=== PATIENT | female | born 1950 | race Caucasian/White ===

== ENCOUNTER → 2018-06-19 10:27 | Outpatient (CLI) | payer MEDICARE, OTHER, SELFPAY ==
[2018-06-19 11:35] LABS: Alanine Aminotransferase 19 IU/L (9-52); Albumin 4.4 g/dL (3.5-5.0); Alkaline Phosphatase 89 U/L (38-126); Aspartate Aminotransferase 29 IU/L (14-36); BUN Creatinine Ratio 34.5 (6-22); Bilirubin Total 0.5 mg/dL (0.2-1.3); Blood Urea Nitrogen 38 mg/dL (7-17); Calcium 10.2 mg/dL (8.4-10.2); Carbon Dioxide 30 mmol/L (22-32); Chloride 95 mmol/L (98-107); Cholesterol 157 mg/dL (140-199); Creatinine Urine Random 34.7 mg/dL; Estimated Glomerular Filt Rate 49.4 mL/min (>60); Globulin 4.4 g/dL (1.7-4.1); Glucose 116 mg/dL (80-110); HDL Cholesterol 46 mg/dL (40-60); HEMOLYSIS < 15 (0-50); LDL Cholesterol Calculated 85 mg/dL (<100); Potassium 4.6 mmol/L (3.4-5.1); Sodium 136 mmol/L (137-145); Total Protein 8.8 g/dL (6.3-8.2); Triglycerides 129 mg/dL (35-150)
[2018-06-19 11:40] LABS: Microalbumi Creatinin Ratio Ur 40.3 ug/mg CR (<30); Microalbumin Urine Random 1.4 mg/dL (0-1.6)
[2018-06-21 17:24] LABS: Fecal Immunochemical Test NOT DETECTED
== END ==
PROVIDERS: PCP Physician Assistant; Visit Provider Physician Assistant
DX: E78.2 Mixed hyperlipidemia (principal); I10 Essential (primary) hypertension; Z12.11 Encounter for screening for malignant neoplasm of colon
CPT/HCPCS: 36415; 80053; 80061; 82043; 82274; 82570

== ENCOUNTER → 2018-08-24 12:39 | Outpatient (CLI) | payer MEDICARE, OTHER, SELFPAY | PROVIDERS: Family Provider Physician Assistant; PCP Physician Assistant; Visit Provider Physician Assistant | DX: S81.802A Unspecified open wound, left lower leg, initial encounter (principal); S81.801A Unspecified open wound, right lower leg, initial encounter | CPT/HCPCS: 87070; 87075; 87077; 87186; 87205 ==

== ENCOUNTER → 2019-03-16 11:53 | Outpatient (CLI) | payer MEDICARE, OTHER, SELFPAY ==
[2019-03-16 12:30] LABS: Add Manual Diff / Slide Review NO; Basophils Absolute Auto 0 /uL (0-100); Basophils Percent Auto 0.4 % (0-2); Eosinophils Absolute Auto 100 /uL (0-450); Eosinophils Percent Auto 1.1 % (2-4); Hematocrit 46.1 % (36-46); Hemoglobin 15.2 g/dL (12.0-16.0); Lymphocytes Absolute Auto 1900 /uL (1100-4500); Lymphocytes Percent Auto 21.9 % (25-40); Mean Corpuscular Hemoglobin 28.9 PG (26-34); Mean Corpuscular Volume 87.8 fL (80-100); Monocytes Absolute Auto 1100 /uL (0-900); Monocytes Percent Auto 12.4 % (3-14); Neutrophils Absolute Auto 5500 /uL (1500-7000); Neutrophils Percent Auto 64.2 % (50-75); Platelet Count 242 X10^3/uL (150-400); Red Blood Cell Count 5.25 X10^6/uL (4.0-5.2); Red Cell Distribution Width 15.7 % (11.6-14.8); White Blood Cell Count 8.6 X10^3/uL (4.5-11.0)
[2019-03-16 13:25] LABS: Alanine Aminotransferase 30 IU/L (9-52); Albumin 4.7 g/dL (3.5-5.0); Albumin Globulin Ratio 1.2 (1.0-2.8); Alkaline Phosphatase 104 U/L (38-126); Aspartate Aminotransferase 34 IU/L (14-36); BUN Creatinine Ratio 25.6 (6-22); Bilirubin Total 0.9 mg/dL (0.2-1.3); Blood Urea Nitrogen 23 mg/dL (7-17); Calcium 10.6 mg/dL (8.4-10.2); Carbon Dioxide 25 mmol/L (22-32); Chloride 94 mmol/L (98-107); Cholesterol 168 mg/dL (140-199); Estimated Glomerular Filt Rate > 60.0 mL/min (>60); Globulin 3.9 g/dL (1.7-4.1); Glucose 114 mg/dL (80-110); HDL Cholesterol 55 mg/dL (40-60); HEMOLYSIS < 15 (0-50); LDL Cholesterol Calculated 78 mg/dL (<100); Potassium 4.8 mmol/L (3.4-5.1); Sodium 135 mmol/L (137-145); Total Protein 8.6 g/dL (6.3-8.2); Triglycerides 177 mg/dL (35-150)
[2019-03-16 17:17] LABS: Creatinine Urine Random 27.4 mg/dL
[2019-03-16 17:23] LABS: Microalbumin Urine Random 3.7 mg/dL (0-1.6)
== END ==
PROVIDERS: PCP Physician Assistant; Visit Provider Physician Assistant
DX: E78.2 Mixed hyperlipidemia (principal); G47.33 Obstructive sleep apnea (adult) (pediatric); I10 Essential (primary) hypertension
CPT/HCPCS: 36415; 80053; 80061; 82043; 82570; 85025

== ENCOUNTER → 2019-05-04 10:06 | Outpatient (CLI) | payer MEDICARE, OTHER, SELFPAY ==
[2019-05-04 10:13] LABS: Bacteria Urine None Seen; RBC Urine None Seen (0-5/HPF); WBC Urine None Seen (0-5/HPF)
[2019-05-04 10:43] LABS: Appearance Urine UA CLEAR; Bilirubin Urine UA NEGATIVE (NEGATIVE); Color Urine UA YELLOW; Glucose Urine UA NEGATIVE (Negative); Ketones Urine UA NEGATIVE (NEGATIVE); Leukocyte Esterase Urine UA NEGATIVE (NEGATIVE); Nitrite Urine UA NEGATIVE (Negative); Occult Blood Urine UA NEGATIVE (Negative); Protein Urine UA NEGATIVE (Negative); Specific Gravity Urine UA <=1.005 (1.000-1.035); Urobilinogen Urine UA 0.2 E.U./dL (0.2)
[2019-05-04 10:46] LABS: pH Urine UA 6.5 (4.5-8.0)
[2019-05-04 10:52] LABS: Culture Indicated Urine Cult Not Indicated; Urine Comments Microscopic Normal
[2019-05-04 11:13] LABS: Add Manual Diff / Slide Review NO; Basophils Absolute Auto 0 /uL (0-100); Basophils Percent Auto 0.5 % (0-2); Eosinophils Absolute Auto 100 /uL (0-450); Eosinophils Percent Auto 1.7 % (2-4); Hematocrit 42.3 % (36-46); Hemoglobin 14.4 g/dL (12.0-16.0); Lymphocytes Absolute Auto 1400 /uL (1100-4500); Lymphocytes Percent Auto 17.1 % (25-40); Mean Corpuscular HGB Conc 34.1 % (30-36); Mean Corpuscular Hemoglobin 29.9 PG (26-34); Mean Corpuscular Volume 87.8 fL (80-100); Monocytes Absolute Auto 900 /uL (0-900); Monocytes Percent Auto 10.8 % (3-14); Neutrophils Absolute Auto 5900 /uL (1500-7000); Neutrophils Percent Auto 69.9 % (50-75); Platelet Count 242 X10^3/uL (150-400); Red Blood Cell Count 4.82 X10^6/uL (4.0-5.2); Red Cell Distribution Width 15.3 % (11.6-14.8); White Blood Cell Count 8.4 X10^3/uL (4.5-11.0)
[2019-05-04 11:15] LABS: Alanine Aminotransferase 23 IU/L (<35); Albumin 4.5 g/dL (3.5-5.0); Alkaline Phosphatase 103 U/L (38-126); Aspartate Aminotransferase 34 IU/L (14-36); BUN Creatinine Ratio 31.1 (6-22); Bilirubin Total 0.7 mg/dL (0.2-1.3); Blood Urea Nitrogen 28 mg/dL (7-17); Calcium 10.2 mg/dL (8.4-10.2); Carbon Dioxide 26 mmol/L (22-32); Chloride 98 mmol/L (98-107); Estimated Glomerular Filt Rate > 60.0 mL/min (>60); Glucose 116 mg/dL (80-110); Potassium 4.2 mmol/L (3.4-5.1); Sodium 136 mmol/L (137-145); Total Protein 8.6 g/dL (6.3-8.2)
[2019-05-04 11:16] LABS: Albumin Globulin Ratio 1.1 (1.0-2.8); Globulin 4.1 g/dL (1.7-4.1); HEMOLYSIS < 15 (0-50)
== END ==
PROVIDERS: PCP Physician Assistant; Visit Provider Physician Assistant
DX: R79.89 Other specified abnormal findings of blood chemistry (principal); R79.9 Abnormal finding of blood chemistry, unspecified; R80.9 Proteinuria, unspecified
CPT/HCPCS: 36415; 80053; 81001; 85025

== ENCOUNTER → 2019-12-14 10:16 | Outpatient (CLI) | payer MEDICARE, OTHER, SELFPAY ==
[2019-12-14 11:23] LABS: Add Manual Diff / Slide Review NO; Basophils Absolute Auto 0 /uL (0-100); Basophils Percent Auto 0.5 % (0-2); Eosinophils Absolute Auto 100 /uL (0-450); Eosinophils Percent Auto 0.7 % (2-4); Hematocrit 43.9 % (36-46); Hemoglobin 14.3 g/dL (12.0-16.0); Lymphocytes Absolute Auto 1100 /uL (1100-4500); Lymphocytes Percent Auto 13.5 % (25-40); Mean Corpuscular HGB Conc 32.6 % (30-36); Mean Corpuscular Volume 88.9 fL (80-100); Monocytes Absolute Auto 700 /uL (0-900); Monocytes Percent Auto 8.7 % (3-14); Neutrophils Absolute Auto 6400 /uL (1500-7000); Neutrophils Percent Auto 76.6 % (50-75); Platelet Count 212 X10^3/uL (150-400); Red Blood Cell Count 4.94 X10^6/uL (4.0-5.2); Red Cell Distribution Width 14.5 % (11.6-14.8); White Blood Cell Count 8.4 X10^3/uL (4.5-11.0)
[2019-12-14 11:48] LABS: Alanine Aminotransferase 28 IU/L (<35); Albumin 4.4 g/dL (3.5-5.0); Albumin Globulin Ratio 1.1 (1.0-2.8); Alkaline Phosphatase 99 U/L (38-126); Aspartate Aminotransferase 32 IU/L (14-36); BUN Creatinine Ratio 28.6 (6-22); Bilirubin Total 0.5 mg/dL (0.2-1.3); Blood Urea Nitrogen 26 mg/dL (7-17); Calcium 10.5 mg/dL (8.4-10.2); Carbon Dioxide 28 mmol/L (22-32); Chloride 96 mmol/L (98-107); Cholesterol 155 mg/dL (140-199); Estimated Glomerular Filt Rate > 60.0 mL/min (>60); Globulin 4.1 g/dL (1.7-4.1); Glucose 119 mg/dL (80-110); HDL Cholesterol 43 mg/dL (40-60); HEMOLYSIS < 15 (0-50); LDL Cholesterol Calculated 81 mg/dL (<100); Potassium 4.1 mmol/L (3.4-5.1); Sodium 135 mmol/L (137-145); Total Protein 8.5 g/dL (6.3-8.2); Triglycerides 156 mg/dL (35-150)
[2019-12-14 12:03] LABS: Vitamin D 25 Hydroxy (D3) 34.5 ng/mL (30.0-100.0)
[2019-12-14 12:06] LABS: Free T3, Triiodothyronine Free 4.12 pg/mL (2.77-5.27); Free T4, Direct Thyroxine 1.35 ng/dL (0.78-2.19)
[2019-12-14 12:20] LABS: Thyroid Stimulating Hormone 1.49 uIU/mL (0.47-4.68)
== END ==
PROVIDERS: PCP Family Medicine; Referring Provider Family Medicine; Visit Provider Family Medicine
DX: E66.01 Morbid (severe) obesity due to excess calories (principal); E78.2 Mixed hyperlipidemia; I10 Essential (primary) hypertension
CPT/HCPCS: 36415; 80053; 80061; 82306; 84439; 84443; 84481; 85025

== ENCOUNTER → 2019-12-21 10:52 | Outpatient (CLI) | payer MEDICARE, OTHER, SELFPAY | PROVIDERS: PCP Family Medicine; Referring Provider Podiatrist; Visit Provider Family Medicine | DX: G90.09 Other idiopathic peripheral autonomic neuropathy (principal); L97.421 Non-pressure chronic ulcer of left heel and midfoot limited to breakdown of skin; L84 Corns and callosities; M79.672 Pain in left foot | CPT/HCPCS: 11055; 99203 ==

== ENCOUNTER → 2019-12-27 09:37 | Outpatient (CLI) | payer MEDICARE, OTHER, SELFPAY | PROVIDERS: PCP Family Medicine; Referring Provider Family Medicine; Visit Provider Family Medicine | DX: G90.09 Other idiopathic peripheral autonomic neuropathy (principal); L97.421 Non-pressure chronic ulcer of left heel and midfoot limited to breakdown of skin | CPT/HCPCS: 99213 ==

== ENCOUNTER → 2020-01-04 11:54 | Outpatient (CLI) | payer MEDICARE, OTHER, SELFPAY | PROVIDERS: PCP Family Medicine; Referring Provider Family Medicine; Visit Provider Family Medicine | DX: G90.09 Other idiopathic peripheral autonomic neuropathy (principal); L97.421 Non-pressure chronic ulcer of left heel and midfoot limited to breakdown of skin | CPT/HCPCS: 99213 ==

== ENCOUNTER → 2020-01-11 09:05 | Outpatient (CLI) | payer MEDICARE, OTHER, SELFPAY | PROVIDERS: PCP Family Medicine; Referring Provider Family Medicine; Visit Provider Family Medicine | DX: L97.421 Non-pressure chronic ulcer of left heel and midfoot limited to breakdown of skin (principal); I89.0 Lymphedema, not elsewhere classified | CPT/HCPCS: 97597; 99213 ==

== ENCOUNTER → 2020-01-18 08:40 | Outpatient (CLI) | payer MEDICARE, OTHER, SELFPAY | PROVIDERS: PCP Family Medicine; Referring Provider Family Medicine; Visit Provider Family Medicine | DX: G90.09 Other idiopathic peripheral autonomic neuropathy (principal); L97.421 Non-pressure chronic ulcer of left heel and midfoot limited to breakdown of skin; I89.0 Lymphedema, not elsewhere classified | CPT/HCPCS: 99213 ==

== ENCOUNTER → 2020-01-25 09:22 | Outpatient (CLI) | payer MEDICARE, OTHER, SELFPAY | PROVIDERS: PCP Family Medicine; Referring Provider Family Medicine; Visit Provider Family Medicine | DX: G90.09 Other idiopathic peripheral autonomic neuropathy (principal); L97.421 Non-pressure chronic ulcer of left heel and midfoot limited to breakdown of skin; I89.0 Lymphedema, not elsewhere classified; R68.89 Other general symptoms and signs | CPT/HCPCS: 87070; 87075; 87077; 87186; 87205; 97597; 99212 ==

== ENCOUNTER → 2020-02-01 10:04 | Outpatient (CLI) | payer MEDICARE, OTHER, SELFPAY | PROVIDERS: PCP Family Medicine; Referring Provider Family Medicine; Visit Provider Family Medicine | DX: G90.09 Other idiopathic peripheral autonomic neuropathy (principal); L97.421 Non-pressure chronic ulcer of left heel and midfoot limited to breakdown of skin; I89.0 Lymphedema, not elsewhere classified; R68.89 Other general symptoms and signs; L08.9 Local infection of the skin and subcutaneous tissue, unspecified | CPT/HCPCS: 87070; 87075; 87077; 87185; 87186; 87205; 97597; 99212; 99213 ==

== ENCOUNTER → 2020-02-14 14:03 | Outpatient (CLI) | payer MEDICARE, OTHER, SELFPAY | PROVIDERS: PCP Family Medicine; Referring Provider Family Medicine; Visit Provider Family Medicine | DX: G90.09 Other idiopathic peripheral autonomic neuropathy (principal); I89.0 Lymphedema, not elsewhere classified | CPT/HCPCS: 99212 ==

== ENCOUNTER → 2020-03-26 13:22 | Outpatient (CLI) | payer MEDICARE, OTHER, SELFPAY | PROVIDERS: PCP Family Medicine; Visit Provider Physician Assistant | DX: L03.115 Cellulitis of right lower limb (principal) | CPT/HCPCS: 87070; 87077; 87186; 87205 ==

== ENCOUNTER → 2020-04-05 13:48 | Outpatient (CLI) | payer MEDICARE, OTHER, SELFPAY | PROVIDERS: PCP Family Medicine; Referring Provider Family Medicine; Visit Provider Family Medicine | DX: I89.0 Lymphedema, not elsewhere classified (principal); S91.302A Unspecified open wound, left foot, initial encounter; G60.9 Hereditary and idiopathic neuropathy, unspecified | CPT/HCPCS: 99212; 99213 ==

== ENCOUNTER 2020-04-23 13:00 | Outpatient (RCR) | payer MEDICARE, OTHER, SELFPAY ==
--- NOTE | 2020-03-15 10:34 | PT.OPPOC ---
Physical, Occupational & Speech Therapy At [facility] Current Diagnoses Lymphedema, not elsewhere classified (03/15/20) Weakness (03/15/20) Visit Care Team Role Provider Type Chip Deutsch DO Primary Care Provider Physician Specialty: Family Practice Address: [address] [place] [address], [facility] Email: Ajay Guzman MD Attending Provider Physician Referring Provider Specialty: Wound Care Address: [address] [place] [address], [facility] Email: [email or web address] Plan Of Care PT-OP-T Assessment and Plan Start: 03/14/20 13:28 Freq: Status: Active Protocol: Document 03/15/20 10:34 SAK (Rec: 03/15/20 13:29 SAK [id number]) Physical Therapy Assessment Rehab Potential Rehabilitation Potential Good Evaluation Complexity Number of Personal Factors/Comorbidities 3 or More Number of Body Systems Impaired 4 or More Clinical Presentation at Evaluation Unstable Impairments Impairments Edema,Functional Mobility,Gait ,Strength Goals Two Impairment limited activity tolerance, difficulty with transfers Short Term Goal (STG) Patient able to ambulate 100 ft with appropriate assistive device without need for break Intermediate Goal (LTG) Patient able to ambulate 200' with appropriate device without need for break LTG Duration 06/13/20 One Impairment lymphedema Short Term Goal (STG) Decrease and stabilize lymphedema (no increase or decrease greater than 1 cm over the course of 1 week) and review and educate in all aspects of self-management for lymphedema. STG Duration 05/15/20 Sr. Payroll Processor Goal (LTG) Patient to be fit with appropriate compression stockings or compression alternative and be independent in all aspects of lymphedema management to include skin care, self-MLD, appropriate use and care of compression, therapeutic exercise LTG Duration 06/13/20 Assessment Summary Assessment Patient presents with function -limiting lymphedema bilateral LE's with initial cause of fasciotomies left LE after TKA . Prior lymphedema treatment not helpful. Wears compression stockings but not with adequate compression level and needs thigh high or stocking type; stating she is not able to don stockings with higher compression level. Her lymphedema extends above her knees as well. She has some sort of pump for home use but reports it only comes to her knee which is not adequate ; feel she may benefit from use of full length lymphedema pump with trunk component for best self-management in the home. Complicating her lymphedema is obesity, low activity level, history of wound left heel and skin breakdown behind her knees. She has poor mobility of her fasciotomy scars, and this extensive scarring inhibits lymphatic flow. Feel she would benefit from physical therapy for lymphedema management to include skin care, manual lymphatic drainage as possible , compression including helping patient to obtain appropriate compression garments or compression alternatives of appropriate compression level and length, and therapeutic exercise. Physical Therapy Plan Frequency and Duration Frequency of Treatment 20 visits Duration of Treatment 12 weeks Plan of Care Start Date 03/15/20 Plan of Care End Date 06/13/20 Therapeutic Interventions Therapeutic Interventions Gait Training,Home Exercise Program,Lymphedema Management, Manual Therapy,Patient/ Caregiver Education,Self-Care/ Home Management,Soft Tissue Mobilization,Taping, Therapeutic Activities, Therapeutic Exercises Modalities Vasopneumatic Devices Next Visit Focus/Plan Next Note Type Treatment Note Next Visit Plan Initiate skin care, MLD, compression wrapping with short stretch bandages, and lymphedema exercises. Plan of Care Dates Plan of Care Start Date 03/15/20 Plan of Care End Date 06/13/20 Electronically Signed by: Cinthya Mark, PT 03/19/20 1111 Please Sign and Return: I have reviewed this Plan of Care and certify that the skilled therapy services above are required to meet the patient?s needs. Physician Signature Date Printed Name and Credentials Clinical Instructor Signature Printed Name and Credentials
--- NOTE | 2020-03-15 10:34 | PT.OIE ---
Current Diagnoses Lymphedema, not elsewhere classified (03/15/20) Weakness (03/15/20) Past Medical History (Last Updated 01/04/20 @ 10:22 by Chip Deutsch DO) Allergic rhinitis (Chronic Unknown) Arthritis (Chronic Unknown) Cellulitis of right leg (Acute) Essential hypertension (Chronic 09/11/10) GERD (gastroesophageal reflux disease) (Chronic Unknown) GERD (gastroesophageal reflux disease) (Chronic Unknown) Hyperlipemia (Chronic Unknown) Hypertension (Chronic Unknown) Lymphedema (Chronic Unknown) Mixed hyperlipidemia (Chronic) Morbid obesity due to excess calories (Chronic) Obstructive sleep apnea (Chronic Unknown) Obstructive sleep apnea syndrome (Chronic) Staph skin infection (Acute) Past Surgical History (Last Reviewed 12/14/19 @ 09:37 by Chip Deutsch DO) Hx of total knee replacement (Resolved Unknown) Visit Care Team Role Provider Type Chip Deutsch DO Primary Care Provider Physician Specialty: Family Practice Address: [address] [place] [address] Email: Ajay Guzman MD Attending Provider Physician Referring Provider Specialty: Wound Care Address: [address] [place] [address] Email: [email or web address] Physical Therapy Initial Evaluation PT-OP-A Visit Information Start: 03/14/20 13:28 Freq: Status: Active Protocol: Document 03/15/20 10:34 SAK (Rec: 03/15/20 11:11 SAK [id number]) Out-Patient Physical Therapy Visit Information Visit Information Visit Type Initial Evaluation Visit Start Time 10:35 Visit Stop Time 11:56 Total Visit Minutes 86 Visit Number 1 Evaluation Information Evaluation Date 03/15/20 Precautions Precautions PMH: Neuropathy bilateral LE's , osteoarthritis, sleep apnea, cellulitis, HTN, left TKA with complications requiring fasciotomies PT-OP-B Current Condition Start: 03/14/20 13:28 Freq: Status: Active Protocol: Document 03/15/20 10:34 SAK (Rec: 03/15/20 11:11 SAK [id number]) Current Condition History of Current Condition Onset Date 6 yrs Current Complaints lymphedema bilateral LE's History of Current Condition left TKA with fasciotomies due to excess swelling. Used wound vac. Reports she did well for awhile, then 6 years gradual worsening on left, gradual onset of lymphedema on right LE as well. Treated with 2 diuretics, not helpful, worsened. Also reports weight gain. Complicated by osteoporosis left wrist and right shoulder the worst per patient report. States she has a lymphedema pump at home but only to knee. Has history of cellulitis 3x. Has compression stockings 8-15 mm Hg, knee high only. Lives alone, no assist with donning or doffing compression garments, or doing self- wrapping. Has neighbor who assists with yardwork and takes her to medical appointments. Patient states she doesn't feel she has lymphedema above the knee. Previously had Farrow wraps. Using walker for 5 years, uses single point canes into bathroom or in kitchen. Reports having difficult transfering in/out of her car ([facility]). Patient is 5'2, 370#. Prior Treatments and Tests Recently seeing wound care for wound on left heel. Staph infection behind both knees. Treatment Goals Patient/Caregiver Goals Reduce lymphedema, be able to self manage, improve her mobility. Prior Functional Status Baseline Function- ADL's Independent Baseline Function- Mobility Independent Baseline Function- Gait indep Current Functional Impairments (Reported) Functional Limitations- Mobility/Gait limited, uses 4WW Functional Limitations- Work/School retired PT-OP-C Subjective Start: 03/14/20 13:28 Freq: Status: Active Protocol: Document 03/15/20 10:34 [facility] (Rec: 03/15/20 13:29 SAK [id number]) OP-PT Pain Assessment Pain Assessment Grid Paper Pain Assessment Grid Completed Yes PT-OP-E Functional Tests Start: 03/14/20 13:28 Freq: Status: Active Protocol: Document 03/15/20 10:34 SAK (Rec: 03/15/20 13:29 SAK [id number]) Functional Tests 2 Minute Walk Test Distance 35' Device Used 4WW PT-OP-G Mobility & Gait Start: 03/14/20 13:28 Freq: Status: Active Protocol: Document 03/15/20 10:34 [facility] (Rec: 03/15/20 13:29 SAK [id number]) OP Mobility Evaluation Transfers Sit to Stand SB to min assist Car Transfers mod assist Functional Movements Other Functional Movements sit to supine: mod assist for LE's today on treatment table. Patient reports independent but labored at home. OP Gait Assessment Gait Gait Assistance Required: Independent Distance (Feet) 35 Assistive Devices Assistive Device 4 Wheeled Walker Gait Deviations General Gait Pattern Decreased Stride Length, Decreased Feet Clearance, Flexed Trunk,Wide Based Gait Factors Limiting Gait Function Factors Limiting Gait Function Decreased Strength,Respiratory Distress Comments Gait Comments Fatigues quickly PT-OP-J Posture/Palpation/Skin Start: 03/14/20 13:28 Freq: Status: Active Protocol: Document 03/15/20 10:34 SAK (Rec: 03/15/20 13:29 SAK [id number]) Palpation Assessment Location left LE Palpation Findings Edema,Soft Tissue Tightness Skin Assessment Edema Assessment bilateral LE's Edema Type Pitting Edema Appearance Discolored,Puffy,Shiny Subjective Edema Description Tightness Comments hemosideran staining bilateral lower legs left greater than right, Incisional Assessment Incision Appearance/Comments medial and lateral lower leg fasciotomy scars with decreased mobility, crusted appearance medially: see photos in chart PT-OP-K Range of Motion Start: 03/14/20 13:28 Freq: Status: Active Protocol: Document 03/15/20 10:34 SAK (Rec: 03/15/20 13:29 SAK [id number]) Hip Goniometric Range of Motion Hip lloyd Hip ROM WFL Yes Knee Goniometric Range of Motion Knee lloyd Knee ROM WFL Yes Ankle and Foot Goniometric Range of Motion Ankle and Foot lloyd Ankle/Foot ROM WFL Yes PT-OP-M Strength Start: 03/14/20 13:28 Freq: Status: Active Protocol: Document 03/15/20 10:34 SAK (Rec: 03/15/20 13:29 SAK [id number]) Hip Strength Hip Manual Muscle Testing lloyd Comments less than antigravity strength lloyd Knee Strength Knee Manual Muscle Testing lloyd Comments grossly 3+-4-/5 Ankle/Foot Strength Ankle and Foot Manual Muscle Testing lloyd Dorsiflexion (L4) 4 Good Plantarflexion (S1) 4 Good PT-OP-Q Treatments Start: 03/14/20 13:28 Freq: Status: Active Protocol: Document 03/15/20 10:34 SAK (Rec: 03/15/20 13:29 SAK [id number]) Lymphedema Treatment Lymphedema Wrapping Other No wrapping today. Patient assisted in donning bilateral Compression stockings. Issued information about local compression assembler fitter ( [employer] [facility] [place]), and other options as well. Patient Education Lymphedema Pathology educated verbally using visual aides Lymphedema Prevention issued written information and discussed Lymphedema Precautions issued written information and discussed Compression Garments discussed options, alternative wraps Sequential Lymphedema Exercises instructed and issued written handouts PT-OP-T Assessment and Plan Start: 03/14/20 13:28 Freq: Status: Active Protocol: Document 03/15/20 10:34 [facility] (Rec: 03/15/20 13:29 [facility] [id number]) Physical Therapy Assessment Rehab Potential Rehabilitation Potential Good Evaluation Complexity Number of Personal Factors/Comorbidities 3 or More Number of Body Systems Impaired 4 or More Clinical Presentation at Evaluation Unstable Impairments Impairments Edema,Functional Mobility,Gait ,Strength Goals Two Impairment limited activity tolerance, difficulty with transfers Short Term Goal (STG) Patient able to ambulate 100 ft with appropriate assistive device without need for break Casting Operator Goal (LTG) Patient able to ambulate 200' with appropriate device without need for break LTG Duration 06/13/20 One Impairment lymphedema Short Term Goal (STG) Decrease and stabilize lymphedema (no increase or decrease greater than 1 cm over the course of 1 week) and review and educate in all aspects of self-management for lymphedema. STG Duration 05/15/20 Custodial Goal (LTG) Patient to be fit with appropriate compression stockings or compression alternative and be independent in all aspects of lymphedema management to include skin care, self-MLD, appropriate use and care of compression, therapeutic exercise LTG Duration 06/13/20 Assessment Summary Assessment Patient presents with function -limiting lymphedema bilateral LE's with initial cause of fasciotomies left LE after TKA . Prior lymphedema treatment not helpful. Wears compression stockings but not with adequate compression level and needs thigh high or stocking type; stating she is not able to don stockings with higher compression level. Her lymphedema extends above her knees as well. She has some sort of pump for home use but reports it only comes to her knee which is not adequate ; feel she may benefit from use of full length lymphedema pump with trunk component for best self-management in the home. Complicating her lymphedema is obesity, low activity level, history of wound left heel and skin breakdown behind her knees. She has poor mobility of her fasciotomy scars, and this extensive scarring inhibits lymphatic flow. Feel she would benefit from physical therapy for lymphedema management to include skin care, manual lymphatic drainage as possible , compression including helping patient to obtain appropriate compression garments or compression alternatives of appropriate compression level and length, and therapeutic exercise. Physical Therapy Plan Frequency and Duration Frequency of Treatment 20 visits Duration of Treatment 12 weeks Plan of Care Start Date 03/15/20 Plan of Care End Date 06/13/20 Therapeutic Interventions Therapeutic Interventions Gait Training,Home Exercise Program,Lymphedema Management, Manual Therapy,Patient/ Caregiver Education,Self-Care/ Home Management,Soft Tissue Mobilization,Taping, Therapeutic Activities, Therapeutic Exercises Modalities Vasopneumatic Devices Next Visit Focus/Plan Next Note Type Treatment Note Next Visit Plan Initiate skin care, MLD, compression wrapping with short stretch bandages, and lymphedema exercises.
--- NOTE | 2020-03-21 08:11 | PT-OP ANOTE ---
cancelled due to ill
--- NOTE | 2020-03-26 15:50 | PT-OP ANOTE ---
cancelled appointment due to cellulitis
--- NOTE | 2020-03-28 16:07 | PT.OTN ---
Current Diagnoses Lymphedema, not elsewhere classified (03/28/20) Weakness (03/28/20) Physical Therapy Treatment Note PT-OP-A Visit Information Start: 03/14/20 13:28 Freq: Status: Active Protocol: Document 03/28/20 15:57 SAK (Rec: 03/28/20 16:07 SAK [id number]) Out-Patient Physical Therapy Visit Information Visit Information Visit Type Treatment Note Visit Start Time 14:30 Visit Stop Time 15:45 Total Visit Minutes 75 Visit Number 2 Evaluation Information Evaluation Date 03/15/20 Precautions Precautions PMH: Neuropathy bilateral LE's , osteoarthritis, sleep apnea, cellulitis, HTN, left TKA with complications requiring fasciotomies PT-OP-B Current Condition Start: 03/14/20 13:28 Freq: Status: Active Protocol: Document 03/28/20 15:57 SAK (Rec: 03/28/20 16:07 SAK [id number]) Current Condition History of Current Condition Onset Date 6 yrs Current Complaints lymphedema bilateral LE's History of Current Condition left TKA with fasciotomies due to excess swelling. Used wound vac. Reports she did well for awhile, then 6 years gradual worsening on left, gradual onset of lymphedema on right LE as well. Treated with 2 diuretics, not helpful, worsened. Also reports weight gain. Complicated by osteoporosis left wrist and right shoulder the worst per patient report. States she has a lymphedema pump at home but only to knee. Has history of cellulitis 3x. Has compression stockings 8-15 mm Hg, knee high only. Lives alone, no assist with donning or doffing compression garments, or doing self- wrapping. Has neighbor who assists with yardwork and takes her to medical appointments. Patient states she doesn't feel she has lymphedema above the knee. Previously had Farrow wraps. Using walker for 5 years, uses single point canes into bathroom or in kitchen. Reports having difficult transfering in/out of her car ([facility] Patient is 5'2, 370#. Prior Treatments and Tests Recently seeing wound care for wound on left heel. Staph infection behind both knees. Treatment Goals Patient/Caregiver Goals Reduce lymphedema, be able to self manage, improve her mobility. PT-OP-C Subjective Start: 03/14/20 13:28 Freq: Status: Active Protocol: Document 03/15/20 10:34 SAK (Rec: 03/15/20 13:29 SAK [id number]) OP-PT Pain Assessment Pain Assessment Grid Paper Pain Assessment Grid Completed Yes PT-OP-E Functional Tests Start: 03/14/20 13:28 Freq: Status: Active Protocol: Document 03/15/20 10:34 SAK (Rec: 03/15/20 13:29 SAK [id number]) Functional Tests 2 Minute Walk Test Distance 35' Device Used 4WW PT-OP-G Mobility & Gait Start: 03/14/20 13:28 Freq: Status: Active Protocol: Document 03/15/20 10:34 SAK (Rec: 03/15/20 13:29 SAK [id number]) OP Mobility Evaluation Transfers Sit to Stand SB to min assist Car Transfers mod assist Functional Movements Other Functional Movements sit to supine: mod assist for LE's today on treatment table. Patient reports independent but labored at home. OP Gait Assessment Gait Gait Assistance Required: Independent Distance (Feet) 35 Assistive Devices Assistive Device 4 Wheeled Walker Gait Deviations General Gait Pattern Decreased Stride Length, Decreased Feet Clearance, Flexed Trunk,Wide Based Gait Factors Limiting Gait Function Factors Limiting Gait Function Decreased Strength,Respiratory Distress Comments Gait Comments Fatigues quickly PT-OP-J Posture/Palpation/Skin Start: 03/14/20 13:28 Freq: Status: Active Protocol: Document 03/15/20 10:34 [facility] (Rec: 03/15/20 13:29 [facility] [id number]) Palpation Assessment Location left LE Palpation Findings Edema,Soft Tissue Tightness Skin Assessment Edema Assessment bilateral LE's Edema Type Pitting Edema Appearance Discolored,Puffy,Shiny Subjective Edema Description Tightness Comments hemosideran staining bilateral lower legs left greater than right, Incisional Assessment Incision Appearance/Comments medial and lateral lower leg fasciotomy scars with decreased mobility, crusted appearance medially: see photos in chart PT-OP-K Range of Motion Start: 03/14/20 13:28 Freq: Status: Active Protocol: Document 03/15/20 10:34 [facility] (Rec: 03/15/20 13:29 SAK [id number]) Hip Goniometric Range of Motion Hip lloyd Hip ROM WFL Yes Knee Goniometric Range of Motion Knee lloyd Knee ROM WFL Yes Ankle and Foot Goniometric Range of Motion Ankle and Foot lloyd Ankle/Foot ROM WFL Yes PT-OP-M Strength Start: 03/14/20 13:28 Freq: Status: Active Protocol: Document 03/15/20 10:34 [facility] (Rec: 03/15/20 13:29 SAK [id number]) Hip Strength Hip Manual Muscle Testing lloyd Comments less than antigravity strength lloyd Knee Strength Knee Manual Muscle Testing lloyd Comments grossly 3+-4-/5 Ankle/Foot Strength Ankle and Foot Manual Muscle Testing lloyd Dorsiflexion (L4) 4 Good Plantarflexion (S1) 4 Good PT-OP-N Lymphedema Start: 03/19/20 11:08 Freq: Status: Active Protocol: Document 03/15/20 10:34 [facility] (Rec: 03/19/20 11:11 [facility] [id number]) Lymphedema Measurements Lower Extremity Circumference Measurements Right Affected MT Heads 22.1 cm Mid-foot 22.6 cm Medial Malleolus 35.6 cm 10 cm From Medial Malleolus 37.1 cm 20 cm From Medial Malleolus 59.9 cm 30 cm From Medial Malleolus 64.5 cm 40 cm From Medial Malleolus 72.4 cm 50 cm From Medial Malleolus 84.3 cm 60 cm From Medial Malleolus 85.4 cm Left Affected MT Heads 23.2 cm Mid-foot 23.8 cm Medial Malleolus 34.1 cm 10 cm From Medial Malleolus 42 cm 20 cm From Medial Malleolus 69.4 cm 30 cm From Medial Malleolus 75.7 cm 40 cm From Medial Malleolus 82.4 cm 50 cm From Medial Malleolus 94.5 cm 60 cm From Medial Malleolus 92.4 cm PT-OP-Q Treatments Start: 03/14/20 13:28 Freq: Status: Active Protocol: Document 03/28/20 15:57 [facility] (Rec: 03/28/20 16:07 [facility] [id number]) Lymphedema Treatment Lymphedema Wrapping Body Location right LE Materials Tricofix size G, Artiflex, black foam, Comprilan. Other left LE: knee high compression stocking, Tubigrip size G ankle to knee Sequential Lymphedema Exercises Location ankle pumps, LAQ Other Other instructed friend [place] in lymphedema wrapping Consulted with wound care regarding patients wound posterior right knee; they scheduled patient for appointment and provided absorbant dressing. PT-OP-T Assessment and Plan Start: 03/14/20 13:28 Freq: Status: Active Protocol: Document 03/28/20 15:57 [facility] (Rec: 03/28/20 16:07 [facility] [id number]) Physical Therapy Assessment Goals Two Impairment limited activity tolerance, difficulty with transfers Short Term Goal (STG) Patient able to ambulate 100 ft with appropriate assistive device without need for break Fdc Goal (LTG) Patient able to ambulate 200' with appropriate device without need for break LTG Duration 06/13/20 One Impairment lymphedema Short Term Goal (STG) Decrease and stabilize lymphedema (no increase or decrease greater than 1 cm over the course of 1 week) and review and educate in all aspects of self-management for lymphedema. STG Duration 05/15/20 Cat Wagon Operator Goal (LTG) Patient to be fit with appropriate compression stockings or compression alternative and be independent in all aspects of lymphedema management to include skin care, self-MLD, appropriate use and care of compression, therapeutic exercise LTG Duration 06/13/20 Assessment Summary Assessment Patient circumferential measurements increased right LE with increased redness and warmth due to lymphedema. Patient on antibiotics. Initiated lymphedema wrapping right LE with instruction of patient's friend [place] who will be wrapping at home over the weekend; he was very attentive and receptive to instruction. Measurements decreased some on left, patient requested only wrapping one LE so Tubigrip size H applied left LE over compression stocking. Physical Therapy Plan Frequency and Duration Frequency of Treatment 20 visits Duration of Treatment 12 weeks Plan of Care Start Date 03/15/20 Plan of Care End Date 06/13/20 Therapeutic Interventions Therapeutic Interventions Gait Training,Home Exercise Program,Lymphedema Management, Manual Therapy,Patient/ Caregiver Education,Self-Care/ Home Management,Soft Tissue Mobilization,Taping, Therapeutic Activities, Therapeutic Exercises Modalities Vasopneumatic Devices Next Visit Focus/Plan Next Note Type Treatment Note Next Visit Plan Assess response to lymphedema wraps, circumferential measurements, initiate MLD, lymphedema wrapping, lymphedema exercises.
--- NOTE | 2020-03-29 14:26 | PT.OTN ---
Current Diagnoses Lymphedema, not elsewhere classified (03/29/20) Weakness (03/29/20) Physical Therapy Treatment Note PT-OP-A Visit Information Start: 03/14/20 13:28 Freq: Status: Active Protocol: Document 03/29/20 12:58 SAK (Rec: 03/29/20 13:12 SAK [id number]) Out-Patient Physical Therapy Visit Information Visit Information Visit Type Treatment Note Visit Start Time 13:00 Visit Stop Time 14:30 Total Visit Minutes 75 Visit Number 3 Evaluation Information Evaluation Date 03/15/20 Precautions Precautions PMH: Neuropathy bilateral LE's , osteoarthritis, sleep apnea, cellulitis, HTN, left TKA with complications requiring fasciotomies PT-OP-B Current Condition Start: 03/14/20 13:28 Freq: Status: Active Protocol: Document 03/28/20 15:57 SAK (Rec: 03/28/20 16:07 SAK [id number]) Current Condition History of Current Condition Onset Date 6 yrs Current Complaints lymphedema bilateral LE's History of Current Condition left TKA with fasciotomies due to excess swelling. Used wound vac. Reports she did well for awhile, then 6 years gradual worsening on left, gradual onset of lymphedema on right LE as well. Treated with 2 diuretics, not helpful, worsened. Also reports weight gain. Complicated by osteoporosis left wrist and right shoulder the worst per patient report. States she has a lymphedema pump at home but only to knee. Has history of cellulitis 3x. Has compression stockings 8-15 mm Hg, knee high only. Lives alone, no assist with donning or doffing compression garments, or doing self- wrapping. Has neighbor who assists with yardwork and takes her to medical appointments. Patient states she doesn't feel she has lymphedema above the knee. Previously had Farrow wraps. Using walker for 5 years, uses single point canes into bathroom or in kitchen. Reports having difficult transfering in/out of her car ([facility] Patient is 5'2, 370#. Prior Treatments and Tests Recently seeing wound care for wound on left heel. Staph infection behind both knees. Treatment Goals Patient/Caregiver Goals Reduce lymphedema, be able to self manage, improve her mobility. PT-OP-C Subjective Start: 03/14/20 13:28 Freq: Status: Active Protocol: Document 03/29/20 12:58 SAK (Rec: 03/29/20 13:12 SAK [id number]) OP-PT Subjective Patient Comments Patient Comments Top wrap came off before bed. Feels wraps helped. Tubigrip on left LE ok, until during the night. Being prescribed new antibiotic. PT-OP-E Functional Tests Start: 03/14/20 13:28 Freq: Status: Active Protocol: Document 03/15/20 10:34 SAK (Rec: 03/15/20 13:29 SAK [id number]) Functional Tests 2 Minute Walk Test Distance 35' Device Used 4WW PT-OP-G Mobility & Gait Start: 03/14/20 13:28 Freq: Status: Active Protocol: Document 03/15/20 10:34 SAK (Rec: 03/15/20 13:29 SAK [id number]) OP Mobility Evaluation Transfers Sit to Stand SB to min assist Car Transfers mod assist Functional Movements Other Functional Movements sit to supine: mod assist for LE's today on treatment table. Patient reports independent but labored at home. OP Gait Assessment Gait Gait Assistance Required: Independent Distance (Feet) 35 Assistive Devices Assistive Device 4 Wheeled Walker Gait Deviations General Gait Pattern Decreased Stride Length, Decreased Feet Clearance, Flexed Trunk,Wide Based Gait Factors Limiting Gait Function Factors Limiting Gait Function Decreased Strength,Respiratory Distress Comments Gait Comments Fatigues quickly PT-OP-J Posture/Palpation/Skin Start: 03/14/20 13:28 Freq: Status: Active Protocol: Document 03/15/20 10:34 SAK (Rec: 03/15/20 13:29 SAK [id number]) Palpation Assessment Location left LE Palpation Findings Edema,Soft Tissue Tightness Skin Assessment Edema Assessment bilateral LE's Edema Type Pitting Edema Appearance Discolored,Puffy,Shiny Subjective Edema Description Tightness Comments hemosideran staining bilateral lower legs left greater than right, Incisional Assessment Incision Appearance/Comments medial and lateral lower leg fasciotomy scars with decreased mobility, crusted appearance medially: see photos in chart PT-OP-K Range of Motion Start: 03/14/20 13:28 Freq: Status: Active Protocol: Document 03/15/20 10:34 SAK (Rec: 03/15/20 13:29 SAK [id number]) Hip Goniometric Range of Motion Hip lloyd Hip ROM WFL Yes Knee Goniometric Range of Motion Knee lloyd Knee ROM WFL Yes Ankle and Foot Goniometric Range of Motion Ankle and Foot lloyd Ankle/Foot ROM WFL Yes PT-OP-M Strength Start: 03/14/20 13:28 Freq: Status: Active Protocol: Document 03/15/20 10:34 [facility] (Rec: 03/15/20 13:29 SAK [id number]) Hip Strength Hip Manual Muscle Testing lloyd Comments less than antigravity strength lloyd Knee Strength Knee Manual Muscle Testing lloyd Comments grossly 3+-4-/5 Ankle/Foot Strength Ankle and Foot Manual Muscle Testing lloyd Dorsiflexion (L4) 4 Good Plantarflexion (S1) 4 Good PT-OP-N Lymphedema Start: 03/19/20 11:08 Freq: Status: Active Protocol: Document 03/29/20 12:58 [facility] (Rec: 03/29/20 14:26 [facility] [id number]) Lymphedema Measurements Lower Extremity Circumference Measurements Right Affected MT Heads 22.8 cm Mid-foot 21.9 cm Medial Malleolus 30.5 cm 10 cm From Medial Malleolus 36.5 cm 20 cm From Medial Malleolus 59 cm 30 cm From Medial Malleolus 65 cm 40 cm From Medial Malleolus 72.4 cm 50 cm From Medial Malleolus 87 cm PT-OP-Q Treatments Start: 03/14/20 13:28 Freq: Status: Active Protocol: Document 03/29/20 12:58 [facility] (Rec: 03/29/20 14:26 [facility] [id number]) Lymphedema Treatment Lymphedema Wrapping Body Location right LE Materials Tricofix size G, Artiflex, black foam, Comprilan to just below the knee Other left LE: knee high compression stocking, Tubigrip size G ankle to knee, size F Tubigrip toes to above ankle Sequential Lymphedema Exercises Location ankle pumps, LAQ Comments 10 reps ea x 2 Other Other Continued instruction of Severino in lymphedema wrapping with short stretch bandages right, tubigrip left (patient refuses lymphedema wraps on both) PT-OP-T Assessment and Plan Start: 03/14/20 13:28 Freq: Status: Active Protocol: Document 03/29/20 12:58 [facility] (Rec: 03/29/20 13:12 [facility] [id number]) Physical Therapy Assessment Goals Two Impairment limited activity tolerance, difficulty with transfers Short Term Goal (STG) Patient able to ambulate 100 ft with appropriate assistive device without need for break Franchise Manager Goal (LTG) Patient able to ambulate 200' with appropriate device without need for break LTG Duration 06/13/20 One Impairment lymphedema Short Term Goal (STG) Decrease and stabilize lymphedema (no increase or decrease greater than 1 cm over the course of 1 week) and review and educate in all aspects of self-management for lymphedema. STG Duration 05/15/20 Franchise Manager Goal (LTG) Patient to be fit with appropriate compression stockings or compression alternative and be independent in all aspects of lymphedema management to include skin care, self-MLD, appropriate use and care of compression, therapeutic exercise LTG Duration 06/13/20 Assessment Summary Assessment Decreased circumferential measurements today, most dramatically at ankle with 6 cm decrease. Due to drainage in wound behind and above knee , lymphedema wraps stopped below the knee today. Patient to see wound care next week. Physical Therapy Plan Frequency and Duration Frequency of Treatment 20 visits Duration of Treatment 12 weeks Plan of Care Start Date 03/15/20 Plan of Care End Date 06/13/20 Therapeutic Interventions Therapeutic Interventions Gait Training,Home Exercise Program,Lymphedema Management, Manual Therapy,Patient/ Caregiver Education,Self-Care/ Home Management,Soft Tissue Mobilization,Taping, Therapeutic Activities, Therapeutic Exercises Modalities Vasopneumatic Devices Next Visit Focus/Plan Next Note Type Treatment Note Next Visit Plan Continue lymphedema management .
--- NOTE | 2020-04-05 12:43 | PT.OTN ---
Current Diagnoses Lymphedema, not elsewhere classified (04/05/20) Weakness (04/05/20) Physical Therapy Treatment Note PT-OP-A Visit Information Start: 03/14/20 13:28 Freq: Status: Active Protocol: Document 04/05/20 10:31 SAK (Rec: 04/05/20 10:47 SAK [id number]) Out-Patient Physical Therapy Visit Information Visit Information Visit Type Treatment Note Visit Start Time 10:30 Visit Stop Time 11:54 Total Visit Minutes 84 Visit Number 4 Evaluation Information Evaluation Date 03/15/20 Precautions Precautions PMH: Neuropathy bilateral LE's , osteoarthritis, sleep apnea, cellulitis, HTN, left TKA with complications requiring fasciotomies PT-OP-B Current Condition Start: 03/14/20 13:28 Freq: Status: Active Protocol: Document 03/28/20 15:57 SAK (Rec: 03/28/20 16:07 SAK [id number]) Current Condition History of Current Condition Onset Date 6 yrs Current Complaints lymphedema bilateral LE's History of Current Condition left TKA with fasciotomies due to excess swelling. Used wound vac. Reports she did well for awhile, then 6 years gradual worsening on left, gradual onset of lymphedema on right LE as well. Treated with 2 diuretics, not helpful, worsened. Also reports weight gain. Complicated by osteoporosis left wrist and right shoulder the worst per patient report. States she has a lymphedema pump at home but only to knee. Has history of cellulitis 3x. Has compression stockings 8-15 mm Hg, knee high only. Lives alone, no assist with donning or doffing compression garments, or doing self- wrapping. Has neighbor who assists with yardwork and takes her to medical appointments. Patient states she doesn't feel she has lymphedema above the knee. Previously had Farrow wraps. Using walker for 5 years, uses single point canes into bathroom or in kitchen. Reports having difficult transfering in/out of her car ([facility] Patient is 5'2, 370#. Prior Treatments and Tests Recently seeing wound care for wound on left heel. Staph infection behind both knees. Treatment Goals Patient/Caregiver Goals Reduce lymphedema, be able to self manage, improve her mobility. PT-OP-C Subjective Start: 03/14/20 13:28 Freq: Status: Active Protocol: Document 04/05/20 10:31 SAK (Rec: 04/05/20 10:47 SAK [id number]) OP-PT Subjective Patient Comments Patient Comments Went to [facility] in [place] for consult regarding compression wraps, had to have fitter come to her car for measurements, Reduction wraps should come over the next week . Caregiver Severino has been doing pretty well with the wrapping, firm in pm, loose in am; wrapping helpful. PT-OP-E Functional Tests Start: 03/14/20 13:28 Freq: Status: Active Protocol: Document 03/15/20 10:34 SAK (Rec: 03/15/20 13:29 SAK [id number]) Functional Tests 2 Minute Walk Test Distance 35' Device Used 4WW PT-OP-G Mobility & Gait Start: 03/14/20 13:28 Freq: Status: Active Protocol: Document 03/15/20 10:34 SAK (Rec: 03/15/20 13:29 SAK [id number]) OP Mobility Evaluation Transfers Sit to Stand SB to min assist Car Transfers mod assist Functional Movements Other Functional Movements sit to supine: mod assist for LE's today on treatment table. Patient reports independent but labored at home. OP Gait Assessment Gait Gait Assistance Required: Independent Distance (Feet) 35 Assistive Devices Assistive Device 4 Wheeled Walker Gait Deviations General Gait Pattern Decreased Stride Length, Decreased Feet Clearance, Flexed Trunk,Wide Based Gait Factors Limiting Gait Function Factors Limiting Gait Function Decreased Strength,Respiratory Distress Comments Gait Comments Fatigues quickly PT-OP-J Posture/Palpation/Skin Start: 03/14/20 13:28 Freq: Status: Active Protocol: Document 03/15/20 10:34 SAK (Rec: 03/15/20 13:29 SAK [id number]) Palpation Assessment Location left LE Palpation Findings Edema,Soft Tissue Tightness Skin Assessment Edema Assessment bilateral LE's Edema Type Pitting Edema Appearance Discolored,Puffy,Shiny Subjective Edema Description Tightness Comments hemosideran staining bilateral lower legs left greater than right, Incisional Assessment Incision Appearance/Comments medial and lateral lower leg fasciotomy scars with decreased mobility, crusted appearance medially: see photos in chart PT-OP-K Range of Motion Start: 03/14/20 13:28 Freq: Status: Active Protocol: Document 03/15/20 10:34 SAK (Rec: 03/15/20 13:29 SAK [id number]) Hip Goniometric Range of Motion Hip lloyd Hip ROM WFL Yes Knee Goniometric Range of Motion Knee lloyd Knee ROM WFL Yes Ankle and Foot Goniometric Range of Motion Ankle and Foot lloyd Ankle/Foot ROM WFL Yes PT-OP-M Strength Start: 03/14/20 13:28 Freq: Status: Active Protocol: Document 03/15/20 10:34 [facility] (Rec: 03/15/20 13:29 SAK [id number]) Hip Strength Hip Manual Muscle Testing lloyd Comments less than antigravity strength lloyd Knee Strength Knee Manual Muscle Testing lloyd Comments grossly 3+-4-/5 Ankle/Foot Strength Ankle and Foot Manual Muscle Testing lloyd Dorsiflexion (L4) 4 Good Plantarflexion (S1) 4 Good PT-OP-N Lymphedema Start: 03/19/20 11:08 Freq: Status: Active Protocol: Document 04/05/20 10:31 [facility] (Rec: 04/05/20 12:43 [facility] [id number]) Lymphedema Measurements Lower Extremity Circumference Measurements Right Affected MT Heads 22.8 cm Mid-foot 23.4 cm Medial Malleolus 35.5 cm 10 cm From Medial Malleolus 35.7 cm 20 cm From Medial Malleolus 59.7 cm 30 cm From Medial Malleolus 62 cm 40 cm From Medial Malleolus 73.2 cm 50 cm From Medial Malleolus 90.1 cm 60 cm From Medial Malleolus 88 cm Left Affected MT Heads 23.1 cm Mid-foot 23.1 cm Medial Malleolus 34 cm 10 cm From Medial Malleolus 38.1 cm 20 cm From Medial Malleolus 67 cm 30 cm From Medial Malleolus 75.2 cm 40 cm From Medial Malleolus 78.3 cm 50 cm From Medial Malleolus 96 cm 60 cm From Medial Malleolus 96 cm PT-OP-Q Treatments Start: 03/14/20 13:28 Freq: Status: Active Protocol: Document 04/05/20 10:31 [facility] (Rec: 04/05/20 10:47 SAK [id number]) Lymphedema Treatment Manual Lymphatic Drainage Location for bilateral LE lymphedema Comments reclined Lymphedema Wrapping Body Location right LE Materials Knee high compression stocking , Tubigrip size G 2 layers ankle to mid calf, 1 layer mid calf to knee, size F Tubigrip foot to above ankle with 2 layers at ankle Other left LE: knee high compression stocking, Tubigrip size G ankle to kne with 2 layers ankle to mid calf, size F Tubigrip toes to above ankle with 2 layers at ankle Sequential Lymphedema Exercises Location ankle pumps, LAQ Comments 10 reps ea x 2 Patient Education Sequential Lymphedema Exercises 10 x ea Other Other No lymphedema wrapping with Artiflex and Comprilan today due to patient having wound care appointment after PT. PT-OP-T Assessment and Plan Start: 03/14/20 13:28 Freq: Status: Active Protocol: Document 04/05/20 10:31 SAK (Rec: 04/05/20 10:47 SAK [id number]) Physical Therapy Assessment Goals Two Impairment limited activity tolerance, difficulty with transfers Short Term Goal (STG) Patient able to ambulate 100 ft with appropriate assistive device without need for break Manager Of Security Goal (LTG) Patient able to ambulate 200' with appropriate device without need for break LTG Duration 06/13/20 One Impairment lymphedema Short Term Goal (STG) Decrease and stabilize lymphedema (no increase or decrease greater than 1 cm over the course of 1 week) and review and educate in all aspects of self-management for lymphedema. STG Duration 05/15/20 Manager Of Security Goal (LTG) Patient to be fit with appropriate compression stockings or compression alternative and be independent in all aspects of lymphedema management to include skin care, self-MLD, appropriate use and care of compression, therapeutic exercise LTG Duration 06/13/20 Assessment Summary Assessment Patient hasn't been wearing cmpression wraps for 3 hours prior to PT today due to taken off in am and not redone; patient reports she can tell swelling has increased without them on. Physical Therapy Plan Frequency and Duration Frequency of Treatment 20 visits Duration of Treatment 12 weeks Plan of Care Start Date 03/15/20 Plan of Care End Date 06/13/20 Therapeutic Interventions Therapeutic Interventions Gait Training,Home Exercise Program,Lymphedema Management, Manual Therapy,Patient/ Caregiver Education,Self-Care/ Home Management,Soft Tissue Mobilization,Taping, Therapeutic Activities, Therapeutic Exercises Modalities Vasopneumatic Devices Next Visit Focus/Plan Next Note Type Treatment Note Next Visit Plan Continue lymphedema management .
--- NOTE | 2020-04-10 12:07 | PT.OTN ---
Current Diagnoses Lymphedema, not elsewhere classified (04/10/20) Weakness (04/10/20) Physical Therapy Treatment Note PT-OP-A Visit Information Start: 03/14/20 13:28 Freq: Status: Active Protocol: Document 04/10/20 10:33 SAK (Rec: 04/10/20 10:48 SAK [id number]) Out-Patient Physical Therapy Visit Information Visit Information Visit Type Treatment Note Visit Start Time 10:30 Visit Stop Time 11:54 Total Visit Minutes 84 Visit Number 5 Evaluation Information Evaluation Date 03/15/20 Precautions Precautions PMH: Neuropathy bilateral LE's , osteoarthritis, sleep apnea, cellulitis, HTN, left TKA with complications requiring fasciotomies PT-OP-B Current Condition Start: 03/14/20 13:28 Freq: Status: Active Protocol: Document 03/28/20 15:57 SAK (Rec: 03/28/20 16:07 SAK [id number]) Current Condition History of Current Condition Onset Date 6 yrs Current Complaints lymphedema bilateral LE's History of Current Condition left TKA with fasciotomies due to excess swelling. Used wound vac. Reports she did well for awhile, then 6 years gradual worsening on left, gradual onset of lymphedema on right LE as well. Treated with 2 diuretics, not helpful, worsened. Also reports weight gain. Complicated by osteoporosis left wrist and right shoulder the worst per patient report. States she has a lymphedema pump at home but only to knee. Has history of cellulitis 3x. Has compression stockings 8-15 mm Hg, knee high only. Lives alone, no assist with donning or doffing compression garments, or doing self- wrapping. Has neighbor who assists with yardwork and takes her to medical appointments. Patient states she doesn't feel she has lymphedema above the knee. Previously had Farrow wraps. Using walker for 5 years, uses single point canes into bathroom or in kitchen. Reports having difficult transfering in/out of her car ([facility]). Patient is 5'2, 370#. Prior Treatments and Tests Recently seeing wound care for wound on left heel. Staph infection behind both knees. Treatment Goals Patient/Caregiver Goals Reduce lymphedema, be able to self manage, improve her mobility. PT-OP-C Subjective Start: 03/14/20 13:28 Freq: Status: Active Protocol: Document 04/10/20 10:33 SAK (Rec: 04/10/20 10:48 SAK [id number]) OP-PT Subjective Patient Comments Patient Comments Should get compression wraps tonday. Tubigrip works best, compression wraps slide down. PT-OP-E Functional Tests Start: 03/14/20 13:28 Freq: Status: Active Protocol: Document 03/15/20 10:34 SAK (Rec: 03/15/20 13:29 SAK [id number]) Functional Tests 2 Minute Walk Test Distance 35' Device Used 4WW PT-OP-G Mobility & Gait Start: 03/14/20 13:28 Freq: Status: Active Protocol: Document 03/15/20 10:34 SAK (Rec: 03/15/20 13:29 SAK [id number]) OP Mobility Evaluation Transfers Sit to Stand SB to min assist Car Transfers mod assist Functional Movements Other Functional Movements sit to supine: mod assist for LE's today on treatment table. Patient reports independent but labored at home. OP Gait Assessment Gait Gait Assistance Required: Independent Distance (Feet) 35 Assistive Devices Assistive Device 4 Wheeled Walker Gait Deviations General Gait Pattern Decreased Stride Length, Decreased Feet Clearance, Flexed Trunk,Wide Based Gait Factors Limiting Gait Function Factors Limiting Gait Function Decreased Strength,Respiratory Distress Comments Gait Comments Fatigues quickly PT-OP-J Posture/Palpation/Skin Start: 03/14/20 13:28 Freq: Status: Active Protocol: Document 03/15/20 10:34 SAK (Rec: 03/15/20 13:29 SAK [id number]) Palpation Assessment Location left LE Palpation Findings Edema,Soft Tissue Tightness Skin Assessment Edema Assessment bilateral LE's Edema Type Pitting Edema Appearance Discolored,Puffy,Shiny Subjective Edema Description Tightness Comments hemosideran staining bilateral lower legs left greater than right, Incisional Assessment Incision Appearance/Comments medial and lateral lower leg fasciotomy scars with decreased mobility, crusted appearance medially: see photos in chart PT-OP-K Range of Motion Start: 03/14/20 13:28 Freq: Status: Active Protocol: Document 03/15/20 10:34 SAK (Rec: 03/15/20 13:29 SAK [id number]) Hip Goniometric Range of Motion Hip lloyd Hip ROM WFL Yes Knee Goniometric Range of Motion Knee lloyd Knee ROM WFL Yes Ankle and Foot Goniometric Range of Motion Ankle and Foot lloyd Ankle/Foot ROM WFL Yes PT-OP-M Strength Start: 03/14/20 13:28 Freq: Status: Active Protocol: Document 03/15/20 10:34 SAK (Rec: 03/15/20 13:29 SAK [id number]) Hip Strength Hip Manual Muscle Testing lloyd Comments less than antigravity strength lloyd Knee Strength Knee Manual Muscle Testing lloyd Comments grossly 3+-4-/5 Ankle/Foot Strength Ankle and Foot Manual Muscle Testing lloyd Dorsiflexion (L4) 4 Good Plantarflexion (S1) 4 Good PT-OP-N Lymphedema Start: 03/19/20 11:08 Freq: Status: Active Protocol: Document 04/10/20 12:02 SAK (Rec: 04/10/20 12:06 SAK [id number]) Lymphedema Measurements Lower Extremity Circumference Measurements Right Affected MT Heads 23.2 cm Mid-foot 23.2 cm Medial Malleolus 35.4 cm 10 cm From Medial Malleolus 38 cm 20 cm From Medial Malleolus 59.7 cm 30 cm From Medial Malleolus 63.2 cm 40 cm From Medial Malleolus 79.5 cm 50 cm From Medial Malleolus 84.5 cm 60 cm From Medial Malleolus 86.4 cm Left Affected MT Heads 23.2 cm Mid-foot 23 cm Medial Malleolus 33.8 cm 10 cm From Medial Malleolus 42.1 cm 20 cm From Medial Malleolus 68 cm 30 cm From Medial Malleolus 76.3 cm 40 cm From Medial Malleolus 83.2 cm 50 cm From Medial Malleolus 96.7 cm 60 cm From Medial Malleolus 95.7 cm PT-OP-Q Treatments Start: 03/14/20 13:28 Freq: Status: Active Protocol: Document 04/10/20 12:02 SAK (Rec: 04/10/20 12:06 SAK [id number]) Lymphedema Treatment Manual Lymphatic Drainage Comments not done due to apparent cellulitis Lymphedema Wrapping Body Location right LE Materials Knee high compression stocking , Tubigrip size G 2 layers ankle to mid calf, 1 layer mid calf to knee, size F Tubigrip foot to above ankle with 2 layers at ankle Other left LE: knee high compression stocking, Tubigrip size G ankle to kne with 2 layers ankle to mid calf, size F Tubigrip toes to above ankle with 2 layers at ankle Sequential Lymphedema Exercises Location ankle pumps, LAQ Comments 10 reps ea x 2 Patient Education Compression Garments wear at all times during day, obtain tights PT-OP-T Assessment and Plan Start: 03/14/20 13:28 Freq: Status: Active Protocol: Document 04/10/20 10:33 SAK (Rec: 04/10/20 10:48 SAK [id number]) Physical Therapy Assessment Goals Two Impairment limited activity tolerance, difficulty with transfers Short Term Goal (STG) Patient able to ambulate 100 ft with appropriate assistive device without need for break Group Home Goal (LTG) Patient able to ambulate 200' with appropriate device without need for break LTG Duration 06/13/20 One Impairment lymphedema Short Term Goal (STG) Decrease and stabilize lymphedema (no increase or decrease greater than 1 cm over the course of 1 week) and review and educate in all aspects of self-management for lymphedema. STG Duration 05/15/20 Floorworker Lasting Goal (LTG) Patient to be fit with appropriate compression stockings or compression alternative and be independent in all aspects of lymphedema management to include skin care, self-MLD, appropriate use and care of compression, therapeutic exercise LTG Duration 06/13/20 Assessment Summary Assessment Patient arrived at PT wearing only low comession level elastic stockings, no Tubigrip . Patient measurements increased and appears more red again since finishing first round of antibiotics 4 days ago. Second round of antibiotics ordered by Dr. Guzman today. To keep Tubigrip on and adjusted to prevent tourniquet effect. Discussed importance of compression up legs and into abdomen as possible with tights; patient given information and will pursue, consult with PT as needed. Wear Tubigrip at all times during day, may remove at night. Physical Therapy Plan Frequency and Duration Frequency of Treatment 20 visits Duration of Treatment 12 weeks Plan of Care Start Date 03/15/20 Plan of Care End Date 06/13/20 Therapeutic Interventions Therapeutic Interventions Gait Training,Home Exercise Program,Lymphedema Management, Manual Therapy,Patient/ Caregiver Education,Self-Care/ Home Management,Soft Tissue Mobilization,Taping, Therapeutic Activities, Therapeutic Exercises Modalities Vasopneumatic Devices Next Visit Focus/Plan Next Note Type Treatment Note Next Visit Plan Continue lymphedema management . Patient to receive compression alternative wraps and order compression tights as well.
--- NOTE | 2020-04-16 13:09 | PT-OP ANOTE ---
Patient cancelled PT appoitnment today.
--- NOTE | 2020-04-18 14:43 | PT.OTN ---
Current Diagnoses Lymphedema, not elsewhere classified (04/18/20) Weakness (04/18/20) Physical Therapy Treatment Note PT-OP-A Visit Information Start: 03/14/20 13:28 Freq: Status: Active Protocol: Document 04/18/20 13:03 SAK (Rec: 04/18/20 13:16 SAK [id number]) Out-Patient Physical Therapy Visit Information Visit Information Visit Type Treatment Note Visit Start Time 13:00 Visit Stop Time 14:24 Total Visit Minutes 84 Visit Number 6 Evaluation Information Evaluation Date 03/15/20 Precautions Precautions PMH: Neuropathy bilateral LE's , osteoarthritis, sleep apnea, cellulitis, HTN, left TKA with complications requiring fasciotomies PT-OP-B Current Condition Start: 03/14/20 13:28 Freq: Status: Active Protocol: Document 03/28/20 15:57 SAK (Rec: 03/28/20 16:07 SAK [id number]) Current Condition History of Current Condition Onset Date 6 yrs Current Complaints lymphedema bilateral LE's History of Current Condition left TKA with fasciotomies due to excess swelling. Used wound vac. Reports she did well for awhile, then 6 years gradual worsening on left, gradual onset of lymphedema on right LE as well. Treated with 2 diuretics, not helpful, worsened. Also reports weight gain. Complicated by osteoporosis left wrist and right shoulder the worst per patient report. States she has a lymphedema pump at home but only to knee. Has history of cellulitis 3x. Has compression stockings 8-15 mm Hg, knee high only. Lives alone, no assist with donning or doffing compression garments, or doing self- wrapping. Has neighbor who assists with yardwork and takes her to medical appointments. Patient states she doesn't feel she has lymphedema above the knee. Previously had Farrow wraps. Using walker for 5 years, uses single point canes into bathroom or in kitchen. Reports having difficult transfering in/out of her car ([facility]). Patient is 5'2, 370#. Prior Treatments and Tests Recently seeing wound care for wound on left heel. Staph infection behind both knees. Treatment Goals Patient/Caregiver Goals Reduce lymphedema, be able to self manage, improve her mobility. PT-OP-C Subjective Start: 03/14/20 13:28 Freq: Status: Active Protocol: Document 04/18/20 13:03 SAK (Rec: 04/18/20 13:16 [facility] [id number]) OP-PT Subjective Patient Comments Patient Comments Received compression alternative wraps, reports was given XL and L, has to wear the XL on the smaller leg. Patient still taking antibiotic, about 3 more days. Less redness and warmth. PT-OP-E Functional Tests Start: 03/14/20 13:28 Freq: Status: Active Protocol: Document 03/15/20 10:34 SAK (Rec: 03/15/20 13:29 [facility] [id number]) Functional Tests 2 Minute Walk Test Distance 35' Device Used 4WW PT-OP-G Mobility & Gait Start: 03/14/20 13:28 Freq: Status: Active Protocol: Document 03/15/20 10:34 SAK (Rec: 03/15/20 13:29 [facility] [id number]) OP Mobility Evaluation Transfers Sit to Stand SB to min assist Car Transfers mod assist Functional Movements Other Functional Movements sit to supine: mod assist for LE's today on treatment table. Patient reports independent but labored at home. OP Gait Assessment Gait Gait Assistance Required: Independent Distance (Feet) 35 Assistive Devices Assistive Device 4 Wheeled Walker Gait Deviations General Gait Pattern Decreased Stride Length, Decreased Feet Clearance, Flexed Trunk,Wide Based Gait Factors Limiting Gait Function Factors Limiting Gait Function Decreased Strength,Respiratory Distress Comments Gait Comments Fatigues quickly PT-OP-J Posture/Palpation/Skin Start: 03/14/20 13:28 Freq: Status: Active Protocol: Document 03/15/20 10:34 SAK (Rec: 03/15/20 13:29 [facility] [id number]) Palpation Assessment Location left LE Palpation Findings Edema,Soft Tissue Tightness Skin Assessment Edema Assessment bilateral LE's Edema Type Pitting Edema Appearance Discolored,Puffy,Shiny Subjective Edema Description Tightness Comments hemosideran staining bilateral lower legs left greater than right, Incisional Assessment Incision Appearance/Comments medial and lateral lower leg fasciotomy scars with decreased mobility, crusted appearance medially: see photos in chart PT-OP-K Range of Motion Start: 03/14/20 13:28 Freq: Status: Active Protocol: Document 03/15/20 10:34 SAK (Rec: 03/15/20 13:29 [facility] [id number]) Hip Goniometric Range of Motion Hip lloyd Hip ROM WFL Yes Knee Goniometric Range of Motion Knee lloyd Knee ROM WFL Yes Ankle and Foot Goniometric Range of Motion Ankle and Foot lloyd Ankle/Foot ROM WFL Yes PT-OP-M Strength Start: 03/14/20 13:28 Freq: Status: Active Protocol: Document 03/15/20 10:34 SAK (Rec: 03/15/20 13:29 SAK [id number]) Hip Strength Hip Manual Muscle Testing lloyd Comments less than antigravity strength lloyd Knee Strength Knee Manual Muscle Testing lloyd Comments grossly 3+-4-/5 Ankle/Foot Strength Ankle and Foot Manual Muscle Testing lloyd Dorsiflexion (L4) 4 Good Plantarflexion (S1) 4 Good PT-OP-N Lymphedema Start: 03/19/20 11:08 Freq: Status: Active Protocol: Document 04/18/20 13:03 [facility] (Rec: 04/18/20 14:43 [facility] [id number]) Lymphedema Measurements Lower Extremity Circumference Measurements Right Affected MT Heads 23.2 cm Mid-foot 23.4 cm Medial Malleolus 36.5 cm 10 cm From Medial Malleolus 36.9 cm 20 cm From Medial Malleolus 60 cm 30 cm From Medial Malleolus 66 cm 40 cm From Medial Malleolus 69.9 cm 50 cm From Medial Malleolus 88.3 cm 60 cm From Medial Malleolus 87.9 cm Left Affected MT Heads 22.9 cm Mid-foot 22.8 cm Medial Malleolus 34.4 cm 10 cm From Medial Malleolus 36 cm 20 cm From Medial Malleolus 68 cm 30 cm From Medial Malleolus 75.3 cm 40 cm From Medial Malleolus 77 cm 50 cm From Medial Malleolus 101.8 cm 60 cm From Medial Malleolus 104.4 cm PT-OP-Q Treatments Start: 03/14/20 13:28 Freq: Status: Active Protocol: Document 04/18/20 13:03 SAK (Rec: 04/18/20 13:16 [facility] [id number]) Lymphedema Treatment Lymphedema Wrapping Body Location bilateral LE's Materials right LE: Tubigrip Size G toes to knee ( liners that came with wraps too small). XL Sigvarus Comprefit Standard calf and foot wraps. Addition of black foam for improved fit above ankle (more cylindrical shape) and at strap transitions for better strap fit. Other left LE: Tubigrip Size G toes to knee ( liners that came with wraps too small). XXL Sigvarus Comprefit Standard calf and foot wraps, black foam above ankle and at transitions between straps for more cylindrical fit, 12 cm Comprilan calf to knee due to poor fit of Comprefit in upper part of LE. Compression Garment Assessment Compression Garment Assessment Details Sigvarus Comprefit garments needed modification with use of black foam, crossed upper straps, and addition of Comprilan over calf on left. Other Other Patient reports she thinks she has Spanx garment at home that she will try for thigh and abdominal compression especially until she receives her Sigvarus wraps for thighs. PT-OP-T Assessment and Plan Start: 03/14/20 13:28 Freq: Status: Active Protocol: Document 04/18/20 13:03 [facility] (Rec: 04/18/20 14:43 [facility] [id number]) Physical Therapy Assessment Goals Two Impairment limited activity tolerance, difficulty with transfers Short Term Goal (STG) Patient able to ambulate 100 ft with appropriate assistive device without need for break Roundhouse Worker Goal (LTG) Patient able to ambulate 200' with appropriate device without need for break LTG Duration 06/13/20 One Impairment lymphedema Short Term Goal (STG) Decrease and stabilize lymphedema (no increase or decrease greater than 1 cm over the course of 1 week) and review and educate in all aspects of self-management for lymphedema. STG Duration 05/15/20 Roundhouse Worker Goal (LTG) Patient to be fit with appropriate compression stockings or compression alternative and be independent in all aspects of lymphedema management to include skin care, self-MLD, appropriate use and care of compression, therapeutic exercise LTG Duration 06/13/20 Assessment Summary Assessment Patient Sigvarus Comprefit wraps received for foot and lower leg, fair fit, had to modify with black foam and use of Comprilan to improve fit and compression. Patient caregiver Severino present for education regarding adjustments and fit; he demonstrated good understanding. Entire session spent on problem solving fit and problem-solving. Patient refuses having Comprilan applied to upper legs, states she will try to find her shapewear (Spanx) garment. Physical Therapy Plan Frequency and Duration Frequency of Treatment 20 visits Duration of Treatment 12 weeks Plan of Care Start Date 03/15/20 Plan of Care End Date 06/13/20 Therapeutic Interventions Therapeutic Interventions Gait Training,Home Exercise Program,Lymphedema Management, Manual Therapy,Patient/ Caregiver Education,Self-Care/ Home Management,Soft Tissue Mobilization,Taping, Therapeutic Activities, Therapeutic Exercises Modalities Vasopneumatic Devices Next Visit Focus/Plan Next Note Type Treatment Note Next Visit Plan Continue lymphedema management , further problem solving compression as needed.
--- NOTE | 2020-04-23 16:57 | PT.OTN ---
Current Diagnoses Lymphedema, not elsewhere classified (04/23/20) Weakness (04/23/20) Physical Therapy Treatment Note PT-OP-A Visit Information Start: 03/14/20 13:28 Freq: Status: Active Protocol: Document 04/23/20 13:03 SAK (Rec: 04/23/20 13:07 SAK [id number]) Out-Patient Physical Therapy Visit Information Visit Information Visit Type Treatment Note Visit Start Time 12:56 Visit Stop Time 14:26 Total Visit Minutes 90 Visit Number 7 Evaluation Information Evaluation Date 03/15/20 Precautions Precautions PMH: Neuropathy bilateral LE's , osteoarthritis, sleep apnea, cellulitis, HTN, left TKA with complications requiring fasciotomies PT-OP-B Current Condition Start: 03/14/20 13:28 Freq: Status: Active Protocol: Document 03/28/20 15:57 SAK (Rec: 03/28/20 16:07 SAK [id number]) Current Condition History of Current Condition Onset Date 6 yrs Current Complaints lymphedema bilateral LE's History of Current Condition left TKA with fasciotomies due to excess swelling. Used wound vac. Reports she did well for awhile, then 6 years gradual worsening on left, gradual onset of lymphedema on right LE as well. Treated with 2 diuretics, not helpful, worsened. Also reports weight gain. Complicated by osteoporosis left wrist and right shoulder the worst per patient report. States she has a lymphedema pump at home but only to knee. Has history of cellulitis 3x. Has compression stockings 8-15 mm Hg, knee high only. Lives alone, no assist with donning or doffing compression garments, or doing self- wrapping. Has neighbor who assists with yardwork and takes her to medical appointments. Patient states she doesn't feel she has lymphedema above the knee. Previously had Farrow wraps. Using walker for 5 years, uses single point canes into bathroom or in kitchen. Reports having difficult transfering in/out of her car ([facility]). Patient is 5'2, 370#. Prior Treatments and Tests Recently seeing wound care for wound on left heel. Staph infection behind both knees. Treatment Goals Patient/Caregiver Goals Reduce lymphedema, be able to self manage, improve her mobility. PT-OP-C Subjective Start: 03/14/20 13:28 Freq: Status: Active Protocol: Document 04/23/20 13:03 [facility] (Rec: 04/23/20 13:07 [facility] [id number]) OP-PT Subjective Patient Comments Patient Comments Reports the new Sigvarus Comprefit wraps are difficult to apply, purchased extra velcro due to some straps too short. Hasn't contacted [facility] yet. States didn't wear compression wraps last on and swelling got really bad. Wore on Thursday and Thursday and swelling improved. Not wearing today due to PT. Reports more draining and more urinating. PT-OP-E Functional Tests Start: 03/14/20 13:28 Freq: Status: Active Protocol: Document 03/15/20 10:34 SAK (Rec: 03/15/20 13:29 [facility] [id number]) Functional Tests 2 Minute Walk Test Distance 35' Device Used 4WW PT-OP-G Mobility & Gait Start: 03/14/20 13:28 Freq: Status: Active Protocol: Document 03/15/20 10:34 SAK (Rec: 03/15/20 13:29 [facility] [id number]) OP Mobility Evaluation Transfers Sit to Stand SB to min assist Car Transfers mod assist Functional Movements Other Functional Movements sit to supine: mod assist for LE's today on treatment table. Patient reports independent but labored at home. OP Gait Assessment Gait Gait Assistance Required: Independent Distance (Feet) 35 Assistive Devices Assistive Device 4 Wheeled Walker Gait Deviations General Gait Pattern Decreased Stride Length, Decreased Feet Clearance, Flexed Trunk,Wide Based Gait Factors Limiting Gait Function Factors Limiting Gait Function Decreased Strength,Respiratory Distress Comments Gait Comments Fatigues quickly PT-OP-J Posture/Palpation/Skin Start: 03/14/20 13:28 Freq: Status: Active Protocol: Document 03/15/20 10:34 SAK (Rec: 03/15/20 13:29 [facility] [id number]) Palpation Assessment Location left LE Palpation Findings Edema,Soft Tissue Tightness Skin Assessment Edema Assessment bilateral LE's Edema Type Pitting Edema Appearance Discolored,Puffy,Shiny Subjective Edema Description Tightness Comments hemosideran staining bilateral lower legs left greater than right, Incisional Assessment Incision Appearance/Comments medial and lateral lower leg fasciotomy scars with decreased mobility, crusted appearance medially: see photos in chart PT-OP-K Range of Motion Start: 03/14/20 13:28 Freq: Status: Active Protocol: Document 03/15/20 10:34 SAK (Rec: 03/15/20 13:29 SAK [id number]) Hip Goniometric Range of Motion Hip lloyd Hip ROM WFL Yes Knee Goniometric Range of Motion Knee lloyd Knee ROM WFL Yes Ankle and Foot Goniometric Range of Motion Ankle and Foot lloyd Ankle/Foot ROM WFL Yes PT-OP-M Strength Start: 03/14/20 13:28 Freq: Status: Active Protocol: Document 03/15/20 10:34 SAK (Rec: 03/15/20 13:29 [facility] [id number]) Hip Strength Hip Manual Muscle Testing lloyd Comments less than antigravity strength lloyd Knee Strength Knee Manual Muscle Testing lloyd Comments grossly 3+-4-/5 Ankle/Foot Strength Ankle and Foot Manual Muscle Testing lloyd Dorsiflexion (L4) 4 Good Plantarflexion (S1) 4 Good PT-OP-N Lymphedema Start: 03/19/20 11:08 Freq: Status: Active Protocol: Document 04/23/20 13:03 SAK (Rec: 04/23/20 16:53 SAK [id number]) Lymphedema Measurements Lower Extremity Circumference Measurements Right Affected MT Heads 23.4 cm Mid-foot 23.2 cm Medial Malleolus 35.7 cm 10 cm From Medial Malleolus 38.1 cm 20 cm From Medial Malleolus 60.7 cm 30 cm From Medial Malleolus 62.1 cm 40 cm From Medial Malleolus 80.6 cm 50 cm From Medial Malleolus 91 cm 60 cm From Medial Malleolus 94 cm Left Affected MT Heads 23.4 cm Mid-foot 23.2 cm Medial Malleolus 33.8 cm 10 cm From Medial Malleolus 35.9 cm 20 cm From Medial Malleolus 69 cm 30 cm From Medial Malleolus 76.8 cm 40 cm From Medial Malleolus 80.9 cm 50 cm From Medial Malleolus 99.2 cm 60 cm From Medial Malleolus 104 cm PT-OP-Q Treatments Start: 03/14/20 13:28 Freq: Status: Active Protocol: Document 04/23/20 13:03 SAK (Rec: 04/23/20 16:57 SAK [id number]) Lymphedema Treatment Manual Lymphatic Drainage Location for bilateral LE lymphedema Lymphedema Wrapping Body Location bilateral LE's Materials right LE: Patient light compression stockings as liner, XL Sigvarus Comprefit Standard calf and foot wraps. Addition of black foam for improved fit above ankle (more cylindrical shape) and at strap transitions for better strap fit. Some extra velcro purchased by patient for improved strap length and fit Other left LE: Patient light compression stockings as liner, XXL Sigvarus Comprefit Standard calf and foot wraps, black foam above ankle and at transitions between straps for more cylindrical fit, 12 cm Comprilan calf to knee due to poor fit of Comprefit in upper part of LE. Extra velcro purchased by patient for improved strap length and fit. PT-OP-T Assessment and Plan Start: 03/14/20 13:28 Freq: Status: Active Protocol: Document 04/23/20 13:03 [facility] (Rec: 04/23/20 13:07 [facility] [id number]) Physical Therapy Assessment Goals Two Impairment limited activity tolerance, difficulty with transfers Short Term Goal (STG) Patient able to ambulate 100 ft with appropriate assistive device without need for break Nursing Home Goal (LTG) Patient able to ambulate 200' with appropriate device without need for break LTG Duration 06/13/20 One Impairment lymphedema Short Term Goal (STG) Decrease and stabilize lymphedema (no increase or decrease greater than 1 cm over the course of 1 week) and review and educate in all aspects of self-management for lymphedema. STG Duration 05/15/20 Nursing Home Goal (LTG) Patient to be fit with appropriate compression stockings or compression alternative and be independent in all aspects of lymphedema management to include skin care, self-MLD, appropriate use and care of compression, therapeutic exercise LTG Duration 06/13/20 Assessment Summary Assessment Patient experienced some decrease in edema with use of Sigvarus wraps, but did not wear consistently, including not applying this am prior to coming to PT. Was wearing Tubigrip more correctly but doesn't provide adequate compression. PT sent email to [facility] and patient to contact them due to difficulty with donning, and ankle/foot components appearing too large . Patient has ordered Spanx for compression of abdomen and upper legs as she refuses compression wraps or garments above her knees; states she ordered eda length Spanx. Physical Therapy Plan Frequency and Duration Frequency of Treatment 20 visits Duration of Treatment 12 weeks Plan of Care Start Date 03/15/20 Plan of Care End Date 06/13/20 Therapeutic Interventions Therapeutic Interventions Gait Training,Home Exercise Program,Lymphedema Management, Manual Therapy,Patient/ Caregiver Education,Self-Care/ Home Management,Soft Tissue Mobilization,Taping, Therapeutic Activities, Therapeutic Exercises Modalities Vasopneumatic Devices Next Visit Focus/Plan Next Note Type Treatment Note Next Visit Plan Continue lymphedema management , further problem solving compression as needed. Encourage consistent wear of compresion, evaluate fit of Spanx for upper leg and abdominal compression when arrives.
--- NOTE | 2020-04-25 10:08 | PT-OP ANOTE ---
cancelled due to transportation issues
--- NOTE | 2020-07-16 10:51 | PT.OPDS ---
Current Diagnoses Lymphedema, not elsewhere classified (04/23/20) Weakness (04/23/20) Visit Care Team Role Provider Type Chip Deutsch DO Primary Care Provider Physician Specialty: Family Practice Address: [address] [place] [address], [id number] Email: Ajay Guzman MD Attending Provider Physician Referring Provider Specialty: Wound Care Address: [address] [place] [address], [id number] Email: [email or web address] Visit Number Visit Number 7 Discharge Summary PT-OP-B Current Condition Start: 03/14/20 13:28 Freq: Status: Active Protocol: Document 03/28/20 15:57 SAK (Rec: 03/28/20 16:07 SAK [id number]) Current Condition History of Current Condition Onset Date 6 yrs Current Complaints lymphedema bilateral LE's History of Current Condition left TKA with fasciotomies due to excess swelling. Used wound vac. Reports she did well for awhile, then 6 years gradual worsening on left, gradual onset of lymphedema on right LE as well. Treated with 2 diuretics, not helpful, worsened. Also reports weight gain. Complicated by osteoporosis left wrist and right shoulder the worst per patient report. States she has a lymphedema pump at home but only to knee. Has history of cellulitis 3x. Has compression stockings 8-15 mm Hg, knee high only. Lives alone, no assist with donning or doffing compression garments, or doing self- wrapping. Has neighbor who assists with yardwork and takes her to medical appointments. Patient states she doesn't feel she has lymphedema above the knee. Previously had Farrow wraps. Using walker for 5 years, uses single point canes into bathroom or in kitchen. Reports having difficult transfering in/out of her car ([facility] Patient is 5'2, 370#. Prior Treatments and Tests Recently seeing wound care for wound on left heel. Staph infection behind both knees. Treatment Goals Patient/Caregiver Goals Reduce lymphedema, be able to self manage, improve her mobility. PT-OP-C Subjective Start: 03/14/20 13:28 Freq: Status: Active Protocol: Document 04/23/20 13:03 SAK (Rec: 04/23/20 13:07 SAK [id number]) OP-PT Subjective Patient Comments Patient Comments Reports the new Sigvarus Comprefit wraps are difficult to apply, purchased extra velcro due to some straps too short. Hasn't contacted [facility] yet. States didn't wear compression wraps last on and swelling got really bad. Wore on Thursday and Thursday and swelling improved. Not wearing today due to PT. Reports more draining and more urinating. PT-OP-E Functional Tests Start: 03/14/20 13:28 Freq: Status: Active Protocol: Document 03/15/20 10:34 SAK (Rec: 03/15/20 13:29 [facility] [id number]) Functional Tests 2 Minute Walk Test Distance 35' Device Used 4WW PT-OP-G Mobility & Gait Start: 03/14/20 13:28 Freq: Status: Active Protocol: Document 03/15/20 10:34 SAK (Rec: 03/15/20 13:29 [facility] [id number]) OP Mobility Evaluation Transfers Sit to Stand SB to min assist Car Transfers mod assist Functional Movements Other Functional Movements sit to supine: mod assist for LE's today on treatment table. Patient reports independent but labored at home. OP Gait Assessment Gait Gait Assistance Required: Independent Distance (Feet) 35 Assistive Devices Assistive Device 4 Wheeled Walker Gait Deviations General Gait Pattern Decreased Stride Length, Decreased Feet Clearance, Flexed Trunk,Wide Based Gait Factors Limiting Gait Function Factors Limiting Gait Function Decreased Strength,Respiratory Distress Comments Gait Comments Fatigues quickly PT-OP-J Posture/Palpation/Skin Start: 03/14/20 13:28 Freq: Status: Active Protocol: Document 03/15/20 10:34 SAK (Rec: 03/15/20 13:29 [facility] [id number]) Palpation Assessment Location left LE Palpation Findings Edema,Soft Tissue Tightness Skin Assessment Edema Assessment bilateral LE's Edema Type Pitting Edema Appearance Discolored,Puffy,Shiny Subjective Edema Description Tightness Comments hemosideran staining bilateral lower legs left greater than right, Incisional Assessment Incision Appearance/Comments medial and lateral lower leg fasciotomy scars with decreased mobility, crusted appearance medially: see photos in chart PT-OP-K Range of Motion Start: 03/14/20 13:28 Freq: Status: Active Protocol: Document 03/15/20 10:34 SAK (Rec: 03/15/20 13:29 [facility] [id number]) Hip Goniometric Range of Motion Hip lloyd Hip ROM WFL Yes Knee Goniometric Range of Motion Knee lloyd Knee ROM WFL Yes Ankle and Foot Goniometric Range of Motion Ankle and Foot lloyd Ankle/Foot ROM WFL Yes PT-OP-M Strength Start: 03/14/20 13:28 Freq: Status: Active Protocol: Document 03/15/20 10:34 SAK (Rec: 03/15/20 13:29 [facility]AK [id number]) Hip Strength Hip Manual Muscle Testing lloyd Comments less than antigravity strength lloyd Knee Strength Knee Manual Muscle Testing lloyd Comments grossly 3+-4-/5 Ankle/Foot Strength Ankle and Foot Manual Muscle Testing lloyd Dorsiflexion (L4) 4 Good Plantarflexion (S1) 4 Good PT-OP-N Lymphedema Start: 03/19/20 11:08 Freq: Status: Active Protocol: Document 04/23/20 13:03 SAK (Rec: 04/23/20 16:53 [facility] [id number]) Lymphedema Measurements Lower Extremity Circumference Measurements Right Affected MT Heads 23.4 cm Mid-foot 23.2 cm Medial Malleolus 35.7 cm 10 cm From Medial Malleolus 38.1 cm 20 cm From Medial Malleolus 60.7 cm 30 cm From Medial Malleolus 62.1 cm 40 cm From Medial Malleolus 80.6 cm 50 cm From Medial Malleolus 91 cm 60 cm From Medial Malleolus 94 cm Left Affected MT Heads 23.4 cm Mid-foot 23.2 cm Medial Malleolus 33.8 cm 10 cm From Medial Malleolus 35.9 cm 20 cm From Medial Malleolus 69 cm 30 cm From Medial Malleolus 76.8 cm 40 cm From Medial Malleolus 80.9 cm 50 cm From Medial Malleolus 99.2 cm 60 cm From Medial Malleolus 104 cm PT-OP-T Assessment and Plan Start: 03/14/20 13:28 Freq: Status: Active Protocol: Document 07/16/20 10:50 SAK (Rec: 07/16/20 10:51 SAK [id number]) Physical Therapy Plan Discharge Physical Therapy Discharge Reasons No Longer Attending PT Discharge Comments Patient had received compression garments, difficult to don but appeared to be helping with decreased swelling. Not seen since . Unable to contact by phone so will be discharged at this time.
== END 2020-07-18 08:13 ==
LOC: PHYS 13:00
PROVIDERS: PCP Family Medicine; Referring Provider Family Medicine; Visit Provider Family Medicine
DX: I89.0 Lymphedema, not elsewhere classified (principal); R53.1 Weakness
CPT/HCPCS: 97110; 97140; 97163; 97530; 97535

== ENCOUNTER 2020-08-29 14:22 | Observation (INO) | payer MEDICARE, OTHER, SELFPAY ==
[2020-08-29] VITALS (8 sets, daily range): BP systolic 123–137; BP diastolic 63–84; PULSE 65–86; RESP 15–18; TEMP 36.5–36.8; O2SAT 90–93; BMI 63.8
[2020-08-29 14:49] LABS: Add Manual Diff / Slide Review NO; Basophils Absolute Auto 0 /uL (0-100); Basophils Percent Auto 0.4 % (0-2); Eosinophils Absolute Auto 100 /uL (0-450); Eosinophils Percent Auto 1.4 % (2-4); Hematocrit 40.3 % (36-46); Hemoglobin 13.2 g/dL (12.0-16.0); Lymphocytes Absolute Auto 1000 /uL (1100-4500); Lymphocytes Percent Auto 15.6 % (25-40); Mean Corpuscular HGB Conc 32.6 % (30-36); Mean Corpuscular Hemoglobin 28.6 PG (26-34); Mean Corpuscular Volume 87.7 fL (80-100); Monocytes Absolute Auto 800 /uL (0-900); Monocytes Percent Auto 12.9 % (3-14); Neutrophils Absolute Auto 4300 /uL (1500-7000); Neutrophils Percent Auto 69.7 % (50-75); Platelet Count 244 X10^3/uL (150-400); Red Cell Distribution Width 14.8 % (11.6-14.8); White Blood Cell Count 6.2 X10^3/uL (4.5-11.0)
[2020-08-29 14:57] LABS: INR 1.1 (0.9-1.3)
[2020-08-29 14:59] LABS: PTT Partial Thromboplastin Tim 37 SECONDS (26.4-36.2)
[2020-08-29 15:13] LABS: Lactate (Lactic Acid) 1.5 mmol/L (0.7-2.1)
[2020-08-29 15:14] LABS: Alanine Aminotransferase 25 IU/L (<35); Albumin 4.1 g/dL (3.5-5.0); Albumin Globulin Ratio 0.9 (1.0-2.8); Alkaline Phosphatase 114 U/L (38-126); Aspartate Aminotransferase 34 IU/L (14-36); BUN Creatinine Ratio 34.4 (6-22); Bilirubin Total 0.3 mg/dL (0.2-1.3); Blood Urea Nitrogen 32 mg/dL (7-17); Calcium 10.2 mg/dL (8.4-10.2); Carbon Dioxide 31 mmol/L (22-32); Chloride 100 mmol/L (98-107); Estimated Glomerular Filt Rate 59.6 mL/min (>60); Globulin 4.5 g/dL (1.7-4.1); Glucose 104 mg/dL (80-110); HEMOLYSIS < 15 (0-50); Lipase 97 U/L (23-300); Potassium 4.2 mmol/L (3.4-5.1); Sodium 137 mmol/L (137-145); Total Protein 8.6 g/dL (6.3-8.2)
[2020-08-29 15:30] LABS: Procalcitonin 0.08 ng/mL (<0.5)
[2020-08-29 15:47] LABS: RBC Urine None Seen (0-5/HPF); WBC Urine None Seen (0-5/HPF)
[2020-08-29 15:48] LABS: Appearance Urine UA CLEAR; Bilirubin Urine UA NEGATIVE (NEGATIVE); Color Urine UA YELLOW; Glucose Urine UA NEGATIVE (Negative); Ketones Urine UA NEGATIVE (NEGATIVE); Leukocyte Esterase Urine UA NEGATIVE (NEGATIVE); Nitrite Urine UA NEGATIVE (Negative); Occult Blood Urine UA NEGATIVE (Negative); Protein Urine UA NEGATIVE (Negative); Specific Gravity Urine UA 1.015 (1.000-1.035); Urobilinogen Urine UA 0.2 E.U./dL (0.2)
[2020-08-29 16:00] LABS: Bacteria Urine Occasional (0-1)
[2020-08-29 16:01] LABS: Culture Indicated Urine Specimen Cultured; Other Crystals Urine TALC
--- NOTE | 2020-08-29 16:53 | ED.SKABFB ---
HPI - Skin/Abscess/Foreign Bdy General Chief complaint: Skin/Abscess/Foreign Body Stated complaint: cellulitis, weeping extremeties Time Seen by Provider: 08/29/20 16:31 Source: patient and EMS Mode of arrival: EMS Limitations: no limitations History of Present Illness HPI narrative: This is a 70-year-old female who comes emergency department with complaint of worsening swelling of her bilateral lower extremities. Patient states she has had intermittent cellulitis. She has had she has 1 on her left heel, the back of her left knee as well as in her right knee as well as some cracking and skin changes. She states she has had increasing swelling of her bilateral lower extremities which are working up into her legs. She is also appreciated increasing redness tracking up her lower extremities. Patient has not had fevers, she has not had chills. She has not had any chest pain or shortness of breath she denies any nausea or vomiting. She denies any GI issues. She has had frequency but is on a diuretic. Patient states that her speech issues began after having a outpatient left knee replacement they believe that the popliteal artery had some weakening during the surgery and she ultimately required vascular intervention, fasciotomies and multiple treatments with a graft of that vessel. This was many years ago. She has intermittently had cellulitis occasionally been hospitalized but often responds well to doxycycline and sometimes that with a combination of nystatin. She has been on 16 days of doxycycline and has been continuing to worsen. She was supposed to be seen in the wound care clinic but states her appointment has been pushed off multiple times. She has multiple wound cultures from the past 2 years. Related Data Home Medications Medication Instructions Recorded Confirmed CA PANTOTHENATE/FOLIC ACID/VIT 1 tab PO QDAY #0 07/06/12 03/26/20 (MULTIVITAMIN) [MAGNESIUM] 400 mg PO QDAY #0 11/02/17 03/26/20 Cranberry/Probiotic See Rx Instructions .ROUTE .COMPLEX 03/16/19 03/26/20 [place] 3 Fish Oil See Rx Instructions .ROUTE .COMPLEX 03/16/19 03/26/20 ascorbic acid (vitamin C) 500 mg See Rx Instructions PO .COMPLEX 03/16/19 03/26/20 capsule cholecalciferol (vitamin D3) PO 03/26/20 03/26/20 Previous Rx's Medication Instructions Recorded triamcinolone acetonide 0.5 % 1 applictn TOP DAILY #60 gram 01/27/19 topical cream Disabled parking permit #1 ea 12/14/19 fluconazole 150 mg tablet 150 mg PO ONCE #2 tab 12/14/19 nystatin 100,000 unit/gram topical 1 applictn TOP TID #120 gram 12/14/19 powder furosemide 40 mg tablet 80 mg PO QAM PRN #180 tab 12/19/19 metoprolol tartrate 25 mg tablet See Rx Instructions .ROUTE 12/19/19 .COMPLEX #90 tab simvastatin 40 mg tablet See Rx Instructions .ROUTE 02/16/20 .COMPLEX #90 tab pantoprazole 40 mg tablet,delayed See Rx Instructions .ROUTE 06/12/20 release .COMPLEX #90 tab spironolactone 100 mg tablet See Rx Instructions .ROUTE 07/31/20 .COMPLEX #90 tab ibuprofen 800 mg tablet See Rx Instructions .ROUTE 08/28/20 .COMPLEX #90 tab Allergies Allergy/AdvReac Type Severity Reaction Status Date / Time adhesive tape [ADHESIVE TAPE] Allergy Intermediate RASH, Verified 08/29/20 14:38 HIVES, BLISTER Sulfa (Sulfonamide Allergy Mild HIVES Verified 08/29/20 14:38 Antibiotics) [SULFA (SULFONAMIDE ANTIBIOTICS)] tramadol AdvReac Mild Dizziness Verified 08/29/20 14:38 Review of Systems Review of Systems ROS Unobtainable: All systems reviewed & are unremarkable except as noted in HPI and below Patient History Medical History Allergic rhinitis (Unknown) Arthritis (Unknown) Cellulitis of right leg Essential hypertension (09/11/10) GERD (gastroesophageal reflux disease) (Unknown) GERD (gastroesophageal reflux disease) (Unknown) Hyperlipemia (Unknown) Hypertension (Unknown) Lymphedema (Unknown) Mixed hyperlipidemia Morbid obesity due to excess calories Obstructive sleep apnea (Unknown) Obstructive sleep apnea syndrome Staph skin infection Surgical History Hx of total knee replacement (Unknown) Family History (Updated 12/14/19 @ 09:38 by Chip Deutsch DO) Brother Kidney carcinoma Mother Stroke Sister Cancer Father Atrial fibrillation Social History Smoking Status: Former smoker Tobacco: How many years used: 4 second hand exposure: No alcohol intake: current (twice a year tops) substance use type: does not use Smoking Status: Former smoker alcohol intake frequency: holidays/special occasions only Substance Use Type: does not use Exam Narrative Exam Narrative: GENERAL: Alert and oriented x three, elevated BMI of 63, female in mild distress. HEENT: Head normocephalic, atraumatic, EOMI, pupils reactive, face symmetric, moist mucous membranes NECK: Supple, full range of motion CARDIOVASCULAR: Regular rate and rhythm without murmurs, rubs or gallops. RESPIRATORY: Breath sounds equal bilaterally, no wheezes rales or rhonchi. ABDOMEN: Soft, nontender. Normoactive bowel sounds all 4 quadrants. No guarding or rebound, rigidity, no mass : No CVA tenderness EXTREMITIES: Decreased range of motion, patient has significant swelling of bilateral upper extremities. She has erythema tracking up her anterior shins towards her knees bilaterally. There is no linear tracking it is more of a patchy area. Patient has a wound on her left heel that is 1 cm draining serosanguineous fluid. She also has small opening on her posterior knee on the upper thigh. On palpation and I am able to palpate a clear abscess or fluctuant region. It is draining some serosanguineous fluid as well. Patient has some weeping open areas on her left lower thigh. Patient does have some hyperkeratotic changes along with cracking particularly at the flexural creases. Patient is [id number] tender to palpation. Patient does assisted lifting her legs. NEUROLOGICAL: Cranial nerves II through XII grossly intact. Moving all extremities. SKIN: Warm, dry, no petechiae, no rashes or lesions other than noted above. Initial Vital Signs Initial Vital Signs: Vital Signs Temperature 98.3 F 08/29/20 14:00 Pulse Rate 86 08/29/20 14:00 Respiratory Rate 15 08/29/20 14:00 Blood Pressure 133/84 08/29/20 14:00 Pulse Oximetry 92 08/29/20 14:00 Course Orders Ordered: ED Orders 08/29/20 14:38 Complete Blood Count AUTO DIFF Stat Comprehensive Metabolic Panel Stat Lactate (Lactic Acid) Stat Lipase Stat Partial Thromboplastin Time Stat Procalcitonin Stat Prothrombin Time INR Stat 08/29/20 14:42 EKG-12 Lead Stat 08/29/20 14:59 Blood Culture Stat 08/29/20 15:35 Urinalysis and Microscopic Stat Urine Culture Stat Vancomycin HCl/Dextrose (Vancomycin) 2,000 mg in 400 mls @ 200 mls/hr IV NOW ONE Stop: 08/29/20 19:55 Consultations Consultation #1: Dr. Colon accepts for observation. Reviewed labs and prior history. Defers additional imaging at this time. Plan to start Vancomycin IV in department. Time: 17:57 Vital Signs Vital signs: Vital Signs - 8 hr 08/29/20 14:00 08/29/20 15:36 08/29/20 16:00 Temperature 98.3 F Pulse Rate 86 73 65 Respiratory Rate 15 Blood Pressure 133/84 137/69 123/69 Pulse Oximetry 92 93 90 L 08/29/20 16:30 08/29/20 17:00 08/29/20 17:30 Temperature Pulse Rate 67 82 68 Respiratory Rate Blood Pressure 123/80 130/63 Pulse Oximetry 92 92 92 MDM - Skin/Abscess/Foreign Bdy Lab Data Attestation: I reviewed the patient's lab results. Result diagrams: 08/29/20 14:38 08/29/20 14:38 Labs: Lab Results 08/29/20 08/29/20 08/29/20 Range/Units 14:38 14:38 14:38 WBC 6.2 (4.5-11.0) X10^3/uL RBC 4.60 (4.0-5.2) X10^6/uL Hgb 13.2 (12.0-16.0) g/dL Hct 40.3 (36-46) % MCV 87.7 (80-100) fL MCH 28.6 (26-34) PG MCHC 32.6 (30-36) % RDW 14.8 (11.6-14.8) % Plt Count 244 (150-400) X10^3/uL Neut % (Auto) 69.7 (50-75) % Lymph % (Auto) 15.6 L (25-40) % Rankin % (Auto) 12.9 (3-14) % Eos % (Auto) 1.4 L (2-4) % Baso % (Auto) 0.4 (0-2) % Neut # (Auto) 4300 (9350-4656) /uL Lymph # (Auto) 1000 L (2256-5014) /uL Rankin # (Auto) 800 (0-900) /uL Eos # (Auto) 100 (0-450) /uL Baso # (Auto) 0 (0-100) /uL PT 13.0 H (10.1-12.7) SECONDS INR 1.1 (0.9-1.3) APTT 37 H (26.4-36.2) SECONDS Sodium 137 (137-145) mmol/L Potassium 4.2 (3.4-5.1) mmol/L Chloride 100 (98-107) mmol/L Carbon Dioxide 31 (22-32) mmol/L BUN 32 H (7-17) mg/dL Creatinine 0.93 (0.52-1.04) mg/dL Estimated GFR 59.6 L (>60) mL/min BUN/Creatinine Ratio 34.4 H (6-22) Glucose 104 (80-110) mg/dL Lactate (0.7-2.1) mmol/L Calcium 10.2 (8.4-10.2) mg/dL Total Bilirubin 0.3 (0.2-1.3) mg/dL AST 34 (14-36) IU/L ALT 25 (<35) IU/L Alkaline Phosphatase 114 (38-126) U/L Total Protein 8.6 H (6.3-8.2) g/dL Albumin 4.1 (3.5-5.0) g/dL Globulin 4.5 H (1.7-4.1) g/dL Albumin/Globulin Ratio 0.9 L (1.0-2.8) Lipase 97 (23-300) U/L Procalcitonin 0.08 (<0.5) ng/mL Urine Color Urine Appearance Urine pH (4.5-8.0) Ur Specific Preston (1.000-1.035) Urine Protein (Negative) Urine Glucose (UA) (Negative) g/dL Urine Ketones (NEGATIVE) Urine Occult Blood (Negative) Urine Nitrate (Negative) Urine Bilirubin (NEGATIVE) Urine Urobilinogen (0.2) E.U./dL Ur Leukocyte Esterase (NEGATIVE) Urine RBC (0-5/HPF) Urine WBC (0-5/HPF) Other Crystals Urine Bacteria (None) Ur Culture Indicated? 08/29/20 08/29/20 Range/Units 14:38 15:35 WBC (4.5-11.0) X10^3/uL RBC (4.0-5.2) X10^6/uL Hgb (12.0-16.0) g/dL Hct (36-46) % MCV (80-100) fL MCH (26-34) PG MCHC (30-36) % RDW (11.6-14.8) % Plt Count (150-400) X10^3/uL Neut % (Auto) (50-75) % Lymph % (Auto) (25-40) % Rankin % (Auto) (3-14) % Eos % (Auto) (2-4) % Baso % (Auto) (0-2) % Neut # (Auto) (9534-5733) /uL Lymph # (Auto) (7639-9247) /uL Rankin # (Auto) (0-900) /uL Eos # (Auto) (0-450) /uL Baso # (Auto) (0-100) /uL PT (10.1-12.7) SECONDS INR (0.9-1.3) APTT (26.4-36.2) SECONDS Sodium (137-145) mmol/L Potassium (3.4-5.1) mmol/L Chloride (98-107) mmol/L Carbon Dioxide (22-32) mmol/L BUN (7-17) mg/dL Creatinine (0.52-1.04) mg/dL Estimated GFR (>60) mL/min BUN/Creatinine Ratio (6-22) Glucose (80-110) mg/dL Lactate 1.5 (0.7-2.1) mmol/L Calcium (8.4-10.2) mg/dL Total Bilirubin (0.2-1.3) mg/dL AST (14-36) IU/L ALT (<35) IU/L Alkaline Phosphatase (38-126) U/L Total Protein (6.3-8.2) g/dL Albumin (3.5-5.0) g/dL Globulin (1.7-4.1) g/dL Albumin/Globulin Ratio (1.0-2.8) Lipase (23-300) U/L Procalcitonin (<0.5) ng/mL Urine Color Yellow Urine Appearance Clear Urine pH 6.0 (4.5-8.0) Ur Specific [place] 1.015 (1.000-1.035) Urine Protein Negative (Negative) Urine Glucose (UA) Negative (Negative) g/dL Urine Ketones Negative (NEGATIVE) Urine Occult Blood Negative (Negative) Urine Nitrate Negative (Negative) Urine Bilirubin Negative (NEGATIVE) Urine Urobilinogen 0.2 (0.2) E.U./dL Ur Leukocyte Esterase Negative (NEGATIVE) Urine RBC None seen (0-5/HPF) Urine WBC None seen (0-5/HPF) Other Crystals [place] Urine Bacteria Occasional (0-1) (None) Ur Culture Indicated? Specimen cultured MDM Narrative Medical decision making narrative: This is a 70-year-old female with bilateral lower extremity cellulitis with increasing swelling. Patient has several small wounds but no obvious abscess appreciable on physical exam with visualization or palpation. Patient likely has some the acute on chronic changes although this does appear more cellulitic and less like chronic venous stasis change. She has multiple cultures in the past she has been on 16 days of oral antibiotics. She has been afebrile with no significant changes to her labs or septic criteria. Reluctant to have DVT imaging of her lower extremities she states she has been imaged miserable times without any new findings. Discussed with the hospitalist who accepts for observation. He defers imaging at this time. Plan to start vancomycin IV. Discharge Plan Departure Patient Disposition: Admitted as Observation Clinical Impression: Bilateral cellulitis of lower leg Admit Date/Time: 08/29/20 17:56 Admit Provider: Osvaldo Colon
--- NOTE | 2020-08-29 17:57 | PC.NURSE ---
Daughter Leigh Ann (Roberta) is on vacation, was advised to please call daughter Yeny in [place] with any updates [phone]. Yeny and I talked about how pt does not have anyone to come to her house to help with ADLs and she inquired about [employer] looking into establishing a home care nurse a few times a week. Will relay in report to oncoming RN.
--- NOTE | 2020-08-29 18:34 | DI.US.S_ITS ---
PROCEDURE: US PERIPH VENOUS LOW EXTREM BI INDICATIONS: EDEMA TECHNIQUE: Real-time imaging, as well as color and pulse Doppler interrogation, were performed of the deep veins of both legs from the inguinal ligament to the popliteal fossa. COMPARISON: None. FINDINGS: Image quality is suboptimal secondary to patient body habitus. Right: The common femoral, proximal and mid femoral and popliteal veins are normally compressible, and free of intraluminal thrombus. Distal right superficial femoral vein is not well visualized due to patient body habitus and cannot be evaluated. Color and pulse Doppler demonstrate normal phasic intravascular flow. There is normal augmentation response to distal compression maneuver. Left: The common femoral, proximal and mid superficial femoral and popliteal veins are normally compressible, and free of intraluminal thrombus. Distal left superficial femoral vein is not well visualized due to patient body habitus and cannot be evaluated. Color and pulse Doppler demonstrate normal phasic intravascular flow. There is normal augmentation response to distal compression maneuver. IMPRESSION: 1. Image quality limited secondary to patient body habitus. 2. No deep vein thrombosis involving either the right or left lower extremities within limitations of the study. Please note the distal aspects of the right and left superficial femoral veins were not visualized due to body habitus and cannot be evaluated. Dictated by: Maral Flowers MD, PhD on 08/29/2020 at 19:38 Approved by: Maral Flowers MD, PhD on 08/29/2020 at 19:40
[2020-08-29] MEDS: VANCOMYCIN 2,000 MG/400 ML PIGGYBACK 200 MG IV (18:37)
--- NOTE | 2020-08-29 18:48 | DI.RAD.S_ITS ---
PROCEDURE: XR CHEST 1V INDICATIONS: hypoxemia TECHNIQUE: One view of the chest was acquired. COMPARISON: [facility], , CHEST 2 VIEW, 09/19/2013, 22:54. FINDINGS: Surgical changes and devices: None. Lungs and pleura: Lungs are clear. No pleural effusions or pneumothorax. Mediastinum: Mediastinal contours appear normal. Heart size is normal. Bones and chest wall: No suspicious bony lesions. Overlying soft tissues appear unremarkable. IMPRESSION: No acute cardiopulmonary disease process. Dictated by: Maral Flowers MD, PhD on 08/29/2020 at 19:40 Approved by: Maral Flowers MD, PhD on 08/29/2020 at 19:41
--- NOTE | 2020-08-29 18:49 | DI.ECHO.S_ITS ---
[facility]---------+ [facility] +---------+ : : [address] : : : : [id number] : : : : Phone: [phone] Echocardiogram Report + + :Name: YESENIA CANTU Study Date: 08/30/2020 Height: 63 in : :[facility] ReadingLocation: Weight: 360 lb : : Gender: Female BSA: 2.5 m2 : :: 1950 Age: 70 yrs BP: 127/73 mmHg: :Reason For Study: Congestive Heart Failure : :Ordering Physician: : :SELVIN HENRIQUEZ Performed By: Wicho Vaughan : :Referring: SELVIN HENRIQUEZ : + + Interpretation Summary The ejection fraction is estimated to be 55-60%. The right ventricle is borderline dilated. There is mild aortic regurgitation. There is trace tricuspid regurgitation. The right ventricular systolic pressure is estimated to be at least 47 mmHg based on an estimated right atrial pressure of 8 mm Hg. Procedure: A two-dimensional transthoracic echocardiogram with color flow and Doppler was performed. The study quality was technically adequate. Comparison is made with the echocardiogram of 11/23/2013. The patient was in sinus rhythm with heart rates between 70-83 bpm during the exam. Left Ventricle: The left ventricle is normal in size. There is mild concentric left ventricular hypertrophy. Left ventricular systolic function is normal. The ejection fraction is estimated to be 55-60%. There are no focal wall motion abnormalities. Diastolic parameters suggest probable normal left ventricular diastolic function and normal filling pressures. Right Ventricle: The right ventricle is borderline dilated. Atria: Both atria are normal in size. There is no Doppler evidence for an interatrial shunt. Mitral Valve: The mitral valve is normal in structure and function. There is trace mitral regurgitation. Aortic Valve: The aortic valve is normal in structure and function. There is no hemodynamically significant valvular aortic stenosis. There is mild aortic regurgitation. Tricuspid Valve: The tricuspid valve is normal in structure and function. There is trace tricuspid regurgitation. The right ventricular systolic pressure is estimated to be at least 47 mmHg based on an estimated right atrial pressure of 8 mm Hg. Pulmonic Valve: The pulmonic valve is not well visualized. There is mild pulmonic regurgitation. Great Vessels: The aortic root is normal size. The dimensions of the ascending aorta are normal. The IVC is dilated (diameter is greater than 2.1 cm) yet it collapses greater than 50% with a sniff. This suggests a right atrial pressure of 8 mm Hg. Pericardium/ Pleura There is no pericardial effusion. There is no pleural effusion. MMode/2D Measurements & Calculations LVIDd: 4.7 cm LVOT diam: 2.3 cm LVIDs: 3.2 cm Ao root diam: 3.6 cm FS: 31.9 % asc Aorta Diam: 3.5 cm IVSd: 1.2 cm LVPWd: 1.1 cm LV su. diameter/BSA (cm/m^2): 1.9 LV sys. diameter/BSA (cm/m^2): 1.3 LA A2 area: 13.3 cm2 RA area: 11.5 cm2 LA A4 area: 16.5 cm2 IVC diam: 2.3 cm LA length (vol): 4.6 cm LA vol: 40.1 ml LA vol index: 16.2 ml/m2 RVD1 (basal): 3.6 cm TAPSE: 1.9 cm Doppler Measurements & Calculations Ao V2 max: 182.6 cm/sec LVOT Max Yobany: 122.8 cm/sec Ao V2 mean: 126.4 cm/sec LV V1 max P.0 mmHg Ao max P.3 mmHg LV V1 VTI: 25.3 cm Ao mean P.1 mmHg STAR(I,D): 2.8 cm2 Ao V2 VTI: 36.5 cm STAR(V,D): 2.7 cm2 sev ratio: 0.69 STAR indexed to BSA (cm^2/m^2): 1.1 MV E max yobany: 100.5 cm/sec TR max yobany: 311.3 cm/sec Med Peak E' Yobany: 7.8 cm/sec TR max P.8 mmHg E/E' med: 12.9 PA V2 max: 122.2 cm/sec Lat Peak E' Yobany: 14.3 cm/sec PA V2 mean: 83.8 cm/sec E/E' lat: 7.0 PA mean P.1 mmHg E/e' average: 10.0 PA pr(Accel): 49.9 mmHg MV dec time: 0.22 sec SV([facility]): 102.0 ml Reading Physician:02:13 PM
--- NOTE | 2020-08-29 19:30 | P.HP_ITS ---
History of Present Illness History of Present Illness Chief complaint: cellulitis, weeping extremeties Narrative: 70W with PMH of morbid obesity, lymphedema from surgical complication years ago, GERD, HTN who comes in with pain and swelling in her lower extremities. She notes this began approximately two weeks ago. At that time was seen by her PCP who diagnosed with a cellulitis, and she has been on 16 days of doxycycline. She has been on lasix and aldactone for her swelling with recent increase in dose with no improvement. No SOB or CP, no CAD or CHF in history. She has no fevers or chills. She does use compression stocking for her lymphedema. She also noted developing an ulcer on the bottom of her left foot a couple weeks ago. Her pain is primarily noted on the back of her left leg above her knee. She has noticed increased redness in the skin folds of her legs. She has noted some weeping discharge bilaterally from her leg. In the ER she was noted to have normal vitals with no fever. Normal WBC, normal procalcitonin. She was given a dose of IV vancomycin for concern for cellulitis Patient History Medical History Allergic rhinitis (Unknown) Arthritis (Unknown) Cellulitis of right leg Essential hypertension (09/11/10) GERD (gastroesophageal reflux disease) (Unknown) GERD (gastroesophageal reflux disease) (Unknown) Hyperlipemia (Unknown) Hypertension (Unknown) Lymphedema (Unknown) Mixed hyperlipidemia Morbid obesity due to excess calories Obstructive sleep apnea (Unknown) Obstructive sleep apnea syndrome Staph skin infection Surgical History Hx of total knee replacement (Unknown) Family & Social History Family History Brother Kidney carcinoma Mother Stroke Sister Cancer Father Atrial fibrillation Safety & Behavioral: Feels Safe in Current Yes Environment Been Physically Hurt or No Threatened By a Person Tobacco & Substance use: Smoking Status Former smoker alcohol intake current alcohol intake frequency holiday/special occasion Substance Use Type does not use Meds Home Medications and Allergies Home Medications Medication Instructions Recorded Confirmed Type CA PANTOTHENATE/FOLIC ACID/VIT 1 tab PO QDAY #0 07/06/12 03/26/20 History (MULTIVITAMIN) [MAGNESIUM] 400 mg PO QDAY #0 11/02/17 03/26/20 History triamcinolone acetonide 0.5 % 1 applictn TOP DAILY #60 gram 01/27/19 03/26/20 Rx topical cream Cranberry/Probiotic See Rx Instructions .ROUTE .COMPLEX 03/16/19 03/26/20 History Taiban 3 Fish Oil See Rx Instructions .ROUTE .COMPLEX 03/16/19 03/26/20 History ascorbic acid (vitamin C) 500 mg See Rx Instructions PO .COMPLEX 03/16/19 03/26/20 History capsule Disabled parking permit #1 ea 12/14/19 03/26/20 Rx fluconazole 150 mg tablet 150 mg PO ONCE #2 tab 12/14/19 03/26/20 Rx nystatin 100,000 unit/gram topical 1 applictn TOP TID #120 gram 12/14/19 03/26/20 Rx powder furosemide 40 mg tablet 80 mg PO QAM PRN #180 tab 12/19/19 03/26/20 Rx metoprolol tartrate 25 mg tablet See Rx Instructions .ROUTE 12/19/19 03/26/20 Rx .COMPLEX #90 tab simvastatin 40 mg tablet See Rx Instructions .ROUTE 02/16/20 03/26/20 Rx .COMPLEX #90 tab cholecalciferol (vitamin D3) PO 03/26/20 03/26/20 History pantoprazole 40 mg tablet,delayed See Rx Instructions .ROUTE 06/12/20 Rx release .COMPLEX #90 tab spironolactone 100 mg tablet See Rx Instructions .ROUTE 07/31/20 Rx .COMPLEX #90 tab ibuprofen 800 mg tablet See Rx Instructions .ROUTE 08/28/20 Rx .COMPLEX #90 tab Allergies Allergy/AdvReac Type Severity Reaction Status Date / Time adhesive tape [ADHESIVE TAPE] Allergy Intermediate RASH, Verified 08/29/20 14:38 HIVES, BLISTER Sulfa (Sulfonamide Allergy Mild HIVES Verified 08/29/20 14:38 Antibiotics) [SULFA (SULFONAMIDE ANTIBIOTICS)] tramadol AdvReac Mild Dizziness Verified 08/29/20 14:38 Exam Vital Signs (past 8 hours): - 08/29/20 14:00 08/29/20 15:36 08/29/20 16:00 Temperature 98.3 F Pulse Rate 86 73 65 Respiratory Rate 15 Blood Pressure 133/84 137/69 123/69 Pulse Oximetry 92 93 90 L 08/29/20 16:30 08/29/20 17:00 08/29/20 17:30 Temperature Pulse Rate 67 82 68 Respiratory Rate Blood Pressure 123/80 130/63 Pulse Oximetry 92 92 92 08/29/20 18:00 Temperature Pulse Rate 73 Respiratory Rate Blood Pressure Pulse Oximetry 90 L Oxygen Delivery Method Room Air Narrative Exam Narrative: GENERAL: no acute distress HEENT: Head normocephalic, atraumatic, EOMI, face symmetric, moist mucous membranes CARDIOVASCULAR: Regular rate and rhythm with no murmurs RESPIRATORY: Breath sounds equal bilaterally, no wheezes rales or rhonchi. ABDOMEN: Soft, nontender. Normoactive bowel sounds all 4 quadrants. No guarding or rebound, rigidity, no mass : No CVA tenderness EXTREMITIES: Swelling of bilateral lower extremities of significant degree. She has brawny, woody chronic changes over the anterior lower mcmullen, with surrounding marroon changes that are without erythema or pain. She has a wound on her left hell approx 1cm with no erythema. On the back of her left leg is an erythematous, painful, and slightly warm region that is above her knee. She has weeping areas in her bilateral thighs. She has erythema in her skin folds. NEUROLOGICAL: Moving all extremities. SKIN: skin changes noted above in extremities, with no other abnormalities appreciated. Objective Labs Result Diagrams: 08/29/20 14:38 08/29/20 14:38 Labs: Laboratory Results - last 24 hr 08/29/20 08/29/20 08/29/20 14:38 14:38 14:38 WBC 6.2 RBC 4.60 Hgb 13.2 Hct 40.3 MCV 87.7 MCH 28.6 MCHC 32.6 RDW 14.8 Plt Count 244 Neut % (Auto) 69.7 Lymph % (Auto) 15.6 L [place] % (Auto) 12.9 Eos % (Auto) 1.4 L Baso % (Auto) 0.4 Neut # (Auto) 4300 Lymph # (Auto) 1000 L [place] # (Auto) 800 Eos # (Auto) 100 Baso # (Auto) 0 PT 13.0 H INR 1.1 APTT 37 H Sodium 137 Potassium 4.2 Chloride 100 Carbon Dioxide 31 BUN 32 H Creatinine 0.93 Estimated GFR 59.6 L BUN/Creatinine Ratio 34.4 H Glucose 104 Lactate Calcium 10.2 Total Bilirubin 0.3 AST 34 ALT 25 Alkaline Phosphatase 114 Total Protein 8.6 H Albumin 4.1 Globulin 4.5 H Albumin/Globulin Ratio 0.9 L Lipase 97 Procalcitonin 0.08 Urine Color Urine Appearance Urine pH Ur Specific [place] Urine Protein Urine Glucose (UA) Urine Ketones Urine Occult Blood Urine Nitrate Urine Bilirubin Urine Urobilinogen Ur Leukocyte Esterase Urine RBC Urine WBC Other Crystals Urine Bacteria Ur Culture Indicated? 08/29/20 08/29/20 14:38 15:35 WBC RBC Hgb Hct MCV MCH MCHC RDW Plt Count Neut % (Auto) Lymph % (Auto) [place] % (Auto) Eos % (Auto) Baso % (Auto) Neut # (Auto) Lymph # (Auto) [place] # (Auto) Eos # (Auto) Baso # (Auto) PT INR APTT Sodium Potassium Chloride Carbon Dioxide BUN Creatinine Estimated GFR BUN/Creatinine Ratio Glucose Lactate 1.5 Calcium Total Bilirubin AST ALT Alkaline Phosphatase Total Protein Albumin Globulin Albumin/Globulin Ratio Lipase Procalcitonin Urine Color Yellow Urine Appearance Clear Urine pH 6.0 Ur Specific [place] 1.015 Urine Protein Negative Urine Glucose (UA) Negative Urine Ketones Negative Urine Occult Blood Negative Urine Nitrate Negative Urine Bilirubin Negative Urine Urobilinogen 0.2 Ur Leukocyte Esterase Negative Urine RBC None seen Urine WBC None seen Other Crystals [place] Urine Bacteria Occasional (0-1) Ur Culture Indicated? Specimen cultured Assessment & Plan Assessment & Plan narrative: Ms. Huang is a 70W with PMH of lymphedema coming in with worsening lower extremity swelling, left leg pain and erythema concerning for cellulitis, vs fungal infection, vs worsening lipodermatosclerosis vs panniculitis 1. Probable cellulitis - region most consistent with cellullitis is the back of the left leg. Given she has been on antibiotics with doxy, will switch to va ncomycin for now. However, aside from this region the rest of her leg look like possible intertrigo in skin folds and chronic skin changes from lymphedema 2. Intertrigo - start on nystatin powder for skin folds, also add zinc oxide 3. Lymphedema - has evidence of chronic skin chages, will benefit from outpatient follow up with lymphedema or vascular clinic, outpatient wound care. Here will order wound consult and continue lasix 4. Acute lower extremity swelling - most likely related to lymphedema, however will rule out vascular issue with bilateral ultrasound for DVT. In addition check BNP and ECHO to rule out CHF. 5. Morbid obesity - would benefit from weight loss to help her lymphedema. BMI 63.8 6. GERD - continue PPI 7. HTN - continue metoprolol Diet: low sodium IVF: none DVT ppx: heparin Code status: Full, contact is daughter Leigh Ann Wick
[2020-08-29 19:33] LABS: NT-proBNP (BNP-Adult 18+) 103 pg/mL (<125)
[2020-08-29 20:27] LABS: COVID19 - ADMIT (NP swab/PCR) Negative (Negative)
[2020-08-29] MEDS: HEPARIN 5,000 UNIT/ML VIAL 5000 UNIT SUBCUT (22:17)
[2020-08-30] VITALS: BP 124/76; PULSE 79; RESP 16; TEMP 36.7; O2SAT 92
[2020-08-30] MEDS: FUROSEMIDE 40 MG/4 ML VIAL IV ×2 (00:12→18:08)
[2020-08-30] MEDS: ZINC OXIDE OINT 60 GM 1 APPLIC TOP ×3 (00:12→21:09)
[2020-08-30] MEDS: IBUPROFEN 600 MG TABLET PO (01:24)
--- NOTE | 2020-08-30 02:29 | PC.NURSE ---
at start of shift scheduled Nystatin was not given, because not available on floor and will need to wait until day shift, provider and pt notified, orders to wrap pt legs bilateral, pt refused and wanted only left leg wrapped above knee area where weeping present, nurse explained why wrapping was ordered to reduce weeping however pt refused saying she already had danyel hose and would wait for day shift to use them or wait until day shift when nystatin is available to wrap. zinc oxide cream placed in red areas at back of legs under buttox per pt request, pt refused use in groin and panis are at this time. pt requested ibuprofen for leg and left shoulder pain, nurse notified provider and provider placed new orders for 600mg ibuprofen prn, see JUL, pt received on dose.
[2020-08-30 05:29] LABS: Add Manual Diff / Slide Review NO; Basophils Absolute Auto 0 /uL (0-100); Basophils Percent Auto 0.4 % (0-2); Eosinophils Absolute Auto 200 /uL (0-450); Eosinophils Percent Auto 2.6 % (2-4); Hematocrit 36.6 % (36-46); Hemoglobin 12.2 g/dL (12.0-16.0); Lymphocytes Absolute Auto 1300 /uL (1100-4500); Lymphocytes Percent Auto 18.2 % (25-40); Mean Corpuscular HGB Conc 33.2 % (30-36); Mean Corpuscular Hemoglobin 29.3 PG (26-34); Mean Corpuscular Volume 88.2 fL (80-100); Monocytes Absolute Auto 900 /uL (0-900); Monocytes Percent Auto 13.3 % (3-14); Neutrophils Absolute Auto 4600 /uL (1500-7000); Neutrophils Percent Auto 65.5 % (50-75); Platelet Count 222 X10^3/uL (150-400); Red Blood Cell Count 4.15 X10^6/uL (4.0-5.2); Red Cell Distribution Width 14.9 % (11.6-14.8)
[2020-08-30 05:44] LABS: BUN Creatinine Ratio 28.7 (6-22); Blood Urea Nitrogen 27 mg/dL (7-17); Calcium 9.7 mg/dL (8.4-10.2); Carbon Dioxide 34 mmol/L (22-32); Chloride 97 mmol/L (98-107); Estimated Glomerular Filt Rate 58.9 mL/min (>60); Glucose 98 mg/dL (80-110); HEMOLYSIS < 15 (0-50); Magnesium 1.8 mg/dL (1.6-2.3); Potassium 4.1 mmol/L (3.4-5.1); Sodium 136 mmol/L (137-145)
[2020-08-30 06:00] VITALS: BP 140/72; PULSE 79; RESP 16; TEMP 36.5; O2SAT 91
[2020-08-30 08:53] VITALS: BP 131/73; PULSE 86; RESP 16; TEMP 36.1; O2SAT 92
[2020-08-30] MEDS: NYSTATIN POWDER 15GM 1 APPLIC TOP ×3 (09:27→21:08)
[2020-08-30] MEDS: HEPARIN 5,000 UNIT/ML VIAL 5000 UNIT SUBCUT ×2 (09:28→21:09)
[2020-08-30 11:28] VITALS: BP 132/73; PULSE 81; RESP 16; TEMP 36.3; O2SAT 93
--- NOTE | 2020-08-30 12:49 | DIET.PN ---
Dietary Progress Note Assessment: 70y F admitted for weeping cellulitis screened by RD for extreme obesity and chronic wounds. Pts Gagandeep score of 14 and MNA of [address] consult (gagandeep <15, MNA high risk for malnutrition). Pt had complications c TKA several years ago resulting in compartment syndrome leading to lymphedema in left leg. Pt was able to manage okay until about 3y ago, now attends wound care. Pt doesn't feel the global pandemic has changed much in her life as she doesn't drive and uses [employer] for food shopping. Pt has a friend who drives her to appointments. Pts actual body weight unclear as body weight from 12/11 being recorded in pts chart. Pt reports less and less mobility secondary to LE swelling. Pt was able to walk around her home easily a year ago and part of why she came in is because she is having difficulty getting herself to the bathroom and kitchen. Pt uses chair lift to get up and out of recliner. Usual Day: B: 12 low carb tortilla c 2 eggs and 2 egg whites c cheese, 3-4 sl turkey leon and 12 oz 1% milk c Alive MVI snacks throughout day on hb eggs, cheese, crackers D: meat, rice or instant potatoes and tries to make a veggie (only eats corn, peas, royal beans, string beans) drinks water has portion controlled cookies in evening (3 butter cookies or 3 chocolate chip) Pt reports stopping eating all fruit and most vegetables when she was 9y old. Pt has worked c RD in past who told her she needs to eat salads. Pts only physical activity is limited ADLs. HT: 160cm WT: weight is incorrect and was recorded from weight hx almost 1y ago BMI: ~63 MNA: 9 @ risk for malnutrition Gagandeep: 14 high risk [address] skin breakdown RD Impression: Pts morbid obesity and physical inactivity along with little to no intake F/V contributing to chronic non-healing wounds and lymphedema. Pt likely does not have enough protein, Vit A, Vit C, or zinc to support wound healing. Nutrition Diagnosis: undesirable food choices r/t nutrients for wound healing aeb pt has chronic lymphedema c wounds seen by wound care, pt has BMI 63 c little physical movement and high protein needs, pt does not consume fruit and very limited vegetables indicating likely deficient in Vit A and C. Interventions: 1. accurate weight, please use bariatric scale which goes up to 400#/180kg. 2. Educated pt on relationship between body weight, protein intake, and lymphedema. Pts large abdominal circumference along with immobility and high protein needs are not helping the LE swelling. Pt has goal to increase mobility. 3. Educated pt on nutrients for wound healing including PRO, Vit A, Vit C, and zinc. Pt willing to drink bariatric ONS (Ensure Max/Premier Protein) daily at lunchtime for low kcal, high PRO, high supplemental vit and minerals. Pt unwilling to eat high Vit A or C foods at this time but will ensure her MVI has adequate levels. Pt really likes beans so will eat more to support protein, zinc, and soluble fiber needs. Pt enjoys Zuppa Tuscana which does have spinach or kale in it, encouraged pt to consume more of this food as long as low-sodium version for some Vit A and C from veg. 4. Sending ONS Ensure Max once daily. Diet Order:2g sodium restriction EER: 140g PRO/d (0.9g/kg actual body weight), 2,000 kcal (12kcal/kg per morbid obesity) Monitoring/Evaluations: Pt happy c advice, did not know nutrients for wound healing, will start bariatric ONS once daily at lunch, consume beans more frequently, and will check MVI for Vit A and Vit C adequacy. Pt open to increased movement around her house to help LE lymphedema.
[2020-08-30] MEDS: VANCOMYCIN 1,500 MG/300 ML PIGGYBACK 200 MG IV (13:45)
[2020-08-30 15:45] VITALS: BP 121/72; PULSE 76; RESP 18; TEMP 36.3
--- NOTE | 2020-08-30 18:10 | PM.PN.1 ---
Subjective Subjective Interval history: Today her leg is feeling improved. There is less pain and less swelling. Still having some weeping from bilateral legs. Exam Vital Signs (past 8 hours): - 08/30/20 11:28 Temperature 97.3 F L Pulse Rate 81 Respiratory Rate 16 Blood Pressure 132/73 Pulse Oximetry 93 Oxygen Delivery Method Room Air Oxygen Flow Rate 0 Narrative Exam Narrative: GENERAL: no acute distress HEENT: Head normocephalic, atraumatic, EOMI, face symmetric, moist mucous membranes CARDIOVASCULAR: Regular rate and rhythm with no murmurs RESPIRATORY: Breath sounds equal bilaterally, no wheezes rales or rhonchi. ABDOMEN: Soft, nontender. Normoactive bowel sounds all 4 quadrants. No guarding or rebound, rigidity, no mass : No CVA tenderness EXTREMITIES: Swelling of bilateral lower extremities of significant degree. She has brawny, woody chronic changes over the anterior lower mcmullen, with surrounding marroon changes that are without erythema or pain. She has a wound on her left hell approx 1cm with no erythema. On the back of her left leg is an erythematous, painful, and slightly warm region that is above her knee. She has weeping areas in her bilateral thighs. She has erythema in her skin folds. NEUROLOGICAL: Moving all extremities. SKIN: skin changes noted above in extremities, with no other abnormalities appreciated. Objective Labs Result Diagrams: 08/30/20 04:50 08/30/20 04:50 Labs: Laboratory Results - last 24 hr 08/29/20 08/29/20 08/30/20 14:38 18:37 04:50 WBC 7.0 RBC 4.15 Hgb 12.2 Hct 36.6 MCV 88.2 MCH 29.3 MCHC 33.2 RDW 14.9 H Plt Count 222 Neut % (Auto) 65.5 Lymph % (Auto) 18.2 L [place] % (Auto) 13.3 Eos % (Auto) 2.6 Baso % (Auto) 0.4 Neut # (Auto) 4600 Lymph # (Auto) 1300 [place] # (Auto) 900 Eos # (Auto) 200 Baso # (Auto) 0 Sodium Potassium Chloride Carbon Dioxide BUN Creatinine Estimated GFR BUN/Creatinine Ratio Glucose Calcium Magnesium NT-Pro-B Natriuret Pep 103 SARS-CoV-2 (PCR) Negative 08/30/20 08/30/20 04:50 04:50 WBC RBC Hgb Hct MCV MCH MCHC RDW Plt Count Neut % (Auto) Lymph % (Auto) [place] % (Auto) Eos % (Auto) Baso % (Auto) Neut # (Auto) Lymph # (Auto) [place] # (Auto) Eos # (Auto) Baso # (Auto) Sodium 136 L Potassium 4.1 Chloride 97 L Carbon Dioxide 34 H BUN 27 H Creatinine 0.94 Estimated GFR 58.9 L BUN/Creatinine Ratio 28.7 H Glucose 98 Calcium 9.7 Magnesium 1.8 NT-Pro-B Natriuret Pep SARS-CoV-2 (PCR) PFSH Medical History Allergic rhinitis (Unknown) Arthritis (Unknown) Cellulitis of right leg Essential hypertension (09/11/10) GERD (gastroesophageal reflux disease) (Unknown) GERD (gastroesophageal reflux disease) (Unknown) Hyperlipemia (Unknown) Hypertension (Unknown) Lymphedema (Unknown) Mixed hyperlipidemia Morbid obesity due to excess calories Obstructive sleep apnea (Unknown) Obstructive sleep apnea syndrome Staph skin infection Surgical History Hx of total knee replacement (Unknown) Family History Brother Kidney carcinoma Mother Stroke Sister Cancer Father Atrial fibrillation Social History Smoking Status: Former smoker Tobacco: How many years used: 4 second hand exposure: No alcohol intake: never substance use type: does not use Assessment & Plan Assessment & Plan narrative: Ms. Huang is a 70W with PMH of lymphedema coming in with worsening lower extremity swelling, left leg pain and erythema concerning for cellulitis, vs fungal infection, vs worsening lipodermatosclerosis vs panniculitis 1. Probable cellulitis - region most consistent with cellullitis is the back of the left leg. Given she has been on antibiotics with doxy, will switch to vancomycin for now. However, aside from this region the rest of her leg look like possible intertrigo in skin folds and chronic skin changes from lymphedema. Her cellulitis looks improved today. Will continue IV antibiotics for likely one more day before switching to oral. 2. Intertrigo - start on nystatin powder for skin folds, also add zinc oxide 3. Lymphedema - has evidence of chronic skin chages, will benefit from outpatient follow up with lymphedema or vascular clinic, outpatient wound care. Here ordered wound consult. Lasix IV 40mg BID has been diuresing well. 4. Acute lower extremity swelling - most likely related to lymphedema. Vascular study showed no DVT on US. ECHO showed normal EF and no diastolic dysfunction. 5. Morbid obesity - would benefit from weight loss to help her lymphedema. BMI 63.8 6. GERD - continue PPI 7. HTN - continue metoprolol Diet: low sodium IVF: none DVT ppx: heparin Code status: Full, contact is daughter Leigh Ann Wick Koby VTE Deep Vein Thrombosis/Pulmonary Embolism Present on Admission: No
[2020-08-30 19:45] VITALS: BP 146/54; PULSE 90; RESP 19; TEMP 36.7; O2SAT 94
[2020-08-31] MEDS: IBUPROFEN 600 MG TABLET PO (00:09)
[2020-08-31 00:27] VITALS: BP 145/73; PULSE 95; RESP 18; TEMP 37; O2SAT 93
[2020-08-31 03:38] VITALS: BP 129/58; PULSE 110; RESP 20; TEMP 36.9; O2SAT 92
[2020-08-31 05:16] LABS: Hematocrit 36.7 % (36-46); Hemoglobin 11.9 g/dL (12.0-16.0); Mean Corpuscular HGB Conc 32.4 % (30-36); Mean Corpuscular Hemoglobin 28.6 PG (26-34); Mean Corpuscular Volume 88.1 fL (80-100); Platelet Count 230 X10^3/uL (150-400); Red Blood Cell Count 4.17 X10^6/uL (4.0-5.2); Red Cell Distribution Width 14.5 % (11.6-14.8); White Blood Cell Count 6.4 X10^3/uL (4.5-11.0)
[2020-08-31 05:45] LABS: Blood Urea Nitrogen 27 mg/dL (7-17); Calcium 9.5 mg/dL (8.4-10.2); Carbon Dioxide 31 mmol/L (22-32); Chloride 99 mmol/L (98-107); Estimated Glomerular Filt Rate > 60.0 mL/min (>60); Glucose 111 mg/dL (80-110); HEMOLYSIS < 15 (0-50); Potassium 4.2 mmol/L (3.4-5.1); Sodium 134 mmol/L (137-145)
[2020-08-31] MEDS: VANCOMYCIN 1,500 MG/300 ML PIGGYBACK 200 MG IV (06:20)
[2020-08-31 08:00] VITALS: BP 115/53; RESP 20; TEMP 36.6; O2SAT 93
[2020-08-31] MEDS: FUROSEMIDE 40 MG/4 ML VIAL IV ×2 (09:19→17:31)
[2020-08-31] MEDS: HEPARIN 5,000 UNIT/ML VIAL 5000 UNIT SUBCUT (09:19)
[2020-08-31] MEDS: ZINC OXIDE OINT 60 GM 1 APPLIC TOP (09:20)
[2020-08-31] MEDS: NYSTATIN POWDER 15GM 1 APPLIC TOP ×2 (09:20→16:55)
[2020-08-31 11:59] VITALS: BP 115/62; PULSE 81; RESP 20; TEMP 36.2; O2SAT 92
--- NOTE | 2020-08-31 13:55 | PT.IIE ---
Surgical History (Last Reviewed 08/29/20 @ 19:30 by Osvaldo Colon MD) Hx of total knee replacement (Unknown) Medical History (Last Reviewed 08/29/20 @ 19:30 by Osvaldo Colon MD) Allergic rhinitis (Unknown) Arthritis (Unknown) Cellulitis of right leg Essential hypertension (09/11/10) GERD (gastroesophageal reflux disease) (Unknown) GERD (gastroesophageal reflux disease) (Unknown) Hyperlipemia (Unknown) Hypertension (Unknown) Lymphedema (Unknown) Mixed hyperlipidemia Morbid obesity due to excess calories Obstructive sleep apnea (Unknown) Obstructive sleep apnea syndrome Staph skin infection Physical Therapy Inpatient Evaluation/Re-Eval M1 PT/OT-IP Prior Functional Status Start: 08/31/20 14:56 Freq: NEEDED Status: Active Protocol: Document 08/31/20 13:55 AB (Rec: 08/31/20 15:16 AB [id number]) Medical Review Prior Functional Status Medical History Reviewed Yes Communication able to make needs known Mobility and Gait pt stated that she is modified independent with all mobilities and ambulates using a 4WW but using her bilateral SPC for going to the toilet. pt is more or less home bound stated that she orders her groceries via instacart. Social History Household Members none Living Arrangements House Number of Floors (Floors) One Floor Number of Stairs To Enter/Railing? one steps to enter Home Environment Standard Height Toilet,Tub/ Shower Home Equipment Four Wheel Walker,Straight Cane,Shower Seat without Backrest,Hand Held Shower,Grab Bars Near Toilet,Grab Bars In Shower Additional Social History Comment pt has an adjustable bed but pt sleeps on her lift chair M2 PT-IP Current Condition Start: 08/31/20 14:56 Freq: NEEDED Status: Active Protocol: Document 08/31/20 13:55 AB (Rec: 08/31/20 15:16 AB [id number]) Physical Therapy Current Condition Current Condition Evaluation Date 08/31/20 Treatment Diagnosis BLE cellulitis; difficulty in walking Onset Date 08/29/20 M3 PT-IP Subjective Start: 08/31/20 14:56 Freq: NEEDED Status: Active Protocol: Document 08/31/20 13:55 AB (Rec: 08/31/20 15:16 AB [id number]) Subjective Physical Therapy Visit Type Type Initial Evaluation Visit Start Time 13:55 Visit Stop Time 14:36 Total Visit Minutes 41 Number of SENIOR JAVASCRIPT ENGINEER Visits 0 Physical Therapy Visit Comments Patient Comments pt is agreeable to do PT Therapy Pain Assessment Pain When Pain Assessed At Rest Pain Present Pain Present Pain Reported Location bilateral lower extt Intensity 4 Scale Used Numeric (0 - 10) Pain Management Techniques Modification of Treatment,Re- positioning,Timing of Activity with Medications M4 PT-IP Mobility and Gait Start: 08/31/20 14:56 Freq: NEEDED Status: Active Protocol: Document 08/31/20 13:55 AB (Rec: 08/31/20 15:16 AB [id number]) PT-Bed Mobility Assessment Supine to Sit Supine to Sit Maximum Assistance Sit to Supine Sit to Supine Minimal Assistance Scooting Scooting to Edge of Bed Moderate Assistance PT-Transfer Assessment Sit to and From Stand Sit to and from Stand Standby Assistance,1 Person Assistance,Use of Upper Extremities Equipment Transfer Assistive Device Gait Belt,4 Wheeled Walker Orthotic/Prosthetic Devices or Brace: No Transfers Transfer Destination Bedside Commode Transfer Technique Stand Step Pivot Transfer Ability Level of Assist Standby Assistance,1 Person Assistance,Use of Upper Extremities Comments Mobility Comments pt completed supine to sit with HOB elevated max A and cues. required mod A for scooting to EOB. pt sleeps on a lift chair and plans to continue using her lift chair. completed sit to stand from EOB SBA and step transfer to bedside commode SBA. completed sit to stand from bed side commode SBA and NAC assisted with hygiene care. pt stated that she is able to manage at home since her toilet is wider and she can spread her legs out to the side to clean up. pt completed step transfer to EOB SBA using 4WW. Pt refused to do stair climbing. stated that her legs are weak right now since the bedside commode and bed make her LE painful and stated that she will not be able to do stairs today. stated that when she goes home , there is some body who will assist her. agreed to do more ambulation and completed 30 ft in room SBA using 4WW. pt sat back on EOB. completed sit to stand using bilateral SPC and was able to take side steps towards HOB SBA. completed sit to supine min assist for LE. positioned in bed. call light and table placed within reach. Gait Assessment Gait Gait Assistance Required: Standby Assistance Distance (Feet) 30 Able to Maintain Weight Bearing Status Yes During Gait Assistive Devices Assistive Device Gait Belt,4 Wheeled Walker Comments Gait Comments pls refer to mobility section for details Stair Climbing Assessment Comments Stair Climbing Comments pt refused PT-Balance Assessment Sitting Balance and Reactions Static Sitting Balance Ability Good Dynamic Sitting Balance Ability Good Standing Balance and Reactions Static Standing Balance Ability Fair Dynamic Standing Balance Ability Fair Device Used 4WW M5 PT-IP Objective Assessments Start: 08/31/20 14:56 Freq: NEEDED Status: Active Protocol: Document 08/31/20 13:55 AB (Rec: 08/31/20 15:16 AB [id number]) Orientation Orientation/Cognition Level of Alertness Alert Orientation Name,Place,Situation Language Function Ability No Deficits Noted Safety Awareness Understands Safety Issues Memory Description No Deficits Noted Strength Lower Extremity Strength Assessment Bilaterally Impaired Hip LLE: 3+/5 RLE 4-/5 Knee 4-/5 Muscle Tone Muscle Tone WNL Yes M6 PT-IP Treatment Start: 08/31/20 14:56 Freq: NEEDED Status: Active Protocol: Document 08/31/20 13:55 AB (Rec: 08/31/20 15:16 AB [email or web address]) Physical Therapy Treatment Education Education Provided Safety M7 PT-IP Assessment and Plan Start: 08/31/20 14:56 Freq: NEEDED Status: Active Protocol: Document 08/31/20 13:55 AB (Rec: 08/31/20 15:16 AB [email or web address]) PT Summary Assessment and Plan Potential Rehabilitation Potential Good Status of Condition at Evaluation Stable Summary Impairments Pain,ROM,Strength,Balance, Coordination,Sensation,Bed Mobility,Transfers,Gait, Activity Tolerance Assessment Summary pt requiring SBA with transfers using 4WW. pt uses a lift chair to sleep on at home and has home set up to meet her needs. Refused to do stair climbing today and stated that she will have somebody to assist her with stairs when she gets home. pt will benefit from HHPT. Goals Bed Mobility Goal Standby Assistance Transfer Goal Independent Gait Goal Independent Gait Distance 50 Other Goals up/down 1 step using 4WW SBA Days to Meet Goals 5 Frequency of Treatment Frequency Of Treatment Once a Day Treatment Plan Physical Therapy Treatment Plan Bed Mobility Training,Transfer Training,Gait Training, Therapeutic Exercise,Balance Retraining,Discharge Planning, Hot or Cold Pack,Neuromuscular Re-ed,Coordination Retraining ,Manual Therapy Recommendations To Nursing Amount of Assist Needed 1 Person Assist Discharge Recommendations PT Discharge Recommendations Home with Assistance,Home Health Transportation Needs at Discharge Private Vehicle,Wheelchair/ Cabulance
--- NOTE | 2020-08-31 16:04 | PC.NURSE ---
Pt A&Ox3. VSS, afebrile. Pt able to get up to BSC with x1 assist. OT /PT consulted for patient and cleared for d/c home with follow up/ consult from wound clinic. Lata notifed in wound care and able to schedule patient for lymphedema specialist referal next Thrusday September 06 at 13:30 p.m. Pt verbalized agreement to be able to make the appoinment then. Karina hyltonilar with patient in wound care clinic notated wounds to be ok to be covered with alleyvn until home health able to assist patient at home to change. Per MD Colon ok'd to place allevyn over open areas on skin.Pt arranged transportation home with cabulance. Soonest available pharmacy picking tech time is 1800 this evening. Endorsed discharge plan to oncoming nurse.
--- NOTE | 2020-08-31 16:07 | PM.DS.1 ---
History of Present Illness History of Present Illness Chief complaint: cellulitis, weeping extremeties Narrative: 70W with PMH of morbid obesity, lymphedema from surgical complication years ago, GERD, HTN who comes in with pain and swelling in her lower extremities. She notes this began approximately two weeks ago. At that time was seen by her PCP who diagnosed with a cellulitis, and she has been on 16 days of doxycycline. She has been on lasix and aldactone for her swelling with recent increase in dose with no improvement. No SOB or CP, no CAD or CHF in history. She has no fevers or chills. She does use compression stocking for her lymphedema. She also noted developing an ulcer on the bottom of her left foot a couple weeks ago. Her pain is primarily noted on the back of her left leg above her knee. She has noticed increased redness in the skin folds of her legs. She has noted some weeping discharge bilaterally from her leg. In the ER she was noted to have normal vitals with no fever. Normal WBC, normal procalcitonin. She was given a dose of IV vancomycin for concern for cellulitis Discharge Providers Provider Date of admission: 08/29/20 17:56 Discharge Date: 08/31/20 Primary care physician: Chip Deutsch DO Consults: 08/29/20 18:38 Consult to Wound Care Routine Comment: Consulting Provider: [facility] 08/29/20 18:43 Consult to ADVISORY INTERN - Credit Associate Routine Comment: inquire about help at home for wound care 08/31/20 10:34 Consult to Occupational Therapy Evaluate & Treat Comment: Physician Instructions: Evaluate and treat Consult to Physical Therapy Evaluate & Treat Comment: Physician Instructions: Evaluate and Treat 08/31/20 15:49 Consult to Home Health Routine Comment: Reason For Exam: Home health Upon DC Discharge provider: Osvaldo Colon MD Summary Hospital Course Discharge Diagnosis: 1. Cellulitis 2. Intertrigo 3. Severe lymphedema 4. Morbid obesity 5. GERD 6. Hypertension 7. Obstructive sleep apnea Hospital Course: She has initiated needed with significant bilateral swelling. Initial ER was concerned about possible bilateral cellulitis but aside from a small area on the back of her left thigh I did not appreciate cellulitis. However patient does have significant lower extremity edema secondary to swelling and chronic skin changes from this. To rule out acute changes she had an echo done that did not show any evidence of CHF. She also had bilateral study for DVT that was negative. She was started on vancomycin initially for that area of cellulitis and will be discharged on a course of antibiotics with Keflex for 5 more days. She was also intermittently taking Lasix and was recommended to use take it consistently at 40 mg b.i.d.. She will continue on spironolactone. However the underlying issues that primarily she has chronic changes associated with lymphedema. She has multiple areas of erythema and also some brawny [place] color changes especially to her lower shins. Most of this does all appear to me to be chronic skin changes. To improve this she may benefit from an outpatient Derm consult versus a lymphedema clinic. However she was recommended for exercise in attempting to have low-salt diet in and further weight loss. She does have a BMI of 63. She has some chronic chronic wounds and weeping shallow ulcers in her lower extremities that do not appear infected and will be referred to the wound clinic. She will have home health nursing and PT to help with her mobility. She is recommended to continue using bandages wrapped the legs and sleep them elevated. Exam Vital Signs (past 8 hours): - 08/31/20 11:59 Temperature 97.2 F L Pulse Rate 81 Respiratory Rate 20 Blood Pressure 115/62 Pulse Oximetry 92 Oxygen Delivery Method Room Air Oxygen Flow Rate 0 Narrative Exam Narrative: GENERAL: no acute distress HEENT: Head normocephalic, atraumatic, EOMI, face symmetric, moist mucous membranes CARDIOVASCULAR: Regular rate and rhythm with no murmurs RESPIRATORY: Breath sounds equal bilaterally, no wheezes rales or rhonchi. ABDOMEN: Soft, nontender. Normoactive bowel sounds all 4 quadrants. No guarding or rebound, rigidity, no mass : No CVA tenderness EXTREMITIES: Swelling of bilateral lower extremities of significant degree. She has brawny, woody chronic changes over the anterior lower mcmullen, with surrounding marroon changes that are without erythema or pain. She has a wound on her left hell approx 1cm with no erythema. On the back of her left leg is an improving area that was initially erythematous, painful, and slightly warm region that is above her knee. She has weeping areas in her bilateral thighs. She has erythema in her skin folds. NEUROLOGICAL: Moving all extremities. SKIN: skin changes noted above in extremities, with no other abnormalities appreciated. Objective Labs Result Diagrams: 08/31/20 04:51 08/31/20 04:51 Labs: Laboratory Results - last 24 hr 08/31/20 08/31/20 04:51 04:51 WBC 6.4 RBC 4.17 Hgb 11.9 L Hct 36.7 MCV 88.1 MCH 28.6 MCHC 32.4 RDW 14.5 Plt Count 230 Sodium 134 L Potassium 4.2 Chloride 99 Carbon Dioxide 31 BUN 27 H Creatinine 0.90 Estimated GFR > 60.0 BUN/Creatinine Ratio 30.0 H Glucose 111 H Calcium 9.5 PFSH Medical History Allergic rhinitis (Unknown) Arthritis (Unknown) Cellulitis of right leg Essential hypertension (09/11/10) GERD (gastroesophageal reflux disease) (Unknown) GERD (gastroesophageal reflux disease) (Unknown) Hyperlipemia (Unknown) Hypertension (Unknown) Lymphedema (Unknown) Mixed hyperlipidemia Morbid obesity due to excess calories Obstructive sleep apnea (Unknown) Obstructive sleep apnea syndrome Staph skin infection Surgical History Hx of total knee replacement (Unknown) Family History Brother Kidney carcinoma Mother Stroke Sister Cancer Father Atrial fibrillation Social History household members: none Smoking Status: Former smoker Tobacco: How many years used: 4 second hand exposure: No alcohol intake: never substance use type: does not use Discharge Plan Discharge Plan Patient Disposition: Home Health Service Provider Discharge Comment: Ms. Huang came in with swollen painful legs. She had an area on the back of her leg that was red and swollen so was started on medication for possible cellulitis. She had severe lymphedema. She had no evidence of blood clots or heart failure that was causing her symptoms. She improved with lasix, and antibiotics and will be discharged home. She will need close follow up with wound care for left heel ulcer, intertrigo, and weeping wounds between her thighs that appears macerated. She should follow up with dermatology and if possible lymphedema clinic. She will need five days of antibiotics and increase her lasix to 40mg twice daily. Exercise and weight loss may also help improve lymphedema. Discharge orders & Medications Prescriptions: New cephalexin [Keflex] 750 mg capsule 500 mg PO Q6H Qty: 20 RF: 0 furosemide [Lasix] 40 mg tablet 40 mg PO BID Qty: 60 RF: 0 Continued cholecalciferol (vitamin D3) 600 mg PO DAILY RF: 0 CA PANTOTHENATE/FOLIC ACID/VIT (MULTIVITAMIN) 1 tab PO QDAY Qty: 0 RF: 0 [MAGNESIUM] 400 mg PO QDAY Qty: 0 RF: 0 (DME) Disabled parking permit Qty: 1 RF: 0 metoprolol tartrate 25 mg tablet See Rx Instructions .ROUTE .COMPLEX Qty: 90 RF: 1 simvastatin 40 mg tablet See Rx Instructions .ROUTE .COMPLEX Qty: 90 RF: 2 pantoprazole 40 mg tablet,delayed release (DR/EC) See Rx Instructions .ROUTE .COMPLEX Qty: 90 RF: 0 spironolactone 100 mg tablet See Rx Instructions .ROUTE .COMPLEX Qty: 90 RF: 1 ibuprofen 800 mg tablet See Rx Instructions .ROUTE .COMPLEX Qty: 90 RF: 0 nystatin 100,000 unit/gram powder 1 applictn TOP TID Qty: 120 RF: 6 Cranberry/Probiotic See Rx Instructions .ROUTE .COMPLEX RF: 0 [place] 3 Fish Oil See Rx Instructions .ROUTE .COMPLEX RF: 0 ascorbic acid (vitamin C) 500 mg capsule 500 mg PO BID RF: 0 triamcinolone acetonide 0.5 % cream 1 applic TOP DAILY PRN (Reason: Skin Irritation) RF: 0 Discontinued furosemide 40 mg tablet 80 mg PO QAM PRN (Reason: edema) Qty: 180 RF: 3 fluconazole 150 mg tablet 150 mg PO ONCE Qty: 2 RF: 3 Follow up/Referrals: Chip Deutsch DO [Primary Care Provider] - Diet/Activity/Treatments Diet: Low-fat, Low-sodium and Low-cholesterol Skin/Wound/Dressing Care Skin care: nystatin powder to folds Dressing: Alleyvn dressing to Right heel calleous and behind bilateral knees where the skin as opened. cleanse with normal salline and change every 3 days or as needed for falling off. Other wound treatment: Follow up with wound care clinic out patient at [facility] September 06 at 1:30 p.m. check in for a 2:15 p.m appointment for referral with lymphedema specialist. Discharge Data Primary Care Provider: Chip Deutsch Attending Provider: Osvaldo Colon VTE Deep Vein Thrombosis/Pulmonary Embolism Present on Admission: No
--- NOTE | 2020-08-31 16:34 | CM.DPNOTE ---
DCP Note Working on DCP throughout the day yesterday and today. Patient medically cleared to leave today. Patient is mostly indp at baseline but does rely on friends and family for some assist at home and assist w/transportation. According to conversation w/patient, and coordination today w/ RN Lata Yanez at wound care and RN's communication w/ dtr Roberta P# [phone]: Plan is home today via cabulance, dtr Roberta arriving this evening and able to assist patient w/ADLs this weekend, friend to also assist patient w/ADLs and errands, basic needs etc. Patient cleared for return home from PT standpoint, HH PT recommended. BEV Yanez able to connect with Lata, wound care and got patient scheduled next for wound care follow up. Meanwhile, [facility] RN available [phone] to assist patient w/ wounds faxed HH referral to [facility] to include completed and signed F2F, HH order, H+P and DC Summary, therapy note and RN dictation about wound care. Malisas olson [facility] will f/u and will have nursing available Thursday. Updated patient and provided [facility] brochure. JERMAN Javier
--- NOTE | 2020-08-31 18:21 | PC.NURSE ---
Patient teaching done w/ patient at bedside, Patient is made aware of appts date and times and is also aware to follow up on thursday to confirm appts. Patient states understanding of teaching instructions and all questions and concerns were addressed. IV lasix given prior to d/c IV. patient tolerated IV dc well. VSS. Patient was escorted via wheelchair to cabulance down in parking lot. Patient left in stable condition. Friend came to hospital to take personal walker home. Patient left with 2 canes (personal), pink purse and belongings bag was in seat of her walker.
== END 2020-08-31 18:00 | disposition home health service (06) ==
LOC: ED 16:31 → AC 17:57
PROVIDERS: Admitting Provider Internal Medicine; Emergency Provider Emergency Medicine; PCP Family Medicine; Referring Provider Emergency Medicine; Visit Provider Internal Medicine
DX: L03.116 Cellulitis of left lower limb (principal); L03.115 Cellulitis of right lower limb; K21.9 Gastro-esophageal reflux disease without esophagitis; I10 Essential (primary) hypertension; E66.01 Morbid (severe) obesity due to excess calories; G47.33 Obstructive sleep apnea (adult) (pediatric); E78.5 Hyperlipidemia, unspecified; I97.89 Other postprocedural complications and disorders of the circulatory system, not elsewhere classified; I89.0 Lymphedema, not elsewhere classified; Z68.44 Body mass index [BMI] 60.0-69.9, adult; Z20.822 Contact with and (suspected) exposure to COVID-19
CPT/HCPCS: 36415; 71045; 80048; 80053; 81001; 83605; 83690; 83735; 83880; 84145; 85025; 85027; 85610; 85730; 87040; 87086; 87635; 93005; 93306; 93970; 96365; 96366; 96372; 96375; 96376; 97161; 97530; 99284; C9803; G0378; J1644; J1940

== ENCOUNTER 2020-11-10 16:35 | Inpatient (IN) | payer MEDICARE, OTHER, SELFPAY ==
[2020-08-29 21:43] VITALS: BMI 63.8
[2020-11-10] VITALS (93 sets, daily range): BP systolic 60–161; BP diastolic 36–84; PULSE 84–195; RESP 0–46; TEMP 37.6–39.3; O2SAT 92–99; BMI 61.9
--- NOTE | 2020-11-10 16:40 | DI.RAD.S_ITS ---
PROCEDURE: XR CHEST 1V INDICATIONS: chest pain TECHNIQUE: One view of the chest was acquired. COMPARISON: [facility], CR, XR CHEST 1V, 08/29/2020, 19:12. FINDINGS: Surgical changes and devices: None. Lungs and pleura: Lungs are clear. No pleural effusions or pneumothorax. Mediastinum: Mediastinal contours appear normal. Heart size is normal. Bones and chest wall: No suspicious bony lesions. Overlying soft tissues appear unremarkable. IMPRESSION: No evidence acute pulmonary process. Dictated by: Michoacano Winters M.D. on 11/10/2020 at 16:14 Approved by: Michoacano Winters M.D. on 11/10/2020 at 16:14
[2020-11-10 17:20] LABS: Add Manual Diff / Slide Review NO; Basophils Absolute Auto 0 /uL (0-100); Basophils Percent Auto 0.4 % (0-2); Eosinophils Absolute Auto 0 /uL (0-450); Hematocrit 45.7 % (36-46); Hemoglobin 15.1 g/dL (12.0-16.0); Lymphocytes Absolute Auto 200 /uL (1100-4500); Mean Corpuscular HGB Conc 32.9 % (30-36); Mean Corpuscular Hemoglobin 28.4 PG (26-34); Mean Corpuscular Volume 86.3 fL (80-100); Monocytes Absolute Auto 200 /uL (0-900); Monocytes Percent Auto 2.4 % (3-14); Neutrophils Absolute Auto 9700 /uL (1500-7000); Neutrophils Percent Auto 95.2 % (50-75); Platelet Count 204 X10^3/uL (150-400); Red Cell Distribution Width 16.5 % (11.6-14.8); White Blood Cell Count 10.2 X10^3/uL (4.5-11.0)
[2020-11-10] MEDS: PIPERACILLIN/TAZO 4.5 GM in SODIUM CHLORIDE 0.9% 100 ML 200 ML IV (17:24)
[2020-11-10] MEDS: ACETAMINOPHEN 325 MG TABLET 975 MG PO (17:24)
[2020-11-10] MEDS: VANCOMYCIN 1,500 MG/300 ML PIGGYBACK 200 MG IV ×2 (17:24→21:28)
--- NOTE | 2020-11-10 17:28 | ED.SEPSIS ---
HPI - Sepsis General Chief Complaint: Fever Mode of arrival: EMS Source: patient and EMS Limitations: no limitations Evaluation Sepsis Screen: Possible Sepsis Risk Sepsis Infection Criteria Present: Suspected New Infection Patient History Medical History Allergic rhinitis (Unknown) Arthritis (Unknown) Cellulitis of right leg Essential hypertension (09/11/10) GERD (gastroesophageal reflux disease) (Unknown) GERD (gastroesophageal reflux disease) (Unknown) Hyperlipemia (Unknown) Hypertension (Unknown) Lymphedema (Unknown) Mixed hyperlipidemia Morbid obesity due to excess calories Obstructive sleep apnea (Unknown) Obstructive sleep apnea syndrome Staph skin infection Surgical History Hx of total knee replacement (Unknown) Family History Brother Kidney carcinoma Mother Stroke Sister Cancer Father Atrial fibrillation Social History household members: none Smoking Status: Former smoker Tobacco: How many years used: 4 second hand exposure: No alcohol intake: never substance use type: does not use Smoking Status: Former smoker alcohol intake frequency: holidays/special occasions only Substance Use Type: does not use Exam Initial Vital Signs Initial Vital Signs: Vital Signs Temperature 102.7 F H 11/10/20 16:47 Pulse Rate 138 H 11/10/20 16:47 Respiratory Rate 24 11/10/20 16:47 Blood Pressure 127/65 11/10/20 16:47 Pulse Oximetry 93 11/10/20 16:47 Course Orders Ordered: ED Orders 11/10/20 16:40 XR chest 1V Stat EKG-12 Lead Stat 11/10/20 16:46 COVID19 - ADMIT ([employer] swab/PCR) Stat 11/10/20 17:17 Complete Blood Count AUTO DIFF Stat Comprehensive Metabolic Panel Stat Lactate (Lactic Acid) Stat Lipase Stat Magnesium Stat NT-proBNP (BNP-Adult 18+) Stat TSH w/ Reflex to FT4 Stat Troponin & CK Cardiac Panel Stat 11/10/20 17:22 Blood Culture Stat Vancomycin HCl/Dextrose (Vancomycin) 1,500 mg in 300 mls @ 200 mls/hr IV NOW ONE Stop: 11/10/20 18:14 Last Admin: 11/10/20 17:24 Dose: 200 mls/hr Documented by: MEE Discontinued Medications Acetaminophen (Acetaminophen 325 Mg Tablet) 975 mg PO NOW ONE Stop: 11/10/20 17:16 Last Admin: 11/10/20 17:24 Dose: 975 mg Documented by: MEE Piperacillin Sod/Tazobactam (Sod 4.5 gm/ Sodium Chloride) 100 mls @ 200 mls/hr IV NOW ONE Stop: 11/10/20 16:46 Last Admin: 11/10/20 17:24 Dose: 200 mls/hr Documented by: MEE Vital Signs Vital signs: Vital Signs - 8 hr 11/10/20 16:47 11/10/20 17:24 Temperature 102.7 F H 102.5 F H Pulse Rate 138 H Respiratory Rate 24 Blood Pressure 127/65 Pulse Oximetry 93 MDM - Sepsis Medical Records Attestation: I reviewed the patient's medical records. Lab Data Attestation: I reviewed the patient's lab results. Result diagrams: 11/10/20 17:17 11/10/20 17:17 Labs: Lab Results 11/10/20 Range/Units 17:17 WBC 10.2 (4.5-11.0) X10^3/uL RBC 5.30 H (4.0-5.2) X10^6/uL Hgb 15.1 (12.0-16.0) g/dL Hct 45.7 (36-46) % MCV 86.3 (80-100) fL MCH 28.4 (26-34) PG MCHC 32.9 (30-36) % RDW 16.5 H (11.6-14.8) % Plt Count 204 (150-400) X10^3/uL Neut % (Auto) 95.2 H (50-75) % Lymph % (Auto) 2.0 L (25-40) % [place] % (Auto) 2.4 L (3-14) % Eos % (Auto) 0.0 L (2-4) % Baso % (Auto) 0.4 (0-2) % Neut # (Auto) 9700 H (4322-3821) /uL Lymph # (Auto) 200 L (1539-4251) /uL [place] # (Auto) 200 (0-900) /uL Eos # (Auto) 0 (0-450) /uL Baso # (Auto) 0 (0-100) /uL Imaging Data Chest x-ray: Radiologist's Impression: FINDINGS: Surgical changes and devices: None. Lungs and pleura: Lungs are clear. No pleural effusions or pneumothorax. Mediastinum: Mediastinal contours appear normal. Heart size is normal. Bones and chest wall: No suspicious bony lesions. Overlying soft tissues appear unremarkable. IMPRESSION: No evidence acute pulmonary process. Dictated by: Michoacano Winters M.D. on 11/10/2020 at 16:14 Discharge Plan Departure Prescriptions: No Action cholecalciferol (vitamin D3) 600 mg PO DAILY RF: 0 CA PANTOTHENATE/FOLIC ACID/VIT (MULTIVITAMIN) 1 tab PO QDAY Qty: 0 RF: 0 [MAGNESIUM] 400 mg PO QDAY Qty: 0 RF: 0 (DME) Disabled parking permit Qty: 1 RF: 0 metoprolol tartrate 25 mg tablet See Rx Instructions .ROUTE .COMPLEX Qty: 90 RF: 1 spironolactone 100 mg tablet See Rx Instructions .ROUTE .COMPLEX Qty: 90 RF: 1 ibuprofen 800 mg tablet See Rx Instructions .ROUTE .COMPLEX Qty: 90 RF: 0 pantoprazole 40 mg tablet,delayed release (DR/EC) See Rx Instructions .ROUTE .COMPLEX Qty: 90 RF: 0 simvastatin 40 mg tablet See Rx Instructions .ROUTE .COMPLEX Qty: 90 RF: 0 nystatin 100,000 unit/gram powder 1 applictn TOP TID Qty: 120 RF: 6 Cranberry/Probiotic See Rx Instructions .ROUTE .COMPLEX RF: 0 [place] 3 Fish Oil See Rx Instructions .ROUTE .COMPLEX RF: 0 ascorbic acid (vitamin C) 500 mg capsule 500 mg PO BID RF: 0 triamcinolone acetonide 0.5 % cream 1 applic TOP DAILY PRN (Reason: Skin Irritation) RF: 0 cephalexin [Keflex] 750 mg capsule 500 mg PO Q6H Qty: 20 RF: 0 furosemide [Lasix] 40 mg tablet 40 mg PO BID Qty: 60 RF: 0
--- NOTE | 2020-11-10 17:31 | PC.NURSE ---
both abx started after blood cultures x 2 drawn
[2020-11-10 17:33] LABS: Alanine Aminotransferase 33 IU/L (<35); Albumin 4.3 g/dL (3.5-5.0); Alkaline Phosphatase 104 U/L (38-126); Aspartate Aminotransferase 37 IU/L (14-36); BUN Creatinine Ratio 39.8 (6-22); Bilirubin Total 0.8 mg/dL (0.2-1.3); Blood Urea Nitrogen 47 mg/dL (7-17); Calcium 10.5 mg/dL (8.4-10.2); Carbon Dioxide 29 mmol/L (22-32); Chloride 95 mmol/L (98-107); Creatine Kinase 35 U/L (30-135); Estimated Glomerular Filt Rate 45.3 mL/min (>60); Globulin 4.5 g/dL (1.7-4.1); Glucose 129 mg/dL (80-110); HEMOLYSIS 16 (0-50); Lipase 170 U/L (23-300); Potassium 4.2 mmol/L (3.4-5.1); Sodium 133 mmol/L (137-145); Total Protein 8.8 g/dL (6.3-8.2)
[2020-11-10 17:34] LABS: Lactate (Lactic Acid) 1.9 mmol/L (0.7-2.1); Magnesium 1.7 mg/dL (1.6-2.3)
[2020-11-10 17:42] LABS: NT-proBNP (BNP-Adult 18+) 542 pg/mL (<125)
[2020-11-10 17:44] LABS: Troponin I < 0.012 ng/mL (0.01-0.034)
[2020-11-10] MEDS: dilTIAZem 5 MG/ML SDV 20 MG IV (17:57)
[2020-11-10 18:08] LABS: TSH w/ Reflex to FT4 0.84 uIU/mL (0.47-4.68)
[2020-11-10] MEDS: ETOMIDATE 2 MG/ML 10 ML VIAL 20 MG IV (18:10)
[2020-11-10] MEDS: SUCCINYLCHOLINE 100 MG/5 ML INJ IV (18:11)
[2020-11-10] MEDS: propofoL 200 MG/20 ML VIAL IV (18:17)
[2020-11-10] MEDS: fentaNYL 100 MCG/2 ML INJ IV ×2 (18:25→19:31)
[2020-11-10] MEDS: dilTIAZem 125 MG in SODIUM CHLORIDE 0.9% 100 ML IV (18:29)
--- NOTE | 2020-11-10 18:36 | DI.RAD.S_ITS ---
PROCEDURE: XR CHEST 1V INDICATIONS: ETT placement, NGT placement, Central line placement TECHNIQUE: One view of the chest was acquired. COMPARISON: [facility], CR, XR CHEST 1V, 11/10/2020, 16:42. FINDINGS: Surgical changes and devices: ETT tip is approximately 1.9 cm above the amber. NG tube tip is below the left hemidiaphragm. Right internal jugular central venous catheter tip is in SVC. Lungs and pleura: Mild pulmonary vascular congestion is likely present. No pleural effusions or pneumothorax. Mediastinum: Mediastinal contours appear normal. Heart size is enlarged. Bones and chest wall: No suspicious bony lesions. Overlying soft tissues appear unremarkable. IMPRESSION: Tube and lines are in satisfactory position. Mild pulmonary vascular congestion. No focal infiltrate or gross pneumothorax. Dictated by: Calixto Gaines M.D. on 11/10/2020 at 18:59 Approved by: Calixto Gaines M.D. on 11/10/2020 at 19:00
--- NOTE | 2020-11-10 18:49 | DI.RAD.S_ITS ---
PROCEDURE: XR FOOT LT 2V INDICATIONS: infection TECHNIQUE: 2 views of the foot were acquired. COMPARISON: None. FINDINGS: Bones: No fractures or dislocations. Moderate hallux valgus is seen. Osteoarthritic changes are noted throughout left foot more prominent at 1st MTP joint. No gross bony erosive changes. No suspicious bony lesions. Well-defined plantar and dorsal calcaneal enthesophytes are seen. Soft tissues: No tibiotalar joint effusion. Achilles tendon appears normal. IMPRESSION: No radiographic evidence of osteomyelitis. Left foot osteoarthritis. No fracture or dislocation. Dictated by: Calixto Gaines M.D. on 11/10/2020 at 19:00 Approved by: Calixto Gaines M.D. on 11/10/2020 at 19:06
--- NOTE | 2020-11-10 19:07 | PC.NURSE ---
1750 pt HR increased to 190s 1800 1000ml bolus NS started 1803 levophed started 1810 1000ml NS completed 1810 2nd 1000ML bolus started 1810 20 etomedate pushed 181 100 succ pushed 181 Intubated, 7.5 tube 25 at teeth 181 50J sync shock, no response 181 100J sync shock, no response 181 40 propofol push 1818 200J sync shock, converted to NSR 1818 40 propofol push 1821 NG placed 1825 100 fentinyl push 1829 Diltiazem started 1829 levophed increased 1834 best placed 1844 propofol bolus given 1844 central line placed
[2020-11-10] MEDS: fentaNYL 1,000 MCG in DEXTROSE 5% IN WATER 230 ML 27.782 ML IV (19:08)
[2020-11-10] MEDS: NOREPINEPHRINE 4 MG in DEXTROSE 5% IN WATER 250 ML 30.48 ML IV (19:09)
[2020-11-10] MEDS: fentaNYL 100 MCG/2 ML INJ (19:09)
[2020-11-10] MEDS: DOPAMINE HCL IN DEXTROSE 5 % 400 MG/250 ML PLAST..BAG 29.767 MG IV (19:18)
[2020-11-10] MEDS: NOREPINEPHRINE 4 MG in DEXTROSE 5% IN WATER 250 ML 60 ML IV (19:22)
[2020-11-10] MEDS: propofoL 1,000 MG/100 ML VIAL 9.5 MG IV (19:24)
[2020-11-10] MEDS: SODIUM CHLORIDE 0.9% 1,572 ML 524 ML IV (19:24)
[2020-11-10 19:30] LABS: HCO3 ABG 25 mmol/L (22-26); Oxygen Saturation ABG 100 % (95-100); PCO2 ABG 40.9 mmHg (35-45); TCO2 ABG 26 mmol/L (21-31); pH ABG 7.39 (7.35-7.45)
[2020-11-10 19:31] LABS: Fractionated Inspired Oxygen 60
[2020-11-10 19:32] LABS: PO2 ABG 172 mmHg (80-100)
--- NOTE | 2020-11-10 19:38 | ED_ITS ---
HPI - General Adult General Chief complaint: Fever Stated complaint: Chills Time Seen by Provider: 11/10/20 16:37 Source: patient and EMS Mode of arrival: EMS Limitations: no limitations History of Present Illness HPI narrative: 70-year-old woman with history of hypertension, hyperlipidemia, morbid obesity with chronic lymphedema and chronic venous stasis changes with a wound on the bottom of her left heel that currently is being treated. At 10:00 a.m. this morning she noted that she had uncontrollable chills but did not note a fever. She was unable to get warm and was having such dramatic rigors that she ended up calling 911 for assistance. On their arrival they noted that she had a heart rate in the 180s to 190s that was atrial fibrillation with a rapid ventricular response. She has a single prior episode of this approximately 10 years ago. Initial assumption was that the chills or related to the atrial fibrillation. She is given 25 mg of IV diltiazem with a slight improvement to the chills overall initial temperature medics was normal and she her blood pressure was stable. She denied any cough was having no dysuria had no other specific complaints or concerns was noting that she simply generally did not feel well. No abdominal pain dysuria, vomiting, diarrhea. She was transported to the emergency room and on initial evaluation she appeared generally unwell but was alert and able to give a coherent history. She remained in atrial fibrillation with rapid ventricular response in the 140 range with blood pressures reassuring. Related Data Home Medications Medication Instructions Recorded Confirmed CA PANTOTHENATE/FOLIC ACID/VIT 1 tab PO QDAY #0 07/06/12 08/31/20 (MULTIVITAMIN) [MAGNESIUM] 400 mg PO QDAY #0 11/02/17 08/31/20 Cranberry/Probiotic See Rx Instructions .ROUTE .COMPLEX 03/16/19 08/31/20 [place] 3 Fish Oil See Rx Instructions .ROUTE .COMPLEX 03/16/19 08/31/20 ascorbic acid (vitamin C) 500 mg 500 mg PO BID 03/16/19 08/31/20 capsule cholecalciferol (vitamin D3) 600 mg PO DAILY 03/26/20 08/31/20 triamcinolone acetonide 1 applic TOP DAILY PRN 08/31/20 08/31/20 Previous Rx's Medication Instructions Recorded Disabled parking permit #1 ea 07/22/20 nystatin 100,000 unit/gram topical 1 applictn TOP TID #120 gram 12/14/19 powder metoprolol tartrate 25 mg tablet See Rx Instructions .ROUTE 12/19/19 .COMPLEX #90 tab spironolactone 100 mg tablet See Rx Instructions .ROUTE 07/31/20 .COMPLEX #90 tab ibuprofen 800 mg tablet See Rx Instructions .ROUTE 08/28/20 .COMPLEX #90 tab cephalexin [Keflex] 500 mg PO Q6H #20 cap 08/31/20 furosemide [Lasix] 40 mg PO BID #60 tab 08/31/20 pantoprazole 40 mg tablet,delayed See Rx Instructions .ROUTE 09/11/20 release .COMPLEX #90 tab simvastatin 40 mg tablet See Rx Instructions .ROUTE 10/25/20 .COMPLEX #90 tab Allergies Allergy/AdvReac Type Severity Reaction Status Date / Time adhesive tape [ADHESIVE TAPE] Allergy Intermediate RASH, Verified 11/10/20 16:58 HIVES, BLISTER Sulfa (Sulfonamide Allergy Mild HIVES Verified 11/10/20 16:58 Antibiotics) [SULFA (SULFONAMIDE ANTIBIOTICS)] tramadol AdvReac Mild Dizziness Verified 11/10/20 16:58 Review of Systems Review of Systems Narrative: Remainder of complete review of systems is otherwise unremarkable except for that included in the HPI. Patient History Medical History Allergic rhinitis (Unknown) Arthritis (Unknown) Cellulitis of right leg Essential hypertension (09/11/10) GERD (gastroesophageal reflux disease) (Unknown) GERD (gastroesophageal reflux disease) (Unknown) Hyperlipemia (Unknown) Hypertension (Unknown) Lymphedema (Unknown) Mixed hyperlipidemia Morbid obesity due to excess calories Obstructive sleep apnea (Unknown) Obstructive sleep apnea syndrome Staph skin infection Surgical History Hx of total knee replacement (Unknown) Family History Brother Kidney carcinoma Mother Stroke Sister Cancer Father Atrial fibrillation Social History household members: none Smoking Status: Former smoker Tobacco: How many years used: 4 second hand exposure: No alcohol intake: never substance use type: does not use Smoking Status: Former smoker alcohol intake frequency: holidays/special occasions only Substance Use Type: does not use Exam Narrative Exam Narrative: General: Morbidly obese, acutely ill-appearing, flushed face but slightly dusky overall color. She is able to speak in full sentences and is alert. HEENT: Moist mucous membranes, normal sclera with reactive pupils, Neck: No JVD, supple Respiratory: Lungs are clear to auscultation, no wheezing no rales no rhonchi. Full and symmetrical air movement Cardiac: Rapid irregular but no murmurs no bruits Abdomen: Obese, Soft, nontender, good bowel tones, no flank pain Skin: Chronic lymphedema, chronic venous stasis changes bilaterally with some of the skin folds in the left thigh there appears to be in obvious cellulitis that is extending up the medial aspect of the left leg and down into the left chronic venous stasis changes. No obvious abscess. Neurologic: Grossly neurologically intact with no obvious asymmetries or abnormalities Extremities: No trauma, moderately perfused, small healing punctate ulcer on the bottom of her left heel. This does not appear to be draining is not associated with an abscess and is not directly connected to the cellulitis on the medial upper thigh. Psych: Cooperative, appropriate insight and affect Initial Vital Signs Initial Vital Signs: Vital Signs Temperature 102.7 F H 11/10/20 16:47 Pulse Rate 138 H 11/10/20 16:47 Respiratory Rate 24 11/10/20 16:47 Blood Pressure 127/65 11/10/20 16:47 Pulse Oximetry 93 11/10/20 16:47 Procedures Cardioversion Consent Signed: No Indication: Emergent Stability: Unstable Number of attempts (shocks): 3 Joules used: 50, 120 and 200 Additional Comments: Patient presented with atrial fibrillation rapid ventricular response and also presumed sepsis. Multiple attempts were made to treat the underlying issue with antibiotics, fluid resuscitation temperature control however she continued to deteriorate and at the time decision was made to actually proceed with cardioversion her rate was in the 200-210 range she was complaining of dizziness, dyspnea and appeared pale, nix and obviously in distress. Central Line Placement Right IJ: Time Out Performed: Yes Patient Placed on Monitor/Pulse Ox: Yes MD Prep: mask, gown and gloves Central Line Prep: Povidone-Iodine 1% Ultrasound Used for Placement: Yes Post Procedure: good blood return, all ports aspirated, flushed, capped and sterile dressing applied (With specific catheter retaining device) Post Procedure X-Ray: tip of catheter in good position and no pneumothorax seen Patient Tolerated Procedure: Well Additional Comments: Significantly dehydrated with very compressible internal jugular vein sitting on top of the right internal carotid. Exceptional care was taken to avoid posterior wall puncture. Intubation Time out performed: Yes sedative: Etomidate Mg Given: 20 Laryngoscope: fiber optic video scope ET Tube Size: 7.5 ET Tube Uncuffed: No Tube Secured Depth (cm): 23 Tube Secured Location: teeth Tube Placement Confirmation: Visualized tube passing through cords, Equal breath sounds bilaterally, Confirmation by capnometry and Chest Xray Patient Tolerated Procedure: Well Procedural Sedation Consent signed: No Time out performed: Yes Indication: cardioversion (Intubation and central line placement) ASA Class: II Mallampati Airway Classification: Class II Preparation: cardiac sonographer applied, pulse oximeter, capnometry used, s upplemental O2 applied, suction/airway equipment at bedside and IV secured IV Etomidate dose (mg): 20 Intraservice time/total sedation time (min): 12 ED Sedation Level: Deep (For intubation) Additional Comments: Sedation was done during ben arrest with ongoing hypertension, atrial fibrillation with rapid ventricular response and progressive respiratory failure Course Orders Ordered: ED Orders 11/10/20 16:40 XR chest 1V Stat EKG-12 Lead Stat 11/10/20 16:46 COVID19 - ADMIT (SH[employer]TLE [employer] SUPER[employer]OR swab/PCR) Stat 11/10/20 17:17 Complete Blood Count AUTO DIFF Stat Comprehensive Metabolic Panel Stat Lactate (Lactic Acid) Stat Lipase Stat Magnesium Stat NT-proBNP (BNP-Adult 18+) Stat TSH w/ Reflex to FT4 Stat Troponin & CK Cardiac Panel Stat 11/10/20 17:22 Blood Culture Stat 11/10/20 18:36 Consult to Dietitian, Adult Routine XR chest 1V Stat Ventilator Order 11/10/20 18:45 Arterial Blood Gas Daily 11/10/20 18:49 XR foot LT 2V Stat 11/11/20 18:45 Arterial Blood Gas Daily 11/12/20 18:45 Arterial Blood Gas Daily 11/13/20 18:45 Arterial Blood Gas Daily 11/14/20 18:45 Arterial Blood Gas Daily 11/15/20 18:45 Arterial Blood Gas Daily 11/16/20 18:45 Arterial Blood Gas Daily 11/17/20 18:45 Arterial Blood Gas Daily 11/18/20 18:45 Arterial Blood Gas Daily 11/19/20 18:45 Arterial Blood Gas Daily 11/20/20 18:45 Arterial Blood Gas Daily 11/21/20 18:45 Arterial Blood Gas Daily 11/22/20 18:45 Arterial Blood Gas Daily 11/23/20 18:45 Arterial Blood Gas Daily Enoxaparin Sodium (Enoxaparin 40 Mg/0.4 Ml Syringe) 40 mg SUBCUT DAILY FLORINDA Fentanyl (Fentanyl 100 Mcg/2 Ml Inj) 100 mcg IV Q1HR PRN PRN Reason: Pain, Severe (7-10) Last Admin: 11/10/20 19:31 Dose: 100 mcg Documented by: Diltiazem HCl 125 mg/ Sodium (Chloride) 125 mls @ 5 mls/hr IV TITRATE FLORINDA; Protocol Last Admin: 11/10/20 18:29 Dose: 5 mg/hr, 5 mls/hr Documented by: Sodium Chloride (Normal Saline 0.9%) 1,572 mls @ 524 mls/hr 30 ml/kg infuse over 3 hr (1572 ml) IV NOW ONE Stop: 11/10/20 20:55 Last Admin: 11/10/20 19:24 Dose: 524 mls/hr Documented by: Propofol (Propofol) 1,000 mg in 100 mls @ 9.525 mls/hr IV TITRATE FLORINDA; Protocol Last Admin: 11/10/20 19:47 Dose: 50 mcg/kg/min, 47.627 mls/hr Documented by: Fentanyl 1,000 mcg/ Dextrose 250 mls @ 27.782 mls/hr IV TITRATE FLORINDA; Protocol Last Admin: 11/10/20 19:08 Dose: 0.7 mcg/kg/hr, 27.782 mls/hr Documented by: Norepinephrine Bitartrate 4 mg (/ Dextrose) 254 mls @ 30.48 mls/hr IV TITRATE FLORINDA; Protocol Last Admin: 11/10/20 19:22 Dose: 15.75 mcg/min, 60 mls/hr Documented by: Dopamine HCl/Dextrose (Dopamine 400 Mg-D5w 250 Ml) 400 mg in 250 mls @ 29.767 mls/hr IV TITRATE FLORINDA; Protocol Last Admin: 11/10/20 19:18 Dose: 5 mcg/kg/min, 29.767 mls/hr Documented by: Piperacillin Sod/Tazobactam (Sod 3.375 gm/ Sodium Chloride) 100 mls @ 25 mls/hr IV Q8H FLORINDA Naloxone HCl (Naloxone 0.4 Mg/Ml Vial) 0.2 mg IV Q2MIN PRN PRN Reason: Opiate Reversal Pantoprazole Sodium (Pantoprazole 40 Mg Vial) 40 mg IV DAILY FLORINDA Discontinued Medications Acetaminophen (Acetaminophen 325 Mg Tablet) 975 mg PO NOW ONE Stop: 11/10/20 17:16 Last Admin: 11/10/20 17:24 Dose: 975 mg Documented by: MEE Diltiazem HCl (Diltiazem 5 Mg/Ml Sdv) 20 mg IV NOW ONE Stop: 11/10/20 17:41 Last Admin: 11/10/20 17:57 Dose: 20 mg Documented by: Etomidate (Etomidate 2 Mg/Ml 10 Ml Vial) 20 mg IV NOW ONE Stop: 11/10/20 19:28 Last Admin: 11/10/20 18:10 Dose: 20 mg Documented by: Piperacillin Sod/Tazobactam (Sod 4.5 gm/ Sodium Chloride) 100 mls @ 200 mls/hr IV NOW ONE Stop: 11/10/20 16:46 Last Admin: 11/10/20 17:24 Dose: 200 mls/hr Documented by: MEE Vancomycin HCl/Dextrose (Vancomycin) 1,500 mg in 300 mls @ 200 mls/hr IV NOW ONE Stop: 11/10/20 18:14 Last Admin: 11/10/20 17:24 Dose: 200 mls/hr Documented by: MEE Succinylcholine Chloride (Succinylcholine 100 Mg/5 Ml Inj) 100 mg IV NOW ONE Stop: 11/10/20 19:29 Last Admin: 11/10/20 18:11 Dose: 100 mg Documented by: Vancomycin HCl (Vancomycin Per Pharmacy) 1 request MISC NOW ONE Stop: 11/10/20 19:22 Vital Signs Vital signs: Vital Signs - 8 hr 11/10/20 16:47 11/10/20 17:24 11/10/20 17:57 Temperature 102.7 F H 102.5 F H Pulse Rate 138 H 195 H Respiratory Rate 24 Blood Pressure 127/65 Pulse Oximetry 93 11/10/20 18:06 11/10/20 18:09 11/10/20 18:10 Temperature Pulse Rate 150 H 147 H 146 H Respiratory Rate 25 H 24 25 H Blood Pressure 104/55 L 111/61 Pulse Oximetry 93 94 94 11/10/20 18:12 11/10/20 18:15 11/10/20 18:20 Temperature Pulse Rate 164 H 174 H 151 H Respiratory Rate 27 H 19 37 H Blood Pressure 141/80 H 161/75 H Pulse Oximetry 94 99 98 11/10/20 18:21 11/10/20 18:24 11/10/20 18:25 Temperature Pulse Rate 135 H 117 H 100 H Respiratory Rate 36 H 19 18 Blood Pressure 125/84 91/48 L Pulse Oximetry 98 99 98 11/10/20 18:27 11/10/20 18:30 11/10/20 18:33 Temperature Pulse Rate 94 H 96 H 93 H Respiratory Rate 18 21 18 Blood Pressure 60/36 L 65/41 L 85/52 L Pulse Oximetry 98 98 98 11/10/20 18:35 11/10/20 18:36 11/10/20 18:39 Temperature Pulse Rate 92 H 92 H 98 H Respiratory Rate 18 18 22 Blood Pressure 87/50 L 83/54 L Pulse Oximetry 97 97 95 11/10/20 18:40 11/10/20 18:42 11/10/20 18:45 Temperature Pulse Rate 100 H 110 H 103 H Respiratory Rate 26 H 35 H 40 H Blood Pressure 102/63 103/60 Pulse Oximetry 93 95 98 11/10/20 18:48 11/10/20 18:50 11/10/20 18:51 Temperature Pulse Rate 111 H 122 H 124 H Respiratory Rate 46 H 32 H 33 H Blood Pressure 120/65 125/70 Pulse Oximetry 98 98 99 11/10/20 18:54 11/10/20 18:55 11/10/20 18:57 Temperature Pulse Rate 126 H 128 H 122 H Respiratory Rate 30 H 38 H 26 H Blood Pressure 121/61 116/59 L Pulse Oximetry 98 98 98 11/10/20 19:00 11/10/20 19:05 Temperature Pulse Rate 123 H 96 H Respiratory Rate 30 H 18 Blood Pressure Pulse Oximetry 98 96 Medical Decision Making Medical Records Medical records reviewed: Yes I reviewed the patient's medical records. Lab Data Lab results reviewed: Yes I reviewed the patient's lab results. Result diagrams: 11/10/20 17:17 11/10/20 17:17 Labs: Lab Results 11/10/20 11/10/20 11/10/20 Range/Units 17:17 17:17 17:17 WBC 10.2 (4.5-11.0) X10^3/uL RBC 5.30 H (4.0-5.2) X10^6/uL Hgb 15.1 (12.0-16.0) g/dL Hct 45.7 (36-46) % MCV 86.3 (80-100) fL MCH 28.4 (26-34) PG MCHC 32.9 (30-36) % RDW 16.5 H (11.6-14.8) % Plt Count 204 (150-400) X10^3/uL Neut % (Auto) 95.2 H (50-75) % Lymph % (Auto) 2.0 L (25-40) % [place] % (Auto) 2.4 L (3-14) % Eos % (Auto) 0.0 L (2-4) % Baso % (Auto) 0.4 (0-2) % Neut # (Auto) 9700 H (4113-9521) /uL Lymph # (Auto) 200 L (4721-6962) /uL [place] # (Auto) 200 (0-900) /uL Eos # (Auto) 0 (0-450) /uL Baso # (Auto) 0 (0-100) /uL ABG pH (7.35-7.45) ABG pCO2 (35-45) mmHg ABG pO2 (80-100) mmHg ABG HCO3 (22-26) mmol/L ABG Total CO2 (21-31) mmol/L ABG O2 Saturation (95-100) % ABG Base Excess (-2-2) mmol/L FiO2 Sodium 133 L (137-145) mmol/L Potassium 4.2 (3.4-5.1) mmol/L Chloride 95 L (98-107) mmol/L Carbon Dioxide 29 (22-32) mmol/L BUN 47 H (7-17) mg/dL Creatinine 1.18 H (0.52-1.04) mg/dL Estimated GFR 45.3 L (>60) mL/min BUN/Creatinine Ratio 39.8 H (6-22) Glucose 129 H (80-110) mg/dL Lactate (0.7-2.1) mmol/L Calcium 10.5 H (8.4-10.2) mg/dL Magnesium 1.7 (1.6-2.3) mg/dL Total Bilirubin 0.8 (0.2-1.3) mg/dL AST 37 H (14-36) IU/L ALT 33 (<35) IU/L Alkaline Phosphatase 104 (38-126) U/L Total Creatine Kinase 35 (30-135) U/L CK-MB (CK-2) TNP CK-MB (CK-2) Rel Index TNP Troponin I < 0.012 (0.01-0.034) ng/mL NT-Pro-B Natriuret Pep 542 H (<125) pg/mL Total Protein 8.8 H (6.3-8.2) g/dL Albumin 4.3 (3.5-5.0) g/dL Globulin 4.5 H (1.7-4.1) g/dL Albumin/Globulin Ratio 1.0 (1.0-2.8) Lipase 170 (23-300) U/L TSH (0.47-4.68) uIU/mL 11/10/20 11/10/20 11/10/20 Range/Units 17:17 17:17 19:05 WBC (4.5-11.0) X10^3/uL RBC (4.0-5.2) X10^6/uL Hgb (12.0-16.0) g/dL Hct (36-46) % MCV (80-100) fL MCH (26-34) PG MCHC (30-36) % RDW (11.6-14.8) % Plt Count (150-400) X10^3/uL Neut % (Auto) (50-75) % Lymph % (Auto) (25-40) % [place] % (Auto) (3-14) % Eos % (Auto) (2-4) % Baso % (Auto) (0-2) % Neut # (Auto) (0733-3712) /uL Lymph # (Auto) (1242-4139) /uL [place] # (Auto) (0-900) /uL Eos # (Auto) (0-450) /uL Baso # (Auto) (0-100) /uL ABG pH 7.39 (7.35-7.45) ABG pCO2 40.9 (35-45) mmHg ABG pO2 172 H (80-100) mmHg ABG HCO3 25 (22-26) mmol/L ABG Total CO2 26 (21-31) mmol/L ABG O2 Saturation 100 (95-100) % ABG Base Excess -1.0 (-2-2) mmol/L FiO2 60 Sodium (137-145) mmol/L Potassium (3.4-5.1) mmol/L Chloride (98-107) mmol/L Carbon Dioxide (22-32) mmol/L BUN (7-17) mg/dL Creatinine (0.52-1.04) mg/dL Estimated GFR (>60) mL/min BUN/Creatinine Ratio (6-22) Glucose (80-110) mg/dL Lactate 1.9 (0.7-2.1) mmol/L Calcium (8.4-10.2) mg/dL Magnesium (1.6-2.3) mg/dL Total Bilirubin (0.2-1.3) mg/dL AST (14-36) IU/L ALT (<35) IU/L Alkaline Phosphatase (38-126) U/L Total Creatine Kinase (30-135) U/L CK-MB (CK-2) CK-MB (CK-2) Rel Index Troponin I (0.01-0.034) ng/mL NT-Pro-B Natriuret Pep (<125) pg/mL Total Protein (6.3-8.2) g/dL Albumin (3.5-5.0) g/dL Globulin (1.7-4.1) g/dL Albumin/Globulin Ratio (1.0-2.8) Lipase (23-300) U/L TSH 0.84 (0.47-4.68) uIU/mL Imaging Data Chest x-ray: Radiologist's Impression: FINDINGS: Surgical changes and devices: None. Lungs and pleura: Lungs are clear. No pleural effusions or pneumothorax. Mediastinum: Mediastinal contours appear normal. Heart size is normal. Bones and chest wall: No suspicious bony lesions. Overlying soft tissues appear unremarkable. IMPRESSION: No evidence acute pulmonary process. Dictated by: Michoacano Winters M.D. on 11/10/2020 at 16:14 post intubation and line placement: FINDINGS: Surgical changes and devices: ETT tip is approximately 1.9 cm above the amber. NG tube tip is below the left hemidiaphragm. Right internal jugular central venous catheter tip is in SVC. Lungs and pleura: Mild pulmonary vascular congestion is likely present. No pleural effusions or pneumothorax. Mediastinum: Mediastinal contours appear normal. Heart size is enlarged. Bones and chest wall: No suspicious bony lesions. Overlying soft tissues appea r unremarkable. IMPRESSION: Tube and lines are in satisfactory position. Mild pulmonary vascular congestion. No focal infiltrate or gross pneumothorax. Dictated by: Calixto Gaines M.D. on 11/10/2020 at 18:59 xray foot: Radiologist's Impression: FINDINGS: Bones: No fractures or dislocations. Moderate hallux valgus is seen. Osteoarthritic changes are noted throughout left foot more prominent at 1st MTP joint. No gross bony erosive changes. No suspicious bony lesions. Well-defined plantar and dorsal calcaneal enthesophytes are seen. Soft tissues: No tibiotalar joint effusion. Achilles tendon appears normal. IMPRESSION: No radiographic evidence of osteomyelitis. Left foot osteoarthritis. No fracture or dislocation. Dictated by: Calixto Gaines M.D. on 11/10/2020 at 19:00 ECG Data Attestation: I personally reviewed and interpreted this ECG as follows: Interpretation: 16:50 Atrial fibrillation with rapid ventricular response at a rate of 143 No acute ischemic changes 1940 Post 3 electrical cardioversion attempts that failed than spontaneous conversion approximately 10 minutes later to sinus rhythm Sinus tach at a rate of 112 with first-degree AV block No acute ischemic changes MDM Narrative Medical decision making narrative: 70-year-old woman presents with rigors that started approximately 10:00 a.m. this morning that likely are secondary to a left lower extremity cellulitis. The rigors were so severe that she went into atrial fibrillation with a rapid ventricular response about 12 30 in the afternoon. At that point medics were called. She was given diltiazem transported to the emergency department. Temperature at that time was unremarkable and it was felt to be all related to her atrial fibrillation. On initial exam in the emergency department she p.m. heard ill but blood pressure was stable she was tolerating the rapid ventricular response. Antibiotics and fluid resuscitation were started for her left lower extremity cellulitis. As the our progressed her temperature went up and she was given Tylenol. With the increased temperature her rigors returned and her atrial fibrillation again escalated. She increased into the 180-210 range and with this was significantly symptomatic with developing hypotension, diaphoresis, decreasing sensorium, dizziness and a sense of dyspnea. She was moved to a larger room with concerns for cardiac arrest. Continued aggressive fluid resuscitation antibiotics were infusing. Temperature this point was controlled. Clearly assuming that the underlying sepsis was responsible for her atrial fibrillation all attempts were made to address the sepsis however the rapid ventricular response became so rapid that she was clearly deteriorating and decision was made to plan for intubation and cardioversion because of the clinical instability. Staff, medications, equipment and anticipatory needs were clearly discussed with an extensive time-out prior to proceeding. At that point patient, continued to have IV fluids running, there 3 peripheral IVs. She was on a diltiazem drip after having been given a diltiazem bolus with minimal response to her overall rapid ventricular response rate. Increasing respiratory distress was appreciated. We had additional fluids, Levophed was available and was started prior to pushing sedation medications medications. Decision was made to proceed with rapid sequence intubation which went without difficulty. Once the tube was secured and she was obviously being ventilated appropriately cardioversion attempt was done. She remained in a rapid rate with decreasing blood pressures despite fluid resuscitation and IV pressors. She was shocked a total of 3 times each time had a brief conversion to sinus rhythm and then rapid return to the atrial fibrillation. After the 3rd shock additional attempts were abandoned. Central line was placed into the right internal jugular. Moderate difficulty because of the dehydration with significant compressibility of the internal jugular. Shortly after central line placed she spontaneously converted to sinus rhythm. Pressures have been labile. She seems to be quite sensitive to sedation. With under sedation her blood pressure was tolerable but she was obviously un comfortable in pulling at the ET tube. With over-sedation she became hypotensive. Levophed was continued and max out with of pressure low of 60/40. Dopamine was added. Propofol was weaned off and sedation primarily with fentanyl continued. At this time with primarily fentanyl sedation her pressure is 114/57. Ventilator setting seem to be appropriate with a pH of 7.38 and CO2 of 40 with an O2 of 170 on 60% FiO2 NG tubes Rojas catheters multiple lines central lines are all secured. At this point she is stable enough to be transferred to the ICU. All findings concerns and events are reviewed in detail with her daughter questions are answered. Care has been reviewed with the hospitalist. Critical Care Time Critical Care Time Critical Care Time: Yes Total Critical Care Time: 45 Attestation: Critical care time is separate from other billable procedures. This critical care time includes consultation with family and other consulting doctors, review of records, and interpretation of data from labs, EKGs and imaging as well as managements of cardiac failure, respiratory failure, sepsis, circulatory failure. Discharge Plan Departure Patient Disposition: Admitted As Inpatient Clinical Impression: Atrial fibrillation with rapid ventricular response, Cellulitis of left leg Sepsis Qualifiers: Sepsis type: sepsis due to unspecified organism Sepsis acute organ dysfunction status: unspecified Qualified Code(s): A41.9 - Sepsis, unspecified organism Respiratory failure Qualifiers: Chronicity: acute Respiratory failure complication: hypoxia and hypercapnia Qualified Code(s): J96.01 - Acute respiratory failure with hypoxia Admit Date/Time: 11/10/20 19:05 Admit Provider: Stephanie Lainez
[2020-11-10] MEDS: propofoL 1,000 MG/100 ML VIAL 47.627 MG IV ×2 (19:47→21:30)
--- NOTE | 2020-11-10 20:09 | PM.HP.1 ---
History of Present Illness History of Present Illness Date Patient Seen: 11/10/20 Time Patient Seen: 19:28 Chief complaint: Chills Narrative: Patient is a 70-year-old woman with history of hypertension, hyperlipidemia, morbid obesity with chronic lymphedema and chronic venous stasis changes with a wound on the bottom of her left heel that currently is being treated. At 10:00 a.m. this morning she noted that she had uncontrollable chills but did not note a fever. She was unable to get warm and was having such dramatic rigors that she ended up calling 911 for assistance. On their arrival they noted that she had a heart rate in the 180s to 190s that was in atrial fibrillation with a rapid ventricular response. She possibly had a single prior episode of this approximately 10 years ago, patient has not been diagnosed with atrial fibrillation nor has she been on the medications or interventions. Initial assumption was that the chills or related to the atrial fibrillation. She is given 25 mg of IV diltiazem with a slight improvement to the chills overall initial temperature medics was normal and she her blood pressure was stable. She denied any cough was having no dysuria had no other specific complaints or concerns was noting that she simply generally did not feel well. No abdominal pain dysuria, vomiting, diarrhea. She was transported to the emergency room and on initial evaluation she appeared generally unwell but was alert and able to give a coherent history. Initially she remained in atrial fibrillation with rapid ventricular response in the 140 range with stable B/P. But quickly she deteriorated becoming severely hypotensive with blood pressure as low as 60/36 varying heart rate, and increased respirations. Multiple attempts were made to treat the underlying issue with antibiotics, fluid resuscitation(sepsis bundle) temperature control however she continued to deteriorate and at the time decision was made to actually proceed with cardioversion her rate was in the 200-210 range she was complaining of dizziness, dyspnea and appeared pale, nix and obviously in distress. Cardioversion x3 failed, the patient was then intubated and placed on Levophed, fentanyl and propofol along with fluid resuscitation. Upon admit to the floor the patient was febrile with a temperature of 102.5?, BP continued to vary and remain unstable with map between 60-64, heart rate in the 130s to 140s. RASS -2, NS 150 cc/hour, fentanyl 7 mcg, Levophed 16 mcg, dopamine 5 mcg, propofol [address] good urinary output 150 cc, following 3 L fluid bolus in the ED. with only the Levophed running the patient has a BP continued to drop and was unable to maintain a map of 65 or greater, dopamine was added patient's vital signs continued to be on stable with maps consistently 60-63 and heart rates varying from 88-150 (likely aggravated by dopamine). Plan to change out the propofol for Versed in the hopes of improving blood pressure, increasing map while improving patient's comfort as she appears to only be lightly sedated with a RASS -2. Had the ED was face with a similar dilemma of managing patient's sedation and now off to tolerate the event which often resulted in hypotension. Patient's daughter was at the bedside. Patient History Medical History Allergic rhinitis (Unknown) Arthritis (Unknown) Cellulitis of right leg Essential hypertension (09/11/10) GERD (gastroesophageal reflux disease) (Unknown) GERD (gastroesophageal reflux disease) (Unknown) Hyperlipemia (Unknown) Hypertension (Unknown) Lymphedema (Unknown) Mixed hyperlipidemia Morbid obesity due to excess calories Obstructive sleep apnea (Unknown) Obstructive sleep apnea syndrome Staph skin infection Surgical History Hx of total knee replacement (Unknown) Family & Social History Family History Brother Kidney carcinoma Mother Stroke Sister Cancer Father Atrial fibrillation Social History: household members none Safety & Behavioral: Feels Safe in Current Yes-patient lives alone has a visiting home health care worker, boiler house operator, and Watkins. Patient's daughter and her family live in [place]. Patient is predominantly homebound and has decreased mobility related to her morbid obesity and other health conditions. Environment Been Physically Hurt or No Threatened By a Person Tobacco & Substance use: Tobacco type cigarettes Smoking Status Former smoker alcohol intake never alcohol intake frequency holiday/special occasion Substance Use Type does not use Meds Home Medications and Allergies Home Medications Medication Instructions Recorded Confirmed Type CA PANTOTHENATE/FOLIC ACID/VIT 1 tab PO QDAY #0 07/06/12 08/31/20 History (MULTIVITAMIN) [MAGNESIUM] 400 mg PO QDAY #0 11/02/17 08/31/20 History Cranberry/Probiotic See Rx Instructions .ROUTE .COMPLEX 03/16/19 08/31/20 History [place] 3 Fish Oil See Rx Instructions .ROUTE .COMPLEX 03/16/19 08/31/20 History ascorbic acid (vitamin C) 500 mg 500 mg PO BID 03/16/19 08/31/20 History capsule Disabled parking permit #1 ea 12/14/19 08/31/20 Rx nystatin 100,000 unit/gram topical 1 applictn TOP TID #120 gram 12/14/19 08/31/20 Rx powder metoprolol tartrate 25 mg tablet See Rx Instructions .ROUTE 12/19/19 08/31/20 Rx .COMPLEX #90 tab cholecalciferol (vitamin D3) 600 mg PO DAILY 03/26/20 08/31/20 History spironolactone 100 mg tablet See Rx Instructions .ROUTE 07/31/20 08/31/20 Rx .COMPLEX #90 tab ibuprofen 800 mg tablet See Rx Instructions .ROUTE 08/28/20 08/31/20 Rx .COMPLEX #90 tab cephalexin [Keflex] 500 mg PO Q6H #20 cap 08/31/20 Rx furosemide [Lasix] 40 mg PO BID #60 tab 08/31/20 Rx triamcinolone acetonide 1 applic TOP DAILY PRN 08/31/20 08/31/20 History pantoprazole 40 mg tablet,delayed See Rx Instructions .ROUTE 09/11/20 Rx release .COMPLEX #90 tab simvastatin 40 mg tablet See Rx Instructions .ROUTE 10/25/20 Rx .COMPLEX #90 tab Allergies Allergy/AdvReac Type Severity Reaction Status Date / Time adhesive tape [ADHESIVE TAPE] Allergy Intermediate RASH, Verified 11/10/20 16:58 HIVES, BLISTER Sulfa (Sulfonamide Allergy Mild HIVES Verified 11/10/20 16:58 Antibiotics) [SULFA (SULFONAMIDE ANTIBIOTICS)] tramadol AdvReac Mild Dizziness Verified 11/10/20 16:58 Review of Systems Review of Systems ROS: Yes unobtainable due to endotracheal tube Exam Vital Signs (past 8 hours): - 11/10/20 16:47 11/10/20 17:24 11/10/20 17:57 Temperature 102.7 F H 102.5 F H Pulse Rate 138 H 195 H Respiratory Rate 24 Blood Pressure 127/65 Pulse Oximetry 93 11/10/20 18:06 11/10/20 18:09 11/10/20 18:10 Temperature Pulse Rate 150 H 147 H 146 H Respiratory Rate 25 H 24 25 H Blood Pressure 104/55 L 111/61 Pulse Oximetry 93 94 94 11/10/20 18:12 11/10/20 18:15 11/10/20 18:20 Temperature Pulse Rate 164 H 174 H 151 H Respiratory Rate 27 H 19 37 H Blood Pressure 141/80 H 161/75 H Pulse Oximetry 94 99 98 11/10/20 18:21 11/10/20 18:24 11/10/20 18:25 Temperature Pulse Rate 135 H 117 H 100 H Respiratory Rate 36 H 19 18 Blood Pressure 125/84 91/48 L Pulse Oximetry 98 99 98 11/10/20 18:27 11/10/20 18:30 11/10/20 18:33 Temperature Pulse Rate 94 H 96 H 93 H Respiratory Rate 18 21 18 Blood Pressure 60/36 L 65/41 L 85/52 L Pulse Oximetry 98 98 98 11/10/20 18:35 11/10/20 18:36 11/10/20 18:39 Temperature Pulse Rate 92 H 92 H 98 H Respiratory Rate 18 18 22 Blood Pressure 87/50 L 83/54 L Pulse Oximetry 97 97 95 11/10/20 18:40 11/10/20 18:42 11/10/20 18:45 Temperature Pulse Rate 100 H 110 H 103 H Respiratory Rate 26 H 35 H 40 H Blood Pressure 102/63 103/60 Pulse Oximetry 93 95 98 11/10/20 18:48 11/10/20 18:50 11/10/20 18:51 Temperature Pulse Rate 111 H 122 H 124 H Respiratory Rate 46 H 32 H 33 H Blood Pressure 120/65 125/70 Pulse Oximetry 98 98 99 11/10/20 18:54 11/10/20 18:55 11/10/20 18:57 Temperature Pulse Rate 126 H 128 H 122 H Respiratory Rate 30 H 38 H 26 H Blood Pressure 121/61 116/59 L Pulse Oximetry 98 98 98 11/10/20 19:00 11/10/20 19:05 11/10/20 19:08 Temperature 101.7 F H Pulse Rate 123 H 96 H 92 H Respiratory Rate 30 H 18 18 Blood Pressure 81/52 L Pulse Oximetry 98 96 97 06/19/21 19:09 11/10/20 19:10 11/10/20 19:12 Temperature 101.7 F H 101.7 F H 101.8 F H Pulse Rate 92 H 92 H 92 H Respiratory Rate 18 18 18 Blood Pressure 78/53 L 80/50 L Pulse Oximetry 97 97 96 11/10/20 19:15 11/10/20 19:17 11/10/20 19:18 Temperature 101.7 F H 101.7 F H Pulse Rate 91 H 92 H 92 H Respiratory Rate 23 18 20 Blood Pressure 82/51 L 84/51 L Pulse Oximetry 96 96 11/10/20 19:20 11/10/20 19:21 11/10/20 19:24 Temperature 101.7 F H 101.7 F H 101.7 F H Pulse Rate 113 H 113 H 116 H Respiratory Rate 30 H 30 H 25 H Blood Pressure 113/65 99/59 L Pulse Oximetry 95 96 95 11/10/20 19:25 11/10/20 19:27 11/10/20 19:30 Temperature 101.7 F H 101.7 F H 101.7 F H Pulse Rate 116 H 118 H 106 H Respiratory Rate 23 20 18 Blood Pressure 97/56 L 105/56 L Pulse Oximetry 95 95 97 11/10/20 19:33 11/10/20 19:35 11/10/20 19:36 Temperature 101.5 F H 101.3 F H 101.3 F H Pulse Rate 118 H 106 H 107 H Respiratory Rate 19 20 20 Blood Pressure 112/55 L 115/56 L Pulse Oximetry 98 97 97 11/10/20 19:39 11/10/20 19:40 Temperature 101.3 F H 101.3 F H Pulse Rate 128 H 127 H Respiratory Rate 22 22 Blood Pressure 114/58 L Pulse Oximetry 97 97 Oxygen Delivery Method Room Air Narrative Exam Narrative: General: Patient is a grossly morbidly obese female, currently intubated with a right central line, left peripheral line, Rojas catheter, with a RASS score of -2, who appears in mild discomfort but in no distress at this time. HEENT: Head normocephalic, atraumatic, EOMI, face symmetric, moist mucous membranes, no JVD appreciated CARDIOVASCULAR: Irregular rate and rhythm RESPIRATORY: Breath sounds equal bilaterally, no wheezes rales or rhonchi. ABDOMEN: Soft, nontender. Normoactive bowel sounds all 4 quadrants. No guarding or rebound, rigidity, no mass : No CVA tenderness EXTREMITIES: Swelling of bilateral lower extremities of significant degree. She has brawny, woody chronic changes over the anterior lower mcmullen, with surrounding marroon changes that are without erythema or pain. She has a wound on her left hell approx 1cm with no erythema. On the back of her left leg along previous surgical incision- erythematous, and slightly warm region that is above her knee. She has weeping areas in her bilateral thighs. She has erythema in her skin folds. SKIN: skin changes noted above in extremities, with no other abnormalities appreciated. Objective Labs Result Diagrams: 11/10/20 17:11/10/20 21:00 Labs: Laboratory Results - last 24 hr 11/10/20 11/10/20 11/10/20 17:17 17:17 17:17 WBC 10.2 RBC 5.30 H Hgb 15.1 Hct 45.7 MCV 86.3 MCH 28.4 MCHC 32.9 RDW 16.5 H Plt Count 204 Neut % (Auto) 95.2 H Lymph % (Auto) 2.0 L Pickett % (Auto) 2.4 L Eos % (Auto) 0.0 L Baso % (Auto) 0.4 Neut # (Auto) 9700 H Lymph # (Auto) 200 L Pickett # (Auto) 200 Eos # (Auto) 0 Baso # (Auto) 0 ABG pH ABG pCO2 ABG pO2 ABG HCO3 ABG Total CO2 ABG O2 Saturation ABG Base Excess FiO2 Sodium 133 L Potassium 4.2 Chloride 95 L Carbon Dioxide 29 BUN 47 H Creatinine 1.18 H Estimated GFR 45.3 L BUN/Creatinine Ratio 39.8 H Glucose 129 H Lactate Calcium 10.5 H Magnesium 1.7 Total Bilirubin 0.8 AST 37 H ALT 33 Alkaline Phosphatase 104 Total Creatine Kinase 35 CK-MB (CK-2) TNP CK-MB (CK-2) Rel Index TNP Troponin I < 0.012 NT-Pro-B Natriuret Pep 542 H Total Protein 8.8 H Albumin 4.3 Globulin 4.5 H Albumin/Globulin Ratio 1.0 Lipase 170 TSH 11/10/20 11/10/20 11/10/20 17:17 17:17 19:05 WBC RBC Hgb Hct MCV MCH MCHC RDW Plt Count Neut % (Auto) Lymph % (Auto) Pickett % (Auto) Eos % (Auto) Baso % (Auto) Neut # (Auto) Lymph # (Auto) Pickett # (Auto) Eos # (Auto) Baso # (Auto) ABG pH 7.39 ABG pCO2 40.9 ABG pO2 172 H ABG HCO3 25 ABG Total CO2 26 ABG O2 Saturation 100 ABG Base Excess -1.0 FiO2 60 Sodium Potassium Chloride Carbon Dioxide BUN Creatinine Estimated GFR BUN/Creatinine Ratio Glucose Lactate 1.9 Calcium Magnesium Total Bilirubin AST ALT Alkaline Phosphatase Total Creatine Kinase CK-MB (CK-2) CK-MB (CK-2) Rel Index Troponin I NT-Pro-B Natriuret Pep Total Protein Albumin Globulin Albumin/Globulin Ratio Lipase TSH 0.84 Assessment & Plan Assessment & Plan narrative: Luanne Huang is a 70-year-old woman with a history of hypertension, hyperlipidemia, morbid obesity with chronic lymphedema and chronic venous stasis changes with a chronic wound on the bottom of her left heel, who presented with a heart rate in the 180s to 190s and new onset atrial fibrillation with a rapid ventricular response, rigors, worsening lower extremity cellulitis in the setting chronic lower extremity lymphedema and venous stasis. The patient quickly became hemodynamically unstable in the ED requiring immediate intubation and pressors. Patient was admitted to the ICU for uncontrolled new onset atrial fibrillation with RVR resulting in acute respiratory failure in respiratory acidosis with hypercapnia and hypovolemic septic shock. 1. Uncontrolled new-onset atrial fibrillation with RVR resulting in acute respiratory failure (respiratory alkalosis with hypercapnia) and hypovolemic septic shock , requiring intubation-in the setting hypertension and hyperlipidemia, acute on chronic, present on admission -as evidence by febrile at 102.5, sustained hypotension 60/36, tachycardia HR 88-195, tachypnea RR 18-46, all resistant to aggressive fluid resuscitation and antibiotic interventions, ABGs: PH 7.342, pCO2 46.7. Sodium 133, chloride 95, BUN 47, creatinine 1.18, with a creatinine clearance: 111, Sofa score: 9. Patient failed 3 cardioversion attempts in the ED, currently working towards rate control with hopes that she may convert overnight. -unsure as to the origin of the patient's sepsis possible her chronic cellulitis and/or left heel wound. Foot x-rays in ED were negative for osteomyelitis (ESR/CRP ordered), if no other sources of infection are found recommend MRI of foot. Suspect possible complicating UTI-UA ordered culture pending. Also A1C to rule out diabetes complication. -Monitor for arrhythmia, decrease left ventricular contractility, atrial Zelda dilation and or Zelda constriction, impaired response to catecholamine vasopressors. Watch for increasing pCO2, monitor lactate, calcium, sodium. --patient admitted to the ICU (1st Hr at the bedside), placed on telemetry, vital signs Q 15min, then Q hour until patient is hemodynamically stable and may progress to q.4 hours, I&O Q shift goal urinary output> 0.5 milliliters/kilogram per hour, weights daily, diet:NPO, MAP Goal >62, respiratory consult.-patient has a goal RASS score of 3.-attempts will be made to titrate down FiO2 to nontoxic levels 60% or below as quickly as possible with a goal SpO2 maintaining between 90-96%.ABGs ordered Q 30 minutes following ventilator titration changes, then q.day once patient is stabilized: CXR daily while on ventilator. -Daily sedation holidays: A wake up and breathe protocol that pairs daily spontaneous awakening trials with daily spontaneous breathing trials result in better outcomes for mechanically ventilated patient in intensive care. -per respiratory consult. -Rojas catheter placed/protocol, patient to be repositioned q.2 hours, oral hygiene/eye care Q shift, BS checks Q6 hrs Labs: CBC, CMP, lactate, blood cultures, ABGs, procalcitonin, D-dimer, ESR, CRP, A1C -patient intubated-, fentanyl drip, Levophed drip, dopamine drip, changing patient over from propofol to Versed drip. -wrist restraints per protocol-assess Q 2 (prevent patient from removing intubation) -[id number]-Lung sounds clear-will continue to monitor for fluid overload. --vancomycin per pharmacy, Chucho ( started in ED) 2. Cellulitis of lower leg, acute on chronic, present on admission - region most consistent with cellullitis is the back of the left leg. Given she has been on antibiotics with doxy, will switch to vancomycin for now. However, aside from this region the rest of her leg look like possible intertrigo in skin folds and chronic skin changes from lymphedema 3. Intertrigo, acute on chronic, present on admission - start on nystatin powder for skin folds, also add zinc oxide 4. Lymphedema/chronic venous stasis, acute on chronic present on admission - has evidence of chronic skin chages, will benefit from outpatient follow up with lymphedema or vascular clinic, outpatient wound care. Here will order wound consult and continue lasix -BNP -Last echo 08/29/20: EF55-60% 5. Morbid obesity as evidence by BMI of 62, acute on chronic, present on admission - would benefit from weight loss to help her lymphedema. 6. GERD, acute on chronic, present on admission -IV Protonix 40 mg, holding patient's pantoprazole 8. Essential hypertension, acute on chronic, present on admission -holding patient's metoprolol, Lasix, magnesium, spirolactone while intubated 9. Hyperlipidemia resulting from morbid obesity, acute on chronic, present on admission -holding patient's simvastatin Code status: Full Code Surrogate decision maker: contact is daughter Leigh Ann Wick DVT/VTE prophylaxis: Lovenox 40 and SCDs COVID PCR: Negative Scores GCS [place] coma scale eye opening: None Ameya coma scale verbal response: None Ameya coma scale motor response: None [place] coma scale total score: 3 Citation: Patient currently intubated and sedated CHADS-VASc Congestive heart failure: no Hypertension: yes Age 75 years or older: no Diabetes mellitus: no Stroke, TIA, or TE: no Vascular disease: yes Age 65 to 74 years: yes Sex category (female): Female CHADS-VASc Score: 4 SOFA PaO2/FIO2: < 300 mmHg Platelets: >= 150 Bilirubin: < 1.2 mg/dL Hypotension: Dopamine >15 or norepinephrine >0.1 [place] Coma Scale: <6 Renal: Creatinine 1.2-1.9 mg/dL SOFA Score: 11 Wells' Criteria for PE Clinical signs and symptoms of DVT: No PE is #1 Dx or equally likely: No Heart rate > 100: Yes Immobilization at least 3 days or surg in previous 4 weeks: No History of PE or DVT: No Hemoptysis: No Malignancy w/Treatment within 6 months or palliative: No Wells' PE Score total: 1.5 Quality MIPS - Admit I confirm the patient?s Advance Care Plan is present, Code status is documented, Surrogate decision maker is in patient?s record [If Yes, STOP here]: Yes
--- NOTE | 2020-11-10 20:14 | PC.NURSE ---
RN to RN report given; RT notified. Family updated.
[2020-11-10 20:30] LABS: Magnesium 1.7 mg/dL (1.6-2.3)
[2020-11-10 20:33] LABS: COVID19 - ADMIT (NP swab/PCR) Negative (Negative)
[2020-11-10 21:15] LABS: INR 1.2 (0.9-1.3)
[2020-11-10 21:21] LABS: Alanine Aminotransferase 27 IU/L (<35); Albumin 3.5 g/dL (3.5-5.0); Albumin Globulin Ratio 0.9 (1.0-2.8); Alkaline Phosphatase 85 U/L (38-126); Aspartate Aminotransferase 33 IU/L (14-36); BUN Creatinine Ratio 33.6 (6-22); Bilirubin Total 1.1 mg/dL (0.2-1.3); Blood Urea Nitrogen 43 mg/dL (7-17); Calcium 9.3 mg/dL (8.4-10.2); Carbon Dioxide 24 mmol/L (22-32); Chloride 100 mmol/L (98-107); Estimated Glomerular Filt Rate 41.2 mL/min (>60); Globulin 3.7 g/dL (1.7-4.1); Glucose 162 mg/dL (80-110); HEMOLYSIS 16 (0-50); Magnesium 1.7 mg/dL (1.6-2.3); Potassium 3.5 mmol/L (3.4-5.1); Sodium 133 mmol/L (137-145); Total Protein 7.2 g/dL (6.3-8.2)
[2020-11-10 21:28] LABS: Free T4, Direct Thyroxine 1.67 ng/dL (0.78-2.19)
[2020-11-10 21:32] LABS: Troponin I < 0.012 ng/mL (0.01-0.034)
[2020-11-10 21:54] LABS: Lactate (Lactic Acid) 1.6 mmol/L (0.7-2.1)
[2020-11-10] MEDS: NOREPINEPHRINE 4 MG in DEXTROSE 5% IN WATER 250 ML 68.58 ML IV (22:20)
[2020-11-10] MEDS: WATER IV (22:39)
[2020-11-10] MEDS: DEXTROSE 5% IV (22:39)
[2020-11-10] MEDS: MIDAZOLAM IV (22:39)
[2020-11-10 23:18] LABS: Adenovirus Not Detected (Not Detect); B. parapertussis Not Detected (Not Detecte); Bordetella pertussis Not Detected (Not Detecte); Chlamydophila pneumoniae Not Detected (Not Detect); Coronavirus 229E Not Detected (Not Detect); Coronavirus HKU1 Not Detected (Not Detect); Coronavirus NL 63 Not Detected (Not Detect); Coronavirus OC43 Not Detected (Not Detect); Human Metapneumovirus Not Detected (Not Detect); Human Rhinovirus/Enterovirus Not Detected (Not Detect); Influenza A Not Detected (Not Detect); Influenza B Not Detected (Not Detect); Mycoplasma pneumoniae Not Detected (Not Detect); Parainfluenza Virus 1 Not Detected (Not Detect); Parainfluenza Virus 2 Not Detected (Not Detect); Parainfluenza Virus 3 Not Detected (Not Detect); Parainfluenza Virus 4 Not Detected (Not Detect); Respiratory Syncytial Virus Not Detected (Not Detect); SARS- CoV-2 Not Detected (Not Detecte)
[2020-11-10 23:42] LABS: HCO3 ABG 25 mmol/L (22-26); PCO2 ABG 46.7 mmHg (35-45); PO2 ABG 93 mmHg (80-100)
[2020-11-10 23:43] LABS: Fractionated Inspired Oxygen 45; Oxygen Saturation ABG 97 % (95-100); TCO2 ABG 27 mmol/L (21-31)
--- NOTE | 2020-11-10 23:49 | PC.NURSE ---
Addendum entered by Daysi Yin R.N. 11/11/20 06:27: 0630- Labs reviewed. WBC up to 16, Lactate at 2.5, procalcitonin is pending. Temp is 101.3 with Tylenol on board. Heart rate NSR with PAC's mid 80's. Levophed titrated to 8 graham/min. Fentanyl at 1mcg/kg/hr, Versed is at 0.02 mg/kg/hr. Diltiazem gtt at 5mg/hr, Dopamine at 5 graham/kg/min. Rass at -3. Good uop. Addendum entered by Daysi Yin R.N. 11/11/20 04:28: 0415- Attempted to wean dopamine. Patient pressures did not tolerate. Dopamine back on at 5mic/kg/min. DECORATING CONSULTANT Ehsan aware. Original Note: 2029- Patient arrived via stretcher to room 226. Patient vented and sedated. Rojas catheter draining clear yellow urine. Patient transferred to the bed using a slide board and assist of 5 staff. Patient is 158kg. Patient has Dopamine infusing per order, Levophed infusing per order, Propofol for sedation, Fentanyl for sedation/pain, NS at 150cc/hr, Vancomycin per orders, Diltiazem per orders. BP is soft. Titrating to keep mean at 65 or above. Patient is in AFib RVR rate 110- 120. Will monitor closely.
[2020-11-11] VITALS (121 sets, daily range): BP systolic 61–137; BP diastolic 39–63; PULSE 76–110; RESP 19–42; TEMP 37.6–38.7; O2SAT 92–98
[2020-11-11] MEDS: PIPERACILLIN/TAZO 3.375 GM in SODIUM CHLORIDE 0.9% 100 ML 25 ML IV ×4 (00:15→23:57)
[2020-11-11 00:18] LABS: pH ABG 7.34 (7.35-7.45)
[2020-11-11] MEDS: SODIUM CHLORIDE 0.9% 1,000 ML 100 ML IV ×4 (00:28→22:50)
[2020-11-11 00:46] LABS: Bacteria Urine None Seen; RBC Urine None Seen (0-5/HPF)
[2020-11-11] MEDS: fentaNYL 1,000 MCG in DEXTROSE 5% IN WATER 230 ML 39.689 ML IV ×2 (01:44→08:10)
[2020-11-11 01:49] LABS: Amorphous Sediment Urine 3+; Culture Indicated Urine Specimen Cultured; WBC Urine 0-1/HPF (0-5/HPF)
[2020-11-11] MEDS: NOREPINEPHRINE 4 MG in DEXTROSE 5% IN WATER 250 ML 68.58 ML IV (02:08)
[2020-11-11] MEDS: DOPAMINE HCL IN DEXTROSE 5 % 400 MG/250 ML PLAST..BAG 29.767 MG IV (02:15)
[2020-11-11] MEDS: ACETAMINOPHEN SUSP 650 MG/20.3 ML UDC TUBE ×3 (03:18→16:16)
[2020-11-11 05:33] LABS: Hematocrit 46.1 % (36-46); Hemoglobin 15.1 g/dL (12.0-16.0); Mean Corpuscular HGB Conc 32.8 % (30-36); Mean Corpuscular Hemoglobin 28.6 PG (26-34); Mean Corpuscular Volume 87.2 fL (80-100); Platelet Count 164 X10^3/uL (150-400); Red Blood Cell Count 5.29 X10^6/uL (4.0-5.2); Red Cell Distribution Width 16.6 % (11.6-14.8); White Blood Cell Count 16.4 X10^3/uL (4.5-11.0)
[2020-11-11 05:34] LABS: Add Manual Diff / Slide Review YES
[2020-11-11 05:38] LABS: D Dimer 2501 ng/mL (<230)
[2020-11-11 05:57] LABS: Hemoglobin A1C% w Est Avg Glu 6.9 % (4.0-6.0)
[2020-11-11 06:03] LABS: HCO3 ABG 23 mmol/L (22-26); Oxygen Saturation ABG 95 % (95-100); PCO2 ABG 43.4 mmHg (35-45); PO2 ABG 80 mmHg (80-100); TCO2 ABG 25 mmol/L (21-31); pH ABG 7.34 (7.35-7.45)
[2020-11-11 06:04] LABS: Fractionated Inspired Oxygen 45
[2020-11-11 06:07] LABS: Lactate (Lactic Acid) 2.5 mmol/L (0.7-2.1)
[2020-11-11 06:10] LABS: Alanine Aminotransferase 24 IU/L (<35); Albumin Globulin Ratio 0.9 (1.0-2.8); Alkaline Phosphatase 71 U/L (38-126); Aspartate Aminotransferase 30 IU/L (14-36); BUN Creatinine Ratio 32.5 (6-22); Blood Urea Nitrogen 38 mg/dL (7-17); Calcium 9.1 mg/dL (8.4-10.2); Carbon Dioxide 25 mmol/L (22-32); Chloride 100 mmol/L (98-107); Estimated Glomerular Filt Rate 45.7 mL/min (>60); Globulin 3.4 g/dL (1.7-4.1); Glucose 185 mg/dL (80-110); HEMOLYSIS < 15 (0-50); Potassium 3.9 mmol/L (3.4-5.1); Sodium 132 mmol/L (137-145); Total Protein 6.4 g/dL (6.3-8.2)
[2020-11-11 06:12] LABS: Erythrocyte Sedimentation Rate 32 MM/HR (0-20)
[2020-11-11 06:24] LABS: C-Reactive Protein Quant 17.9 mg/dL (<1.0)
[2020-11-11 06:25] LABS: Magnesium 1.6 mg/dL (1.6-2.3)
--- NOTE | 2020-11-11 07:11 | P.PN_ITS ---
Subjective Subjective Date Patient Seen: 11/11/20 Time Patient Seen: 07:12 Interval history: She has been steadily improving overnight. She has been on dopamine and Levophed for pressure support with varying doses and an ongoing need for both of those until mid morning today. She has been on diltiazem after her AFib RVR yesterday. Since that is now converted the diltiazem has been stopped. She has been on sedation of propofol but was then changed to Versed b ecause of the hypotension. She has also continued on IV fentanyl drip. The blood cultures are growing group B strep agelactaie. The vancomycin will be stopped and the Zosyn will be continued. She has received 3 L of IV fluid in the emergency department yesterday and then 100 mL/hr since then with a lactic acid level this morning of 2.5 so an additional 1 L bolus will be given. Her mean arterial pressure without the dopamine dropped to 48 so that was resumed. Her white blood count is 16.4 with a hemoglobin of 15.1 and platelets of 164. The T-max is 100.8? with a blood pressure currently at 96/52. The sodium is 132 with a potassium of 3.9 and a creatinine of 1.17. The glucose is 185. Her pH is 7.34. Her CRP is 70.9 and her procalcitonin is 11. The D-dimer is also elevated at 2,501 so she will be started on therapeutic Lovenox dosing until a CTA can be done. Exam Vital Signs (past 8 hours): - 11/10/20 23:15 11/10/20 23:20 11/10/20 23:25 Temperature 99.7 F H 99.7 F H 99.7 F H Pulse Rate 92 H 91 H 90 Respiratory Rate 20 20 20 Blood Pressure 96/50 L Pulse Oximetry 93 93 93 11/10/20 23:30 11/10/20 23:35 11/10/20 23:45 Temperature 99.7 F H 99.7 F H 99.7 F H Pulse Rate 91 H 90 90 Respiratory Rate 20 20 20 Blood Pressure 96/50 L 93/52 L Pulse Oximetry 93 92 92 11/11/20 00:00 11/11/20 00:15 11/11/20 00:30 Temperature 99.7 F H 99.7 F H 99.7 F H Pulse Rate 86 83 83 Respiratory Rate 20 20 20 Blood Pressure 95/53 L 97/54 L 100/57 L Pulse Oximetry 92 92 93 11/11/20 00:45 11/11/20 01:00 11/11/20 01:15 Temperature 99.7 F H 99.7 F H 99.7 F H Pulse Rate 82 82 94 H Respiratory Rate 20 20 21 Blood Pressure 93/54 L 95/54 L 97/56 L Pulse Oximetry 93 94 95 11/11/20 01:30 11/11/20 01:45 11/11/20 02:00 Temperature 99.9 F H 99.9 F H 99.9 F H Pulse Rate 84 82 81 Respiratory Rate 19 20 20 Blood Pressure 96/53 L 95/52 L 93/52 L Pulse Oximetry 94 94 95 11/11/20 02:15 11/11/20 02:30 11/11/20 02:45 Temperature 100.0 F H 100.0 F H 100.2 F H Pulse Rate 82 83 83 Respiratory Rate 20 20 20 Blood Pressure 94/53 L 94/53 L 94/50 L Pulse Oximetry 95 94 94 11/11/20 03:00 11/11/20 03:15 11/11/20 03:18 Temperature 100.2 F H 100.2 F H 100.4 F H Pulse Rate 80 83 Respiratory Rate 20 20 Blood Pressure 92/55 L 97/53 L Pulse Oximetry 94 96 11/11/20 03:20 11/11/20 03:25 11/11/20 03:30 Temperature 100.2 F H 100.4 F H 100.4 F H Pulse Rate 84 85 84 Respiratory Rate 20 20 20 Blood Pressure 101/56 L Pulse Oximetry 97 96 95 11/11/20 03:35 11/11/20 03:40 11/11/20 03:45 Temperature 100.4 F H 100.4 F H 100.4 F H Pulse Rate 84 84 83 Respiratory Rate 20 20 20 Blood Pressure 99/56 L Pulse Oximetry 96 95 95 11/11/20 03:50 11/11/20 03:53 11/11/20 03:55 Temperature 100.4 F H 100.4 F H 100.4 F H Pulse Rate 84 82 Respiratory Rate 20 20 Blood Pressure Pulse Oximetry 95 95 11/11/20 04:00 11/11/20 04:05 11/11/20 04:10 Temperature 100.6 F H 100.6 F H 100.6 F H Pulse Rate 82 82 82 Respiratory Rate 20 20 20 Blood Pressure 97/54 L Pulse Oximetry 95 95 95 11/11/20 04:15 11/11/20 04:20 11/11/20 04:25 Temperature 100.6 F H 100.6 F H 100.8 F H Pulse Rate 84 83 84 Respiratory Rate 20 20 20 Blood Pressure 61/39 L Pulse Oximetry 96 94 94 11/11/20 04:27 11/11/20 04:30 11/11/20 04:35 Temperature 100.8 F H 100.8 F H 100.8 F H Pulse Rate 84 84 84 Respiratory Rate 20 20 20 Blood Pressure 95/50 L 96/52 L Pulse Oximetry 94 95 95 Fraction of Inspired Oxygen 45 Oxygen Delivery Method Mechanical Ventilation Narrative Exam Narrative: She is sedated but with light touch and verbal request from the nurse she is able to open her eyes and acknowledge that she is in some pain. She has an endotracheal tube in with placement confirmed on initial chest x-ray and repeat chest x-ray will be done. Heart is regular rate and rhythm without murmur Lungs are clear to auscultation bilaterally Abdomen is soft, nontender, bowel sounds positive Extremities have chronic redness of the ankle/calf area with a very warm reddene d area on the inside of the left knee/medial thigh. There is a significant scar in this area matching the 1 on the lateral aspect suggestive of a prior fasciotomy. Objective Labs Result Diagrams: 11/11/20 05:05 11/11/20 05:05 Labs: Laboratory Results - last 24 hr 11/10/20 11/10/20 11/10/20 17:17 17:17 17:17 WBC 10.2 RBC 5.30 H Hgb 15.1 Hct 45.7 MCV 86.3 MCH 28.4 MCHC 32.9 RDW 16.5 H Plt Count 204 Neut % (Auto) 95.2 H Lymph % (Auto) 2.0 L Arroyo % (Auto) 2.4 L Eos % (Auto) 0.0 L Baso % (Auto) 0.4 Neut # (Auto) 9700 H Lymph # (Auto) 200 L [place] # (Auto) 200 Eos # (Auto) 0 Baso # (Auto) 0 ESR PT INR D-Dimer ABG pH ABG pCO2 ABG pO2 ABG HCO3 ABG Total CO2 ABG O2 Saturation ABG Base Excess FiO2 Sodium 133 L Potassium 4.2 Chloride 95 L Carbon Dioxide 29 BUN 47 H Creatinine 1.18 H Estimated GFR 45.3 L BUN/Creatinine Ratio 39.8 H Glucose 129 H Hemoglobin A1c Lactate Calcium 10.5 H Magnesium 1.7 Total Bilirubin 0.8 AST 37 H ALT 33 Alkaline Phosphatase 104 Total Creatine Kinase 35 CK-MB (CK-2) TNP CK-MB (CK-2) Rel Index TNP Troponin I < 0.012 C-Reactive Protein NT-Pro-B Natriuret Pep 542 H Total Protein 8.8 H Albumin 4.3 Globulin 4.5 H Albumin/Globulin Ratio 1.0 Lipase 170 Procalcitonin TSH Free T4 Urine RBC Urine WBC Amorphous Sediment Urine Bacteria Ur Culture Indicated? Nasal Screen MRSA (PCR) Chlamy pneumoniae PCR Adenovirus (PCR) B. pertussis DNA (PCR) B.parapertussis DNA PCR Coronavirus OC43 (PCR) Coronavirus HKU1 (PCR) Coronavirus 229E (PCR) SARS-CoV-2 (PCR) Coronavirus NL63 (PCR) Human Metapneumovir PCR Influenza Type A (PCR) Influenza Type B (PCR) M. pneumoniae (PCR) Parainfluenza 1 (PCR) Parainfluenza 2 (PCR) Parainfluenza 3 (PCR) Parainfluenza 4 (PCR) RSV (PCR) Entero/Rhino (PCR) 11/10/20 11/10/20 11/10/20 17:17 17:17 17:17 WBC RBC Hgb Hct MCV MCH MCHC RDW Plt Count Neut % (Auto) Lymph % (Auto) Arroyo % (Auto) Eos % (Auto) Baso % (Auto) Neut # (Auto) Lymph # (Auto) [place]royo # (Auto) Eos # (Auto) Baso # (Auto) ESR PT INR D-Dimer ABG pH ABG pCO2 ABG pO2 ABG HCO3 ABG Total CO2 ABG O2 Saturation ABG Base Excess FiO2 Sodium Potassium Chloride Carbon Dioxide BUN Creatinine Estimated GFR BUN/Creatinine Ratio Glucose Hemoglobin A1c Lactate 1.9 Calcium Magnesium 1.7 Total Bilirubin AST ALT Alkaline Phosphatase Total Creatine Kinase CK-MB (CK-2) CK-MB (CK-2) Rel Index Troponin I C-Reactive Protein NT-Pro-B Natriuret Pep Total Protein Albumin Globulin Albumin/Globulin Ratio Lipase Procalcitonin TSH 0.84 Free T4 Urine RBC Urine WBC Amorphous Sediment Urine Bacteria Ur Culture Indicated? Nasal Screen MRSA (PCR) Chlamy pneumoniae PCR Adenovirus (PCR) B. pertussis DNA (PCR) B.parapertussis DNA PCR Coronavirus OC43 (PCR) Coronavirus HKU1 (PCR) Coronavirus 229E (PCR) SARS-CoV-2 (PCR) Coronavirus NL63 (PCR) Human Metapneumovir PCR Influenza Type A (PCR) Influenza Type B (PCR) M. pneumoniae (PCR) Parainfluenza 1 (PCR) Parainfluenza 2 (PCR) Parainfluenza 3 (PCR) Parainfluenza 4 (PCR) RSV (PCR) Entero/Rhino (PCR) 11/10/20 11/10/20 11/10/20 17:17 17:17 19:05 WBC RBC Hgb Hct MCV MCH MCHC RDW Plt Count Neut % (Auto) Lymph % (Auto) Arroyo % (Auto) Eos % (Auto) Baso % (Auto) Neut # (Auto) Lymph # (Auto) [place]royo # (Auto) Eos # (Auto) Baso # (Auto) ESR PT INR D-Dimer ABG pH 7.39 ABG pCO2 40.9 ABG pO2 172 H ABG HCO3 25 ABG Total CO2 26 ABG O2 Saturation 100 ABG Base Excess -1.0 FiO2 60 Sodium Potassium Chloride Carbon Dioxide BUN Creatinine Estimated GFR BUN/Creatinine Ratio Glucose Hemoglobin A1c 6.9 H Lactate Calcium Magnesium Total Bilirubin AST ALT Alkaline Phosphatase Total Creatine Kinase CK-MB (CK-2) CK-MB (CK-2) Rel Index Troponin I C-Reactive Protein NT-Pro-B Natriuret Pep Total Protein Albumin Globulin Albumin/Globulin Ratio Lipase Procalcitonin TSH Free T4 1.67 Urine RBC Urine WBC Amorphous Sediment Urine Bacteria Ur Culture Indicated? Nasal Screen MRSA (PCR) Chlamy pneumoniae PCR Adenovirus (PCR) B. pertussis DNA (PCR) B.parapertussis DNA PCR Coronavirus OC43 (PCR) Coronavirus HKU1 (PCR) Coronavirus 229E (PCR) SARS-CoV-2 (PCR) Coronavirus NL63 (PCR) Human Metapneumovir PCR Influenza Type A (PCR) Influenza Type B (PCR) M. pneumoniae (PCR) Parainfluenza 1 (PCR) Parainfluenza 2 (PCR) Parainfluenza 3 (PCR) Parainfluenza 4 (PCR) RSV (PCR) Entero/Rhino (PCR) 11/10/20 11/10/20 11/10/20 19:29 19:30 21:00 WBC RBC Hgb Hct MCV MCH MCHC RDW Plt Count Neut % (Auto) Lymph % (Auto) Arroyo % (Auto) Eos % (Auto) Baso % (Auto) Neut # (Auto) Lymph # (Auto) [place]royo # (Auto) Eos # (Auto) Baso # (Auto) ESR PT 13.0 H INR 1.2 D-Dimer ABG pH 7.34 L ABG pCO2 46.7 H ABG pO2 93 ABG HCO3 25 ABG Total CO2 27 ABG O2 Saturation 97 ABG Base Excess 0.0 FiO2 45 Sodium Potassium Chloride Carbon Dioxide BUN Creatinine Estimated GFR BUN/Creatinine Ratio Glucose Hemoglobin A1c Lactate Calcium Magnesium Total Bilirubin AST ALT Alkaline Phosphatase Total Creatine Kinase CK-MB (CK-2) CK-MB (CK-2) Rel Index Troponin I C-Reactive Protein NT-Pro-B Natriuret Pep Total Protein Albumin Globulin Albumin/Globulin Ratio Lipase Procalcitonin TSH Free T4 Urine RBC Urine WBC Amorphous Sediment Urine Bacteria Ur Culture Indicated? Nasal Screen MRSA (PCR) Chlamy pneumoniae PCR Adenovirus (PCR) B. pertussis DNA (PCR) B.parapertussis DNA PCR Coronavirus OC43 (PCR) Coronavirus HKU1 (PCR) Coronavirus 229E (PCR) SARS-CoV-2 (PCR) Negative Coronavirus NL63 (PCR) Human Metapneumovir PCR Influenza Type A (PCR) Influenza Type B (PCR) M. pneumoniae (PCR) Parainfluenza 1 (PCR) Parainfluenza 2 (PCR) Parainfluenza 3 (PCR) Parainfluenza 4 (PCR) RSV (PCR) Entero/Rhino (PCR) 11/10/20 11/10/20 11/10/20 21:00 21:00 21:00 WBC RBC Hgb Hct MCV MCH MCHC RDW Plt Count Neut % (Auto) Lymph % (Auto) Arroyo % (Auto) Eos % (Auto) Baso % (Auto) Neut # (Auto) Lymph # (Auto) [place]royo # (Auto) Eos # (Auto) Baso # (Auto) ESR PT INR D-Dimer ABG pH ABG pCO2 ABG pO2 ABG HCO3 ABG Total CO2 ABG O2 Saturation ABG Base Excess FiO2 Sodium 133 L Potassium 3.5 Chloride 100 Carbon Dioxide 24 BUN 43 H Creatinine 1.28 H Estimated GFR 41.2 L BUN/Creatinine Ratio 33.6 H Glucose 162 H Hemoglobin A1c Lactate 1.6 Calcium 9.3 Magnesium 1.7 Total Bilirubin 1.1 AST 33 ALT 27 Alkaline Phosphatase 85 Total Creatine Kinase CK-MB (CK-2) CK-MB (CK-2) Rel Index Troponin I < 0.012 C-Reactive Protein NT-Pro-B Natriuret Pep Total Protein 7.2 Albumin 3.5 Globulin 3.7 Albumin/Globulin Ratio 0.9 L Lipase Procalcitonin TSH Free T4 Urine RBC None seen Urine WBC 0-1/hpf Amorphous Sediment 3+ Urine Bacteria None seen Ur Culture Indicated? Specimen cultured Nasal Screen MRSA (PCR) Chlamy pneumoniae PCR Adenovirus (PCR) B. pertussis DNA (PCR) B.parapertussis DNA PCR Coronavirus OC43 (PCR) Coronavirus HKU1 (PCR) Coronavirus 229E (PCR) SARS-CoV-2 (PCR) Coronavirus NL63 (PCR) Human Metapneumovir PCR Influenza Type A (PCR) Influenza Type B (PCR) M. pneumoniae (PCR) Parainfluenza 1 (PCR) Parainfluenza 2 (PCR) Parainfluenza 3 (PCR) Parainfluenza 4 (PCR) RSV (PCR) Entero/Rhino (PCR) 11/10/20 11/10/20 11/11/20 21:40 23:00 05:05 WBC 16.4 H D RBC 5.29 H Hgb 15.1 Hct 46.1 H MCV 87.2 MCH 28.6 MCHC 32.8 RDW 16.6 H Plt Count 164 Neut % (Auto) Not Reportable Lymph % (Auto) Not Reportable Arroyo % (Auto) Not Reportable Eos % (Auto) Not Reportable Baso % (Auto) Not Reportable Neut # (Auto) Lymph # (Auto) Not Reportable [place]royo # (Auto) Not Reportable Eos # (Auto) Baso # (Auto) Not Reportable ESR PT INR D-Dimer ABG pH ABG pCO2 ABG pO2 ABG HCO3 ABG Total CO2 ABG O2 Saturation ABG Base Excess FiO2 Sodium Potassium Chloride Carbon Dioxide BUN Creatinine Estimated GFR BUN/Creatinine Ratio Glucose Hemoglobin A1c Lactate Calcium Magnesium Total Bilirubin AST ALT Alkaline Phosphatase Total Creatine Kinase CK-MB (CK-2) CK-MB (CK-2) Rel Index Troponin I C-Reactive Protein NT-Pro-B Natriuret Pep Total Protein Albumin Globulin Albumin/Globulin Ratio Lipase Procalcitonin TSH Free T4 Urine RBC Urine WBC Amorphous Sediment Urine Bacteria Ur Culture Indicated? Nasal Screen MRSA (PCR) Negative for mrsa Chlamy pneumoniae PCR Not detected Adenovirus (PCR) Not detected B. pertussis DNA (PCR) Not detected B.parapertussis DNA PCR Not detected Coronavirus OC43 (PCR) Not detected Coronavirus HKU1 (PCR) Not detected Coronavirus 229E (PCR) Not detected SARS-CoV-2 (PCR) Not detected Coronavirus NL63 (PCR) Not detected Human Metapneumovir PCR Not detected Influenza Type A (PCR) Not detected Influenza Type B (PCR) Not detected M. pneumoniae (PCR) Not detected Parainfluenza 1 (PCR) Not detected Parainfluenza 2 (PCR) Not detected Parainfluenza 3 (PCR) Not detected Parainfluenza 4 (PCR) Not detected RSV (PCR) Not detected Entero/Rhino (PCR) Not detected 11/11/20 11/11/20 11/11/20 05:05 05:05 05:05 WBC RBC Hgb Hct MCV MCH MCHC RDW Plt Count Neut % (Auto) Lymph % (Auto) Arroyo % (Auto) Eos % (Auto) Baso % (Auto) Neut # (Auto) Lymph # (Auto) [place]royo # (Auto) Eos # (Auto) Baso # (Auto) ESR 32 H PT INR D-Dimer ABG pH ABG pCO2 ABG pO2 ABG HCO3 ABG Total CO2 ABG O2 Saturation ABG Base Excess FiO2 Sodium 132 L Potassium 3.9 Chloride 100 Carbon Dioxide 25 BUN 38 H Creatinine 1.17 H Estimated GFR 45.7 L BUN/Creatinine Ratio 32.5 H Glucose 185 H Hemoglobin A1c Lactate Calcium 9.1 Magnesium 1.6 Total Bilirubin 1.0 AST 30 ALT 24 Alkaline Phosphatase 71 Total Creatine Kinase CK-MB (CK-2) CK-MB (CK-2) Rel Index Troponin I C-Reactive Protein NT-Pro-B Natriuret Pep Total Protein 6.4 Albumin 3.0 L Globulin 3.4 Albumin/Globulin Ratio 0.9 L Lipase Procalcitonin TSH Free T4 Urine RBC Urine WBC Amorphous Sediment Urine Bacteria Ur Culture Indicated? Nasal Screen MRSA (PCR) Chlamy pneumoniae PCR Adenovirus (PCR) B. pertussis DNA (PCR) B.parapertussis DNA PCR Coronavirus OC43 (PCR) Coronavirus HKU1 (PCR) Coronavirus 229E (PCR) SARS-CoV-2 (PCR) Coronavirus NL63 (PCR) Human Metapneumovir PCR Influenza Type A (PCR) Influenza Type B (PCR) M. pneumoniae (PCR) Parainfluenza 1 (PCR) Parainfluenza 2 (PCR) Parainfluenza 3 (PCR) Parainfluenza 4 (PCR) RSV (PCR) Entero/Rhino (PCR) 11/11/20 11/11/20 11/11/20 05:05 05:05 05:05 WBC RBC Hgb Hct MCV MCH MCHC RDW Plt Count Neut % (Auto) Lymph % (Auto) [place]royo % (Auto) Eos % (Auto) Baso % (Auto) Neut # (Auto) Lymph # (Auto) [place] # (Auto) Eos # (Auto) Baso # (Auto) ESR PT INR D-Dimer 2501 H ABG pH ABG pCO2 ABG pO2 ABG HCO3 ABG Total CO2 ABG O2 Saturation ABG Base Excess FiO2 Sodium Potassium Chloride Carbon Dioxide BUN Creatinine Estimated GFR BUN/Creatinine Ratio Glucose Hemoglobin A1c Lactate 2.5 H Calcium Magnesium Total Bilirubin AST ALT Alkaline Phosphatase Total Creatine Kinase CK-MB (CK-2) CK-MB (CK-2) Rel Index Troponin I C-Reactive Protein 17.9 H NT-Pro-B Natriuret Pep Total Protein Albumin Globulin Albumin/Globulin Ratio Lipase Procalcitonin 11.0 H TSH Free T4 Urine RBC Urine WBC Amorphous Sediment Urine Bacteria Ur Culture Indicated? Nasal Screen MRSA (PCR) Chlamy pneumoniae PCR Adenovirus (PCR) B. pertussis DNA (PCR) B.parapertussis DNA PCR Coronavirus OC43 (PCR) Coronavirus HKU1 (PCR) Coronavirus 229E (PCR) SARS-CoV-2 (PCR) Coronavirus NL63 (PCR) Human Metapneumovir PCR Influenza Type A (PCR) Influenza Type B (PCR) M. pneumoniae (PCR) Parainfluenza 1 (PCR) Parainfluenza 2 (PCR) Parainfluenza 3 (PCR) Parainfluenza 4 (PCR) RSV (PCR) Entero/Rhino (PCR) 11/11/20 05:30 WBC RBC Hgb Hct MCV MCH MCHC RDW Plt Count Neut % (Auto) Lymph % (Auto) [place]royo % (Auto) Eos % (Auto) Baso % (Auto) Neut # (Auto) Lymph # (Auto) [place]royo # (Auto) Eos # (Auto) Baso # (Auto) ESR PT INR D-Dimer ABG pH 7.34 L ABG pCO2 43.4 ABG pO2 80 ABG HCO3 23 ABG Total CO2 25 ABG O2 Saturation 95 ABG Base Excess -2.0 FiO2 45 Sodium Potassium Chloride Carbon Dioxide BUN Creatinine Estimated GFR BUN/Creatinine Ratio Glucose Hemoglobin A1c Lactate Calcium Magnesium Total Bilirubin AST ALT Alkaline Phosphatase Total Creatine Kinase CK-MB (CK-2) CK-MB (CK-2) Rel Index Troponin I C-Reactive Protein NT-Pro-B Natriuret Pep Total Protein Albumin Globulin Albumin/Globulin Ratio Lipase Procalcitonin TSH Free T4 Urine RBC Urine WBC Amorphous Sediment Urine Bacteria Ur Culture Indicated? Nasal Screen MRSA (PCR) Chlamy pneumoniae PCR Adenovirus (PCR) B. pertussis DNA (PCR) B.parapertussis DNA PCR Coronavirus OC43 (PCR) Coronavirus HKU1 (PCR) Coronavirus 229E (PCR) SARS-CoV-2 (PCR) Coronavirus NL63 (PCR) Human Metapneumovir PCR Influenza Type A (PCR) Influenza Type B (PCR) M. pneumoniae (PCR) Parainfluenza 1 (PCR) Parainfluenza 2 (PCR) Parainfluenza 3 (PCR) Parainfluenza 4 (PCR) RSV (PCR) Entero/Rhino (PCR) [facility] Medical History Allergic rhinitis (Unknown) Arthritis (Unknown) Cellulitis of right leg Essential hypertension (09/11/10) GERD (gastroesophageal reflux disease) (Unknown) GERD (gastroesophageal reflux disease) (Unknown) Hyperlipemia (Unknown) Hypertension (Unknown) Lymphedema (Unknown) Mixed hyperlipidemia Morbid obesity due to excess calories Obstructive sleep apnea (Unknown) Obstructive sleep apnea syndrome Staph skin infection Surgical History Hx of total knee replacement (Unknown) Family History Brother Kidney carcinoma Mother Stroke Sister Cancer Father Atrial fibrillation Social History household members: none Smoking Status: Former smoker Tobacco: How many years used: 4 second hand exposure: No alcohol intake: never substance use type: does not use Assessment & Plan Assessment & Plan narrative: Luanne Huang is a 70-year-old woman with a history of hypertension, hyperlipidemia, morbid obesity with chronic lymphedema and chronic venous stasis changes with a chronic wound on the bottom of her left heel, who presented with a heart rate in the 180s to 190s and new onset atrial fibrillation with a rapid ventricular response, rigors, worsening lower extremity cellulitis in the setting chronic lower extremity lymphedema and venous stasis. The patient quickly became hemodynamically unstable in the ED requiring immediate intubation and pressors. Patient was admitted to the ICU for uncontrolled new onset atrial fibrillation with RVR resulting in acute respiratory failure in respiratory acidosis with hypercapnia and hypovolemic septic shock. 1. Uncontrolled new-onset atrial fibrillation with RVR resulting in acute respiratory failure (respiratory alkalosis with hypercapnia) and hypovolemic septic shock , requiring intubation-in the setting hypertension and hyperlipidemia, acute on chronic, present on admission -as evidence by febrile at 102.5, sustained hypotension 60/36, tachycardia HR 88-195, tachypnea RR 18-46, all resistant to aggressive fluid resuscitation and antibiotic interventions, ABGs: PH 7.342, pCO2 46.7. Sodium 133, chloride 95, BUN 47, creatinine 1.18, with a creatinine clearance: 111, Sofa score: 9. Patient failed 3 cardioversion attempts in the ED, finally converting with a diltiazem drip and treatment of the primary cause, the sepsis. -her left medial thigh/knee cellulitis appears to be the source of the infection. --patient admitted to the ICU on and plan CXR daily while on ventilator. -Daily sedation holidays: A wake up and breathe protocol that pairs daily spontaneous awakening trials with daily spontaneous breathing trials result in better outcomes for mechanically ventilated patient in intensive care. -per respiratory consult. -Rojas catheter placed/protocol, patient to be repositioned q.2 hours, oral hygiene/eye care Q shift, BS checks Q6 hrs -patient intubated-, fentanyl drip, Levophed drip, dopamine drip, changed patient from propofol to Versed drip due to hypotension. -wrist restraints per protocol-assess Q 2 (prevent patient from removing intubation) -[id number]-with additional 1 L bolus due to rising lactic acid level this morning -group B strep Agalactiae on blood culture so vancomycin will be held and Zosyn will be continued pending sensitivities. 2. Cellulitis of lower leg, acute on chronic, present on admission - region most consistent with cellullitis is the back of the left leg. Given she has been on antibiotics with doxy, now growing Group B Strep so will continue Zosyn and stop Vancomycin. The rest of her leg look like possible intertrigo in skin folds and chronic skin changes from lymphedema 3. Intertrigo, acute on chronic, present on admission - start on nystatin powder for skin folds, also add zinc oxide 4. Lymphedema/chronic venous stasis, acute on chronic present on admission - has evidence of chronic skin changes, will benefit from outpatient follow up with lymphedema or vascular clinic, outpatient wound care. Here will order wound consult and continue lasix -BNP -Last echo 08/29/20: [id number]% 5. Morbid obesity as evidence by BMI of 62, acute on chronic, present on admission - would benefit from weight loss to help her lymphedema. 6. GERD, acute on chronic, present on admission -IV Protonix 40 mg 8. Essential hypertension, acute on chronic, present on admission -holding metoprolol, Lasix, magnesium, spirolactone while hypotensive and intubated 9. Hyperlipidemia, acute on chronic, present on admission -holding simvastatin Code status: Full Code Surrogate decision maker: contact is daughter Leigh Ann Wick DVT/VTE prophylaxis: Lovenox 40 and SCDs COVID PCR: Negative
[2020-11-11 07:18] LABS: Neutrophils Absolute Manual 16072 /uL (3000-5900); RBC Morphology Normal Morphology; Total Cells Counted 100
[2020-11-11] MEDS: MIDAZOLAM 50 MG in DEXTROSE 5% IN WATER 240 ML 15.876 ML IV (07:18)
[2020-11-11 07:21] LABS: Reflexed Lactate in 2 Hours Y
[2020-11-11] MEDS: SODIUM CHLORIDE 0.9% 1,000 ML 1000 ML IV ×2 (08:00→09:05)
[2020-11-11 08:12] LABS: Lactate 2HR (Lactic Acid Rflx) 2.4 mmol/L (0.7-2.1)
[2020-11-11] MEDS: VANCOMYCIN PER PHARMACY 1 REQUEST MISC (08:13)
[2020-11-11 08:16] LABS: Enterococcus species Not Detected (Not Detect); Listeria monocytogenes Not Detected (Not Detect); Staphylococcus species Not Detected (Not Detect)
[2020-11-11 08:17] LABS: Acinetobacter baumannii Not Detected (Not Detect); Candida albicans Not Detected (Not Detect); Candida glabrata Not Detected (Not Detect); Candida krusei Not Detected (Not Detect); Candida parapsilosis Not Detected (Not Detect); Candida tropicalis Not Detected (Not Detect); E. coli Not Detected (Not Detect); Enterobacter cloacae complex Not Detected (Not Detect); Enterobacteriaceae species Not Detected (Not Detect); Haemophilus influenzae Not Detected (Not Detect); Neisseria meningitidis Not Detected (Not Detect); Proteus species Not Detected (Not Detect); Pseudomonas aeruginosa Not Detected (Not Detect); Serratia marcescens Not Detected (Not Detect); Streptococcus agalactiae (Gr B Detected (Not Detect); Streptococcus pneumonia Not Detected (Not Detect); Streptococcus pyogenes (Gr A) Not Detected (Not Detect); Streptococcus species Detected (Not Detect)
[2020-11-11] MEDS: PANTOPRAZOLE 40 MG VIAL IV (08:29)
[2020-11-11] MEDS: NOREPINEPHRINE 8 MG in DEXTROSE 5% IN WATER 250 ML 15.48 ML IV ×2 (08:50→23:57)
[2020-11-11] MEDS: ENOXAPARIN 80 MG/0.8 ML SYRINGE 160 MG SUBCUT (09:21)
[2020-11-11 10:48] LABS: HCO3 ABG 21 mmol/L (22-26); PCO2 ABG 39.1 mmHg (35-45); PO2 ABG 76 mmHg (80-100); TCO2 ABG 22 mmol/L (21-31); pH ABG 7.34 (7.35-7.45)
[2020-11-11 10:49] LABS: Fractionated Inspired Oxygen 35; Oxygen Saturation ABG 94 % (95-100)
--- NOTE | 2020-11-11 11:21 | PC.NURSE ---
PT VENTED AND SEDATED ON FENTANYL/VERSED AND PRESSORS- RECEIVING SALINE BOLUS' X SEVERAL, 3 LUMEN CVL PATENT WELL 3 PERIPHERAL IV'S ATTEMPTING TO WEAN FROM DOPAMINE, DILTIAZEM GTT TURNED TO OFF PT CONVERTED TO SR LAST PM- BILAT WRIST RESTRAINTS IN PLACE GALVEZ WITH CLEAR YELLOW UOP-RASS -2
[2020-11-11 12:40] LABS: Lactate (Lactic Acid) 1.6 mmol/L (0.7-2.1)
--- NOTE | 2020-11-11 12:45 | DI.RAD.S_ITS ---
PROCEDURE: XR CHEST 1V INDICATIONS: picc placement TECHNIQUE: One view of the chest was acquired. COMPARISON: [facility], CR, XR CHEST 1V, 11/10/2020, 18:43. FINDINGS: Surgical changes and devices: ET tube and NG tube and right IJ line remain in satisfactory position. Left arm PICC line tip projects to the superior vena cava. Lungs and pleura: Submaximal inspiration. Left basilar atelectasis versus consolidation. No pleural effusions or pneumothorax. Mediastinum: Mediastinal contours appear normal. Heart size is normal. Bones and chest wall: No suspicious bony lesions. Overlying soft tissues appear unremarkable. IMPRESSION: 1. PICC line tip projects to the superior vena cava. 2. Left basilar atelectasis versus consolidation. Dictated by: Michoacano Winters M.D. on 11/11/2020 at 12:12 Approved by: Michoacano Winters M.D. on 11/11/2020 at 12:14
[2020-11-11] MEDS: DOPAMINE HCL IN DEXTROSE 5 % 400 MG/250 ML PLAST..BAG 11.907 MG IV (12:50)
--- NOTE | 2020-11-11 14:09 | CM.DANOTE ---
Patient is a 70 year old female who was admitted on 11/10/20 for Chills. Pt has [employer] and [employer] for insurance and her PCP is Dr. Chip Deutsch. EMR was reviewed. Per MD, pt with hx of hypertension, morbid obesity, chronic lymphedema with unhealing heel wound. Pt admitted with cellulitis/septic and decompensated in the ED with AFIB and bp issues and had to be intubated in the ED. Pt currently still intubated and sedated. SW met bedside with pt (who could not participate in discussion) and adult Dtr Leigh Ann and explained role and Dtr confirms that pt was last admitted at [facility] in August 2020 a couple months ago and was able to d/c home alone with [facility] and has a call center coordinator and tank cooper. 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 Dtr Leigh Ann states that her sister in [place] and her brother in [place] are both currently traveling to visit and should be here tonight and tomorrow. Pt does not have DPOA but Leigh Ann and her siblings were planning on helping pt complete pwk in the next week. SW provided her with a copy of the DPOA brochure and blank copy to review for once her siblings arrive and the need for pt to be awake and alert and Dtr acknowledges understanding. Dtr confirms that she feels SNF will be needed at d/c prior to return home with HH and pt has a hx after a knee surgery a few years ago going to [facility] as pt had been living in [facility] but now they all live in [place]. SW provided the SNF Choice list to review and Dtr will determine SNF preferences in the next day or two. HENRIQUE called [facility] and faxed H&P to alert them to pt's admission to the hospital. [facility] will review tomorrow (Mon) and aware that pt likely will need SNF at d/c but will follow in case pt makes significant progress post extubation. Plan: SW to follow closely for family SNF Choice preference and for eventual attempts at extubation towards plan of SNF at d/c prior to return home. JERMAN Peace Discharge Planning/Care Management CM Discharge Assessment Start: 11/11/20 14:04 Freq: Status: Active Protocol: Document 11/11/20 14:08 BF (Rec: 11/11/20 14:09 BF [id number]) Discharge Planning Assessment Assigned Shadowgraph Operator JERMAN Jacob DPOA/Assigned Designee Name informally Dtr Leigh Ann Contact Information [phone] Advance Directives? No Advance Directives on File No History Provided By Patient,Family Member,Medical Record Has Patient been admitted in last 30 No days? Prior Living Arrangements House Household Members none Type of transporation used prior to Drives own vehicle admit Independent with ADL's Yes Is patient alert and oriented? Yes Needs Assistance With Home Chores / Shopping Caregiver for Another No Community Services used prior to Home Health Nurse,Wound Care admission: Patient/Family Preference Penitentiary Facility Barriers to Discharge No Discharge Plan Penitentiary Facility Transportation Arrangement Likely SNF facility van Additional Comment Dtr reviewing SNF Choice list for preference Medicare Choice List Provided Yes SNF/HH Preference family reviewing Whiteboard Updated in Patient Room with Yes name and ext. # of Shadowgraph Operator Review Status In Process Please Provide Date Initial DC 11/11/20 Assessment Was Performed Next Review Type Continued Stay Review
[2020-11-11 15:32] LABS: Lactate (Lactic Acid) 1.6 mmol/L (0.7-2.1)
[2020-11-11] MEDS: NEOMYCIN/POLYMYX/BACITRAC 28.35 GM OINT 1 APPLIC TOP (16:15)
--- NOTE | 2020-11-11 17:02 | PC.NURSE ---
1100 assumed care of Pt, PICC line being placed by ELVI Bae double lumen picc confirmed with cxr. [facility] with f[facility] and versed per emar. Tele SR/ST AVB. Remains on pressors, goal of MAP >65. Trial of weaning dopamine not tolerated by Pt well. Continue at 1.5mcg/kg/min. Levophed continues @ 9.5mcg/min. IJ removed, dressing placed. Offloading pressure to backside with tilt to bed. OG to LIS with bile like output. APAP given via OG, with clamping after. Fan provided, and axilary ice pack. Temp down to 100.8 at present.
[2020-11-11] MEDS: MAGNESIUM SULFATE 2 GM/50 ML PIGGYBACK IV (21:32)
[2020-11-11] MEDS: fentaNYL 1,000 MCG in DEXTROSE 5% IN WATER 230 ML 19.845 ML IV (22:48)
[2020-11-12] VITALS (91 sets, daily range): BP systolic 87–138; BP diastolic 32–70; PULSE 69–127; RESP 10–37; TEMP 31–38.1; O2SAT 90–99
--- NOTE | 2020-11-12 04:34 | PC.NURSE ---
0400- Significant edema and erythema note to both lower extremities. There is blistering starting in the right upper leg above the knee medial. Both legs are painful and hot. Patient remains febrile. Dopamine is off since 329. Mean at or above target. Good uop, lungs remain dim/clear. Will monitor
[2020-11-12] MEDS: NYSTATIN POWDER 15GM 1 APPLIC TOP (04:49)
[2020-11-12 05:21] LABS: Add Manual Diff / Slide Review NO; Basophils Absolute Auto 100 /uL (0-100); Basophils Percent Auto 0.3 % (0-2); Eosinophils Absolute Auto 100 /uL (0-450); Eosinophils Percent Auto 0.4 % (2-4); Hematocrit 38.9 % (36-46); Hemoglobin 12.6 g/dL (12.0-16.0); Lymphocytes Absolute Auto 600 /uL (1100-4500); Lymphocytes Percent Auto 3.3 % (25-40); Mean Corpuscular HGB Conc 32.4 % (30-36); Mean Corpuscular Hemoglobin 28.2 PG (26-34); Mean Corpuscular Volume 86.9 fL (80-100); Monocytes Absolute Auto 600 /uL (0-900); Monocytes Percent Auto 3.7 % (3-14); Neutrophils Absolute Auto 15600 /uL (1500-7000); Neutrophils Percent Auto 92.3 % (50-75); Platelet Count 139 X10^3/uL (150-400); Red Blood Cell Count 4.48 X10^6/uL (4.0-5.2); White Blood Cell Count 16.9 X10^3/uL (4.5-11.0)
[2020-11-12 05:24] LABS: Magnesium 2.1 mg/dL (1.6-2.3)
[2020-11-12 05:25] LABS: Alanine Aminotransferase 22 IU/L (<35); Albumin 2.5 g/dL (3.5-5.0); Albumin Globulin Ratio 0.8 (1.0-2.8); Alkaline Phosphatase 76 U/L (38-126); Aspartate Aminotransferase 27 IU/L (14-36); Bilirubin Total 0.6 mg/dL (0.2-1.3); Blood Urea Nitrogen 22 mg/dL (7-17); Calcium 8.3 mg/dL (8.4-10.2); Carbon Dioxide 22 mmol/L (22-32); Chloride 103 mmol/L (98-107); Estimated Glomerular Filt Rate > 60.0 mL/min (>60); Globulin 3.1 g/dL (1.7-4.1); Glucose 215 mg/dL (80-110); HEMOLYSIS < 15 (0-50); Potassium 3.8 mmol/L (3.4-5.1); Sodium 130 mmol/L (137-145); Total Protein 5.6 g/dL (6.3-8.2)
[2020-11-12] MEDS: ACETAMINOPHEN SUSP 650 MG/20.3 ML UDC TUBE (05:25)
[2020-11-12] MEDS: MIDAZOLAM 50 MG in DEXTROSE 5% IN WATER 240 ML 15.876 ML IV (05:29)
[2020-11-12] MEDS: VANCOMYCIN 2,000 MG/400 ML PIGGYBACK 200 MG IV (08:17)
[2020-11-12] MEDS: PANTOPRAZOLE 40 MG VIAL IV (08:17)
[2020-11-12] MEDS: PIPERACILLIN/TAZO 4.5 GM in SODIUM CHLORIDE 0.9% 100 ML 25 ML IV ×3 (08:17→23:45)
[2020-11-12] MEDS: LACTATED RINGERS 1,000 ML 200 ML IV ×2 (08:19→13:22)
--- NOTE | 2020-11-12 10:01 | RT ---
PER VERAL ORDER BY DR. ALVAREZ. QAM ABG'S ARE CANCELED. DR. ALVAREZ WANTS PT WEANED FROM VENT TODAY IF POSSIBLE, AND AN ABG DONE AT END OF TRIAL.
--- NOTE | 2020-11-12 10:04 | PM.CN ---
History of Present Illness Consult details Date Patient Seen: 11/12/20 Time Patient Seen: 10:04 Chief complaint: Chills Reason for consult: soft tissue infection Requesting provider: Kailyn Pollack Narrative: Ask to see a septic patient for evaluation of soft tissue infection. She presented with sepsis and left lower extremity cellulitis. On broad spectrum antibiotics with failure to improve. Patient intubated and sedated. Meds Home Medications and Allergies Home Medications Medication Instructions Recorded Confirmed Type CA PANTOTHENATE/FOLIC ACID/VIT 1 tab PO QDAY #0 07/06/12 11/11/20 History (MULTIVITAMIN) [MAGNESIUM] 400 mg PO QDAY #0 11/02/17 11/11/20 History Cranberry/Probiotic See Rx Instructions .ROUTE .COMPLEX 03/16/19 11/11/20 History [place] 3 Fish Oil See Rx Instructions .ROUTE .COMPLEX 03/16/19 11/11/20 History ascorbic acid (vitamin C) 500 mg 500 mg PO BID 03/16/19 11/11/20 History capsule nystatin 100,000 unit/gram topical 1 applictn TOP TID #120 gram 12/14/19 11/11/20 Rx powder metoprolol tartrate 25 mg tablet See Rx Instructions .ROUTE 12/19/19 11/11/20 Rx .COMPLEX #90 tab cholecalciferol (vitamin D3) 600 mg PO DAILY 03/26/20 11/11/20 History spironolactone 100 mg tablet See Rx Instructions .ROUTE 07/31/20 11/11/20 Rx .COMPLEX #90 tab ibuprofen 800 mg tablet See Rx Instructions .ROUTE 08/28/20 11/11/20 Rx .COMPLEX #90 tab cephalexin [Keflex] 500 mg PO Q6H #20 cap 08/31/20 11/11/20 Rx furosemide [Lasix] 40 mg PO BID #60 tab 08/31/20 11/11/20 Rx triamcinolone acetonide 1 applic TOP DAILY PRN 08/31/20 11/11/20 History pantoprazole 40 mg tablet,delayed See Rx Instructions .ROUTE 09/11/20 11/11/20 Rx release .COMPLEX #90 tab simvastatin 40 mg tablet See Rx Instructions .ROUTE 10/25/20 11/11/20 Rx .COMPLEX #90 tab Allergies Allergy/AdvReac Type Severity Reaction Status Date / Time adhesive tape [ADHESIVE TAPE] Allergy Intermediate RASH, Verified 11/10/20 16:58 HIVES, BLISTER Sulfa (Sulfonamide Allergy Mild HIVES Verified 11/10/20 16:58 Antibiotics) [SULFA (SULFONAMIDE ANTIBIOTICS)] tramadol AdvReac Mild Dizziness Verified 11/10/20 16:58 Review of Systems Review of Systems ROS: Yes unobtainable due to endotracheal tube Exam Vital Signs (past 8 hours): - 11/12/20 02:15 11/12/20 02:30 11/12/20 02:45 Temperature 100.4 F H 100.4 F H 100.4 F H Pulse Rate 82 81 81 Respiratory Rate 26 H 27 H 21 Blood Pressure 93/53 L 92/50 L 90/53 L Pulse Oximetry 93 94 94 11/12/20 03:00 11/12/20 03:15 11/12/20 03:30 Temperature 100.4 F H 100.6 F H 100.4 F H Pulse Rate 80 87 95 H Respiratory Rate 29 H 27 H 21 Blood Pressure 99/55 L 97/50 L 90/57 L Pulse Oximetry 94 94 95 11/12/20 03:45 11/12/20 04:00 11/12/20 04:15 Temperature 100.4 F H 100.6 F H 100.6 F H Pulse Rate 83 78 77 Respiratory Rate 20 20 20 Blood Pressure 107/58 L 97/51 L 97/54 L Pulse Oximetry 96 96 96 11/12/20 04:30 11/12/20 04:45 11/12/20 05:00 Temperature 100.6 F H 100.6 F H 100.6 F H Pulse Rate 75 74 76 Respiratory Rate 20 20 20 Blood Pressure 94/54 L 95/56 L 95/55 L Pulse Oximetry 96 96 95 11/12/20 05:15 11/12/20 05:25 11/12/20 05:30 Temperature 100.6 F H 100.6 F H 100.6 F H Pulse Rate 75 76 Respiratory Rate 20 20 Blood Pressure 99/56 L 102/58 L Pulse Oximetry 95 95 11/12/20 05:45 11/12/20 06:00 11/12/20 06:03 Temperature 100.6 F H 100.6 F H 100.6 F H Pulse Rate 76 74 Respiratory Rate 20 20 Blood Pressure 104/60 102/60 Pulse Oximetry 95 95 11/12/20 06:15 11/12/20 07:30 11/12/20 08:14 Temperature 100.6 F H 98.6 F 98.6 F Pulse Rate 73 72 Respiratory Rate 20 20 20 Blood Pressure 94/53 L 99/57 L 99/57 L Pulse Oximetry 95 96 96 Fraction of Inspired Oxygen 35 Oxygen Delivery Method Mechanical Ventilation Oxygen Flow Rate 0 Const General: ill appearing Nutritional Appearance: obese Orientation: other (sedated and intubated) [facility] Head: normal to inspection Nose: external nose normal Face and sinus: normal facial exam Eyes Eyelids: eyelids normal Sclera: sclerae normal Neck Neck: trachea midline Chest Chest: normal inspection of the chest Resp Other: ventilated, decreased bases Cardio Rate: regular rate Rhythm: regular rhythm GI Inspection: normal to inspection Palpation: soft Skin Other: venous stasis bronzing bilateral lower extremities. morbid obesity with thigh marie. Left lower extremity with blanching cellulitis and associated lymphangitis. No necrotizing fasciitis. No drainable abscess. Objective Labs Result Diagrams: 11/12/20 05:00 11/12/20 05:00 Labs: Laboratory Results - last 24 hr 11/11/20 11/11/20 11/11/20 10:12 12:25 15:05 WBC RBC Hgb Hct MCV MCH MCHC RDW Plt Count Neut % (Auto) Lymph % (Auto) [place] % (Auto) Eos % (Auto) Baso % (Auto) Neut # (Auto) Lymph # (Auto) [place] # (Auto) Eos # (Auto) Baso # (Auto) ABG pH 7.34 L ABG pCO2 39.1 ABG pO2 76 L ABG HCO3 21 L ABG Total CO2 22 ABG O2 Saturation 94 L ABG Base Excess -4.0 L FiO2 35 Sodium Potassium Chloride Carbon Dioxide BUN Creatinine Estimated GFR BUN/Creatinine Ratio Glucose Lactate 1.6 1.6 Calcium Magnesium Total Bilirubin AST ALT Alkaline Phosphatase Total Protein Albumin Globulin Albumin/Globulin Ratio 11/12/20 11/12/20 11/12/20 05:00 05:00 05:00 WBC 16.9 H RBC 4.48 Hgb 12.6 Hct 38.9 MCV 86.9 MCH 28.2 MCHC 32.4 RDW 17.0 H Plt Count 139 L Neut % (Auto) 92.3 H Lymph % (Auto) 3.3 L [place] % (Auto) 3.7 Eos % (Auto) 0.4 L Baso % (Auto) 0.3 Neut # (Auto) 96485 H Lymph # (Auto) 600 L [place] # (Auto) 600 Eos # (Auto) 100 Baso # (Auto) 100 ABG pH ABG pCO2 ABG pO2 ABG HCO3 ABG Total CO2 ABG O2 Saturation ABG Base Excess FiO2 Sodium 130 L Potassium 3.8 Chloride 103 Carbon Dioxide 22 BUN 22 H Creatinine 0.88 Estimated GFR > 60.0 BUN/Creatinine Ratio 25.0 H Glucose 215 H Lactate Calcium 8.3 L Magnesium 2.1 Total Bilirubin 0.6 AST 27 ALT 22 Alkaline Phosphatase 76 Total Protein 5.6 L Albumin 2.5 L Globulin 3.1 Albumin/Globulin Ratio 0.8 L Assessment & Plan Assessment & Plan narrative: Continue antibiotics. Pressure wrap lower extremities, re evaluate daily. COVID-19 COVID-19 status: Negative Time Spent With Patient Time with patient: less than 15 minutes
[2020-11-12] MEDS: NOREPINEPHRINE 8 MG in DEXTROSE 5% IN WATER 250 ML 15.48 ML IV (11:16)
--- NOTE | 2020-11-12 13:51 | PC.NURSE ---
Rec'd pt in bed, intubated/sedated to RASS -4. Spoke with hospitalist who instructs to hold off on sedation vacation until after surgical consult done. Lightened sedation to achieve RASS -2. After surgical consultation, sedation titrated to off. Pt responds to verbal with brief eye opening and is improving with following directions, but quickly goes back to sleep even during care. Pt does intermittently wake and reach for lines/ETT. Maintaining soft wrist restraints as ordered. TMAX 100.2 this AM down to 99.3 after vancomycin given. Pt has maintained SPO2 93-98% on vent. SR 1 AVB with brief bursts of Afib 120s (reported this to hospitalist on AM rounds). Rojas draining clear/yellow urine to gravity. Plan is to attempt SBT today and extubate if possible.
--- NOTE | 2020-11-12 14:03 | DIET.PN ---
Dietary Progress Note RD consulted for morbidly obese patient on ventilator and NPO c OG to lis. Pt remains hemodynamically unstable requiring use of pressors, MAP as low as 48 c current MAP 70. Hospitalist requests holding off on nutrition support for weaning trial. RD consulted this pt last inpatient admission for help c morbid obesity and chronic venous stasis c LE edema. RD following closely re need for nutrition support vs PO nourishments.
--- NOTE | 2020-11-12 14:30 | DI.RAD.S_ITS ---
PROCEDURE: XR CHEST 1V INDICATIONS: intubated TECHNIQUE: One view of the chest was acquired. COMPARISON: [facility], CR, XR CHEST 1V, 11/11/2020, 11:23. [facility], CR, XR CHEST 1V, 11/10/2020, 18:43. FINDINGS: Surgical changes and devices: Endotracheal tube in the midtrachea. Enteric tube coursing into the stomach. Left PICC line with the catheter tip projecting in the region of the upper SVC. Lungs and pleura: Low lung volumes. Left lung airspace opacity is similar to the prior exam. No pleural effusions or pneumothorax. Mediastinum: Mediastinal contours appear normal. Heart size is normal. Bones and chest wall: No suspicious bony lesions. Overlying soft tissues appear unremarkable. IMPRESSION: Tubes and lines project in the expected location. Left lung base airspace opacity is similar to the prior exam. Dictated by: Avery Goncalves M.D. on 11/12/2020 at 15:06 Approved by: Avery Goncalves M.D. on 11/12/2020 at 15:08
[2020-11-12 15:21] LABS: Procalcitonin 6.13 ng/mL (<0.5)
--- NOTE | 2020-11-12 15:55 | P.PN_ITS ---
Subjective Subjective Date Patient Seen: 11/12/20 Interval history: Events reviewed patient seen and examined. The patient is 70-year-old female admitted to the hospital with severe sepsis, bilateral lower extremity cellulitis, morbid obesity, with respiratory failure who continues to remain on the ventilator. Her sedation has been discontinued but she is fairly lethargic and unable to participate in a weaning trial. Patient has significant erythema of both lower extremities as well as warmth which appears to be worse with some blistering on the inner thighs. Exam Vital Signs (past 8 hours): - 11/12/20 08:00 11/12/20 08:14 11/12/20 08:15 Temperature 100.2 F H 98.6 F 100.2 F H Pulse Rate 71 72 71 Respiratory Rate 20 20 20 Blood Pressure 94/50 L 99/57 L 91/54 L Pulse Oximetry 96 96 96 11/12/20 08:30 11/12/20 08:45 11/12/20 09:00 Temperature 100.0 F H 100.0 F H 100.0 F H Pulse Rate 72 70 70 Respiratory Rate 20 20 20 Blood Pressure 92/53 L 91/53 L 100/58 L Pulse Oximetry 96 96 96 11/12/20 09:15 11/12/20 09:30 11/12/20 09:45 Temperature 100.0 F H 99.9 F H Pulse Rate 71 69 Respiratory Rate 20 20 Blood Pressure 101/55 L 101/55 L 98/53 L Pulse Oximetry 96 96 11/12/20 10:00 11/12/20 10:15 11/12/20 10:30 Temperature 99.9 F H 99.7 F H 99.7 F H Pulse Rate 71 71 69 Respiratory Rate 20 20 20 Blood Pressure 102/55 L 100/56 L 107/61 Pulse Oximetry 96 96 96 11/12/20 10:45 11/12/20 11:00 11/12/20 11:15 Temperature 99.7 F H 99.5 F 99.5 F Pulse Rate 72 79 75 Respiratory Rate 20 20 20 Blood Pressure 98/55 L 102/55 L 99/57 L Pulse Oximetry 96 95 95 11/12/20 11:30 11/12/20 11:45 11/12/20 12:00 Temperature 99.5 F 99.3 F 99.3 F Pulse Rate 77 79 78 Respiratory Rate 20 20 20 Blood Pressure 109/59 L 111/57 L 104/54 L Pulse Oximetry 93 93 93 11/12/20 12:15 11/12/20 12:30 11/12/20 12:45 Temperature 99.3 F 99.3 F 99.3 F Pulse Rate 79 80 83 Respiratory Rate 20 20 20 Blood Pressure 105/57 L 111/55 L 118/53 L Pulse Oximetry 94 94 93 11/12/20 13:00 11/12/20 13:15 11/12/20 13:30 Temperature 99.3 F 99.3 F 99.3 F Pulse Rate 77 84 79 Respiratory Rate 20 20 20 Blood Pressure 116/57 L 115/55 L 114/60 Pulse Oximetry 94 95 95 11/12/20 13:45 11/12/20 14:00 11/12/20 14:15 Temperature 99.3 F 99.3 F 99.3 F Pulse Rate 87 87 86 Respiratory Rate 20 20 20 Blood Pressure 104/50 L 102/54 L 105/55 L Pulse Oximetry 95 95 96 11/12/20 14:30 11/12/20 14:45 11/12/20 15:00 Temperature 99.5 F 99.3 F 99.5 F Pulse Rate 88 93 H 93 H Respiratory Rate 21 20 20 Blood Pressure 108/55 L 109/57 L 114/58 L Pulse Oximetry 95 94 95 11/12/20 15:15 11/12/20 15:30 Temperature 99.5 F 99.3 F Pulse Rate 93 H 95 H Respiratory Rate 22 22 Blood Pressure 119/59 L 120/60 Pulse Oximetry 95 95 Fraction of Inspired Oxygen 35 Oxygen Delivery Method Mechanical Ventilation Oxygen Flow Rate 0 Narrative Exam Narrative: Morbidly obese female lying in bed intubated and unresponsive HEENT: Normocephalic atraumatic, patient is intubated, OG tube is in place, Lungs: Decreased breath sounds but clear Cardiac exam: Regular rate and rhythm normal S1-S2 Abdomen: Obese soft and nontender Extremities: Bilateral erythema of the lower extremity going up into the thigh, there is a healed scar on the left inner thigh, there is early blister formation, there is warmth and erythema of both upper extremities Patient's hands are somewhat puffy bilaterally Objective Labs Result Diagrams: 11/12/20 05:00 11/12/20 05:00 Labs: Laboratory Results - last 24 hr 11/12/20 11/12/20 11/12/20 05:00 05:00 05:00 WBC 16.9 H RBC 4.48 Hgb 12.6 Hct 38.9 MCV 86.9 MCH 28.2 MCHC 32.4 RDW 17.0 H Plt Count 139 L Neut % (Auto) 92.3 H Lymph % (Auto) 3.3 L [place] % (Auto) 3.7 Eos % (Auto) 0.4 L Baso % (Auto) 0.3 Neut # (Auto) 47907 H Lymph # (Auto) 600 L [place] # (Auto) 600 Eos # (Auto) 100 Baso # (Auto) 100 Sodium 130 L Potassium 3.8 Chloride 103 Carbon Dioxide 22 BUN 22 H Creatinine 0.88 Estimated GFR > 60.0 BUN/Creatinine Ratio 25.0 H Glucose 215 H Calcium 8.3 L Magnesium 2.1 Total Bilirubin 0.6 AST 27 ALT 22 Alkaline Phosphatase 76 Total Protein 5.6 L Albumin 2.5 L Globulin 3.1 Albumin/Globulin Ratio 0.8 L Procalcitonin 11/12/20 05:00 WBC RBC Hgb Hct MCV MCH MCHC RDW Plt Count Neut % (Auto) Lymph % (Auto) [place] % (Auto) Eos % (Auto) Baso % (Auto) Neut # (Auto) Lymph # (Auto) [place] # (Auto) Eos # (Auto) Baso # (Auto) Sodium Potassium Chloride Carbon Dioxide BUN Creatinine Estimated GFR BUN/Creatinine Ratio Glucose Calcium Magnesium Total Bilirubin AST ALT Alkaline Phosphatase Total Protein Albumin Globulin Albumin/Globulin Ratio Procalcitonin 6.13 H [facility] Medical History Allergic rhinitis (Unknown) Arthritis (Unknown) Cellulitis of right leg Essential hypertension (09/11/10) GERD (gastroesophageal reflux disease) (Unknown) GERD (gastroesophageal reflux disease) (Unknown) Hyperlipemia (Unknown) Hypertension (Unknown) Lymphedema (Unknown) Mixed hyperlipidemia Morbid obesity due to excess calories Obstructive sleep apnea (Unknown) Obstructive sleep apnea syndrome Staph skin infection Surgical History Hx of total knee replacement (Unknown) Family History Brother Kidney carcinoma Mother Stroke Sister Cancer Father Atrial fibrillation Social History household members: none Smoking Status: Former smoker Tobacco: How many years used: 4 second hand exposure: No alcohol intake: never substance use type: does not use Assessment & Plan Assessment & Plan narrative: 1. Septic shock -patient admitted to the hospital with cellulitis, strep agalactiae bacteremia, and hypotension -patient required intubation for respiratory failure -she remained on Levophed/dopamine until earlier today. These have been discontinued -continue IV hydration as her blood pressure appears to be responsive -antibiotic coverage broadened to include Zosyn and vancomycin given her severe sepsis -general surgery consulted, no evidence of necrotizing fasciitis, suggest David wraps for her lower extremities -end-organ failure due to sepsis includes shock, improved 2. Acute respiratory failure -secondary to a control atrial fibrillation, and severe sepsis with septic shock -patient remains intubated -will discontinue sedation -will perform weaning trial and extubate if appropriate 3. Cellulitis, present on admission, source of sepsis -patient with chronic venous insufficiency -chronic edema -erythema and prior surgery -strep agalactiae a growing from the blood, will continue Zosyn and Vanco added 4. Atrial fibrillation, with RVR, now in sinus rhythm -will continue truck service technician closely 5. Morbid obesity -morbid obesity likely contributing to her venous insufficiency resulting in recurrent cellulitis and sepsis -this puts her at high risk for complication -dietary consultation for after the patient is extubated 6. Lymphedema, chronic 7. GERD -continue IV proton 8. Hypertension -ALL ANTIHYPERTENSIVE HELD as the patient is hypotensive -will resume when appropriate Patient will continue on DVT prophylaxis with Lovenox, surrogate decision maker is her daughter Leigh Ann meade, patient remains a full code Patient remains critically ill, 40 minutes critical care time spent with this patient
--- NOTE | 2020-11-12 17:41 | PC.NURSE ---
Addendum entered by Madelin Carrasco R.N. 11/12/20 22:49: Correction, prior pH 7.25, CO2 57.5. Repeat ABG after being on Bipap since 1923 shows patient is still acidotic pH 7.26, CO2 53.2. RT made changes on bipap, TRUST MAIL CLERK notified. BP remains stable, HR in 90's with occasional unsustained spike to 130's, TRUST MAIL CLERK aware. Discussed ordering CTA for patient now that she is extubated. Addendum entered by Madelin Carrasco R.N. 11/12/20 20:09: Repeat ABGs showed patient is acidotic, pH 7.34. Dr. Pollack ordered for Bipap. Patient tolerating bipap well, HR in 80's, BP MAP 80's, SpO2 96% on 40% FiO2. Patient still lethargic, will open eyes to voice but no making meaningful eye contact. Original Note: Patient intubated at start of shift; 30% FiO2, PEEP 5, RR 20, TV 400. Sedation off since 10am, RASS -2, patient responsive to verbal commands but does not sustain opening eyes. Drips for BP support off, MAP maintaining in 80's. HR <100, regular. Lungs sounds diminished but clear. SBT started at 16:11. Patient able to breathe on her own with minimal work of breathing. HR and BP remained steady. Patient extubated at 15:27 by RT. Tolerated well. On 4L O2 NC, spO2 96%. BP & HR stable. T of 99.7F. Patient is lethargic but able to follow basic commands. Restraints removed. OG removed. Rojas remains in place, continuous NS @ 150ml/hr, zosyn currently running. Son at bedside. Dr. Pollack at bedside, requested IV pain meds and a RUBBER STAMP ASSEMBLER consult for swallow eval.
[2020-11-12 19:01] LABS: Fractionated Inspired Oxygen 35; HCO3 ABG 23 mmol/L (22-26); Oxygen Saturation ABG 92 % (95-100); PCO2 ABG 43.2 mmHg (35-45); PO2 ABG 69 mmHg (80-100); TCO2 ABG 25 mmol/L (21-31); pH ABG 7.34 (7.35-7.45)
[2020-11-12 19:20] LABS: pH ABG 7.25 (7.35-7.45)
[2020-11-12 19:21] LABS: Fractionated Inspired Oxygen 36; HCO3 ABG 25 mmol/L (22-26); Oxygen Saturation ABG 93 % (95-100); PCO2 ABG 57.5 mmHg (35-45); PO2 ABG 81 mmHg (80-100); TCO2 ABG 27 mmol/L (21-31)
[2020-11-12] MEDS: LACTATED RINGERS 1,000 ML 150 ML IV (19:59)
[2020-11-12] MEDS: VANCOMYCIN 1,500 MG/300 ML PIGGYBACK 200 MG IV (20:02)
[2020-11-12 21:07] LABS: Add Manual Diff / Slide Review NO; Basophils Absolute Auto 0 /uL (0-100); Basophils Percent Auto 0.2 % (0-2); Eosinophils Absolute Auto 200 /uL (0-450); Eosinophils Percent Auto 1.2 % (2-4); Hematocrit 36.2 % (36-46); Hemoglobin 11.9 g/dL (12.0-16.0); Lymphocytes Absolute Auto 400 /uL (1100-4500); Mean Corpuscular HGB Conc 32.8 % (30-36); Mean Corpuscular Hemoglobin 28.6 PG (26-34); Mean Corpuscular Volume 87.1 fL (80-100); Monocytes Absolute Auto 600 /uL (0-900); Monocytes Percent Auto 3.7 % (3-14); Neutrophils Absolute Auto 13500 /uL (1500-7000); Neutrophils Percent Auto 91.9 % (50-75); Platelet Count 129 X10^3/uL (150-400); Red Blood Cell Count 4.16 X10^6/uL (4.0-5.2); Red Cell Distribution Width 16.8 % (11.6-14.8); White Blood Cell Count 14.7 X10^3/uL (4.5-11.0)
[2020-11-12 21:13] LABS: Alanine Aminotransferase 20 IU/L (<35); Albumin 2.2 g/dL (3.5-5.0); Albumin Globulin Ratio 0.7 (1.0-2.8); Alkaline Phosphatase 72 U/L (38-126); Aspartate Aminotransferase 28 IU/L (14-36); BUN Creatinine Ratio 22.9 (6-22); Bilirubin Total 0.4 mg/dL (0.2-1.3); Blood Urea Nitrogen 19 mg/dL (7-17); Calcium 8.5 mg/dL (8.4-10.2); Carbon Dioxide 26 mmol/L (22-32); Chloride 108 mmol/L (98-107); Estimated Glomerular Filt Rate > 60.0 mL/min (>60); Globulin 3.1 g/dL (1.7-4.1); Glucose 91 mg/dL (80-110); HEMOLYSIS < 15 (0-50); Potassium 3.9 mmol/L (3.4-5.1); Sodium 136 mmol/L (137-145); Total Protein 5.3 g/dL (6.3-8.2)
[2020-11-12 22:55] LABS: Fractionated Inspired Oxygen 40; HCO3 ABG 24 mmol/L (22-26); Oxygen Saturation ABG 95 % (95-100); PCO2 ABG 53.2 mmHg (35-45); PO2 ABG 90 mmHg (80-100); TCO2 ABG 26 mmol/L (21-31)
[2020-11-13] VITALS (55 sets, daily range): BP systolic 95–124; BP diastolic 52–70; PULSE 73–103; RESP 10–41; TEMP 30.2–37.3; O2SAT 78–100
[2020-11-13 00:52] LABS: Fractionated Inspired Oxygen 40; HCO3 ABG 24 mmol/L (22-26); Oxygen Saturation ABG 97 % (95-100); PCO2 ABG 48.7 mmHg (35-45); PO2 ABG 98 mmHg (80-100); TCO2 ABG 25 mmol/L (21-31); pH ABG 7.29 (7.35-7.45)
[2020-11-13] MEDS: HYDROMORPHONE 1 MG INJ IV (02:04)
[2020-11-13] MEDS: LACTATED RINGERS 1,000 ML 150 ML IV (02:53)
[2020-11-13 03:04] LABS: PCO2 ABG 45.9 mmHg (35-45); pH ABG 7.31 (7.35-7.45)
[2020-11-13 03:05] LABS: Fractionated Inspired Oxygen 40; HCO3 ABG 23 mmol/L (22-26); TCO2 ABG 25 mmol/L (21-31)
--- NOTE | 2020-11-13 05:19 | PC.NURSE ---
Addendum entered by Daysi Yin R.N. 11/13/20 06:21: 0600- AM blood sugar 64 on the chemistry panel. IVF switched to D5.9ns at 150 per hour. Will monitor. Original Note: 0500- Patient has rested well during the night. Able to respond verbally with appropriate responses. Eye contact but not sustained patient is very lethargic. Bipap on without any difficulty. Gases are improved. Rojas draining clear yellow urine. Patient medicated x1 one for leg pain. No drainage noted from leg wounds. Tmax 99.0 core temperature. Stable. Will monitor.
[2020-11-13 05:25] LABS: Add Manual Diff / Slide Review NO; Basophils Absolute Auto 0 /uL (0-100); Basophils Percent Auto 0.1 % (0-2); Eosinophils Absolute Auto 400 /uL (0-450); Eosinophils Percent Auto 3.1 % (2-4); Hematocrit 31.7 % (36-46); Hemoglobin 10.2 g/dL (12.0-16.0); Lymphocytes Absolute Auto 500 /uL (1100-4500); Mean Corpuscular HGB Conc 32.3 % (30-36); Mean Corpuscular Hemoglobin 28.3 PG (26-34); Mean Corpuscular Volume 87.6 fL (80-100); Monocytes Absolute Auto 600 /uL (0-900); Monocytes Percent Auto 4.8 % (3-14); Neutrophils Absolute Auto 10100 /uL (1500-7000); Platelet Count 99 X10^3/uL (150-400); Red Blood Cell Count 3.62 X10^6/uL (4.0-5.2); Red Cell Distribution Width 17.4 % (11.6-14.8); White Blood Cell Count 11.5 X10^3/uL (4.5-11.0)
[2020-11-13 05:30] LABS: Alanine Aminotransferase 14 IU/L (<35); Albumin 1.7 g/dL (3.5-5.0); Albumin Globulin Ratio 0.7 (1.0-2.8); Alkaline Phosphatase 58 U/L (38-126); Aspartate Aminotransferase 20 IU/L (14-36); BUN Creatinine Ratio 23.4 (6-22); Bilirubin Total 0.3 mg/dL (0.2-1.3); Blood Urea Nitrogen 15 mg/dL (7-17); Calcium 8.1 mg/dL (8.4-10.2); Carbon Dioxide 20 mmol/L (22-32); Chloride 108 mmol/L (98-107); Estimated Glomerular Filt Rate > 60.0 mL/min (>60); Globulin 2.5 g/dL (1.7-4.1); Glucose 64 mg/dL (80-110); HEMOLYSIS < 15 (0-50); Potassium 3.8 mmol/L (3.4-5.1); Sodium 132 mmol/L (137-145); Total Protein 4.2 g/dL (6.3-8.2)
[2020-11-13 05:39] LABS: NT-proBNP (BNP-Adult 18+) 847 pg/mL (<125)
[2020-11-13 05:52] LABS: Magnesium 1.7 mg/dL (1.6-2.3)
[2020-11-13] MEDS: DEXTROSE 5%-0.9% NS 1,000 ML 150 ML IV (06:26)
[2020-11-13] MEDS: PIPERACILLIN/TAZO 4.5 GM in SODIUM CHLORIDE 0.9% 100 ML 25 ML IV (08:14)
[2020-11-13] MEDS: VANCOMYCIN 1,500 MG/300 ML PIGGYBACK 200 MG IV (08:15)
[2020-11-13] MEDS: PANTOPRAZOLE 40 MG VIAL IV (08:34)
--- NOTE | 2020-11-13 09:45 | ST.IPIE ---
Visit Care Team Role Provider Type Chip Deutsch DO Primary Care Provider Physician Specialty: Family Practice Address: [address] [place] [address], [phone] Email: Pham Jorge MD Emergency Provider Physician Referring Provider Specialty: Emergency Medicine Address: [address] [place] [address], [phone] Email: Stephanie Lainez MD Admit Provider Physician Attending Provider Specialty: Medical Address: [address] [place] [address], [phone] Email: [email or web address] [email or web address] Sepsis, unspecified organism (11/10/20) Past Medical History (Last Reviewed 11/12/20 @ 10:06 by Cielo Jewell MD) Allergic rhinitis (Medical Unknown) Arthritis (Medical Unknown) Cellulitis of right leg (Medical) Essential hypertension (Medical 09/11/10) GERD (gastroesophageal reflux disease) (Medical Unknown) GERD (gastroesophageal reflux disease) (Medical Unknown) Hyperlipemia (Medical Unknown) Hypertension (Medical Unknown) Lymphedema (Medical Unknown) peripheral edema Mixed hyperlipidemia (Medical) Morbid obesity due to excess calories (Medical) Obstructive sleep apnea (Medical Unknown) Obstructive sleep apnea syndrome (Medical) Staph skin infection (Medical) ST IP Initial Evaluation Report PHONE SCREENER Clinical Swallow Evaluation Start: 11/13/20 16:26 Freq: Status: Active Protocol: Document 11/13/20 17:15 MARTINEZ (Rec: 11/13/20 17:15 MARTINEZ [id number]) Clinical Swallow Evaluation Session Time Visit Start Time 09:10 Visit Stop Time 09:30 Total Visit Minutes [address] Pollack Reason for Referral extubated yesterday Setting Assessment Location Acute Care Visit Type Note Type Initial evaluation Next Note Type Next Note Type Re-evaluation Patient Information Identification Type Name,ID Card History Per H&P, patient was admitted to hospital 3 days ago for septic shock, secondary to strep agalactiae bacteremia, secondary to bilateral lower extremity cellulitis. She Subjective Observations In preparation for swallow evaluation, the pt was awakened and repositioned mostly upright in bed. Breathing mask was replaced with nasal cannula and oral care was provided. Pt mostly maintained eye closure throughout the evaluation, opening slightly upon request by PHONE SCREENER. She was minimally verbal and exhibited SOB throughout, although SpO2 remained 94-95%. Reported by Patient Current Diet Nothing by mouth Objective Assessment Mental Status Cooperative,Lethargic Oral Integrity WFL Comment Oral Peripheral Exam was limited d/t pt weakness and lethargy. Pt had a very dry mouth. She was able to extend tongue and move laterally to corners of mouth. Unable to press into cheeks against resistance. Able to open mouth to a moderate degree. Weak phonation produced little elevation of soft palate. Pt unable to form lip retraction or pucker d/t weakness. Hyolaryngeal elevation/ excursion were present but reduced. Food and Liquid Trials Position During Assessment Slightly reclined Liquids Trialed Iyanbito Solids Trialed Puree Administration Type Tea spoon Oral Impairment Moderately impaired Oral Phase Comments Pt was slow to accept bolus from spoon, often requiring verbal prompts. Oral prep was disorganized and slow. Anterior containment was normal. Suspect posterior escape to pharynx based on delayed swallow trigger. No abnormal residue observed following swallow. Pharyngeal Impairment Moderately impaired Pharyngeal Phase Comments Delayed swallow trigger with laryngeal pumping prior to swallow completion with most trials. No overt s/sx of aspiration were observed with all trials. Trials were limited for patient safety secondary to generalized weakness and somnolence. Fatigue/Endurance Severe fatigue Results Pt is not safe for oral intake at this time. Recommend NPO status until she gains strength and alertness and is better able to participate in evaluation, which will be reattempted later today. Findings Swallowing Function Oropharyngeal phase dysphagia Severity of Swallow Impairment Moderately impaired Contributing Factors to Swallow Reduced alertness or attention Impairment ,Reduced oral strength/ coordination/sensation, Impaired oral-pharyngeal transport,Delayed swallow initiation,Reduced laryngeal excursion Prognosis Fair Based on Comorbidities Impact on Safety and Functioning Risk for aspiration Recommendations Instrumental Assessment No Swallowing Treatment Yes Frequency Daily as needed Duration over hospital stay Recommended Solids Nothing by Mouth Recommended Liquids Nothing by Mouth Goals Short-term Goals Pt will participate in ongoing assessment of swallow function and safety to guide POC. Long-term Goals Pt will tolerate least restrictive diet to meet her nutrition and hydration needs.
[2020-11-13] MEDS: ENOXAPARIN 40 MG/0.4 ML SYRINGE SUBCUT ×2 (10:08→21:23)
[2020-11-13] MEDS: cefTRIAXone 2,000 MG in SODIUM CHLORIDE 0.9% 100 ML 200 ML IV (11:27)
--- NOTE | 2020-11-13 11:43 | PM.PN.1 ---
Subjective Subjective Date Patient Seen: 11/13/20 Interval history: The patient is a 70-year-old female who was admitted to the hospital 3 days ago for septic shock, secondary to strep agalactiae bacteremia, secondary to bilateral lower extremity cellulitis. Patient has morbid obesity, chronic lymphedema, very likely obesity hypoventilation and sleep apnea. She was successfully extubated yesterday. All pressors were discontinued. The patient has improved over night. She does have some chronic hypoventilation. Apparently she had an outpatient sleep study. The patient may benefit from a trilogy life vest at discharge. She denies any pain. She is on BiPAP currently. She is resting comfortably at this time. Exam Vital Signs (past 8 hours): - 11/13/20 04:00 11/13/20 04:30 11/13/20 05:00 Temperature 99.0 F 99.0 F 99.0 F Pulse Rate 77 76 79 Respiratory Rate 14 15 14 Blood Pressure 102/57 L 109/58 L Pulse Oximetry 99 98 98 11/13/20 05:30 11/13/20 06:00 11/13/20 07:00 Temperature 99.0 F 99.0 F 99.0 F Pulse Rate 76 78 74 Respiratory Rate 16 15 18 Blood Pressure 105/59 L 100/56 L Pulse Oximetry 96 96 95 11/13/20 07:10 11/13/20 08:00 11/13/20 08:10 Temperature 99.0 F 98.8 F 98.8 F Pulse Rate 73 73 77 Respiratory Rate 16 18 17 Blood Pressure 103/58 L Pulse Oximetry 96 96 97 11/13/20 09:00 11/13/20 10:00 11/13/20 10:10 Temperature 98.8 F 98.6 F 98.6 F Pulse Rate 77 80 81 Respiratory Rate 15 17 16 Blood Pressure 103/56 L 107/59 L Pulse Oximetry 94 96 97 11/13/20 10:12 11/13/20 10:13 11/13/20 11:00 Temperature 98.4 F Pulse Rate 79 Respiratory Rate 15 Blood Pressure 107/59 L 102/53 L Pulse Oximetry 95 96 Fraction of Inspired Oxygen 35 Oxygen Delivery Method BiPAP Oxygen Flow Rate 4 Narrative Exam Narrative: Morbidly obese female lying in bed on BiPAP Lungs: Decreased breath sounds, bilateral Cardiac exam: Regular rate and rhythm normal S1-S2 with a 2/6 systolic ejection murmur Abdomen: Soft nontender nondistended no appreciable hepatosplenomegaly Lower extremities: Both lower extremities are in David dressing Skin exam: Erythema and warmth on both thighs bilaterally, this does appear to be receding, salmon pink in color, no further blistering noted Objective Labs Result Diagrams: 11/13/20 05:00 11/13/20 05:00 Labs: Laboratory Results - last 24 hr 11/12/20 11/12/20 11/12/20 05:00 19:10 19:46 WBC RBC Hgb Hct MCV MCH MCHC RDW Plt Count Neut % (Auto) Lymph % (Auto) Dickenson % (Auto) Eos % (Auto) Baso % (Auto) Neut # (Auto) Lymph # (Auto) Dickenson # (Auto) Eos # (Auto) Baso # (Auto) ABG pH 7.25 L* 7.34 L ABG pCO2 57.5 H 43.2 ABG pO2 81 69 L ABG HCO3 25 23 ABG Total CO2 27 25 ABG O2 Saturation 93 L 92 L ABG Base Excess -2.0 -2.0 FiO2 36 35 Sodium Potassium Chloride Carbon Dioxide BUN Creatinine Estimated GFR BUN/Creatinine Ratio Glucose Calcium Magnesium Total Bilirubin AST ALT Alkaline Phosphatase NT-Pro-B Natriuret Pep Total Protein Albumin Globulin Albumin/Globulin Ratio Procalcitonin 6.13 H 11/12/20 11/12/20 11/12/20 20:50 20:50 22:30 WBC 14.7 H RBC 4.16 Hgb 11.9 L Hct 36.2 MCV 87.1 MCH 28.6 MCHC 32.8 RDW 16.8 H Plt Count 129 L Neut % (Auto) 91.9 H Lymph % (Auto) 3.0 L Dickenson % (Auto) 3.7 Eos % (Auto) 1.2 L Baso % (Auto) 0.2 Neut # (Auto) 05920 H Lymph # (Auto) 400 L Dickenson # (Auto) 600 Eos # (Auto) 200 Baso # (Auto) 0 ABG pH 7.26 L* ABG pCO2 53.2 H ABG pO2 90 ABG HCO3 24 ABG Total CO2 26 ABG O2 Saturation 95 ABG Base Excess -3.0 L FiO2 40 Sodium 136 L Potassium 3.9 Chloride 108 H Carbon Dioxide 26 BUN 19 H Creatinine 0.83 Estimated GFR > 60.0 BUN/Creatinine Ratio 22.9 H Glucose 91 D Calcium 8.5 Magnesium Total Bilirubin 0.4 AST 28 ALT 20 Alkaline Phosphatase 72 NT-Pro-B Natriuret Pep Total Protein 5.3 L Albumin 2.2 L Globulin 3.1 Albumin/Globulin Ratio 0.7 L Procalcitonin 11/13/20 11/13/20 11/13/20 00:15 02:40 05:00 WBC 11.5 H RBC 3.62 L Hgb 10.2 L Hct 31.7 L MCV 87.6 MCH 28.3 MCHC 32.3 RDW 17.4 H Plt Count 99 L Neut % (Auto) 88.0 H Lymph % (Auto) 4.0 L Dickenson % (Auto) 4.8 Eos % (Auto) 3.1 Baso % (Auto) 0.1 Neut # (Auto) 20029 H Lymph # (Auto) 500 L Dickenson # (Auto) 600 Eos # (Auto) 400 Baso # (Auto) 0 ABG pH 7.29 L* 7.31 L ABG pCO2 48.7 H 45.9 H ABG pO2 98 Not Reportable ABG HCO3 24 23 ABG Total CO2 25 25 ABG O2 Saturation 97 Not Reportable ABG Base Excess -3.0 L -3.0 L FiO2 40 40 Sodium Potassium Chloride Carbon Dioxide BUN Creatinine Estimated GFR BUN/Creatinine Ratio Glucose Calcium Magnesium Total Bilirubin AST ALT Alkaline Phosphatase NT-Pro-B Natriuret Pep Total Protein Albumin Globulin Albumin/Globulin Ratio Procalcitonin 11/13/20 11/13/20 05:00 05:00 WBC RBC Hgb Hct MCV MCH MCHC RDW Plt Count Neut % (Auto) Lymph % (Auto) Dickenson % (Auto) Eos % (Auto) Baso % (Auto) Neut # (Auto) Lymph # (Auto) Dickenson # (Auto) Eos # (Auto) Baso # (Auto) ABG pH ABG pCO2 ABG pO2 ABG HCO3 ABG Total CO2 ABG O2 Saturation ABG Base Excess FiO2 Sodium 132 L Potassium 3.8 Chloride 108 H Carbon Dioxide 20 L BUN 15 Creatinine 0.64 Estimated GFR > 60.0 BUN/Creatinine Ratio 23.4 H Glucose 64 L Calcium 8.1 L Magnesium 1.7 Total Bilirubin 0.3 AST 20 ALT 14 Alkaline Phosphatase 58 NT-Pro-B Natriuret Pep 847 H Total Protein 4.2 L Albumin 1.7 L Globulin 2.5 Albumin/Globulin Ratio 0.7 L Procalcitonin PFSH Medical History Allergic rhinitis (Unknown) Arthritis (Unknown) Cellulitis of right leg Essential hypertension (09/11/10) GERD (gastroesophageal reflux disease) (Unknown) GERD (gastroesophageal reflux disease) (Unknown) Hyperlipemia (Unknown) Hypertension (Unknown) Lymphedema (Unknown) Mixed hyperlipidemia Morbid obesity due to excess calories Obstructive sleep apnea (Unknown) Obstructive sleep apnea syndrome Staph skin infection Surgical History Hx of total knee replacement (Unknown) Family History Brother Kidney carcinoma Mother Stroke Sister Cancer Father Atrial fibrillation Social History household members: none Smoking Status: Former smoker Tobacco: How many years used: 4 second hand exposure: No alcohol intake: never substance use type: does not use Assessment & Plan Assessment & Plan narrative: Septic shock -patient admitted to the hospital with cellulitis, strep agalactiae bacteremia, and hypotension -patient required intubation for respiratory failure -she remained on Levophed/dopamine until earlier today. These have been discontinued -continue IV hydration as her blood pressure appears to be responsive -antibiotic coverage broadened to include Zosyn and vancomycin given her severe sepsis -general surgery consulted, no evidence of necrotizing fasciitis, suggest David wraps for her lower extremities -end-organ failure due to sepsis includes shock, improved -all pressors discontinued yesterday -blood cultures positive for Grou[ B strep -will adjust antibiotics, D/C Zosyn, D/C Vancomycin, Start Ceftriaxone 2 grams daily -decrease IVF, Speech evaluation and advance diet 2. Acute respiratory failure -secondary to a control atrial fibrillation, and severe sepsis with septic shock -patient remains intubated -will discontinue sedation -will perform weaning trial and extubate if appropriate -Extubated yesterday, still with some chronic hypoventilation, needs Bipap for now -recent sleep study results not available -RT to Assess for Trilogy, given OHS, Chronic hypoventilation, and probable SHERIN 3. Cellulitis, present on admission, source of sepsis -patient with chronic venous insufficiency -chronic edema -erythema and prior surgery -strep agalactiae a growing from the blood, will continue Zosyn and Vanco added -antibiotic adjusted as above. 4. Atrial fibrillation, with RVR, now in sinus rhythm -will continue electronic device monitor closely 5. Morbid obesity -morbid obesity likely contributing to her venous insufficiency resulting in recurrent cellulitis and sepsis -this puts her at high risk for complication -dietary consultation for after the patient is extubated 6. Lymphedema, chronic 7. GERD -continue IV proton 8. Hypertension -ALL ANTIHYPERTENSIVE HELD as the patient is hypotensive -will resume when appropriate 9. hypoglycemia earilier- she is not eating currently, will adjust IV fluids 10. thrombocytopenia- will follow platelets closely, if they fall any further will d/c lovenox Patient will continue on DVT prophylaxis with Lovenox, surrogate decision maker is her daughter Leigh Ann meade, patient remains a full code Patient remains critically ill, 40 minutes critical care time spent with this patient
--- NOTE | 2020-11-13 16:13 | CM.DPC ---
DCP: continued: case received, discussed in Team Rounds. Dr. Pollack stated pt was successfully extubated and PT/OT/ASSOCIATE DIRECTOR FINANCIAL AID would be ordered for today. DCP team to continue to follow/see note. SNF discussion has been started by JERMAN Jacob on 11/11: please see her note.
[2020-11-13 16:30] LABS: Fractionated Inspired Oxygen 21; HCO3 ABG 25 mmol/L (22-26); Oxygen Saturation ABG 83 % (95-100); PCO2 ABG 48.3 mmHg (35-45); PO2 ABG 52 mmHg (80-100); TCO2 ABG 27 mmol/L (21-31); pH ABG 7.33 (7.35-7.45)
--- NOTE | 2020-11-13 16:38 | ST.IPCSEOM ---
Visit Care Team Role Provider Type Chip Deutsch DO Primary Care Provider Physician Specialty: Family Practice Address: [address] [place] [address], [id number] Email: Pham Jorge MD Emergency Provider Physician Referring Provider Specialty: Emergency Medicine Address: [address] [place] [address], [phone] Email: Stephanie Lainez MD Admit Provider Physician Attending Provider Specialty: Medical Address: [address] [place] [address], [phone] Email: [email or web address] Current Diagnoses Sepsis, unspecified organism (11/10/20) Past Medical History (Last Reviewed 11/12/20 @ 10:06 by Cielo Jewell MD) Allergic rhinitis (Medical Unknown) Arthritis (Medical Unknown) Cellulitis of right leg (Medical) Essential hypertension (Medical 09/11/10) GERD (gastroesophageal reflux disease) (Medical Unknown) GERD (gastroesophageal reflux disease) (Medical Unknown) Hyperlipemia (Medical Unknown) Hypertension (Medical Unknown) Lymphedema (Medical Unknown) peripheral edema Mixed hyperlipidemia (Medical) Morbid obesity due to excess calories (Medical) Obstructive sleep apnea (Medical Unknown) Obstructive sleep apnea syndrome (Medical) Staph skin infection (Medical) Speech-Language Pathology Swallow Evaluation HORTICULTURAL NURSERY ASSISTANT Clinical Swallow Evaluation Start: 11/13/20 16:26 Freq: Status: Active Protocol: Document 11/13/20 16:26 TLC (Rec: 11/13/20 16:38 TLC [id number]) Clinical Swallow Evaluation Session Time Visit Start Time 15:10 Visit Stop Time 15:35 Total Visit Minutes 25 Visit Information Visit Number [address] Pollack Reason for Referral extubated yesterday Setting Assessment Location Acute Care Visit Type Note Type Initial evaluation Next Note Type Next Note Type Treatment Note Patient Information Identification Type Name History Per H&P, patient was admitted to hospital 3 days ago for septic shock, secondary to strep agalactiae bacteremia, secondary to bilateral lower extremity cellulitis. She Subjective Observations Patient was awake but with decreased alertness needing frequent prompts to open her eyes and remain awake for PO trials. Patient still somewhat confused, mistaking her daughter at bedside for her grand daughter but later able to recognize her mistake. Reported by Patient Current Diet Nothing by mouth Baseline Feeding Method Independent in self-feeding Objective Assessment Mental Status Confused,Lethargic Oral Integrity Xerostomia/Dry mouth Dentition Within normal limits Lip Function Mild impairment Pucker Reduced strength Lip Retraction Reduced range of motion Alternating Pucker/Lip Retraction Reduced range of motion Tongue Function Mild impairment Observations of Tongue at Rest Within normal limits Tongue Protrusion Within normal limits Tongue Lateralization Reduced strength Phonation Breathy,Reduced loudness Comment Respiratory therapy successfully weened patient from O2 at beginning of session. Food and Liquid Trials Position During Assessment Slightly reclined,In bed Liquids Trialed Ice chips,Thin Solids Trialed Puree Administration Type Needs some assistance Oral Impairment Mildly impaired Oral Phase Comments Occasional anterior spillage of thin liquids from left side of mouth , reduced strength and range of motion for mastication, no pocketing or oral residue observed Pharyngeal Impairment Within normal limits Pharyngeal Phase Comments Patient appeared to have difficulty initiating swallows on several occasions, however , no signs of aspiration were observed. Difficulty with swallow initiation may be due to dry mouth which will hopefully improve as patient's PO intake increases. Fatigue/Endurance Moderate fatigue Findings Swallowing Function Oral phase dysphagia Swallowing Function Comments secondary to drowsiness and reduced strength, suspected to improve Severity of Swallow Impairment Mildly impaired Contributing Factors to Swallow Reduced alertness or attention Impairment ,Reduced oral strength/ coordination/sensation, Mastication inefficiency Prognosis Good Based on Family support,Duration of symptoms/severity Impact on Safety and Functioning Risk for inadequate nutrition/ hydration Recommendations Instrumental Assessment No Swallowing Treatment Yes Recommended Solids Puree Recommended Liquids Thin Other Recommendations Advanced as tolerated Safety Precautions/Swallowing Supervision needed for all Recommendations meals,Feed only when alert Medication Recommendations As Tolerated Discharge Recommendations detention facility Education Patient/Caregiver Education Described results of evaluation,Patient expressed understanding of evaluation, Patient expressed agreement with goals & treatment plans, Family/caregivers expressed understanding of evaluation Goals Short-term Goals Luanne will maintain alertness and adequate oropharyngeal strength in order to masticate and consume a regular texture thin liquid diet independently.
--- NOTE | 2020-11-13 17:10 | PT-IP ANOTE ---
Attempted physical therapy evaluation but Luanne is too sleepy and unable to stay awake to participate. Vandana anders placed in her room. Will attempt eval again tomorrow.
[2020-11-13] MEDS: DEXTROSE 5%-0.9% NS 1,000 ML 75 ML IV (17:12)
[2020-11-13 18:36] LABS: pH ABG 7.26 (7.35-7.45)
[2020-11-13 19:52] LABS: Add Manual Diff / Slide Review NO; Basophils Absolute Auto 0 /uL (0-100); Basophils Percent Auto 0.2 % (0-2); Eosinophils Absolute Auto 300 /uL (0-450); Eosinophils Percent Auto 2.3 % (2-4); Hematocrit 37.7 % (36-46); Hemoglobin 12.2 g/dL (12.0-16.0); Lymphocytes Absolute Auto 400 /uL (1100-4500); Lymphocytes Percent Auto 3.5 % (25-40); Mean Corpuscular HGB Conc 32.3 % (30-36); Mean Corpuscular Hemoglobin 28.1 PG (26-34); Monocytes Absolute Auto 600 /uL (0-900); Monocytes Percent Auto 4.9 % (3-14); Neutrophils Absolute Auto 11300 /uL (1500-7000); Neutrophils Percent Auto 89.1 % (50-75); Platelet Count 123 X10^3/uL (150-400); Red Blood Cell Count 4.33 X10^6/uL (4.0-5.2); Red Cell Distribution Width 17.2 % (11.6-14.8); White Blood Cell Count 12.6 X10^3/uL (4.5-11.0)
[2020-11-13 20:06] LABS: Vancomycin Trough 19.5 ug/mL (10-20)
[2020-11-13 20:07] LABS: Alanine Aminotransferase 21 IU/L (<35); Albumin 2.5 g/dL (3.5-5.0); Albumin Globulin Ratio 0.8 (1.0-2.8); Alkaline Phosphatase 99 U/L (38-126); Aspartate Aminotransferase 29 IU/L (14-36); Bilirubin Total 0.3 mg/dL (0.2-1.3); Blood Urea Nitrogen 17 mg/dL (7-17); Calcium 9.1 mg/dL (8.4-10.2); Carbon Dioxide 25 mmol/L (22-32); Chloride 108 mmol/L (98-107); Estimated Glomerular Filt Rate > 60.0 mL/min (>60); Globulin 3.3 g/dL (1.7-4.1); Glucose 145 mg/dL (80-110); HEMOLYSIS < 15 (0-50); Potassium 3.9 mmol/L (3.4-5.1); Sodium 136 mmol/L (137-145); Total Protein 5.8 g/dL (6.3-8.2)
[2020-11-13 20:20] LABS: Procalcitonin 2.71 ng/mL (<0.5)
[2020-11-13] MEDS: ACETAMINOPHEN SUSP 650 MG/20.3 ML UDC TUBE (21:23)
[2020-11-14] VITALS (50 sets, daily range): BP systolic 84–136; BP diastolic 51–83; PULSE 71–126; RESP 15–91; TEMP 36.1–36.7; O2SAT 93–100
[2020-11-14 04:57] LABS: Alanine Aminotransferase 21 IU/L (<35); Albumin 2.5 g/dL (3.5-5.0); Albumin Globulin Ratio 0.8 (1.0-2.8); Alkaline Phosphatase 103 U/L (38-126); Aspartate Aminotransferase 28 IU/L (14-36); BUN Creatinine Ratio 23.9 (6-22); Bilirubin Total 0.3 mg/dL (0.2-1.3); Blood Urea Nitrogen 16 mg/dL (7-17); Calcium 9.1 mg/dL (8.4-10.2); Carbon Dioxide 26 mmol/L (22-32); Chloride 110 mmol/L (98-107); Estimated Glomerular Filt Rate > 60.0 mL/min (>60); Globulin 3.1 g/dL (1.7-4.1); Glucose 110 mg/dL (80-110); HEMOLYSIS 20 (0-50); Potassium 3.8 mmol/L (3.4-5.1); Sodium 137 mmol/L (137-145); Total Protein 5.6 g/dL (6.3-8.2)
[2020-11-14 05:21] LABS: Hemoglobin 12.5 g/dL (12.0-16.0); Mean Corpuscular HGB Conc 32.8 % (30-36); Mean Corpuscular Hemoglobin 28.5 PG (26-34); Mean Corpuscular Volume 86.9 fL (80-100); Red Blood Cell Count 4.37 X10^6/uL (4.0-5.2); White Blood Cell Count 13.2 X10^3/uL (4.5-11.0)
[2020-11-14 05:24] LABS: Add Manual Diff / Slide Review YES
--- NOTE | 2020-11-14 06:52 | PC.NURSE ---
Patient with increasing responsiveness as night progressed. Patient aware that she is in the hospital and that it is 2020. Patient requesting water and tolerates sips with head up to 90 degrees. Urine spring with 475 ml out this 8 hours. Lungs diminished with sats 91-99% on 2L with RR mid 20s to 30s. BLE with receding redness from marked borders blisters noted. Left groin reddened with pillow cases exchanged for oozing at L panus. David wrap intact to BLE and pedal pulses palpable.
[2020-11-14] MEDS: DEXTROSE 5%-0.9% NS 1,000 ML 75 ML IV (07:32)
[2020-11-14 07:38] LABS: Platelet Count 90 X10^3/uL (150-400)
[2020-11-14 07:42] LABS: Neutrophils Absolute Manual 10296 /uL (3000-5900); Total Cells Counted 100
[2020-11-14 07:43] LABS: Platelet Estimate Decreased on smear; RBC Morphology Normal Morphology; Toxic Vacuolation Present
[2020-11-14] MEDS: PANTOPRAZOLE 40 MG VIAL IV (09:20)
[2020-11-14] MEDS: SODIUM CHLORIDE 0.9% FLUSH 10 ML IV ×3 (09:21→20:49)
[2020-11-14] MEDS: ENOXAPARIN 40 MG/0.4 ML SYRINGE SUBCUT ×2 (09:28→20:49)
--- NOTE | 2020-11-14 09:30 | ST.IPDYTX ---
Visit Care Team Role Provider Type Chip Deutsch DO Primary Care Provider Physician Specialty: Family Practice Address: [address] [place] [address], [phone] Email: Pham Jorge MD Emergency Provider Physician Referring Provider Specialty: Emergency Medicine Address: [address] [place] [address], [phone] Email: Stephanie Lainez MD Admit Provider Physician Attending Provider Specialty: Medical Address: [address] [place] [address], [phone] Email: [email or web address] [facility] center[facility] [employer] TELEGRAPH INSPECTOR Dysphagia Treatment TELEGRAPH INSPECTOR Dysphagia Treatment Start: 11/13/20 16:26 Freq: Status: Active Protocol: Document 11/14/20 13:23 MARTINEZ (Rec: 11/14/20 13:33 MARTINEZ [id number]) Dysphagia Treatment Session Time Visit Start Time 09:05 Visit Stop Time 09:25 Total Visit Minutes 20 Setting Assessment Location Acute Care Visit Type Note Type Treatment Note Next Note Type Next Note Type Treatment Note Patient Information Identification Type Name,ID Card Subjective Observations The pt was sitting up in chair with 1:1 CARDIAC REHABILITATION SPECIALIST assistance with breakfast. Pt on 2L O2 via nasal cannula. She was tired with eyes closed most of the session but would open upon TELEGRAPH INSPECTOR request. She was minimally conversant d/t SOB but was able to count to 5 x3 with clear audible voice. Treatment Liquids Trialed Thin Solids Trialed Puree,Dysphagia Mechanical Administration Type Straw,Dependent Feeding Pharyngeal Strategies Small Bites and Sips Additional Dysphagia Treatment Upright as possible. Breaks as Strategies needed. Treatment Activities Assessed pt's tolerance of puree and dysphagia mechanical textures, thin liquid. Pt tolerated all without overt s/ sx of aspiration. Audible wheeze perceived following 3 trials of dysphagia mechanical texture. Consulted with Nsg who reported this is common for the pt intermittently, especially after exersion. Trials were ended to give the pt a rest. The pt also reported no further appetite. Assessment Patient Response to Treatment Good Rehab Potential Good Assessment of Improvement Pt is safely tolerating puree and dysphagia mechanical textures and thin liquid. Audible wheezing after several oral trials is consistent with pt's pattern of behavior following exersion and does not appear to be a symptom of dysphagia. Recommend upgrade in diet to dysphagia mechanical with frequent breaks to maintain adequate breath support for swallow. Continue 1:1 feeding assistance. Pt only to consume oral intake when awake and alert. Diet Recommendations Recommendations Upgrade Diet Order Liquids Order Thin Diet Order Dysphagia Mechanical Medication Recommendations As Tolerated Additional Dietary Needs 1:1 Assistance Aspiration Precautions Recommended Precautions Upright at 90 Degrees,Frequent Rest Periods,Small Bites/Sips Treatment Plan Placement Recommendation after Discharge Alf Facility Appropriate for Continued Therapy Yes Therapy Recommendations The pt will follow safe swallow strategies with prompts as needed to reduce risk of aspiration. Dysphagia Goals The pt will tolerate least restrictive diet to meet her nutrition and hydration needs.
[2020-11-14] MEDS: FUROSEMIDE 40 MG/4 ML VIAL IV ×2 (10:26→17:23)
--- NOTE | 2020-11-14 11:36 | PT.IIE ---
Current Diagnoses Sepsis, unspecified organism (11/10/20) Surgical History (Last Reviewed 11/10/20 @ 20:10 by LESLIE Coronado) Hx of total knee replacement (Unknown) Medical History (Last Reviewed 11/12/20 @ 10:06 by Cielo Jewell MD) Allergic rhinitis (Unknown) Arthritis (Unknown) Cellulitis of right leg Essential hypertension (09/11/10) GERD (gastroesophageal reflux disease) (Unknown) GERD (gastroesophageal reflux disease) (Unknown) Hyperlipemia (Unknown) Hypertension (Unknown) Lymphedema (Unknown) Mixed hyperlipidemia Morbid obesity due to excess calories Obstructive sleep apnea (Unknown) Obstructive sleep apnea syndrome Staph skin infection Physical Therapy Inpatient Evaluation/Re-Eval M1 PT/OT-IP Prior Functional Status Start: 11/14/20 17:53 Freq: NEEDED Status: Active Protocol: Document 11/14/20 11:36 DLM (Rec: 11/14/20 18:15 DL [id number]) Medical Review Prior Functional Status Medical History Reviewed Yes Diet/Fluid Consistency Regular Communication WFL Mobility and Gait ambulates with 4WW short household distances, uses 2 canes in the bathroom to get to the toilet, she is mostly homebound due to her limited gait tolerance, she often sleeps in her recliner Activities of Daily Living and IADL's She has assist with housekeeping. She does basic ADL's on her own. She has a hired scuba dive training instructor for her yard. She has groceries delivered. Prior Functional Level (Other details) her Daughter is involved with her care Social History Household Members none Living Arrangements House Number of Floors (Floors) One Floor Number of Stairs To Enter/Railing? one step to enter Home Environment Standard Height Toilet,Tub/ Shower Home Equipment Four Wheel Walker,Straight Cane,Shower Seat without Backrest,Hand Held Shower,Lift Recliner,Hospital Bed,Grab Bars Near Toilet,Grab Bars In Shower Additional Social History Comment home health services M2 PT-IP Current Condition Start: 11/14/20 17:53 Freq: NEEDED Status: Active Protocol: Document 11/14/20 11:36 DLM (Rec: 11/14/20 18:15 DL [id number]) Physical Therapy Current Condition Current Condition Evaluation Date 11/14/20 Treatment Diagnosis Septic, weakness and impaired mobility/gait Onset Date 11/10/20 Precautions Other Precautions oxygen needs M3 PT-IP Subjective Start: 11/14/20 17:53 Freq: NEEDED Status: Active Protocol: Document 11/14/20 11:36 DLM (Rec: 11/14/20 18:15 DLM [id number]) Subjective Physical Therapy Visit Type Type Initial Evaluation Visit Start Time 11:00 Visit Stop Time 11:36 Total Visit Minutes 36 Number of STARCH AND PROSIZE MIXER Visits 0 Physical Therapy Visit Comments Patient Comments She c/o not feeling well Patient Goals she did not state Therapy Pain Assessment Pain When Pain Assessed During Mobility Pain Present Pain Present Pain Reported M4 PT-IP Mobility and Gait Start: 11/14/20 17:53 Freq: NEEDED Status: Active Protocol: Document 11/14/20 11:36 DLM (Rec: 11/14/20 18:15 DLM [id number]) PT-Bed Mobility Assessment Rolling Type of Rolling Bilateral Level of Assist Maximal Assistance,2 Person Assistance Scooting Scooting Up and Down in Bed Dependent PT-Transfer Assessment Sit to and From Stand Sit to and from Stand Total Assistance,2 Person Assistance,Use of Upper Extremities Equipment Transfer Assistive Device Gait Belt,Front Wheeled Walker Transfers Transfer Destination Bed Transfer Technique Mechanical Lift Transfer Ability Level of Assist Total Assistance,2 Person Assistance Comments Mobility Comments Pt up to recliner earlier this morning with nursing using the ceiling lift. Pt attemted to stand with 2 person assist and fWW from the recliner but she could not achieve standing position. She pushed left LE out in front of her and was not using it functionally to assist with standing and she demonstrates minimal push with right LE into standing position. Since she was not able to stand the ceiling lift was used to return pt to bed. Coordinated care with nursing . Gait Assessment Comments Gait Comments pt unable to ambulate PT-Balance Assessment Sitting Balance and Reactions Static Sitting Balance Ability Fair Dynamic Sitting Balance Ability Fair Standing Balance and Reactions Static Standing Balance Ability Poor Dynamic Standing Balance Ability Poor Comments Other Balance Tests/Deviations/Treatment Seated in the recliner she can : assist with pulling herself up to upright position but needs assistance to complete it. M5 PT-IP Objective Assessments Start: 11/14/20 17:53 Freq: NEEDED Status: Active Protocol: Document 11/14/20 11:36 DLM (Rec: 11/14/20 18:15 DLM [id number]) Orientation Orientation/Cognition Level of Alertness Lethargic Orientation Name Safety Awareness Decreased Safety Awareness Comments pt reports she is awake but frequently closes her eyes, she reports she is sleepy, she has weak voice but can make her needs known, difficult to fully assess her cognition due to her sleepy state Gross Range of Motion Upper Extremity ROM Assessment Within Functional Limits Lower Extremity ROM Assessment Left Impaired Impairments difficult to flex left knee to get foot under her for sit- stand Strength Upper Extremity Strength Assessment Bilaterally Impaired Lower Extremity Strength Assessment Bilaterally Impaired Hip needs assist to move LE's Knee needs assist to move even in sitting Comments Strength Comments pt has severe generalized weakness throughout Coordination Assessment Gross Coordination Gross Coordination Impaired Assessment Coordination Comments pt reaching to scratch face but has difficulty connecting her hand with her face Sensation Assessment Comments Sensation Comments difficulty to fully assess, LE edema and wounds present Muscle Tone Muscle Tone WNL Yes M6 PT-IP Treatment Start: 11/14/20 17:53 Freq: NEEDED Status: Active Protocol: Document 11/14/20 11:36 DLM (Rec: 11/14/20 18:15 DL [id number]) Physical Therapy Treatment Other Treatments Other Treatment Performed her Daughter is present this visit and observed treatment M7 PT-IP Assessment and Plan Start: 11/14/20 17:53 Freq: NEEDED Status: Active Protocol: Document 11/14/20 11:36 DLM (Rec: 11/14/20 18:15 DL [id number]) PT Summary Assessment and Plan Potential Rehabilitation Potential Fair Status of Condition at Evaluation Evolving Summary Impairments Pain,ROM,Strength,Balance, Coordination,Cognition,Bed Mobility,Transfers,Gait, Activity Tolerance Assessment Summary Luanne tries to stay alert for therapy but continues to get very sleepy. She has been sitting up today in the recliner. Mechanical lift needed for transfers. Attempted sit-stand today but pt unable to achieve a standing position. Her activity tolerance is very low . She will need SNF rehab before she is strong enough to return home. She was ambulating in the house with a 4WW at baseline. Goals Bed Mobility Goal Moderate Assistance Transfer Goal Moderate Assistance,Front Wheeled Walker Gait Goal Moderate Assistance,Front Wheel Walker Gait Distance 5 feet Days to Meet Goals 7 Frequency of Treatment Frequency Of Treatment Once a Day Treatment Plan Physical Therapy Treatment Plan Bed Mobility Training,Transfer Training,Gait Training, Therapeutic Exercise,Balance Retraining,Discharge Planning, Neuromuscular Re-ed, Coordination Retraining Recommendations To Nursing Amount of Assist Needed 2 Person Assist,Mechanical Lift Discharge Recommendations PT Discharge Recommendations SNF Rehab Transportation Needs at Discharge Stretcher/Ambulance
--- NOTE | 2020-11-14 11:50 | DIET.PN ---
Dietary Progress Note RD provided lengthy nutrition education last admit in July 2020 for weeping cellulitis, extreme obesity, and chronic wounds. Pt remains drowsy today so new consult will be attempted on . Pt now consuming Dysphagia puree diet, RD sent up ONS Ensure Max (bariatric formula) last night as smoothie per pt request. Kitchen to send ONS David bid to support wound healing and pts high PRO needs as well as Ensure Max c lunches for low kcal/high pro support. Please see note attached below regarding nutrition visit in July 2020. 08/30/20 12:49 - Dietary Progress Note by Verito Nielsen Acct Num: [id number] : 1950 Patient Age: 70 Dietary Progress Note Assessment: 70y F admitted for weeping cellulitis screened by RD for extreme obesity and chronic wounds. Pts Gagandeep score of 14 and MNA of [address] consult (gagandeep <15, MNA high risk for malnutrition). Pt had complications c TKA several years ago resulting in compartment syndrome leading to lymphedema in left leg. Pt was able to manage okay until about 3y ago, now attends wound care. Pt doesn't feel the global pandemic has changed much in her life as she doesn't drive and uses [employer] for food shopping. Pt has a friend who drives her to appointments. Pts actual body weight unclear as body weight from 12/11 being recorded in pts chart. Pt reports less and less mobility secondary to LE swelling. Pt was able to walk around her home easily a year ago and part of why she came in is because she is having difficulty getting herself to the bathroom and kitchen. Pt uses chair lift to get up and out of recliner. Usual Day: B: 12 low carb tortilla c 2 eggs and 2 egg whites c cheese, 3-4 sl turkey leon and 12 oz 1% milk c Alive MVI snacks throughout day on hb eggs, cheese, crackers D: meat, rice or instant potatoes and tries to make a veggie (only eats corn, peas, royal beans, string beans) drinks water has portion controlled cookies in evening (3 butter cookies or 3 chocolate chip) Pt reports stopping eating all fruit and most vegetables when she was 9y old. Pt has worked c RD in past who told her she needs to eat salads. Pts only physical activity is limited ADLs. HT: 160cm WT: weight is incorrect and was recorded from weight hx almost 1y ago BMI: ~63 MNA: 9 @ risk for malnutrition Gagandeep: 14 high risk for skin breakdown RD Impression: Pts morbid obesity and physical inactivity along with little to no intake F/V contributing to chronic non-healing wounds and lymphedema. Pt likely does not have enough protein, Vit A, Vit C, or zinc to support wound healing. Nutrition Diagnosis: undesirable food choices r/t nutrients for wound healing aeb pt has chronic lymphedema c wounds seen by wound care, pt has BMI 63 c little physical movement and high protein needs, pt does not consume fruit and very limited vegetables indicating likely deficient in Vit A and C. Interventions: 1. accurate weight, please use bariatric scale which goes up to 400#/180kg. 2. Educated pt on relationship between body weight, protein intake, and lymphedema. Pts large abdominal circumference along with immobility and high protein needs are not helping the LE swelling. Pt has goal to increase mobility. 3. Educated pt on nutrients for wound healing including PRO, Vit A, Vit C, and zinc. Pt willing to drink bariatric ONS (Ensure Max/Premier Protein) daily at lunchtime for low kcal, high PRO, high supplemental vit and minerals. Pt unwilling to eat high Vit A or C foods at this time but will ensure her MVI has adequate levels. Pt really likes beans so will eat more to support protein, zinc, and soluble fiber needs. Pt enjoys Zuppa Tuscana which does have spinach or kale in it, encouraged pt to consume more of this food as long as low-sodium version for some Vit A and C from veg. 4. Sending ONS Ensure Max once daily. Diet Order:2g sodium restriction EER: 140g PRO/d (0.9g/kg actual body weight), 2,000 kcal (12kcal/kg per morbid obesity) Monitoring/Evaluations: Pt happy c advice, did not know nutrients for wound healing, will start bariatric ONS once daily at lunch, consume beans more frequently, and will check MVI for Vit A and Vit C adequacy. Pt open to increased movement around her house to help LE lymphedema.
--- NOTE | 2020-11-14 11:58 | CM.DPNOTE ---
Addendum entered by Jossy Reis 11/14/20 12:15: Tanna from [facility] called 11/14/20 to let us know they are not accepting patients until next week sometime, due to pts. being accepted from the [facility]. Jossy Reis CM Asst. Original Note: Faxed referral packet to [facility] per Alejandra's request. Received fax confirmation. Jossy Reis CM Asst.
[2020-11-14] MEDS: cefTRIAXone 2,000 MG in SODIUM CHLORIDE 0.9% 100 ML 200 ML IV (12:24)
--- NOTE | 2020-11-14 13:02 | P.PN_ITS ---
Subjective Subjective Date Patient Seen: 11/14/20 Interval history: Luanne Huang is a 70 y/o female with obstructive sleep apnea, obesity hypoventilation syndrome, morbid obesity, septic shock, paroxysmal atrial fibrillation, group B strep bacteremia, who was extubated two days ago, off pressors two days ago and making excellent progress. She was found to be wheezing today, short of breath, but not hypoxic. She is lethargic but arousable. Exam Vital Signs (past 8 hours): - 11/14/20 06:00 11/14/20 06:55 11/14/20 07:00 Temperature 98.0 F 97.6 F Pulse Rate 97 H 91 H 92 H Respiratory Rate 91 H 24 24 Blood Pressure 136/67 127/67 Pulse Oximetry 100 99 99 11/14/20 07:55 11/14/20 08:00 11/14/20 08:03 Temperature Pulse Rate 89 95 H 94 H Respiratory Rate 19 19 24 Blood Pressure Pulse Oximetry 99 99 99 11/14/20 08:55 11/14/20 09:00 11/14/20 09:55 Temperature Pulse Rate 103 H 103 H 95 H Respiratory Rate 24 24 Blood Pressure 108/59 L Pulse Oximetry 100 99 96 11/14/20 10:00 11/14/20 12:00 Temperature 97.0 F L Pulse Rate 92 H 86 Respiratory Rate 32 H 22 Blood Pressure 105/58 L 115/57 L Pulse Oximetry 97 98 Fraction of Inspired Oxygen 35 Oxygen Delivery Method Nasal Cannula Oxygen Flow Rate 0 Narrative Exam Narrative: Ill appearing obese female sitting up in a chair Lungs: decreased breath sounds with diffuse wheezing CV: RRR nl Sl S2 Abd: obese/soft/ non tender/ non distended Ext: David bandages in place, erythema over both extremities with some warm no further blistering Objective Labs Result Diagrams: 11/14/20 04:15 11/14/20 04:15 Labs: Laboratory Results - last 24 hr 11/12/20 11/13/20 11/13/20 22:30 16:16 19:15 WBC RBC Hgb Hct MCV MCH MCHC RDW Plt Count Neut % (Auto) Lymph % (Auto) [place] % (Auto) Eos % (Auto) Baso % (Auto) Neut # (Auto) Lymph # (Auto) [place] # (Auto) Eos # (Auto) Baso # (Auto) Total Counted Seg Neutrophils % Band Neutrophils % Lymphocytes % (Manual) Atypical Lymphs % Monocytes % (Manual) Eosinophils % (Manual) Neutrophils # (Manual) Toxic Vacuolation Platelet Estimate RBC Morphology ABG pH 7.26 L* 7.33 L ABG pCO2 48.3 H ABG pO2 52 L ABG HCO3 25 ABG Total CO2 27 ABG O2 Saturation 83 L* ABG Base Excess -1.0 FiO2 21 Sodium Potassium Chloride Carbon Dioxide BUN Creatinine Estimated GFR BUN/Creatinine Ratio Glucose Calcium Total Bilirubin AST ALT Alkaline Phosphatase Total Protein Albumin Globulin Albumin/Globulin Ratio Procalcitonin Vancomycin Trough 19.5 11/13/20 11/13/20 11/13/20 19:15 19:15 19:25 WBC 12.6 H Cancelled RBC 4.33 Cancelled Hgb 12.2 Cancelled Hct 37.7 Cancelled MCV 87.0 Cancelled MCH 28.1 Cancelled MCHC 32.3 Cancelled RDW 17.2 H Cancelled Plt Count 123 L Cancelled Neut % (Auto) 89.1 H Cancelled Lymph % (Auto) 3.5 L Cancelled [place] % (Auto) 4.9 Cancelled Eos % (Auto) 2.3 Cancelled Baso % (Auto) 0.2 Cancelled Neut # (Auto) 42050 H Cancelled Lymph # (Auto) 400 L Cancelled [place] # (Auto) 600 Cancelled Eos # (Auto) 300 Cancelled Baso # (Auto) 0 Cancelled Total Counted Seg Neutrophils % Band Neutrophils % Lymphocytes % (Manual) Atypical Lymphs % Monocytes % (Manual) Eosinophils % (Manual) Neutrophils # (Manual) Toxic Vacuolation Platelet Estimate RBC Morphology ABG pH ABG pCO2 ABG pO2 ABG HCO3 ABG Total CO2 ABG O2 Saturation ABG Base Excess FiO2 Sodium 136 L Potassium 3.9 Chloride 108 H Carbon Dioxide 25 BUN 17 Creatinine 0.74 Estimated GFR > 60.0 BUN/Creatinine Ratio 23.0 H Glucose 145 H Calcium 9.1 Total Bilirubin 0.3 AST 29 ALT 21 Alkaline Phosphatase 99 Total Protein 5.8 L Albumin 2.5 L Globulin 3.3 Albumin/Globulin Ratio 0.8 L Procalcitonin Vancomycin Trough 11/13/20 11/13/20 11/14/20 19:25 19:25 04:15 WBC 13.2 H RBC 4.37 Hgb 12.5 Hct 38.0 MCV 86.9 MCH 28.5 MCHC 32.8 RDW 17.0 H Plt Count 90 L Neut % (Auto) Not Reportable Lymph % (Auto) Not Reportable [place] % (Auto) Not Reportable Eos % (Auto) Not Reportable Baso % (Auto) Not Reportable Neut # (Auto) Lymph # (Auto) Not Reportable [place] # (Auto) Not Reportable Eos # (Auto) Baso # (Auto) Not Reportable Total Counted 100 Seg Neutrophils % 58.0 Band Neutrophils % 20.0 H Lymphocytes % (Manual) 10.0 L Atypical Lymphs % 4.0 H Monocytes % (Manual) 2.0 Eosinophils % (Manual) 6.0 H Neutrophils # (Manual) 61795 H Toxic Vacuolation Present H Platelet Estimate Decreased on smear RBC Morphology Normal morphology ABG pH ABG pCO2 ABG pO2 ABG HCO3 ABG Total CO2 ABG O2 Saturation ABG Base Excess FiO2 Sodium Cancelled Potassium Cancelled Chloride Cancelled Carbon Dioxide Cancelled BUN Cancelled Creatinine Cancelled Estimated GFR Cancelled BUN/Creatinine Ratio Cancelled Glucose Cancelled Calcium Cancelled Total Bilirubin Cancelled AST Cancelled ALT Cancelled Alkaline Phosphatase Cancelled Total Protein Cancelled Albumin Cancelled Globulin Cancelled Albumin/Globulin Ratio Cancelled Procalcitonin 2.71 H Vancomycin Trough 11/14/20 04:15 WBC RBC Hgb Hct MCV MCH MCHC RDW Plt Count Neut % (Auto) Lymph % (Auto) [place] % (Auto) Eos % (Auto) Baso % (Auto) Neut # (Auto) Lymph # (Auto) [place] # (Auto) Eos # (Auto) Baso # (Auto) Total Counted Seg Neutrophils % Band Neutrophils % Lymphocytes % (Manual) Atypical Lymphs % Monocytes % (Manual) Eosinophils % (Manual) Neutrophils # (Manual) Toxic Vacuolation Platelet Estimate RBC Morphology ABG pH ABG pCO2 ABG pO2 ABG HCO3 ABG Total CO2 ABG O2 Saturation ABG Base Excess FiO2 Sodium 137 Potassium 3.8 Chloride 110 H Carbon Dioxide 26 BUN 16 Creatinine 0.67 Estimated GFR > 60.0 BUN/Creatinine Ratio 23.9 H Glucose 110 Calcium 9.1 Total Bilirubin 0.3 AST 28 ALT 21 Alkaline Phosphatase 103 Total Protein 5.6 L Albumin 2.5 L Globulin 3.1 Albumin/Globulin Ratio 0.8 L Procalcitonin Vancomycin Trough [facility] Medical History Allergic rhinitis (Unknown) Arthritis (Unknown) Cellulitis of right leg Essential hypertension (09/11/10) GERD (gastroesophageal reflux disease) (Unknown) GERD (gastroesophageal reflux disease) (Unknown) Hyperlipemia (Unknown) Hypertension (Unknown) Lymphedema (Unknown) Mixed hyperlipidemia Morbid obesity due to excess calories Obstructive sleep apnea (Unknown) Obstructive sleep apnea syndrome Staph skin infection Surgical History Hx of total knee replacement (Unknown) Family History Brother Kidney carcinoma Mother Stroke Sister Cancer Father Atrial fibrillation Social History household members: none Smoking Status: Former smoker Tobacco: How many years used: 4 second hand exposure: No alcohol intake: never substance use type: does not use Assessment & Plan Assessment & Plan narrative: 1. Chronic REspiratory Failure- Patient with obesity hypoventilation Patient with known SHERIN, she continues to have CO2 retention despite use of BIPAP at night She is not markedly hypoxic, buy hypercapneic and acidotic sedation has been discontinued patient currently being assessed for [facility] wheezing likely reflects some pulmonary edema 2. Acute Congestive Heart Failure-with preserved EF -Echo in August revealed EF of 55-60%, mild MR, trace TR -IVF discontinued as blood pressure improved -will start lasix 40 IV twice daily 3. Septic shock -patient admitted to the hospital with cellulitis, strep agalactiae bacter emia, and hypotension -patient required intubation for respiratory failure -she remained on Levophed/dopamine until earlier today. These have been discontinued -continue IV hydration as her blood pressure appears to be responsive -antibiotic coverage broadened to include Zosyn and vancomycin given her severe sepsis -general surgery consulted, no evidence of necrotizing fasciitis, suggest David wraps for her lower extremities -end-organ failure due to sepsis includes shock, improved -all pressors discontinued yesterday -blood cultures positive for Grou[ B strep -will adjust antibiotics, D/C Zosyn, D/C Vancomycin, Start Ceftriaxone 2 grams daily -IVF stopped -speech eval, diet upgraded 4. Cellulitis, present on admission, source of sepsis -patient with chronic venous insufficiency -chronic edema -erythema and prior surgery -strep agalactiae a growing from the blood, will continue Zosyn and Vanco added -antibiotic adjusted as above. 5 Atrial fibrillation, with RVR, now in sinus rhythm -will d/c telemetry 6 Morbid obesity -morbid obesity likely contributing to her venous insufficiency resulting in recurrent cellulitis and sepsis -this puts her at high risk for complication -dietary consultation for after the patient is extubated 7. Lymphedema, chronic -continue DAVID wrapws 8. GERD -continue PPI can switch to po 9. Hypertension -ALL ANTIHYPERTENSIVE HELD as the patient is hypotensive -will resume when appropriate 10. hypoglycemia earilier- she is not eating currently, diet adjusted 10. thrombocytopenia- will follow platelets closely, if they fall any further will d/c lovenox Patient will continue on DVT prophylaxis with Lovenox, surrogate decision maker is her daughter Leigh Ann meade, patient remains a full code Patient remains critically ill, 40 minutes critical care time spent with this patient
--- NOTE | 2020-11-14 14:13 | CM.DPC ---
DCP Cont: Met with patient's daughter, Leigh Ann Wick. Introduced self and role. Had Jossy, roofer assistant, go ahead and fax out [facility], who is full, and [facility] is not accepting patient now. Gave referral to Mikaela at [facility], and she is reviewing. Let her know that patient is 350 pounds, and may need some bariatric equipment. Daughter is hoping for [facility] at this time, let her know that Mikaela is assessing. Gave daughter [employer], for in home caregivers versus memory care. She indicated that she had had discussion with her brother regarding longterm plans, for patient continues to have skin issues at home, and there is concerns about her being able to manage at home. She indicated that her mother does have the finances, but she may not want to leave her home. Encouraged her to start the process of looking at either in home caregivers or assisted livings while she is in correction. P: DCP to continue to follow. Will follow up with Mikaela at [facility], if she can't take, will follow up with [facility] at [facility] . Madeleine Nielsen, RN/Master Police Detective
--- NOTE | 2020-11-14 15:15 | OT.IPNOTE ---
Nursing aid just completed cleaning and positioning pt in bed. Therefore to check on pt tomorrow for Ot eval.
--- NOTE | 2020-11-14 18:21 | PC.NURSE ---
Addendum entered by Desirae Nichols R.N. 11/14/20 22:51: Orders entered per REG Gomez for lopressor to treat afib. Addendum entered by Desirae Nichols R.N. 11/14/20 22:29: Pt remains tachycardic per monitor one teens as high as 130's. Pt denies pain and is much more restful and less restless than previously. LAST SORTER, Madelin, places pt on telemetry to monitor rhythm and reports looks as though pt in afib. Hospitalist currently unavailable but message left to please see this specifications writer as soon as possible. Addendum entered by Desirae Nichols R.N. 11/14/20 20:09: Discussion with hospitalist re pt's elevated heartrate per monitor and c/o 7/10 pain to right knee. Reviewed platelet count and renal function with hospitalist and orders received for prn toradol to manage pain versus administering narcotic medications. Original Note: Pt resting quietly in bed but rouses easily to voice. Room air per ear probe 96%. Dyspnea with any activity with faint expiratory wheezes audible. Clear, but decreased breath sounds to posterior cespedes BL. Erythema under abdominal pannus and BL LE's L > R. Compression wraps in place to BL LE's. BL foot pumps in place. Open area to buttocks noted with turning and barrier cream applied. Rojas to gravity with brisk, clear urinary output. Feeder 1:1 and takes diet reasonably well.
[2020-11-14] MEDS: ACETAMINOPHEN 325 MG TABLET 650 MG PO (18:42)
[2020-11-14] MEDS: NYSTATIN POWDER 15GM 1 APPLIC TOP (18:45)
[2020-11-14] MEDS: KETOROLAC 30 MG/ML VIAL 15 MG IV (20:47)
[2020-11-14] MEDS: METOPROLOL TARTRATE 5 MG/5 ML INJ 2.5 MG IV (22:59)
[2020-11-15] VITALS (20 sets, daily range): BP systolic 100–134; BP diastolic 55–73; PULSE 84–127; RESP 13–26; TEMP 36.9–37.9; O2SAT 93–99
[2020-11-15] MEDS: DIGOXIN 500 MCG/2 ML AMPUL 250 MCG IV (00:20)
--- NOTE | 2020-11-15 00:33 | PM.EVENT ---
Event Note Date Patient Seen: 11/15/20 Time Patient Seen: 00:33 Event Note: Patient was reported to me to go into a-fib w/RVR. Initially her systolic was in the low to high 90s and was concerned about giving diltiazem with a soft bp. Reviewed EKG and confirmed she was in A-fib w/RVR, mostly in the 120s. Opted to give dig, 2.5 mg X 1 which had an effect of lowering her rate to the 110s, with occassional spikes into the 130s. Patient appeared to be uncomfortable and stated her pain was an 8/10. Heart sounds diminished, and irregular. Nursing will give her IV dilaudid 1 mg and is written for q 4 hours prn. Had lab draw a magnesium which is 1.5, slightly low. She is ordered for a 2 gram rider, and her rate is in the low 110s reported by nursing. Will continue to follow closely.
[2020-11-15] MEDS: HYDROMORPHONE 1 MG INJ IV (00:34)
--- NOTE | 2020-11-15 00:41 | PC.NURSE ---
Addendum entered by Daysi Yin R.N. 11/15/20 04:11: 0400- HEATHER Gomez notified that patient remains in Rapid Afib rate between 110-120. No orders rec. Will monitor. Original Note: 0030- Patient in rapid AFib rate 120-130 confirmed with 12 lead EKG per protocol. Digioxin .25 given per order. Medicated for c/o pain 8/10 in her legs. Anika Gomez NP updated on condition. Labs sent per order. Will monitor.
[2020-11-15 00:43] LABS: Magnesium 1.5 mg/dL (1.6-2.3)
[2020-11-15] MEDS: MAGNESIUM SULFATE 2 GM/50 ML PIGGYBACK IV (01:22)
[2020-11-15 04:56] LABS: Add Manual Diff / Slide Review NO; Basophils Absolute Auto 0 /uL (0-100); Basophils Percent Auto 0.2 % (0-2); Eosinophils Absolute Auto 300 /uL (0-450); Eosinophils Percent Auto 4.9 % (2-4); Hematocrit 38.2 % (36-46); Hemoglobin 12.6 g/dL (12.0-16.0); Lymphocytes Absolute Auto 1300 /uL (1100-4500); Lymphocytes Percent Auto 18.8 % (25-40); Mean Corpuscular HGB Conc 32.9 % (30-36); Mean Corpuscular Hemoglobin 28.4 PG (26-34); Mean Corpuscular Volume 86.3 fL (80-100); Monocytes Absolute Auto 800 /uL (0-900); Monocytes Percent Auto 10.9 % (3-14); Neutrophils Absolute Auto 4600 /uL (1500-7000); Neutrophils Percent Auto 65.2 % (50-75); Platelet Count 124 X10^3/uL (150-400); Red Blood Cell Count 4.43 X10^6/uL (4.0-5.2); Red Cell Distribution Width 16.9 % (11.6-14.8); White Blood Cell Count 7.1 X10^3/uL (4.5-11.0)
[2020-11-15] MEDS: dilTIAZem 125 MG in SODIUM CHLORIDE 0.9% 100 ML IV (04:58)
[2020-11-15] MEDS: FUROSEMIDE 40 MG/4 ML VIAL IV ×3 (04:58→17:44)
[2020-11-15 05:16] LABS: Magnesium 1.8 mg/dL (1.6-2.3)
[2020-11-15 05:17] LABS: Alanine Aminotransferase 23 IU/L (<35); Albumin 2.7 g/dL (3.5-5.0); Albumin Globulin Ratio 0.8 (1.0-2.8); Alkaline Phosphatase 122 U/L (38-126); Aspartate Aminotransferase 29 IU/L (14-36); BUN Creatinine Ratio 21.4 (6-22); Bilirubin Total 0.4 mg/dL (0.2-1.3); Blood Urea Nitrogen 15 mg/dL (7-17); Calcium 9.6 mg/dL (8.4-10.2); Carbon Dioxide 26 mmol/L (22-32); Chloride 107 mmol/L (98-107); Estimated Glomerular Filt Rate > 60.0 mL/min (>60); Globulin 3.6 g/dL (1.7-4.1); Glucose 94 mg/dL (80-110); HEMOLYSIS 18 (0-50); Potassium 3.7 mmol/L (3.4-5.1); Sodium 136 mmol/L (137-145); Total Protein 6.3 g/dL (6.3-8.2)
[2020-11-15 05:23] LABS: NT-proBNP (BNP-Adult 18+) 1390 pg/mL (<125)
[2020-11-15 05:32] LABS: Procalcitonin 1.42 ng/mL (<0.5)
--- NOTE | 2020-11-15 07:54 | PC.NURSE ---
Addendum entered by Edie Sanabria R.N. 11/15/20 14:05: given po metoprolol 25mg and then able to discontinue dilt gtt, pt remains in afib rate in 70-80's - able to take small amount of po and she was able to feed herself, did order cushioned silverware from kitchen to assist. lungs with wheezes and on room air,. She did get set up with trilogy for use here and post discharge. Up to the chair with use of mechanical lift - best collection bag changed due to apparent leak- responding to iv lasix Original Note: PT INCREASED HR 130'S- REMAINS AFIB- INCREASED DILT GTT FROM 10 TO 15MG/H-
[2020-11-15] MEDS: KETOROLAC 30 MG/ML VIAL 15 MG IV ×2 (08:36→23:39)
[2020-11-15] MEDS: PANTOPRAZOLE 40 MG VIAL IV (08:36)
[2020-11-15] MEDS: ENOXAPARIN 40 MG/0.4 ML SYRINGE SUBCUT ×2 (08:37→20:21)
[2020-11-15] MEDS: SODIUM CHLORIDE 0.9% FLUSH 10 ML IV ×3 (08:38→23:40)
--- NOTE | 2020-11-15 09:53 | ST.IPDYTX ---
Visit Care Team Role Provider Type Chip Deutsch DO Primary Care Provider Physician Specialty: Family Practice Address: [address] [place] [address], [id number] Email: Pham Jorge MD Emergency Provider Physician Referring Provider Specialty: Emergency Medicine Address: [address] [place] [address], [id number] Email: Stephanie Lainez MD Admit Provider Physician Attending Provider Specialty: Medical Address: [address] [place] [address], [phone] Email: [email or web address] Dysphagia Treatment [employer] Dysphagia Treatment Start: 11/13/20 16:26 Freq: Status: Active Protocol: Document 11/15/20 09:48 TLC (Rec: 11/15/20 09:53 TLC [id number]) Dysphagia Treatment Session Time Visit Start Time 08:35 Visit Stop Time 08:55 Total Visit Minutes 50 Setting Assessment Location Acute Care Visit Type Note Type Treatment Note Next Note Type Next Note Type Treatment Note Patient Information Identification Type Name Subjective Observations The patient was slightly reclined in bed. She was awake and alert and agreed to eat breakfast. Treatment Liquids Trialed Thin Solids Trialed Dysphagia Mechanical Administration Type Straw,Dependent Feeding Pharyngeal Strategies Small Bites and Sips Additional Dysphagia Treatment Upright as possible. Breaks as Strategies needed. Treatment Activities Patient had difficulty self- feeding due to swelling in hands. Discussed with OT. Patient consumed ~5 bites of [place] islander toast and eggs without difficulty or signs of aspiration. Mild oral residue cleared with liquid wash. Patient refused further trials stating she wasn't hungry. Assessment Patient Response to Treatment Good Rehab Potential Good Assessment of Improvement Patient is much more alert than last time I saw her two days ago. She is safely consuming her current diet. No further dysphagia therapy warranted. Patient will benefit from working with OT due to difficulty grasping utensils. Once she regains strength and appetite, her diet may be advanced by nursing staff. Diet Recommendations Recommendations Continue Current Diet Liquids Order Thin Diet Order Dysphagia Mechanical Medication Recommendations As Tolerated Additional Dietary Needs 1:1 Supervision,Encourage to Self-Feed Aspiration Precautions Recommended Precautions Alternate Liquids/Solids,Small Bites/Sips Treatment Plan Placement Recommendation after Discharge [facility] Appropriate for Continued Therapy Yes Dysphagia Goals The pt will tolerate least restrictive diet to meet her nutrition and hydration needs.
[2020-11-15] MEDS: cefTRIAXone 2,000 MG in SODIUM CHLORIDE 0.9% 100 ML 200 ML IV (12:38)
[2020-11-15] MEDS: FLUCONAZOLE 100 MG TABLET 200 MG PO (12:47)
[2020-11-15] MEDS: METOPROLOL IR 25 MG TABLET PO ×2 (12:47→20:21)
[2020-11-15] MEDS: ACETAMINOPHEN 325 MG TABLET 650 MG PO (12:49)
--- NOTE | 2020-11-15 14:43 | OT.IP.EVAL ---
Current Diagnoses Sepsis, unspecified organism (11/10/20) Past Medical History (Last Reviewed 11/12/20 @ 10:06 by Cielo Jewell MD) Allergic rhinitis (Unknown) Arthritis (Unknown) Cellulitis of right leg Essential hypertension (09/11/10) GERD (gastroesophageal reflux disease) (Unknown) GERD (gastroesophageal reflux disease) (Unknown) Hyperlipemia (Unknown) Hypertension (Unknown) Lymphedema (Unknown) Mixed hyperlipidemia Morbid obesity due to excess calories Obstructive sleep apnea (Unknown) Obstructive sleep apnea syndrome Staph skin infection Surgical History (Last Reviewed 11/10/20 @ 20:10 by Susana Moser [facility]) Hx of total knee replacement (Unknown) Occupational Therapy Inpatient Evaluation/Re-Eval M1 PT/OT-IP Prior Functional Status Start: 11/14/20 17:53 Freq: NEEDED Status: Active Protocol: Document 11/15/20 14:15 [facility]3] (Rec: 11/15/20 16:11 [facility]3] [id number]) Medical Review Prior Functional Status Medical History Reviewed Yes Diet/Fluid Consistency Regular Communication WFL Mobility and Gait ambulates with 4WW short household distances, uses 2 canes in the bathroom to get to the toilet, she is mostly homebound due to her limited gait tolerance, she often sleeps in her recliner Activities of Daily Living and IADL's She has assist with housekeeping. She does basic ADL's on her own. She has a hired credit collector for her yard. She has groceries delivered. Prior Functional Level (Other details) her Daughter is involved with her care Social History Household Members none Living Arrangements House Number of Floors (Floors) One Floor Number of Stairs To Enter/Railing? one step to enter Home Environment Standard Height Toilet,Tub/ Shower Home Equipment Four Wheel Walker,Straight Cane,Shower Seat without Backrest,Hand Held Shower,Lift Recliner,Hospital Bed,Grab Bars Near Toilet,Grab Bars In Shower Additional Social History Comment home health services M2 OT-IP Current Condition Start: 11/15/20 15:51 Freq: Status: Active Protocol: Document 11/15/20 14:15 [facility]3] (Rec: 11/15/20 16:11 [facility]3] [id number]) Occupational Therapy Current Condition Current Condition Evaluation Date 11/15/20 Treatment Diagnosis Septic, Acute CHF, decreased mobility Diagnosis Onset Date 11/10/20 M3 OT- IP Subjective and Pain Start: 11/15/20 15:51 Freq: Status: Active Protocol: Document 11/15/20 14:15 [facility]3] (Rec: 11/15/20 16:11 [facility]3] [id number]) OT- Subjective Occupational Therapy Visit Type Type Initial Evaluation Visit Start Time 14:15 Visit Stop Time 14:43 Total Visit Minutes 28 Occupational Therapy Visit Comments Patient Comments Pt already up in the recliner from use of erickson lift. Patient/Caregiver Goals TO go home. OT Pain Assessment Pain When Pain Assessed At Rest Pain Present Pain Present Pain Reported Location Right Knee Intensity 6 Scale Used Numeric (0 - 10) M4 OT- IP ADL's Start: 11/15/20 15:51 Freq: Status: Active Protocol: Document 11/15/20 14:15 [facility]3] (Rec: 11/15/20 16:11 [facility]3] [id number]) OT GMF-Bjdn-Nholvsy Comments OT Self-Feeding Comments Pt states able to eat on her own due to better use of her hands. OT ADL-Grooming General Evaluation Grooming Ability Minimal Assistance Areas Needing Assistance Combing/Brushing Hair Comments OT Grooming Comments Assist to comb the back of her hair. OT ADL-Oral Care General Eval Oral Care Ability Independent OT ADL-Dressing General Eval Lower Body Dressing Ability Total Assistance OT ADL-Toileting General Evaluation Toileting Ability Total Assistance OT ADL-Bathing Comments OT Bathing Comments Not performed. M5 OT- IP IADL's Start: 11/15/20 15:51 Freq: Status: Active Protocol: Document 11/15/20 14:15 [facility]3] (Rec: 11/15/20 16:11 [facility]3] [id number]) OT-Instrumental Activities of Daily Living Home Safety Awareness Home Safety Comments Pt aware that she is not physically capable to care for herself at this time due to her medical issues. M6 OT- IP Functional Cognition Start: 11/15/20 15:51 Freq: Status: Active Protocol: Document 11/15/20 14:15 [facility]3] (Rec: 11/15/20 16:11 [facility]3] [id number]) Cognitive Factors Limiting Selfcare Function Cognitive Ability Level of Alertness Alert Patient Orientation Name,Place,Situation Attention Span Ability Capable of Focused Attention, Capable of Sustained Attention Ability to Follow Commands Able to Follow One Step Commands Cognitive Comments Cognitive Assessment Comments Pt able to follow commands for self care needs. Pt very tired, however states that she is able to think better now. To do SLUMS with pt tomorrow. OT- Vision and Hearing OT- Hearing Assessment OT- Hearing Assessment WFL OT- Vision Assessment Visual Acuity Glasses All The Time M7 OT- IP Mobility and Balance Start: 11/15/20 15:51 Freq: Status: Active Protocol: Document 11/15/20 14:15 [facility]3] (Rec: 11/15/20 16:11 [facility]3] [id number]) OT- Bed Mobility Assessment Rolling Level of Assistance Total Assistance,2 Person Assistance OT-Transfer Assessment Transfers Transfer Ability Total Assistance,2 Person Assistance Technique Transfer Destination Bed,Chair Devices Transfer Assistive Devices Mechanical Lift OT- Balance Assessment Comments Other Balance Tests/Deviations/Treatment Not able to test as pt already : sitting in the recliner. M8 OT- IP Objective Assessments Start: 11/15/20 15:51 Freq: Status: Active Protocol: Document 11/15/20 14:15 [facility]3] (Rec: 11/15/20 16:11 [facility]3] [id number]) OT Gross Range of Motion Upper Extremity Range of Motion Assessment Bilaterally Impaired OT Strength Upper Extremity Strength Assessment Bilaterally Impaired OT Sensation Assessment Edema Edema Present Edema Comments BUE swelling. M9 OT- IP Assessment and Plan Start: 11/15/20 15:51 Freq: Status: Active Protocol: Document 11/15/20 14:15 [facility]3] (Rec: 11/15/20 16:11 [facility]3] [id number]) OT Summary Assessment and Plan Potential Rehabilitation Potential Fair Analytic Complexity at Evaluation Moderate Summary OT Impairments Pain,Strength,Balance, Coordination,Functional Cognition,Functional Mobility, Self-Feeding,Grooming,Dressing ,Toileting,Bathing,Toilet Transfers,Shower Transfers, Activity Tolerance Progress Towards Goals Slow Progress due to Pain,Slow Progress due to Medical Issues,Slow Progress due to Activity Tolerance Assessment Summary Pt MOD complexity and main barriers are a step, now needing use of erickson lift due to decreased activity tolerance, balance, and strength. Prior pt lived on her own and able to do her own needs. Pt states even able to lift her foot up on the tub in order to eveline her compression hose. Pt is far from baseline and would benefit from skilled rehab prior to going home. Goals Self-Feeding Goal Independent Grooming Goal Independent Dressing Goal Independent Toileting Goal Independent Bathing Goal Independent Toilet Transfer Goal Independent Shower Transfer Goal Independent Days to Meet Goals 30 Frequency of Treatment Frequency Of Treatment Once a Day Treatment Plan OT Treatment Plan ADL Training,Functional Cognition Training,Functional Mobility,Patient/Family Education,Discharge Planning Other Treatment Recommendations and Next Bed mobility MAX X 2 and sit Treatment Focus at edge of bed with MODA x 1. Discharge Recommendations OT Discharge Recommendations SNF Rehab Transportation Needs at Discharge Wheelchair/Cabulance
--- NOTE | 2020-11-15 14:44 | CM.DPNOTE ---
Addendum entered by Jossy Reis 11/16/20 15:01: Faxed referral to [facility] [phone] and received fax confirmation. Faxed referral to [facility] [phone] and received fax confirmation. Jossy Reis CM Asst. Addendum entered by Jossy Reis 11/16/20 13:55: Followed up with Nini at [facility] and she may have a DC for tomorrow. She did not receive my fax although I received a positive confirmation. She said she will look out for this referral. Called Emilie from [facility] who said to refax to their referral line [phone]. She will review this and get back to us. I Left a VM with Iman Smith to call me back for availability. Faxed referral packet to [facility] [phone] and received fax confirmation. Original Note: Faxed referral packet to [facility]; [facility] [phone][phone]; and [facility] [phone]. Received fax confirmations. Jossy Reis CM Asst.
--- NOTE | 2020-11-15 17:22 | PM.PN.1 ---
Subjective Subjective Date Patient Seen: 11/15/20 Interval history: The patient is a 70-year-old female who was admitted to the hospital with severe sepsis and septic shock secondary to group B strep bacteremia. Patient had bilateral lower extremity cellulitis likely related to chronic lymphedema. In addition she developed acute on chronic respiratory failure, patient has obstructive sleep apnea, and likely obesity hypoventilation. The patient has chronic atrial fibrillation. Last evening she developed a rapid ventricular response and was placed on a diltiazem drip. Today she denies any pain. She continues to be short of breath. He has been tried on the trilogy which she tolerates. The patient is resting in a chair. She is wheezing on exam. Yesterday per nursing she was noted to have a copious amount of discharge from her vaginal vault. Patient continues to have erythema of her lower extremities although they are improving. Exam Vital Signs (past 8 hours): - 11/15/20 10:00 11/15/20 11:03 11/15/20 12:00 Temperature 98.7 F Pulse Rate 101 H 99 H 86 Respiratory Rate 21 18 19 Blood Pressure 115/69 115/69 100/55 L Pulse Oximetry 95 96 97 11/15/20 13:58 11/15/20 15:55 Temperature 99.7 F H Pulse Rate 84 84 Respiratory Rate 25 H 22 Blood Pressure 134/62 Pulse Oximetry 97 97 Fraction of Inspired Oxygen 35 Oxygen Delivery Method Room Air Oxygen Flow Rate 0 Narrative Exam Narrative: Morbidly obese female sitting in a chair with a trilogy face mask in place Lungs: Decreased breath sounds with end-expiratory wheezing bilaterally Cardiac exam: Irregularly irregular, normal S1-S2 with a 2/6 systolic ejection murmur Abdomen: Obese soft and nontender Extremities: Bilateral lymphedema noted, David bandages in place, erythema unchanged from yesterday no blistering or ulceration Objective Labs Result Diagrams: 11/15/20 04:45 11/15/20 04:45 Labs: Laboratory Results - last 24 hr 11/15/20 11/15/20 11/15/20 00:25 04:45 04:45 WBC 7.1 RBC 4.43 Hgb 12.6 Hct 38.2 MCV 86.3 MCH 28.4 MCHC 32.9 RDW 16.9 H Plt Count 124 L Neut % (Auto) 65.2 D Lymph % (Auto) 18.8 L [place] % (Auto) 10.9 Eos % (Auto) 4.9 H Baso % (Auto) 0.2 Neut # (Auto) 4600 Lymph # (Auto) 1300 [place] # (Auto) 800 Eos # (Auto) 300 Baso # (Auto) 0 Sodium 136 L Potassium 3.7 Chloride 107 Carbon Dioxide 26 BUN 15 Creatinine 0.70 Estimated GFR > 60.0 BUN/Creatinine Ratio 21.4 Glucose 94 Calcium 9.6 Magnesium 1.5 L Total Bilirubin 0.4 AST 29 ALT 23 Alkaline Phosphatase 122 NT-Pro-B Natriuret Pep Total Protein 6.3 Albumin 2.7 L Globulin 3.6 Albumin/Globulin Ratio 0.8 L Procalcitonin 11/15/20 11/15/20 11/15/20 04:45 04:45 04:45 WBC RBC Hgb Hct MCV MCH MCHC RDW Plt Count Neut % (Auto) Lymph % (Auto) [place] % (Auto) Eos % (Auto) Baso % (Auto) Neut # (Auto) Lymph # (Auto) [place] # (Auto) Eos # (Auto) Baso # (Auto) Sodium Potassium Chloride Carbon Dioxide BUN Creatinine Estimated GFR BUN/Creatinine Ratio Glucose Calcium Magnesium 1.8 Total Bilirubin AST ALT Alkaline Phosphatase NT-Pro-B Natriuret Pep 1390 H Total Protein Albumin Globulin Albumin/Globulin Ratio Procalcitonin 1.42 H PFSH Medical History Allergic rhinitis (Unknown) Arthritis (Unknown) Cellulitis of right leg Essential hypertension (09/11/10) GERD (gastroesophageal reflux disease) (Unknown) GERD (gastroesophageal reflux disease) (Unknown) Hyperlipemia (Unknown) Hypertension (Unknown) Lymphedema (Unknown) Mixed hyperlipidemia Morbid obesity due to excess calories Obstructive sleep apnea (Unknown) Obstructive sleep apnea syndrome Staph skin infection Surgical History Hx of total knee replacement (Unknown) Family History Brother Kidney carcinoma Mother Stroke Sister Cancer Father Atrial fibrillation Social History household members: none Smoking Status: Former smoker Tobacco: How many years used: 4 second hand exposure: No alcohol intake: never substance use type: does not use Assessment & Plan Assessment & Plan narrative: Chronic REspiratory Failure- Patient with obesity hypoventilation Patient with known SHERIN, she continues to have CO2 retention despite use of BIPAP at night She is not markedly hypoxic, buy hypercapneic and acidotic sedation has been discontinued patient currently being assessed for Triology wheezing likely reflects some pulmonary edema Patient with continued wheezing despite IV Lasix, urine output marginal 2. Acute Congestive Heart Failure-with preserved EF -Echo in August revealed EF of 55-60%, mild MR, trace TR -IVF discontinued as blood pressure improved -will start lasix 40 IV twice daily -patient will get an additional 40 mg of Lasix this evening for total 80 mg, to improve her pulmonary edema -her proBNP was elevated at 13 90 3. Septic shock -patient admitted to the hospital with cellulitis, strep agalactiae bacteremia, and hypotension -patient required intubation for respiratory failure -she remained on Levophed/dopamine until earlier today. These have been discontinued ---general surgery consulted, no evidence of necrotizing fasciitis, suggest David wraps for her lower extremities -end-organ failure due to sepsis includes shock, improved -all pressors discontinued -blood cultures positive for Grou[ B strep -will adjust antibiotics, D/C Zosyn, D/C Vancomycin, Start Ceftriaxone 2 grams daily -IVF stopped -speech eval, diet upgraded 4. Cellulitis, present on admission, source of sepsis -patient with chronic venous insufficiency -chronic edema -erythema and prior surgery -strep agalactiae a growing from the blood, -antibiotic adjusted as above. 5 Atrial fibrillation, with RVR, -patient on diltiazem drip earlier today, this will be discontinued -resume metoprolol 25 b.i.d. -continue diuresis to improved pulmonary edema 6 Morbid obesity -morbid obesity likely contributing to her venous insufficiency resulting in recurrent cellulitis and sepsis -this puts her at high risk for complication -dietary consultation for after the patient is extubated 7. Lymphedema, chronic -continue DAVID wrapws 8. GERD -continue PPI can switch to po 9. Hypertension -ALL ANTIHYPERTENSIVE HELD as the patient is hypotensive -back on metoprolol for heart rate control 10. hypoglycemia earilier- she is not eating currently, diet adjusted 10. thrombocytopenia- will follow platelets closely, if they fall any further will d/c lovenox platelet count 124 Patient will continue on DVT prophylaxis with Lovenox, surrogate decision maker is her daughter Leigh Ann meade, patient remains a full code
--- NOTE | 2020-11-15 21:44 | PC.NURSE ---
Lower leg wraps removed, no open wounds noted, SCDs applied. Allevyn applied to skin breakdown in gluteal cleft
[2020-11-16 03:45] VITALS: BP 141/69; PULSE 97; RESP 20; TEMP 36.4; O2SAT 97
[2020-11-16 04:46] LABS: Add Manual Diff / Slide Review NO; Basophils Absolute Auto 0 /uL (0-100); Basophils Percent Auto 0.4 % (0-2); Eosinophils Absolute Auto 300 /uL (0-450); Eosinophils Percent Auto 3.9 % (2-4); Hemoglobin 12.9 g/dL (12.0-16.0); Lymphocytes Absolute Auto 1800 /uL (1100-4500); Lymphocytes Percent Auto 23.8 % (25-40); Mean Corpuscular HGB Conc 33.2 % (30-36); Mean Corpuscular Hemoglobin 28.3 PG (26-34); Mean Corpuscular Volume 85.3 fL (80-100); Monocytes Absolute Auto 1300 /uL (0-900); Monocytes Percent Auto 16.8 % (3-14); Neutrophils Absolute Auto 4100 /uL (1500-7000); Neutrophils Percent Auto 55.1 % (50-75); Platelet Count 143 X10^3/uL (150-400); Red Blood Cell Count 4.57 X10^6/uL (4.0-5.2); Red Cell Distribution Width 16.5 % (11.6-14.8); White Blood Cell Count 7.5 X10^3/uL (4.5-11.0)
[2020-11-16 04:47] LABS: Alanine Aminotransferase 26 IU/L (<35); Albumin 2.9 g/dL (3.5-5.0); Albumin Globulin Ratio 0.8 (1.0-2.8); Alkaline Phosphatase 121 U/L (38-126); Aspartate Aminotransferase 31 IU/L (14-36); BUN Creatinine Ratio 23.6 (6-22); Bilirubin Total 0.5 mg/dL (0.2-1.3); Blood Urea Nitrogen 17 mg/dL (7-17); Calcium 9.5 mg/dL (8.4-10.2); Carbon Dioxide 30 mmol/L (22-32); Chloride 101 mmol/L (98-107); Estimated Glomerular Filt Rate > 60.0 mL/min (>60); Globulin 3.5 g/dL (1.7-4.1); Glucose 84 mg/dL (80-110); HEMOLYSIS < 15 (0-50); Potassium 3.3 mmol/L (3.4-5.1); Sodium 135 mmol/L (137-145); Total Protein 6.4 g/dL (6.3-8.2)
[2020-11-16 08:00] VITALS: BP 134/63; PULSE 99; RESP 21; TEMP 37.3; O2SAT 97
[2020-11-16] MEDS: ENOXAPARIN 40 MG/0.4 ML SYRINGE SUBCUT (09:07)
[2020-11-16] MEDS: METOPROLOL IR 25 MG TABLET PO ×2 (09:08→12:35)
[2020-11-16] MEDS: FLUCONAZOLE 100 MG TABLET 200 MG PO (09:08)
[2020-11-16] MEDS: SODIUM CHLORIDE 0.9% FLUSH 10 ML IV ×3 (09:08→20:55)
[2020-11-16] MEDS: ACETAMINOPHEN 325 MG TABLET 650 MG PO (09:17)
--- NOTE | 2020-11-16 10:55 | PT.IPTN ---
Current Diagnoses Sepsis, unspecified organism (11/10/20) Physical Therapy Treatment Note M2 PT-IP Current Condition Start: 11/14/20 17:53 Freq: NEEDED Status: Active Protocol: Document 11/14/20 11:36 DLM (Rec: 11/14/20 18:15 DLM [id number]) Physical Therapy Current Condition Current Condition Evaluation Date 11/14/20 Treatment Diagnosis Septic, weakness and impaired mobility/gait Onset Date 11/10/20 Precautions Other Precautions oxygen needs M3 PT-IP Subjective Start: 11/14/20 17:53 Freq: NEEDED Status: Active Protocol: Document 11/16/20 10:55 DLM (Rec: 11/16/20 11:17 DLM [id number]) Subjective Physical Therapy Visit Type Type Treatment Note Visit Start Time 10:15 Visit Stop Time 10:55 Total Visit Minutes 40 Notes co-treated with OT and nursing assist Number of UROLOGY TEACHER Visits 0 Physical Therapy Visit Comments Patient Comments She agreed to try standing today Patient Goals get stronger Therapy Pain Assessment Pain When Pain Assessed During Mobility Pain Present Pain Present Pain Reported M4 PT-IP Mobility and Gait Start: 11/14/20 17:53 Freq: NEEDED Status: Active Protocol: Document 11/16/20 10:55 DLM (Rec: 11/16/20 11:17 DLM [id number]) PT-Bed Mobility Assessment Supine to Sit Supine to Sit Maximum Assistance,2 Person Assistance,Head of Bed Elevated,Bedrails Scooting Scooting to Edge of Bed Dependent Scooting Up and Down in Bed Dependent PT-Transfer Assessment Sit to and From Stand Sit to and from Stand Maximum Assistance,2 Person Assistance,Use of Upper Extremities Equipment Transfer Assistive Device Gait Belt,Front Wheeled Walker Transfers Transfer Destination Chair Transfer Technique Mechanical Lift Transfer Ability Level of Assist Total Assistance,2 Person Assistance Comments Mobility Comments Pt in bed this morning. Used 3 person assist this visit due to pt weakness and safety. Pt sat edge of bed and advanced to sit-stand with FWW at bedside. She was able to achieve a standing position x 2 attempts with flexed posture , 15-20 sec each attempt. She was not able advance to transfers this visit. Pt up to recliner with ceiling lift. Gait Assessment Comments Gait Comments unable PT-Balance Assessment Sitting Balance and Reactions Static Sitting Balance Ability Fair Dynamic Sitting Balance Ability Fair Standing Balance and Reactions Static Standing Balance Ability Poor Dynamic Standing Balance Ability Poor Device Used FWW Comments Other Balance Tests/Deviations/Treatment She needs SBA to mod assist : for sitting edge of bed with posterior lean. During sit- stand used curb step under feet on edge of bed with bed elevated. Due to pt's short height her feet do not touch the floor when sitting edge of bed. M5 PT-IP Objective Assessments Start: 11/14/20 17:53 Freq: NEEDED Status: Active Protocol: Document 11/14/20 11:36 DLM (Rec: 11/14/20 18:15 DLM [id number]) Orientation Orientation/Cognition Level of Alertness Lethargic Orientation Name Safety Awareness Decreased Safety Awareness Comments pt reports she is awake but frequently closes her eyes, she reports she is sleepy, she has weak voice but can make her needs known, difficult to fully assess her cognition due to her sleepy state Gross Range of Motion Upper Extremity ROM Assessment Within Functional Limits Lower Extremity ROM Assessment Left Impaired Impairments difficult to flex left knee to get foot under her for sit- stand Strength Upper Extremity Strength Assessment Bilaterally Impaired Lower Extremity Strength Assessment Bilaterally Impaired Hip needs assist to move LE's Knee needs assist to move even in sitting Comments Strength Comments pt has severe generalized weakness throughout Coordination Assessment Gross Coordination Gross Coordination Impaired Assessment Coordination Comments pt reaching to scratch face but has difficulty connecting her hand with her face Sensation Assessment Comments Sensation Comments difficulty to fully assess, LE edema and wounds present Muscle Tone Muscle Tone WNL Yes M6 PT-IP Treatment Start: 11/14/20 17:53 Freq: NEEDED Status: Active Protocol: Document 11/16/20 10:55 DLM (Rec: 11/16/20 11:17 DLM [id number]) Physical Therapy Treatment Exercises Exercises Ankle Pumps,Seated Knee Flexion/Extension Other Treatments Other Treatment Performed Her Daughter is present during therapy. M7 PT-IP Assessment and Plan Start: 11/14/20 17:53 Freq: NEEDED Status: Active Protocol: Document 11/16/20 10:55 DLM (Rec: 11/16/20 11:17 DLM [id number]) PT Summary Assessment and Plan Summary Impairments Pain,ROM,Strength,Balance, Coordination,Cognition,Bed Mobility,Transfers,Gait, Activity Tolerance Progress Towards Goals Slow Progress due to Activity Tolerance Assessment Summary Luanne is more alert today. She shows good effort with therapy. She continues to suffer from generalized weakness. She was able to progress to sit to stands today with the FWW with assist of three people. She continues to need the mechanical lift for transfers. Goals Bed Mobility Goal Moderate Assistance Transfer Goal Moderate Assistance,Front Wheeled Walker Gait Goal Moderate Assistance,Front Wheel Walker Gait Distance 5 feet Days to Meet Goals 7 Frequency of Treatment Frequency Of Treatment Once a Day Treatment Plan Physical Therapy Treatment Plan Bed Mobility Training,Transfer Training,Gait Training, Therapeutic Exercise,Balance Retraining,Discharge Planning, Neuromuscular Re-ed, Coordination Retraining Recommendations To Nursing Amount of Assist Needed 2 Person Assist,Mechanical Lift Discharge Recommendations PT Discharge Recommendations SNF Rehab Transportation Needs at Discharge Stretcher/Ambulance
--- NOTE | 2020-11-16 11:09 | OT.IP.TRT ---
Current Diagnoses Sepsis, unspecified organism (11/10/20) Occupational Therapy Treatment Note M2 OT-IP Current Condition Start: 11/15/20 15:51 Freq: Status: Active Protocol: Document 11/15/20 14:15 [facility] (Rec: 11/15/20 16:11 [facility] [id number]) Occupational Therapy Current Condition Current Condition Evaluation Date 11/15/20 Treatment Diagnosis Septic, Acute CHF, decreased mobility Diagnosis Onset Date 11/10/20 M3 OT- IP Subjective and Pain Start: 11/15/20 15:51 Freq: Status: Active Protocol: Document 11/16/20 10:52 [facility] (Rec: 11/16/20 11:09 [facility] [id number]) OT- Subjective Occupational Therapy Visit Type Type Treatment Note Visit Start Time 10:15 Visit Stop Time 10:49 Total Visit Minutes 34 Occupational Therapy Visit Comments Patient Comments Pt agreed to try to get up. Patient/Caregiver Goals To go to rehab to get stronger and then go home. OT Pain Assessment Pain When Pain Assessed During Mobility Pain Present Pain Present Pain Reported her medical issues. M7 OT- IP Mobility and Balance Start: 11/15/20 15:51 Freq: Status: Active Protocol: Document 11/16/20 10:52 [facility] (Rec: 11/16/20 11:09 [facility] [id number]) OT- Bed Mobility Assessment Supine to Sit Supine to Sit Assist Maximum Assistance,2 Person Assistance OT-Transfer Assessment Sit to and From Stand Sit to and from Stand Maximum Assistance,2 Person Assistance Comments Mobility Comments Pt needing assist to help move her LLE and pt able to assist to help move her right LE to the edge of the bed. MAX A x3 to help get pt to the edge of the bed and heavy use of green pad. Platform placed under pt's feet with bed raised and bariatric FWW in front of pt. Pt able to come to stand with MAX Ax 2-3 and nursing able to do pericare needs with pt. Pt able to stand 2 times 15-20 seconds at a time. Pt did better to stand when able to rock back and forth to use momentum to help when coming to stand the second time. Mechanical lift to the recliner. OT- Balance Assessment Sitting Balance and Reactions Static Sitting Balance Ability Fair Dynamic Sitting Balance Ability Poor Standing Balance and Reactions Static Standing Balance Ability Poor Comments Other Balance Tests/Deviations/Treatment Pt needing from SBA from [facility] : pending her position on the bed. M8 OT- IP Objective Assessments Start: 11/15/20 15:51 Freq: Status: Active Protocol: Document 11/15/20 14:15 [facility] (Rec: 11/15/20 16:11 [facility] [id number]) OT Gross Range of Motion Upper Extremity Range of Motion Assessment Bilaterally Impaired OT Strength Upper Extremity Strength Assessment Bilaterally Impaired OT Sensation Assessment Edema Edema Present Edema Comments BUE swelling. M9 OT- IP Assessment and Plan Start: 11/15/20 15:51 Freq: Status: Active Protocol: Document 11/16/20 10:52 [facility] (Rec: 11/16/20 11:09 [facility] [id number]) OT Summary Assessment and Plan Potential Rehabilitation Potential Fair Analytic Complexity at Evaluation Moderate Summary OT Impairments Pain,Strength,Balance, Coordination,Functional Cognition,Functional Mobility, Self-Feeding,Grooming,Dressing ,Toileting,Bathing,Toilet Transfers,Shower Transfers, Activity Tolerance Progress Towards Goals Slow Progress due to Pain,Slow Progress due to Medical Issues,Slow Progress due to Activity Tolerance Assessment Summary Pt able motivated and able to tolerate standing x2 to FWW with MAX A 2-3 today. Pt is cooperative, pleasant, and willing to go to skilled rehab when medically stable. Goals Self-Feeding Goal Independent Grooming Goal Independent Dressing Goal Independent Toileting Goal Independent Bathing Goal Independent Toilet Transfer Goal Independent Shower Transfer Goal Independent Days to Meet Goals 29 Frequency of Treatment Frequency Of Treatment Once a Day Treatment Plan OT Treatment Plan ADL Training,Functional Cognition Training,Functional Mobility,Patient/Family Education,Discharge Planning Other Treatment Recommendations and Next Pt to be able to stand for 1 Treatment Focus minute with MAX A X2 with FWW. Discharge Recommendations OT Discharge Recommendations SNF Rehab Transportation Needs at Discharge Wheelchair/Cabulance
[2020-11-16 12:00] VITALS: BP 132/68; PULSE 95; RESP 20; TEMP 36.4; O2SAT 93
[2020-11-16] MEDS: POTASSIUM CHLORIDE 20 MEQ TAB 40 MEQ PO (12:35)
[2020-11-16] MEDS: cefTRIAXone 2,000 MG in SODIUM CHLORIDE 0.9% 100 ML 200 ML IV (12:38)
--- NOTE | 2020-11-16 12:49 | ST.IPDYTX ---
Visit Care Team Role Provider Type Chip Deutsch DO Primary Care Provider Physician Specialty: Family Practice Address: [address] [place] [address], [id number] Email: Pham Jorge MD Emergency Provider Physician Referring Provider Specialty: Emergency Medicine Address: [address] [place] [address], [id number] Email: Stephanie Lainez MD Admit Provider Physician Attending Provider Specialty: Medical Address: [address] [place] [address], [phone] Email: [email or web address] Dysphagia Treatment [employer] Dysphagia Treatment Start: 11/13/20 16:26 Freq: Status: Active Protocol: Document 11/16/20 12:37 MG (Rec: 11/16/20 12:48 MG [id number]) Dysphagia Treatment Session Time Visit Start Time 11:10 Visit Stop Time 11:30 Total Visit Minutes 20 Visit Information Visit Number 3 Setting Assessment Location Acute Care Visit Type Note Type Treatment Note Patient Information Identification Type Name,ID Wristband Subjective Observations Pt was sitting in chair at bedside. ST was asked to re- evaluate swallowing as pt had been making progress with strength and was requesting a diet upgrade. Of note, pt was intermittently coughing upon HORSE IDENTIFIER entry. Nurse agrees that pt coughs frequently due to respiratory failure. Treatment Liquids Trialed Thin Solids Trialed Puree,Dysphagia Mechanical, Dysphagia Advanced,Mechanical Soft,Regular Administration Type Tea Spoon,Cup Single Sip,Straw ,Self-Feeding Oral Strategies Upright at 90 degrees, Controlled Bite/Sip Size, Alternate Liquids/Solids Pharyngeal Strategies Sitting Upright (90 deg) Treatment Activities Pt demonstrated a cough on dysphagia mechanical and dysphagia advanced solids. Pt reported that she has been coughing and the bolus did go where it needed to go. Mild oral residue noted, but cleared with liquid wash. OME and laryngeal palpation resulted in functional motor skills to tolerate regular/ thin diet. Pt reported no problems consuming regular texture solids and thin liquids at this time. No overt s/sx of aspiration noted on regular texture solids or thin liquids. Pt reported that she is following safe swallow strategies. Assessment Patient Response to Treatment Good Rehab Potential Good Assessment of Improvement Pt has made gains in her abilities and requires her diet to be upgraded as long as pt continues to follow safe swallow strategies (i.e., eat/ drink slow, small bites/sips, rest when coughing before eating/drinking again). Pt was in agreement with HORSE IDENTIFIER recommendations and continuing safe swallow strategies. Diet Recommendations Recommendations Upgrade Diet Order Liquids Order Thin Diet Order Regular Medication Recommendations As Tolerated Additional Dietary Needs Single Sips,Encourage to Self- Feed,Reminders to Use Strategies Aspiration Precautions Recommended Precautions Alternate Liquids/Solids, Frequent Rest Periods,Small Bites/Sips Additional Precautions Do not keep eating if you cough; wait 1 minute. Liquid wash as needed. Treatment Plan Placement Recommendation after Discharge Jail Facility Appropriate for Continued Therapy No
--- NOTE | 2020-11-16 12:56 | DIET.PN ---
Dietary Progress Note RD Note: Pt upgraded by ROTARY SHEAR OPERATOR to HH diet from dysphagia puree. Pt to continue bid ONS ivan and ONS Ensure Max to support wound healing and high protein needs.
--- NOTE | 2020-11-16 14:17 | PM.PN.1 ---
Subjective Subjective Date Patient Seen: 11/16/20 Time Patient Seen: 09:17 Interval history: Today she is feeling improved. She still feels weaker than her baseline. She has some lower extremity pain. She thinks her legs are slightly more swollen than her normal. Exam Vital Signs (past 8 hours): - 11/16/20 08:00 11/16/20 12:00 Temperature 99.2 F 97.6 F Pulse Rate 99 H 95 H Respiratory Rate 21 20 Blood Pressure 134/63 132/68 Pulse Oximetry 97 93 Fraction of Inspired Oxygen 35 Oxygen Delivery Method Room Air Oxygen Flow Rate 0 Narrative Exam Narrative: GEN: Morbidly obese female sitting in bed, in no acute distress Lungs: clear bilaterally Cardiac exam: Irregularly irregular, normal S1-S2 with a 2/6 systolic ejection murmur, tachycardic Abdomen: Obese soft and nontender Extremities: Bilateral lymphedema noted, David bandages in place, erythema primarily noted on inner thighs, shallow ulcer on left plantar heel Objective Labs Result Diagrams: 11/16/20 04:20 11/16/20 04:20 Labs: Laboratory Results - last 24 hr 11/16/20 11/16/20 04:20 04:20 WBC 7.5 RBC 4.57 Hgb 12.9 Hct 39.0 MCV 85.3 MCH 28.3 MCHC 33.2 RDW 16.5 H Plt Count 143 L Neut % (Auto) 55.1 Lymph % (Auto) 23.8 L Hill % (Auto) 16.8 H Eos % (Auto) 3.9 Baso % (Auto) 0.4 Neut # (Auto) 4100 Lymph # (Auto) 1800 Hill # (Auto) 1300 H Eos # (Auto) 300 Baso # (Auto) 0 Sodium 135 L Potassium 3.3 L Chloride 101 Carbon Dioxide 30 BUN 17 Creatinine 0.72 Estimated GFR > 60.0 BUN/Creatinine Ratio 23.6 H Glucose 84 Calcium 9.5 Total Bilirubin 0.5 AST 31 ALT 26 Alkaline Phosphatase 121 Total Protein 6.4 Albumin 2.9 L Globulin 3.5 Albumin/Globulin Ratio 0.8 L PFSH Medical History Allergic rhinitis (Unknown) Arthritis (Unknown) Cellulitis of right leg Essential hypertension (09/11/10) GERD (gastroesophageal reflux disease) (Unknown) GERD (gastroesophageal reflux disease) (Unknown) Hyperlipemia (Unknown) Hypertension (Unknown) Lymphedema (Unknown) Mixed hyperlipidemia Morbid obesity due to excess calories Obstructive sleep apnea (Unknown) Obstructive sleep apnea syndrome Staph skin infection Surgical History Hx of total knee replacement (Unknown) Family History Brother Kidney carcinoma Mother Stroke Sister Cancer Father Atrial fibrillation Social History household members: none Smoking Status: Former smoker Tobacco: How many years used: 4 second hand exposure: No alcohol intake: never substance use type: does not use Assessment & Plan Assessment & Plan narrative: 1. Chronic REspiratory Failure- Patient with obesity hypoventilation Patient with known SHERIN, she continues to have CO2 retention despite use of BIPAP at night She is not markedly hypoxic, buy hypercapneic and acidotic sedation has been discontinued patient being assessed for Trilogy wheezing likely reflects some pulmonary edema Patient with continued wheezing despite IV Lasix, urine output marginal 2. Acute Congestive Heart Failure-with preserved EF -Echo in August revealed EF of 55-60%, mild MR, trace TR -IVF discontinued as blood pressure improved -will continue lasix 40 IV twice daily -her proBNP was elevated at 13 90 -respiratory status seems much improved 3. Septic shock -patient admitted to the hospital with cellulitis, strep agalactiae bacteremia, and hypotension -patient required intubation for respiratory failure -she is off levophed ---general surgery consulted, no evidence of necrotizing fasciitis, suggest David wraps for her lower extremities -end-organ failure due to sepsis includes shock, improved -all pressors discontinued -blood cultures positive for Grou[ B strep -will adjust antibiotics, D/C Zosyn, D/C Vancomycin, Start Ceftriaxone 2 grams daily -repeat serial blood culture on 11/16 -IVF stopped -speech eval, diet upgraded 4. Cellulitis, present on admission, source of sepsis -patient with chronic venous insufficiency -chronic edema -erythema and prior surgery -strep agalactiae a growing from the blood, -antibiotic adjusted as above. 5 Atrial fibrillation, with RVR, -patient on diltiazem drip previously, this has been discontinued -resumed metoprolol 25 b.i.d, remained tachy in 100s-110s, so increased to metoprolol 50mg BID -discussed with patient and she wished to start anticoagulation so will start eliquis -continue diuresis to improved pulmonary edema 6 Morbid obesity -morbid obesity likely contributing to her venous insufficiency resulting in recurrent cellulitis and sepsis -this puts her at high risk for complication -dietary consultation 7. Lymphedema, chronic -continue DAVID wraps as tolerated 8. GERD -continue PPI can switch to po 9. Hypertension -ALL ANTIHYPERTENSIVE HELD as the patient is hypotensive -back on metoprolol for heart rate control 10. hypoglycemia earilier- she is not eating currently, diet adjusted 11. thrombocytopenia- will follow platelets closely, had decreased to 90, now improved to 143 Patient will continue on apixaban, surrogate decision maker is her daughter Leigh Ann, patient remains a full code
[2020-11-16 17:00] VITALS: BP 123/70; PULSE 91; RESP 21; TEMP 36.9; O2SAT 95
[2020-11-16 19:44] VITALS: BP 129/73; PULSE 91; RESP 16; TEMP 36.7; O2SAT 93
[2020-11-16] MEDS: APIXABAN 5 MG TABLET PO (20:54)
[2020-11-16] MEDS: METOPROLOL IR 25 MG TABLET 50 MG PO (20:54)
[2020-11-16 23:55] VITALS: BP 142/82; PULSE 98; RESP 15; TEMP 36.6; O2SAT 90
[2020-11-17 04:00] VITALS: BP 128/73; PULSE 114; RESP 18; O2SAT 91
[2020-11-17 05:38] LABS: Add Manual Diff / Slide Review NO; Basophils Absolute Auto 0 /uL (0-100); Basophils Percent Auto 0.5 % (0-2); Eosinophils Absolute Auto 100 /uL (0-450); Eosinophils Percent Auto 1.9 % (2-4); Hematocrit 38.7 % (36-46); Hemoglobin 12.9 g/dL (12.0-16.0); Lymphocytes Absolute Auto 1700 /uL (1100-4500); Lymphocytes Percent Auto 22.6 % (25-40); Mean Corpuscular HGB Conc 33.4 % (30-36); Mean Corpuscular Hemoglobin 28.4 PG (26-34); Mean Corpuscular Volume 85.2 fL (80-100); Monocytes Absolute Auto 1100 /uL (0-900); Monocytes Percent Auto 14.4 % (3-14); Neutrophils Absolute Auto 4500 /uL (1500-7000); Neutrophils Percent Auto 60.6 % (50-75); Platelet Count 171 X10^3/uL (150-400); Red Blood Cell Count 4.54 X10^6/uL (4.0-5.2); Red Cell Distribution Width 16.8 % (11.6-14.8); White Blood Cell Count 7.4 X10^3/uL (4.5-11.0)
[2020-11-17 05:45] LABS: Magnesium 1.7 mg/dL (1.6-2.3)
[2020-11-17 05:46] LABS: Alanine Aminotransferase 30 IU/L (<35); Albumin 2.8 g/dL (3.5-5.0); Albumin Globulin Ratio 0.8 (1.0-2.8); Alkaline Phosphatase 112 U/L (38-126); Aspartate Aminotransferase 35 IU/L (14-36); BUN Creatinine Ratio 27.3 (6-22); Bilirubin Total 0.5 mg/dL (0.2-1.3); Blood Urea Nitrogen 15 mg/dL (7-17); Calcium 9.4 mg/dL (8.4-10.2); Carbon Dioxide 26 mmol/L (22-32); Chloride 103 mmol/L (98-107); Estimated Glomerular Filt Rate > 60.0 mL/min (>60); Globulin 3.6 g/dL (1.7-4.1); Glucose 85 mg/dL (80-110); HEMOLYSIS < 15 (0-50); Potassium 3.5 mmol/L (3.4-5.1); Sodium 134 mmol/L (137-145); Total Protein 6.4 g/dL (6.3-8.2)
[2020-11-17 07:40] VITALS: BP 129/80; PULSE 102; RESP 20; TEMP 36.3; O2SAT 91
[2020-11-17] MEDS: APIXABAN 5 MG TABLET PO ×2 (09:10→20:37)
[2020-11-17] MEDS: SODIUM CHLORIDE 0.9% FLUSH 10 ML IV ×5 (09:10→20:37)
[2020-11-17] MEDS: FLUCONAZOLE 100 MG TABLET 200 MG PO (09:10)
[2020-11-17] MEDS: LOPERAMIDE 2 MG CAPSULE PO ×3 (09:10→19:00)
[2020-11-17] MEDS: METOPROLOL IR 25 MG TABLET 75 MG PO ×2 (09:10→20:37)
[2020-11-17 10:06] LABS: Clostridium Difficile Tox PCR Negative for C. diff (Negative)
[2020-11-17 11:10] VITALS: BP 122/77; PULSE 89; RESP 18; TEMP 36.9; O2SAT 94
[2020-11-17] MEDS: cefTRIAXone 2,000 MG in SODIUM CHLORIDE 0.9% 100 ML 200 ML IV (11:41)
[2020-11-17] MEDS: ZINC OXIDE OINT 60 GM 1 APPLIC TOP (12:58)
[2020-11-17] MEDS: NYSTATIN POWDER 15GM 1 APPLIC TOP (12:58)
--- NOTE | 2020-11-17 14:03 | P.PN_ITS ---
Subjective Subjective Date Patient Seen: 11/17/20 Time Patient Seen: 08:03 Interval history: Today she feels good. She had some difficulty sleeping last night. She was using the Trilogy but despite this her o2 alarm was ringing. However she had no shortness of breath. She denies shortness of breath currently. Exam Vital Signs (past 8 hours): - 11/17/20 07:40 11/17/20 11:10 Temperature 97.4 F L 98.4 F Pulse Rate 102 H 89 Respiratory Rate 20 18 Blood Pressure 129/80 122/77 Pulse Oximetry 91 94 Fraction of Inspired Oxygen 35 Oxygen Delivery Method Room Air Oxygen Flow Rate 0 Narrative Exam Narrative: GEN: Morbidly obese female sitting in bed, in no acute distress Lungs: clear bilaterally Cardiac exam: Irregularly irregular, normal S1-S2 with a 2/6 systolic ejection murmur Abdomen: Obese soft and nontender Extremities: Bilateral lymphedema noted, erythema primarily noted on inner thighs, there is significant brawny chronic appearing skin changes, shallow ulcer on left plantar heel Objective Labs Result Diagrams: 11/17/20 05:12 11/17/20 05:12 Labs: Laboratory Results - last 24 hr 11/17/20 11/17/20 11/17/20 05:12 05:12 05:12 WBC 7.4 RBC 4.54 Hgb 12.9 Hct 38.7 MCV 85.2 MCH 28.4 MCHC 33.4 RDW 16.8 H Plt Count 171 Neut % (Auto) 60.6 Lymph % (Auto) 22.6 L [place] % (Auto) 14.4 H Eos % (Auto) 1.9 L Baso % (Auto) 0.5 Neut # (Auto) 4500 Lymph # (Auto) 1700 [place] # (Auto) 1100 H Eos # (Auto) 100 Baso # (Auto) 0 Sodium 134 L Potassium 3.5 Chloride 103 Carbon Dioxide 26 BUN 15 Creatinine 0.55 Estimated GFR > 60.0 BUN/Creatinine Ratio 27.3 H Glucose 85 Calcium 9.4 Magnesium 1.7 Total Bilirubin 0.5 AST 35 ALT 30 Alkaline Phosphatase 112 Total Protein 6.4 Albumin 2.8 L Globulin 3.6 Albumin/Globulin Ratio 0.8 L C. difficile Tox (PCR) 11/17/20 08:50 WBC RBC Hgb Hct MCV MCH MCHC RDW Plt Count Neut % (Auto) Lymph % (Auto) [place] % (Auto) Eos % (Auto) Baso % (Auto) Neut # (Auto) Lymph # (Auto) [place] # (Auto) Eos # (Auto) Baso # (Auto) Sodium Potassium Chloride Carbon Dioxide BUN Creatinine Estimated GFR BUN/Creatinine Ratio Glucose Calcium Magnesium Total Bilirubin AST ALT Alkaline Phosphatase Total Protein Albumin Globulin Albumin/Globulin Ratio C. difficile Tox (PCR) Negative for c. diff PFSH Medical History Allergic rhinitis (Unknown) Arthritis (Unknown) Cellulitis of right leg Essential hypertension (09/11/10) GERD (gastroesophageal reflux disease) (Unknown) GERD (gastroesophageal reflux disease) (Unknown) Hyperlipemia (Unknown) Hypertension (Unknown) Lymphedema (Unknown) Mixed hyperlipidemia Morbid obesity due to excess calories Obstructive sleep apnea (Unknown) Obstructive sleep apnea syndrome Staph skin infection Surgical History Hx of total knee replacement (Unknown) Family History Brother Kidney carcinoma Mother Stroke Sister Cancer Father Atrial fibrillation Social History household members: none Smoking Status: Former smoker Tobacco: How many years used: 4 second hand exposure: No alcohol intake: never substance use type: does not use Assessment & Plan Assessment & Plan narrative: Ms. Huang is a 70W with PMH of morbid obesity, lymphedema, SHERIN who comes in with septic shock from cellulitis and bacteremia from group B strep also with acute CHF and new afib with RVR 1. Chronic REspiratory Failure Patient with obesity hypoventilation Patient with known SHERIN, she continues to have CO2 retention despite use of BIPAP at night She is not markedly hypoxic, buy hypercapneic and acidotic sedation has been discontinued patient being assessed for Trilogy wheezing likely reflects some pulmonary edema Patient with continued wheezing despite IV Lasix, urine output marginal 2. Acute Congestive Heart Failure-with preserved EF, improved -Echo in August revealed EF of 55-60%, mild MR, trace TR -IVF discontinued as blood pressure improved -will continue lasix 40 IV twice daily -her proBNP was elevated at 13 90 -respiratory status seems much improved 3. Septic shock, resolved -patient admitted to the hospital with cellulitis, strep agalactiae bacteremia, and hypotension -patient required intubation for respiratory failure -she is off levophed ---general surgery consulted, no evidence of necrotizing fasciitis, suggest David wraps for her lower extremities -end-organ failure due to sepsis includes shock, improved -all pressors discontinued -blood cultures positive for Grou[ B strep -will adjust antibiotics, D/C Zosyn, D/C Vancomycin, Start Ceftriaxone 2 grams daily, plan for 14 day course of IV antibiotics -repeat serial blood culture on 11/16, negative to date -IVF stopped -speech eval, diet upgraded 4. Cellulitis, present on admission, source of sepsis, improved -patient with chronic venous insufficiency -chronic edema -erythema and prior surgery -strep agalactiae a growing from the blood, -antibiotic adjusted as above. 5 Atrial fibrillation, with RVR, improved -patient on diltiazem drip previously, this has been discontinued -resumed metoprolol 25 b.i.d, -discussed with patient and she wished to start anticoagulation so will start eliquis -continue diuresis to improved pulmonary edema 6 Morbid obesity -morbid obesity likely contributing to her venous insufficiency resulting in recurrent cellulitis and sepsis -this puts her at high risk for complication -dietary consultation 7. Lymphedema, chronic -continue DAVID wraps as tolerated 8. GERD -continue PPI can switch to po 9. Hypertension -ALL ANTIHYPERTENSIVE HELD as the patient is hypotensive -back on metoprolol for heart rate control 10. hypoglycemia earilier- she is not eating currently, diet adjusted 11. thrombocytopenia- will follow platelets closely, had decreased to 90, now improved to 143 Patient will continue on apixaban, surrogate decision maker is her daughter Leigh Ann, patient remains a full code Patient is medically stable for discharge to SNF. Will need IV antibiotics for a total 14 day course.
--- NOTE | 2020-11-17 14:34 | PT.IPTN ---
Current Diagnoses Sepsis, unspecified organism (11/10/20) Physical Therapy Treatment Note M2 PT-IP Current Condition Start: 11/14/20 17:53 Freq: NEEDED Status: Active Protocol: Document 11/14/20 11:36 DLM (Rec: 11/14/20 18:15 DLM [id number]) Physical Therapy Current Condition Current Condition Evaluation Date 11/14/20 Treatment Diagnosis Septic, weakness and impaired mobility/gait Onset Date 11/10/20 Precautions Other Precautions oxygen needs M3 PT-IP Subjective Start: 11/14/20 17:53 Freq: NEEDED Status: Active Protocol: Document 11/17/20 14:34 DLM (Rec: 11/17/20 15:09 DLM [id number]) Subjective Physical Therapy Visit Type Type Treatment Note Visit Start Time 13:55 Visit Stop Time 14:34 Total Visit Minutes 39 Notes co-treat with OT, also coordinated care with nursing 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 Physical Therapy Visit Comments Patient Comments She agreed to work on standing again today Patient Goals get better Therapy Pain Assessment Pain When Pain Assessed During Mobility Pain Present Pain Present Pain Reported M4 PT-IP Mobility and Gait Start: 11/14/20 17:53 Freq: NEEDED Status: Active Protocol: Document 11/17/20 14:34 DLM (Rec: 11/17/20 15:09 DLM [id number]) PT-Bed Mobility Assessment Rolling Type of Rolling Bilateral Level of Assist Moderate Assistance,Maximal Assistance Sit to Supine Sit to Supine Maximum Assistance,2 Person Assistance,Bedrails Scooting Scooting to Edge of Bed Dependent Scooting Up and Down in Bed Dependent PT-Transfer Assessment Sit to and From Stand Sit to and from Stand Maximum Assistance,2 Person Assistance,Use of Upper Extremities Equipment Transfer Assistive Device Gait Belt,Front Wheeled Walker Transfers Transfer Destination Chair Transfer Technique Mechanical Lift Transfer Ability Level of Assist Total Assistance,2 Person Assistance Comments Mobility Comments Rolling in bed performed with rails and bed tipped. Pt sat edge of bed than advanced to sit to stands with FWW. 3 trials of sit-stand performed with FWW. She was not able advance to transfers this visit. Pt up to recliner with ceiling lift this morning and returned to bed during therapy . Pt used bedside commode with ceiling lift before sitting on edge of bed due to loose stool. Gait Assessment Comments Gait Comments unable PT-Balance Assessment Sitting Balance and Reactions Static Sitting Balance Ability Fair Dynamic Sitting Balance Ability Poor Standing Balance and Reactions Static Standing Balance Ability Poor Dynamic Standing Balance Ability Poor Device Used FWW Comments Other Balance Tests/Deviations/Treatment She needs SBA to mod assist : for sitting edge of bed with posterior lean. During sit- stand used curb step under feet on edge of bed with bed elevated. Due to pt's short height her feet do not touch the floor when sitting edge of bed. M5 PT-IP Objective Assessments Start: 11/14/20 17:53 Freq: NEEDED Status: Active Protocol: Document 11/14/20 11:36 DLM (Rec: 11/14/20 18:15 DLM [id number]) Orientation Orientation/Cognition Level of Alertness Lethargic Orientation Name Safety Awareness Decreased Safety Awareness Comments pt reports she is awake but frequently closes her eyes, she reports she is sleepy, she has weak voice but can make her needs known, difficult to fully assess her cognition due to her sleepy state Gross Range of Motion Upper Extremity ROM Assessment Within Functional Limits Lower Extremity ROM Assessment Left Impaired Impairments difficult to flex left knee to get foot under her for sit- stand Strength Upper Extremity Strength Assessment Bilaterally Impaired Lower Extremity Strength Assessment Bilaterally Impaired Hip needs assist to move LE's Knee needs assist to move even in sitting Comments Strength Comments pt has severe generalized weakness throughout Coordination Assessment Gross Coordination Gross Coordination Impaired Assessment Coordination Comments pt reaching to scratch face but has difficulty connecting her hand with her face Sensation Assessment Comments Sensation Comments difficulty to fully assess, LE edema and wounds present Muscle Tone Muscle Tone WNL Yes M6 PT-IP Treatment Start: 11/14/20 17:53 Freq: NEEDED Status: Active Protocol: Document 11/17/20 14:34 DLM (Rec: 11/17/20 15:09 [facility] [id number]) Physical Therapy Treatment Exercises Exercises Ankle Pumps,Seated Knee Flexion/Extension Other Treatments Other Treatment Performed No family present this visit M7 PT-IP Assessment and Plan Start: 11/14/20 17:53 Freq: NEEDED Status: Active Protocol: Document 11/17/20 14:34 DLM (Rec: 11/17/20 15:09 [facility] [id number]) PT Summary Assessment and Plan Summary Impairments Pain,ROM,Strength,Balance, Coordination,Cognition,Bed Mobility,Transfers,Gait, Activity Tolerance Progress Towards Goals Slow Progress due to Activity Tolerance Assessment Summary Luanne is alert and shows good effort with physical therapy. She has been up earlier today in the recliner with nursing. Treatment focus today on sitting edge of bed and sit- stand with FWW. She is able to achieve standing with max assist of two people but tolerates standing for very short periods of time (max of 10-15 sec). Pt returned to bed to rest at the end of this visit. Her skin is very tender on LE's with left greater than right and her pain has to be managed during mobility. Towel padding on the lift sling helps manage her LE pain /skin tenderness. Continue to recommend SNF rehab at discharge to assist with her recovery. She continues to slowly improve. Goals Bed Mobility Goal Moderate Assistance Transfer Goal Moderate Assistance,Front Wheeled Walker Gait Goal Moderate Assistance,Front Wheel Walker Gait Distance 5 feet Days to Meet Goals 7 Frequency of Treatment Frequency Of Treatment Once a Day Treatment Plan Physical Therapy Treatment Plan Bed Mobility Training,Transfer Training,Gait Training, Therapeutic Exercise,Balance Retraining,Discharge Planning, Neuromuscular Re-ed, Coordination Retraining Recommendations To Nursing Amount of Assist Needed 2 Person Assist,Mechanical Lift Discharge Recommendations PT Discharge Recommendations SNF Rehab Other Discharge Recommendations Pt needs specialized bariatric wheelchair to sit up safely, limited sitting tolerance, skin issues on LE's Transportation Needs at Discharge Stretcher/Ambulance
--- NOTE | 2020-11-17 14:34 | OT.IP.TRT ---
Current Diagnoses Sepsis, unspecified organism (11/10/20) Occupational Therapy Treatment Note M2 OT-IP Current Condition Start: 11/15/20 15:51 Freq: Status: Active Protocol: Document 11/15/20 14:15 CCC (Rec: 11/15/20 16:11 CCC [id number]) Occupational Therapy Current Condition Current Condition Evaluation Date 11/15/20 Treatment Diagnosis Septic, Acute CHF, decreased mobility Diagnosis Onset Date 11/10/20 M3 OT- IP Subjective and Pain Start: 11/15/20 15:51 Freq: Status: Active Protocol: Document 11/17/20 15:57 CGR (Rec: 11/17/20 16:04 CGR [id number]) OT- Subjective Occupational Therapy Visit Type Type Progress Note Visit Start Time 13:41 Visit Stop Time 14:34 Total Visit Minutes 53 Notes Partial co-treat with P.T. OT Pain Assessment Pain When Pain Assessed During Mobility Pain Present Pain Present Pain Reported Location bilateral lower extt Scale Used did not rate Management Techniques Modification of Treatment,Re- positioning M4 OT- IP ADL's Start: 11/15/20 15:51 Freq: Status: Active Protocol: Document 11/17/20 15:57 CGR (Rec: 11/17/20 16:04 CGR [id number]) OT [id number] Comments OT Self-Feeding Comments not meal time OT ADL-Grooming Comments OT Grooming Comments not performed OT ADL-Oral Care Comments Oral Care Comments not performed OT ADL-Dressing General Eval Lower Body Dressing Ability Total Assistance Areas Needing Assistance Socks OT ADL-Toileting General Evaluation Toileting Ability Total Assistance Areas Needing Assistance Empty Catheter or Colostomy, Manage Clothing,Perform Perineal Hygiene Devices Toileting Assistive Devices Commode Comments OT Toileting Comments erickson to BSC, BM seated, total assist for all pericare OT ADL-Bathing Comments OT Bathing Comments not performed M5 OT- IP IADL's Start: 11/15/20 15:51 Freq: Status: Active Protocol: Document 11/15/20 14:15 CCC (Rec: 11/15/20 16:11 CCC [id number]) OT-Instrumental Activities of Daily Living Home Safety Awareness Home Safety Comments Pt aware that she is not physically capable to care for herself at this time due to her medical issues. M6 OT- IP Functional Cognition Start: 11/15/20 15:51 Freq: Status: Active Protocol: Document 11/15/20 14:15 [facility] (Rec: 11/15/20 16:11 [facility] [id number]) Cognitive Factors Limiting Selfcare Function Cognitive Ability Level of Alertness Alert Patient Orientation Name,Place,Situation Attention Span Ability Capable of Focused Attention, Capable of Sustained Attention Ability to Follow Commands Able to Follow One Step Commands Cognitive Comments Cognitive Assessment Comments Pt able to follow commands for self care needs. Pt very tired, however states that she is able to think better now. to do SLUMS tomorrow. OT- Vision and Hearing OT- Hearing Assessment OT- Hearing Assessment WFL OT- Vision Assessment Visual Acuity Glasses All The Time M7 OT- IP Mobility and Balance Start: 11/15/20 15:51 Freq: Status: Active Protocol: Document 11/17/20 15:57 CGR (Rec: 11/17/20 16:04 CGR [id number]) OT- Bed Mobility Assessment Rolling Type of Rolling Roll to Left Level of Assistance Maximum Assistance OT-Transfer Assessment Sit to and From Stand Sit to and from Stand Maximum Assistance,2 Person Assistance Technique Transfer Destination Bed Devices Transfer Assistive Devices Gait Belt,Front Wheeled Walker Comments Mobility Comments Pt stood from EOB 3 times with use of walker and step as pt' s legs are too short to touch the floor from the lowest setting on the bed. Pt needed max x 2. Pt was able to roll to the left with the use of the bed to put cream on her buttox. OT- Gait Assessment Comments Gait Ability Comments Unable to perform OT- Balance Assessment Sitting Balance and Reactions Static Sitting Balance Ability Poor Dynamic Sitting Balance Ability Poor M8 OT- IP Objective Assessments Start: 11/15/20 15:51 Freq: Status: Active Protocol: Document 11/15/20 14:15 [facility] (Rec: 11/15/20 16:11 [facility] [id number]) OT Gross Range of Motion Upper Extremity Range of Motion Assessment Bilaterally Impaired OT Strength Upper Extremity Strength Assessment Bilaterally Impaired OT Sensation Assessment Edema Edema Present Edema Comments BUE swelling. M9 OT- IP Assessment and Plan Start: 11/15/20 15:51 Freq: Status: Active Protocol: Document 11/17/20 15:57 CGR (Rec: 11/17/20 16:04 CGR [id number]) OT Summary Assessment and Plan Potential Rehabilitation Potential Fair Analytic Complexity at Evaluation Moderate Summary OT Impairments Pain,Strength,Balance, Coordination,Functional Cognition,Functional Mobility, Self-Feeding,Grooming,Dressing ,Toileting,Bathing,Toilet Transfers,Shower Transfers, Activity Tolerance Progress Towards Goals Slow Progress due to Pain,Slow Progress due to Medical Issues,Slow Progress due to Activity Tolerance Assessment Summary Pt motivated for todays session although worried about BM during session. Performed erickson to [facility] first where pt had BM then participated in sit to stands. Pt will continue to benefit from therapy services. Goals Self-Feeding Goal Independent Grooming Goal Independent Dressing Goal Independent Toileting Goal Independent Bathing Goal Independent Toilet Transfer Goal Independent Shower Transfer Goal Independent Days to Meet Goals 29 Frequency of Treatment Frequency Of Treatment Once a Day Treatment Plan OT Treatment Plan ADL Training,Functional Cognition Training,Functional Mobility,Patient/Family Education,Discharge Planning Other Treatment Recommendations and Next Pt to be able to stand for 1 Treatment Focus minute with MAX A X2 with FWW. Discharge Recommendations OT Discharge Recommendations SNF Rehab Transportation Needs at Discharge Stretcher/Ambulance
[2020-11-17 15:00] VITALS: BP 111/60; PULSE 91; RESP 24; TEMP 36.5; O2SAT 93
[2020-11-17] MEDS: FUROSEMIDE 40 MG/4 ML VIAL IV (18:23)
[2020-11-17 19:00] VITALS: BP 127/65; PULSE 109; RESP 19; TEMP 37; O2SAT 93
[2020-11-17 23:00] VITALS: BP 121/64; PULSE 96; RESP 14; TEMP 36.9; O2SAT 94
--- NOTE | 2020-11-18 02:10 | PC.NURSE ---
patient is alert and oriented. Breath sounds diminished at bases; using home trilogy with sat of 94%. HR irregular w/telemetry reading of afib CVR. Denies nausea. BT hypoactive but no diarrhea stools since receiving Imodium. Indwelling catheter is patent; urine is pale, yellow. Assisting to reposition q2h. 2+ bilateral LE edema. Generalized weakness. Denies pain. Wearing bilateral calf SCD's. Fall risk score is high and bed alarm is activated. HOB elevated to 30 degrees.
[2020-11-18 03:00] VITALS: BP 124/70; PULSE 100; RESP 18; TEMP 36.6; O2SAT 92
[2020-11-18] MEDS: SODIUM CHLORIDE 0.9% FLUSH 10 ML IV ×4 (05:32→20:15)
[2020-11-18] MEDS: FUROSEMIDE 40 MG/4 ML VIAL IV ×2 (05:33→18:03)
[2020-11-18 06:01] LABS: Add Manual Diff / Slide Review NO; Basophils Absolute Auto 0 /uL (0-100); Basophils Percent Auto 0.4 % (0-2); Eosinophils Absolute Auto 200 /uL (0-450); Hematocrit 38.7 % (36-46); Hemoglobin 12.9 g/dL (12.0-16.0); Lymphocytes Absolute Auto 1800 /uL (1100-4500); Lymphocytes Percent Auto 23.5 % (25-40); Mean Corpuscular HGB Conc 33.3 % (30-36); Mean Corpuscular Hemoglobin 28.3 PG (26-34); Mean Corpuscular Volume 84.9 fL (80-100); Monocytes Absolute Auto 1100 /uL (0-900); Monocytes Percent Auto 14.7 % (3-14); Neutrophils Absolute Auto 4600 /uL (1500-7000); Neutrophils Percent Auto 58.4 % (50-75); Platelet Count 219 X10^3/uL (150-400); Red Blood Cell Count 4.56 X10^6/uL (4.0-5.2); Red Cell Distribution Width 16.5 % (11.6-14.8); White Blood Cell Count 7.8 X10^3/uL (4.5-11.0)
[2020-11-18 06:08] LABS: Alanine Aminotransferase 42 IU/L (<35); Albumin 2.9 g/dL (3.5-5.0); Albumin Globulin Ratio 0.8 (1.0-2.8); Alkaline Phosphatase 114 U/L (38-126); Aspartate Aminotransferase 43 IU/L (14-36); BUN Creatinine Ratio 22.7 (6-22); Bilirubin Total 0.6 mg/dL (0.2-1.3); Blood Urea Nitrogen 15 mg/dL (7-17); Calcium 9.5 mg/dL (8.4-10.2); Carbon Dioxide 30 mmol/L (22-32); Chloride 100 mmol/L (98-107); Estimated Glomerular Filt Rate > 60.0 mL/min (>60); Globulin 3.8 g/dL (1.7-4.1); Glucose 96 mg/dL (80-110); HEMOLYSIS < 15 (0-50); Potassium 3.4 mmol/L (3.4-5.1); Sodium 135 mmol/L (137-145); Total Protein 6.7 g/dL (6.3-8.2)
[2020-11-18 07:20] VITALS: BP 122/72; PULSE 114; RESP 18; TEMP 36.8; O2SAT 91
[2020-11-18] MEDS: APIXABAN 5 MG TABLET PO ×2 (08:26→20:16)
[2020-11-18] MEDS: METOPROLOL IR 25 MG TABLET 75 MG PO ×2 (08:27→20:16)
[2020-11-18] MEDS: FLUCONAZOLE 100 MG TABLET 200 MG PO (08:27)
[2020-11-18] MEDS: LOPERAMIDE 2 MG CAPSULE PO ×2 (09:35→14:17)
[2020-11-18] MEDS: cefTRIAXone 2,000 MG in SODIUM CHLORIDE 0.9% 100 ML 200 ML IV (11:43)
[2020-11-18 11:55] VITALS: BP 109/70; PULSE 109; RESP 12; O2SAT 93
--- NOTE | 2020-11-18 13:43 | PT.IPTN ---
Current Diagnoses Sepsis, unspecified organism (11/10/20) Physical Therapy Treatment Note M2 PT-IP Current Condition Start: 11/14/20 17:53 Freq: NEEDED Status: Active Protocol: Document 11/14/20 11:36 DLM (Rec: 11/14/20 18:15 DLM [id number]) Physical Therapy Current Condition Current Condition Evaluation Date 11/14/20 Treatment Diagnosis Septic, weakness and impaired mobility/gait Onset Date 11/10/20 Precautions Other Precautions oxygen needs M3 PT-IP Subjective Start: 11/14/20 17:53 Freq: NEEDED Status: Active Protocol: Document 11/18/20 12:52 LJ (Rec: 11/18/20 13:43 LJ [id number]) Subjective Physical Therapy Visit Type Type Treatment Note Visit Start Time 12:52 Visit Stop Time 13:17 Total Visit Minutes 25 Notes assist from nursingx1 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 1 Physical Therapy Visit Comments Patient Comments agreed to sit on side of bed Patient Goals get stronger Therapy Pain Assessment Pain When Pain Assessed During Mobility Pain Present Pain Present Pain Reported M4 PT-IP Mobility and Gait Start: 11/14/20 17:53 Freq: NEEDED Status: Active Protocol: Document 11/18/20 12:52 LJ (Rec: 11/18/20 13:43 LJ [id number]) PT-Bed Mobility Assessment Rolling Type of Rolling Roll to Left Level of Assist Moderate Assistance,Maximal Assistance Supine to Sit Supine to Sit Maximum Assistance,2 Person Assistance,Head of Bed Elevated,Bedrails Sit to Supine Sit to Supine Maximum Assistance,2 Person Assistance,Bedrails Scooting Scooting to Edge of Bed Dependent Scooting Up and Down in Bed Dependent PT-Transfer Assessment Comments Mobility Comments Pt unwilling to transfer this session. Agreed instead to sit on the side of the bed to perform exercises. All bed mobility performed with maxA x2 and x3 for scooting up in bed. Pt requiring rest breaks during activity and exercises. Gait Assessment Comments Gait Comments unable M5 PT-IP Objective Assessments Start: 11/14/20 17:53 Freq: NEEDED Status: Active Protocol: Document 11/14/20 11:36 DLM (Rec: 11/14/20 18:15 DLM [id number]) Orientation Orientation/Cognition Level of Alertness Lethargic Orientation Name Safety Awareness Decreased Safety Awareness Comments pt reports she is awake but frequently closes her eyes, she reports she is sleepy, she has weak voice but can make her needs known, difficult to fully assess her cognition due to her sleepy state Gross Range of Motion Upper Extremity ROM Assessment Within Functional Limits Lower Extremity ROM Assessment Left Impaired Impairments difficult to flex left knee to get foot under her for sit- stand Strength Upper Extremity Strength Assessment Bilaterally Impaired Lower Extremity Strength Assessment Bilaterally Impaired Hip needs assist to move LE's Knee needs assist to move even in sitting Comments Strength Comments pt has severe generalized weakness throughout Coordination Assessment Gross Coordination Gross Coordination Impaired Assessment Coordination Comments pt reaching to scratch face but has difficulty connecting her hand with her face Sensation Assessment Comments Sensation Comments difficulty to fully assess, LE edema and wounds present Muscle Tone Muscle Tone WNL Yes M6 PT-IP Treatment Start: 11/14/20 17:53 Freq: NEEDED Status: Active Protocol: Document 11/18/20 12:52 DIPIKA (Rec: 11/18/20 13:43 [id number]) Physical Therapy Treatment Exercises Exercises Ankle Pumps,Gluteal Sets, Seated Knee Flexion/Extension Other Treatments Other Treatment Performed pt performed seated mini- crunches on side of bed x8. Cuing to remind her to breath with exercises. M7 PT-IP Assessment and Plan Start: 11/14/20 17:53 Freq: NEEDED Status: Active Protocol: Document 11/18/20 12:52 DIPIKA (Rec: 11/18/20 13:43 [id number]) PT Summary Assessment and Plan Summary Impairments Pain,ROM,Strength,Balance, Coordination,Cognition,Bed Mobility,Transfers,Gait, Activity Tolerance Progress Towards Goals Slow Progress due to Activity Tolerance Assessment Summary Pt continues to improve stating she felt stronger today but did not want to attempt standing due to tenderness of skin on her legs and LE pain. She puts forth good effort with therapy. Continue to progress to standing and transfers as tolerated. Pt will require SNF rehab at [place]. Goals Bed Mobility Goal Moderate Assistance Transfer Goal Moderate Assistance,Front Wheeled Walker Gait Goal Moderate Assistance,Front Wheel Walker Gait Distance 5 feet Days to Meet Goals 7 Frequency of Treatment Frequency Of Treatment Once a Day Treatment Plan Physical Therapy Treatment Plan Bed Mobility Training,Transfer Training,Gait Training, Therapeutic Exercise,Balance Retraining,Discharge Planning, Neuromuscular Re-ed, Coordination Retraining
--- NOTE | 2020-11-18 14:39 | PC.NURSE ---
1040: Waffle cushion placed under patient by this EDUCATION REPORTER.
[2020-11-18 15:33] VITALS: BP 109/72; PULSE 94; RESP 20; TEMP 36.3; O2SAT 91
--- NOTE | 2020-11-18 18:16 | PM.PN.1 ---
Subjective Subjective Date Patient Seen: 11/18/20 Time Patient Seen: 08:30 Interval history: Today she says she slept better than usual while using the Trilogy. Otherwise she feels much better. She has some fatigue, but her pain is well controlled. No other complaints. Exam Vital Signs (past 8 hours): - 11/18/20 11:55 11/18/20 15:33 Temperature 97.4 F L Pulse Rate 109 H 94 H Respiratory Rate 12 20 Blood Pressure 109/70 109/72 Pulse Oximetry 93 91 Fraction of Inspired Oxygen 35 Oxygen Delivery Method Room Air Oxygen Flow Rate 0 Narrative Exam Narrative: GEN: Morbidly obese female sitting in bed, in no acute distress Lungs: clear bilaterally Cardiac exam: Irregularly irregular, normal S1-S2 with a 2/6 systolic ejection murmur Abdomen: Obese soft and nontender Extremities: Bilateral lymphedema noted, erythema primarily noted on inner thighs, there is significant brawny chronic appearing skin changes, shallow ulcer on left plantar heel Objective Labs Result Diagrams: 11/18/20 05:55 11/18/20 05:55 Labs: Laboratory Results - last 24 hr 11/18/20 11/18/20 05:55 05:55 WBC 7.8 RBC 4.56 Hgb 12.9 Hct 38.7 MCV 84.9 MCH 28.3 MCHC 33.3 RDW 16.5 H Plt Count 219 Neut % (Auto) 58.4 Lymph % (Auto) 23.5 L Evangeline % (Auto) 14.7 H Eos % (Auto) 3.0 Baso % (Auto) 0.4 Neut # (Auto) 4600 Lymph # (Auto) 1800 Evangeline # (Auto) 1100 H Eos # (Auto) 200 Baso # (Auto) 0 Sodium 135 L Potassium 3.4 Chloride 100 Carbon Dioxide 30 BUN 15 Creatinine 0.66 Estimated GFR > 60.0 BUN/Creatinine Ratio 22.7 H Glucose 96 Calcium 9.5 Total Bilirubin 0.6 AST 43 H ALT 42 H Alkaline Phosphatase 114 Total Protein 6.7 Albumin 2.9 L Globulin 3.8 Albumin/Globulin Ratio 0.8 L PFSH Medical History Allergic rhinitis (Unknown) Arthritis (Unknown) Cellulitis of right leg Essential hypertension (09/11/10) GERD (gastroesophageal reflux disease) (Unknown) GERD (gastroesophageal reflux disease) (Unknown) Hyperlipemia (Unknown) Hypertension (Unknown) Lymphedema (Unknown) Mixed hyperlipidemia Morbid obesity due to excess calories Obstructive sleep apnea (Unknown) Obstructive sleep apnea syndrome Staph skin infection Surgical History Hx of total knee replacement (Unknown) Family History Brother Kidney carcinoma Mother Stroke Sister Cancer Father Atrial fibrillation Social History household members: none Smoking Status: Former smoker Tobacco: How many years used: 4 second hand exposure: No alcohol intake: never substance use type: does not use Assessment & Plan Assessment & Plan narrative: Ms. Huang is a 70W with PMH of morbid obesity, lymphedema, SHERIN who comes in with septic shock from cellulitis and bacteremia from group B strep also with acute CHF and new afib with RVR 1. Chronic Respiratory Failure Patient with obesity hypoventilation Patient with known SHERIN She is not markedly hypoxic, buy hypercapneic and acidotic patient being assessed for Trilogy 2. Acute Congestive Heart Failure-with preserved EF, improved -Echo in August revealed EF of 55-60%, mild MR, trace TR -IVF discontinued as blood pressure improved -will continue lasix 40 IV twice daily -her proBNP was elevated at 13 90 -respiratory status seems much improved 3. Septic shock, resolved -patient admitted to the hospital with cellulitis, strep agalactiae bacteremia, and hypotension -patient required intubation for respiratory failure -she is off levophed ---general surgery consulted, no evidence of necrotizing fasciitis, suggest David wraps for her lower extremities -end-organ failure due to sepsis includes shock, improved -all pressors discontinued -blood cultures positive for Group B strep -will adjust antibiotics, D/C Zosyn, D/C Vancomycin, Start Ceftriaxone 2 grams daily, plan for 14 day course of IV antibiotics, through 11/24 -repeat serial blood culture on 11/16, negative to date -IVF stopped -speech eval, diet upgraded 4. Cellulitis, present on admission, source of sepsis, improved -patient with chronic venous insufficiency -chronic edema -erythema and prior surgery -strep agalactiae a growing from the blood, -antibiotic adjusted as above. 5 Atrial fibrillation, with RVR, improved -patient on diltiazem drip previously, this has been discontinued -resumed metoprolol 25 b.i.d, then increased to 75mg BID for continued tachycardia -discussed with patient and she wished to start anticoagulation so will start eliquis -continue diuresis to improved pulmonary edema 6 Morbid obesity -morbid obesity likely contributing to her venous insufficiency resulting in recurrent cellulitis and sepsis -this puts her at high risk for complication -dietary consultation 7. Lymphedema, chronic -continue DAVID wraps as tolerated 8. GERD -continue PPI can switch to po 9. Hypertension -ALL ANTIHYPERTENSIVE HELD as the patient was hypotensive -back on metoprolol for heart rate control 10. hypoglycemia, resolved- diet adjusted 11. thrombocytopenia, resolved- will follow platelets closely, had decreased to 90, now improved to 143 Patient will continue on apixaban, surrogate decision maker is her daughter Leigh Ann, patient remains a full code Patient is medically stable for discharge to SNF. Will need IV antibiotics for a total 14 day course through 11/24
[2020-11-18 19:11] VITALS: BP 110/77; PULSE 112; RESP 20; TEMP 36.2; O2SAT 93
[2020-11-19] VITALS (8 sets, daily range): BP systolic 105–112; BP diastolic 55–73; PULSE 96–108; RESP 16–24; TEMP 36–37.1; O2SAT 90–98
[2020-11-19 06:29] LABS: BUN Creatinine Ratio 24.3 (6-22); Blood Urea Nitrogen 17 mg/dL (7-17); Calcium 9.8 mg/dL (8.4-10.2); Carbon Dioxide 33 mmol/L (22-32); Chloride 95 mmol/L (98-107); Estimated Glomerular Filt Rate > 60.0 mL/min (>60); Glucose 101 mg/dL (80-110); HEMOLYSIS < 15 (0-50); Magnesium 1.5 mg/dL (1.6-2.3); Potassium 3.3 mmol/L (3.4-5.1); Sodium 133 mmol/L (137-145)
[2020-11-19] MEDS: APIXABAN 5 MG TABLET PO ×2 (08:22→20:29)
[2020-11-19] MEDS: METOPROLOL IR 25 MG TABLET 75 MG PO ×2 (08:22→20:29)
[2020-11-19] MEDS: POTASSIUM CHLORIDE 20 MEQ TAB 40 MEQ PO (08:22)
[2020-11-19] MEDS: MAGNESIUM SULFATE 2 GM/50 ML PIGGYBACK IV (08:24)
--- NOTE | 2020-11-19 10:44 | CM.DPC ---
Addendum entered by Madeleine Nielsen R.N. 11/19/20 11:59: Nini at [facility] called back and indicated that they can't accept patient due to not being able to handle bariatric lift and one to one feeders secondary to staffing issues. Addendum entered by Madeleine Nielsen R.N. 11/19/20 11:53: Started calling some of the [place] facilities. It is noted, that Jossy, manager medicare, had faxed several facilities in [place]. Left a message with Eunice, to follow up and see if referral was received, and if they may accept. Called [facility], spoke to Antoinette in admissions who has not yet reviewed. Gave her this foster care case manager's phone number to call back. Called Kimmy, who is in admissions at [facility] as well as [facility], for they are sister facilities. Kimmy indicated that [facility] is full, but [facility] does have some beds. Gave her some information on patient. Let her know that she is Medicare, and that this foster care case manager has had conversations with patient's daughter regarding detention planning. Kimmy stated that they do have some beds, and do take patients with trilogy. Let her know that there is a contact rep. named Verito, who is trilogy liason. Faxed Kimmy over the referral at: [phone]. Included face sheet, H&P, recent progress notes and P.T. notes. Original Note: DCP Cont: Received a message from Verito who works with trilogy. Stated that when patients go to facilities, they do offer / cotton inspector personal with any questions. Called Elvi in admissions at [facility] to verify that they can't take patient with trilogy, for many patients get discharged on BIPAP. Elvi indicated that she did confirm with her DNS, that the staff do not have the training for this, so can't accept her. Did speak to Verito at [facility] services, who mentioned that she will also consult with their DNS, for they have had patients to to skilled facilities with trilogy machines. Have left a message with Claudia at [place]. Have not yet heard back from her. Referral has been faxed. Will attempt to reach out again to her later today. Madeleine Nielsen RN/Production Leader
--- NOTE | 2020-11-19 11:35 | OT.IP.TRT ---
Current Diagnoses Sepsis, unspecified organism (11/10/20) Occupational Therapy Treatment Note M2 OT-IP Current Condition Start: 11/15/20 15:51 Freq: Status: Active Protocol: Document 11/15/20 14:15 [facility] (Rec: 11/15/20 16:11 [facility] [id number]) Occupational Therapy Current Condition Current Condition Evaluation Date 11/15/20 Treatment Diagnosis Septic, Acute CHF, decreased mobility Diagnosis Onset Date 11/10/20 M3 OT- IP Subjective and Pain Start: 11/15/20 15:51 Freq: Status: Active Protocol: Document 11/19/20 12:36 [facility] (Rec: 11/19/20 12:46 [facility] [id number]) OT- Subjective Occupational Therapy Visit Type Type Treatment Note Visit Start Time 10:35 Visit Stop Time 11:35 Total Visit Minutes 60 Occupational Therapy Visit Comments Patient Comments Pt agreed to get up. Patient/Caregiver Goals To go to rehab to get stronger and then go home. OT Pain Assessment Pain When Pain Assessed During Mobility Pain Present Pain Present Pain Reported M4 OT- IP ADL's Start: 11/15/20 15:51 Freq: Status: Active Protocol: Document 11/19/20 12:36 [facility] (Rec: 11/19/20 12:46 [facility] [id number]) OT [id number] Comments OT Self-Feeding Comments not meal time OT ADL-Grooming Comments OT Grooming Comments not performed OT ADL-Oral Care Comments Oral Care Comments not performed OT ADL-Dressing General Eval Lower Body Dressing Ability Total Assistance Areas Needing Assistance Socks OT ADL-Toileting General Evaluation Toileting Ability Total Assistance Areas Needing Assistance Empty Catheter or Colostomy, Manage Clothing,Perform Perineal Hygiene OT ADL-Bathing Bathing Type Bathing Type Sponge Bath General Evaluation Bathing Ability Maximal Assistance M5 OT- IP IADL's Start: 11/15/20 15:51 Freq: Status: Active Protocol: Document 11/15/20 14:15 [facility] (Rec: 11/15/20 16:11 [facility] [id number]) OT-Instrumental Activities of Daily Living Home Safety Awareness Home Safety Comments Pt aware that she is not physically capable to care for herself at this time due to her medical issues. M6 OT- IP Functional Cognition Start: 11/15/20 15:51 Freq: Status: Active Protocol: Document 11/19/20 12:36 [facility] (Rec: 11/19/20 12:46 [facility] [id number]) Cognitive Factors Limiting Selfcare Function Cognitive Comments Cognitive Assessment Comments Pt appears to be close to baseline, to do formal SLUMS soon. M7 OT- IP Mobility and Balance Start: 11/15/20 15:51 Freq: Status: Active Protocol: Document 11/19/20 12:36 [facility] (Rec: 11/19/20 12:46 [facility] [id number]) OT- Bed Mobility Assessment Rolling Type of Rolling Roll to Right Level of Assistance Moderate Assistance Supine to Sit Supine to Sit Assist Maximum Assistance,2 Person Assistance OT-Transfer Assessment Sit to and From Stand Sit to and from Stand Maximum Assistance,2 Person Assistance Technique Transfer Destination Bed Devices Transfer Assistive Devices Gait Belt,Front Wheeled Walker Comments Mobility Comments Pt able to stand with platform underneath her feet and bariatric FWW in front and use of momentum on the count of 3 to stand from 12 seconds and then 30 seconds with MAX A X2. Pt's O2 dropped to 90% and needing cues for deep breathing and able to increase to 93%. Pt needing lots of rest breaks. Pt able to assist more to help scoot her hips forwards even though therapist still having to use green pad to assist. OT- Balance Assessment Sitting Balance and Reactions Static Sitting Balance Ability Fair Dynamic Sitting Balance Ability Poor Standing Balance and Reactions Static Standing Balance Ability Poor Comments Other Balance Tests/Deviations/Treatment Pt mostly SBA to sit after set : -up and assist to scoot to the edge of the bed. M8 OT- IP Objective Assessments Start: 11/15/20 15:51 Freq: Status: Active Protocol: Document 11/15/20 14:15 [facility] (Rec: 11/15/20 16:11 [facility] [id number]) OT Gross Range of Motion Upper Extremity Range of Motion Assessment Bilaterally Impaired OT Strength Upper Extremity Strength Assessment Bilaterally Impaired OT Sensation Assessment Edema Edema Present Edema Comments BUE swelling. M9 OT- IP Assessment and Plan Start: 11/15/20 15:51 Freq: Status: Active Protocol: Document 11/19/20 12:36 [facility] (Rec: 11/19/20 12:46 [facility] [id number]) OT Summary Assessment and Plan Potential Rehabilitation Potential Fair Analytic Complexity at Evaluation Moderate Summary OT Impairments Pain,Strength,Balance, Coordination,Functional Cognition,Functional Mobility, Self-Feeding,Grooming,Dressing ,Toileting,Bathing,Toilet Transfers,Shower Transfers, Activity Tolerance Progress Towards Goals Slow Progress due to Pain,Slow Progress due to Medical Issues,Slow Progress due to Activity Tolerance Assessment Summary Pt improving with mobility needs and now able to stand for 30seconds with FWW with MAX A X 2. Hopefully pt will be able to progress to be able to stand for 2 minutes so able to switch out from the bed to BSC. Goals Self-Feeding Goal Independent Grooming Goal Independent Dressing Goal Independent Toileting Goal Independent Bathing Goal Independent Toilet Transfer Goal Independent Shower Transfer Goal Independent Days to Meet Goals 40 Frequency of Treatment Frequency Of Treatment Once a Day Treatment Plan OT Treatment Plan ADL Training,Functional Cognition Training,Functional Mobility,Patient/Family Education,Discharge Planning Other Treatment Recommendations and Next Pt to be able to stand for 1 Treatment Focus minute with MAX A X2 with FWW. Discharge Recommendations OT Discharge Recommendations SNF Rehab Transportation Needs at Discharge Wheelchair/Cabulance,Stretcher /Ambulance
--- NOTE | 2020-11-19 12:30 | PT.IPTN ---
Current Diagnoses Sepsis, unspecified organism (11/10/20) Physical Therapy Treatment Note M2 PT-IP Current Condition Start: 11/14/20 17:53 Freq: NEEDED Status: Active Protocol: Document 11/14/20 11:36 [facility] (Rec: 11/14/20 18:15 [facility] [id number]) Physical Therapy Current Condition Current Condition Evaluation Date 11/14/20 Treatment Diagnosis Septic, weakness and impaired mobility/gait Onset Date 11/10/20 Precautions Other Precautions oxygen needs M3 PT-IP Subjective Start: 11/14/20 17:53 Freq: NEEDED Status: Active Protocol: Document 11/19/20 12:13 LJ (Rec: 11/19/20 12:30 LJ [id number]) Subjective Physical Therapy Visit Type Type Treatment Note Visit Start Time 10:47 Visit Stop Time 11:29 Total Visit Minutes 42 Notes co-tx with OT Number of CODE CLERK Visits 2 Physical Therapy Visit Comments Patient Comments agreed to attempt standing Patient Goals get stronger Therapy Pain Assessment Pain When Pain Assessed During Mobility Pain Present Pain Present Pain Reported M4 PT-IP Mobility and Gait Start: 11/14/20 17:53 Freq: NEEDED Status: Active Protocol: Document 11/19/20 12:13 LJ (Rec: 11/19/20 12:30 LJ [id number]) PT-Bed Mobility Assessment Rolling Type of Rolling Roll to Right Level of Assist Moderate Assistance,1 Person Assistance Supine to Sit Supine to Sit Maximum Assistance,2 Person Assistance,Head of Bed Elevated,Bedrails Sit to Supine Sit to Supine Maximum Assistance,2 Person Assistance,Bedrails Scooting Scooting to Edge of Bed Maximum Assistance PT-Transfer Assessment Sit to and From Stand Sit to and from Stand Maximum Assistance,2 Person Assistance,Use of Upper Extremities Equipment Transfer Assistive Device Gait Belt,Front Wheeled Walker Transfers Transfer Destination Chair Transfer Technique Mechanical Lift Transfer Ability Level of Assist Total Assistance,2 Person Assistance Comments Mobility Comments Pt BP 127, O2 between 90% and 94% with rest and mobility. Pt sat EOB with bed tilted and platform under her feet. Attempted 2 trials with rocking MaxA x2. First trial pt stood for 12 seconds. Second attempt pt cued to correct posture in standing and she was able to stand for 30 seconds. Pt then lifted with mechanical lift to the chair. Left in semi-reclined position with LEs in flexed position resting on a cushion on the floor. Ot remained in room. Gait Assessment Comments Gait Comments unable M5 PT-IP Objective Assessments Start: 11/14/20 17:53 Freq: NEEDED Status: Active Protocol: Document 11/14/20 11:36 DLM (Rec: 11/14/20 18:15 DLM [id number]) Orientation Orientation/Cognition Level of Alertness Lethargic Orientation Name Safety Awareness Decreased Safety Awareness Comments pt reports she is awake but frequently closes her eyes, she reports she is sleepy, she has weak voice but can make her needs known, difficult to fully assess her cognition due to her sleepy state Gross Range of Motion Upper Extremity ROM Assessment Within Functional Limits Lower Extremity ROM Assessment Left Impaired Impairments difficult to flex left knee to get foot under her for sit- stand Strength Upper Extremity Strength Assessment Bilaterally Impaired Lower Extremity Strength Assessment Bilaterally Impaired Hip needs assist to move LE's Knee needs assist to move even in sitting Comments Strength Comments pt has severe generalized weakness throughout Coordination Assessment Gross Coordination Gross Coordination Impaired Assessment Coordination Comments pt reaching to scratch face but has difficulty connecting her hand with her face Sensation Assessment Comments Sensation Comments difficulty to fully assess, LE edema and wounds present Muscle Tone Muscle Tone WNL Yes M6 PT-IP Treatment Start: 11/14/20 17:53 Freq: NEEDED Status: Active Protocol: Document 11/19/20 12:13 LJ (Rec: 11/19/20 12:30 LJ [id number]) Physical Therapy Treatment Exercises Exercises Ankle Pumps,Seated Knee Flexion/Extension M7 PT-IP Assessment and Plan Start: 11/14/20 17:53 Freq: NEEDED Status: Active Protocol: Document 11/19/20 12:13 DIPIKA (Rec: 11/19/20 12:30 LJ [id number]) PT Summary Assessment and Plan Summary Impairments Pain,ROM,Strength,Balance, Coordination,Bed Mobility, Transfers,Gait,Activity Tolerance Progress Towards Goals Slow Progress due to Activity Tolerance Assessment Summary Pt improved mobility and standing tolerance this session. O2 remained in low 90s with rest breaks and PLB. Her effort is very good and she is working hard to improve . Recommend SNF for DC Goals Bed Mobility Goal Moderate Assistance Transfer Goal Moderate Assistance,Front Wheeled Walker Gait Goal Moderate Assistance,Front Wheel Walker Gait Distance 5 feet Days to Meet Goals 7 Frequency of Treatment Frequency Of Treatment Once a Day Treatment Plan Physical Therapy Treatment Plan Bed Mobility Training,Transfer Training,Gait Training, Therapeutic Exercise,Balance Retraining,Discharge Planning, Neuromuscular Re-ed, Coordination Retraining Recommendations To Nursing Amount of Assist Needed 2 Person Assist,Mechanical Lift Discharge Recommendations PT Discharge Recommendations SNF Rehab Other Discharge Recommendations Pt needs specialized bariatric wheelchair to sit up safely, limited sitting tolerance, skin issues on LE's Transportation Needs at Discharge Stretcher/Ambulance
[2020-11-19] MEDS: cefTRIAXone 2,000 MG in SODIUM CHLORIDE 0.9% 100 ML 200 ML IV (14:00)
[2020-11-19] MEDS: ACETAMINOPHEN 325 MG TABLET 650 MG PO (14:00)
[2020-11-19] MEDS: SODIUM CHLORIDE 0.9% FLUSH 10 ML IV ×3 (14:00→20:30)
--- NOTE | 2020-11-19 15:22 | CM.DPC ---
DCP/continued: FIELD RECRUITER asked by RN CM/Alejandra to assist with d/c planning and placement. FIELD RECRUITER placed calls to the following facilities re: availability: [facility], [facility] (swing bed), [facility] and [facility]. Voicemail message left at all facilities. Awaiting return phone calls. Patient currently medically stable for discharge. Needs placement. P: Pending. JERMAN Archer
--- NOTE | 2020-11-19 16:27 | PM.PN.1 ---
Subjective Subjective Date Patient Seen: 11/19/20 Time Patient Seen: 15:00 Interval history: Today she says she slept better than usual while using the Trilogy. Otherwise she feels much better. She has some fatigue, but her pain is well controlled. No other complaints. Exam Vital Signs (past 8 hours): - 11/19/20 09:41 11/19/20 13:25 Temperature 98.8 F 98.7 F Pulse Rate 96 H 99 H Respiratory Rate 16 18 Blood Pressure 110/69 106/72 Pulse Oximetry 92 93 Fraction of Inspired Oxygen 35 Oxygen Delivery Method Room Air Oxygen Flow Rate 0 Narrative Exam Narrative: GEN: Morbidly obese female sitting in bed, in no acute distress Lungs: clear bilaterally Cardiac exam: Irregularly irregular, normal S1-S2 with a 2/6 systolic ejection murmur Abdomen: Obese soft and nontender Extremities: Bilateral lymphedema noted, erythema primarily noted on inner thighs, there is significant brawny chronic appearing skin changes, shallow ulcer on left plantar heel Objective Labs Result Diagrams: 11/18/20 05:55 11/19/20 05:42 Labs: Laboratory Results - last 24 hr 11/19/20 05:42 Sodium 133 L Potassium 3.3 L Chloride 95 L Carbon Dioxide 33 H BUN 17 Creatinine 0.70 Estimated GFR > 60.0 BUN/Creatinine Ratio 24.3 H Glucose 101 Calcium 9.8 Magnesium 1.5 L PFSH Medical History Allergic rhinitis (Unknown) Arthritis (Unknown) Cellulitis of right leg Essential hypertension (09/11/10) GERD (gastroesophageal reflux disease) (Unknown) GERD (gastroesophageal reflux disease) (Unknown) Hyperlipemia (Unknown) Hypertension (Unknown) Lymphedema (Unknown) Mixed hyperlipidemia Morbid obesity due to excess calories Obstructive sleep apnea (Unknown) Obstructive sleep apnea syndrome Staph skin infection Surgical History Hx of total knee replacement (Unknown) Family History Brother Kidney carcinoma Mother Stroke Sister Cancer Father Atrial fibrillation Social History household members: none Smoking Status: Former smoker Tobacco: How many years used: 4 second hand exposure: No alcohol intake: never substance use type: does not use Assessment & Plan Assessment & Plan narrative: Ms. Huang is a 70W with PMH of morbid obesity, lymphedema, SHERIN who comes in with septic shock from cellulitis and bacteremia from group B strep also with acute CHF and new afib with RVR 1. Chronic Respiratory Failure with hypercapnea. Patient with obesity hypoventilation Patient with known SHERIN She is not markedly hypoxic, but hypercapneic and acidotic previously doing well with trilogy, pending SNF currently. 2. Acute Congestive Heart Failure-with preserved EF, improved -Echo in August revealed EF of 55-60%, mild MR, trace TR -IVF discontinued as blood pressure improved -continued lasix 40 IV twice daily, today appears euvolemic and Bicarb is up. Decrease to 20 mg PO lasix BID. Continue to monitor. -her proBNP was elevated at 13 90 -respiratory status seems much improved 3. Septic shock, resolved -patient admitted to the hospital with cellulitis, strep agalactiae bacteremia, and hypotension -patient required intubation for respiratory failure -she is off levophed ---general surgery consulted, no evidence of necrotizing fasciitis, suggest David wraps for her lower extremities -end-organ failure due to sepsis includes shock, improved -all pressors discontinued -blood cultures positive for Group B strep -antibiotics, D/C Zosyn, D/C Vancomycin, Started Ceftriaxone 2 grams daily, plan for 14 day course of IV antibiotics, through 11/24 -repeat serial blood culture on 11/16, negative to date -IVF stopped -speech eval performed, diet upgraded 4. Cellulitis, present on admission, source of sepsis, improved -patient with chronic venous insufficiency -chronic edema -erythema and prior surgery -strep agalactiae a growing from the blood, -antibiotic adjusted as above. 5 Atrial fibrillation, with RVR, improved -patient on diltiazem drip previously, this has been discontinued -resumed metoprolol 25 b.i.d, then increased to 75mg BID for continued tachycardia -discussed with patient and she wished to start anticoagulation so will start eliquis -continue diuresis to improved pulmonary edema 6 Morbid obesity -morbid obesity likely contributing to her venous insufficiency resulting in recurrent cellulitis and sepsis -this puts her at high risk for complication -dietary consultation 7. Lymphedema, chronic -continue DAVID wraps as tolerated 8. GERD -continue PPI can switch to po 9. Hypertension -ALL ANTIHYPERTENSIVE HELD as the patient was hypotensive -back on metoprolol for heart rate control 10. hypoglycemia, resolved- diet adjusted 11. thrombocytopenia, resolved- will follow platelets closely, had decreased to 90, now improved to 143 Patient will continue on apixaban, surrogate decision maker is her daughter Leigh Ann, patient remains a full code Patient is medically stable for discharge to SNF. Will need IV antibiotics for a total 14 day course through 11/24
[2020-11-19] MEDS: FUROSEMIDE 20 MG TABLET PO (17:36)
[2020-11-19] MEDS: LOPERAMIDE 2 MG CAPSULE PO (20:29)
[2020-11-20] VITALS (8 sets, daily range): BP systolic 104–133; BP diastolic 64–84; PULSE 88–95; RESP 16–20; TEMP 36–37.6; O2SAT 92–98
[2020-11-20] MEDS: ACETAMINOPHEN 325 MG TABLET 650 MG PO ×2 (00:06→15:32)
[2020-11-20] MEDS: FUROSEMIDE 20 MG TABLET PO ×2 (08:12→16:43)
[2020-11-20] MEDS: APIXABAN 5 MG TABLET PO ×2 (08:12→20:44)
[2020-11-20] MEDS: METOPROLOL IR 25 MG TABLET 75 MG PO ×2 (08:12→20:44)
[2020-11-20] MEDS: SODIUM CHLORIDE 0.9% FLUSH 10 ML IV ×4 (08:13→20:44)
--- NOTE | 2020-11-20 08:45 | CM.DPNOTE ---
Addendum entered by Jossy Reis 11/22/20 10:08: Received call back from Rocky at [facility] and they have no female beds at this time. He asked to try over the weekend because they may have one, but he is not sure at this time. YENY Cazarest. Addendum entered by Jossy Reis 11/22/20 08:33: Called and left vm with Chilango at [facility], . YENY Cazarest. Addendum entered by Jossy Reis 11/22/20 08:17: [facility] called and said they are full until end of next week. YENY Cazares. Addendum entered by Jossy Reis 11/20/20 14:16: Faxed referral packet to [facility]; Adelina on [facility]. Fax confirmations received. Called Jesse with a FU phone call and left a message with Gregoria in Admissions. YENY Cazarest. Addendum entered by Jossy Reis 11/20/20 11:23: Followed up with phone calls to [facility] , left ; Lianne Barros (faxed to Stan [phone]); [facility] Care [facility] fax [phone]; Emilie Dawson said they do not take Trilogy, but referred us to [facility]. [facility]; [facility], left vm with Kimmy; [facility], left ; [facility], no answer, and no avail. to leave a vm; Nor. Bettina Bubba' said to contact Ruthann at [phone] and Ruthann asked to refax the referral which I did. YENY Cazares. Addendum entered by Jossy Reis 11/20/20 08:58: Received a call from Shana Taylor, who received the below fax. She will call Jessica in a couple of hrs. after her Administrative staff reviews the information. I gave her the wt. and ht of pt. Jossy Reis CM Asst. Original Note: Faxed last 2 PN at Jessica's request to Shana, fax confirmation received. Jossy Reis CM Asst.
--- NOTE | 2020-11-20 11:36 | CM.DPC ---
DCP Cont: Called patient's daughter, Leigh Ann, to discuss update on status of facilities. As reflected in notes, several facilities have been contacted, [facility] is reviewing. Kimmy at [facility] was left a message this morning, for she is also reviewing, and accepts trilogy. [facility] can't accept, but [facility] in [place] has been given referral and Crystal in admissions, is reviewing. Asked daughter about oil heaterman planning, as last conversation that this case checker had with her was that she was going to look into facilities with family. Also asked if she would be interested in a Medicaid application. Daughter indicated, she does not think that her mother will qualify, but as she has a savings plan, as well as ith her social security. Let her know that this case checker can leave application in her room. Leigh Ann is also asking about brochure that she can complete POA, and have notarized. Let her know that this case checker can also leave this in her room. As far as care home planning goes, daughter and siblings have set up, with patient agreement, for her to go to [facility] for 30 day respite. After that, she may reside there for a year. Daughter is working on renting out her home to help with the rent of the facility. She is aware that she can't go back home. Just received a call from Jessica, the city administrator at [facility]. She stated that she had spoken to Marce over the week-end about this patient. She stated that they had not yet received referral, but is aware that patient services assistant, Jossy, is sending. She also indicated that they are only taking one patient a day, and is not sure that they can meet this patient's needs for her acuity, but will review. P: DCP to continue to work on placement for patient. Madeleine Nielsen, RN/Print Designer
--- NOTE | 2020-11-20 11:58 | OT.IP.TRT ---
Current Diagnoses Sepsis, unspecified organism (11/10/20) Occupational Therapy Treatment Note M2 OT-IP Current Condition Start: 11/15/20 15:51 Freq: Status: Active Protocol: Document 11/15/20 14:15 [facility] (Rec: 11/15/20 16:11 [facility] [id number]) Occupational Therapy Current Condition Current Condition Evaluation Date 11/15/20 Treatment Diagnosis Septic, Acute CHF, decreased mobility Diagnosis Onset Date 11/10/20 M3 OT- IP Subjective and Pain Start: 11/15/20 15:51 Freq: Status: Active Protocol: Document 11/20/20 12:04 [facility] (Rec: 11/20/20 12:16 [facility] [id number]) OT- Subjective Occupational Therapy Visit Type Type Treatment Note Visit Start Time 11:20 Visit Stop Time 11:58 Total Visit Minutes 38 Occupational Therapy Visit Comments Patient Comments Pt agreed to work with PT/OT for standing today. Patient/Caregiver Goals To go to rehab to get stronger and then go home. OT Pain Assessment Pain When Pain Assessed During Mobility Pain Present Pain Present Pain Reported M4 OT- IP ADL's Start: 11/15/20 15:51 Freq: Status: Active Protocol: Document 11/19/20 12:36 [facility] (Rec: 11/19/20 12:46 [facility] [id number]) OT [id number] Comments OT Self-Feeding Comments not meal time OT ADL-Grooming Comments OT Grooming Comments not performed OT ADL-Oral Care Comments Oral Care Comments not performed OT ADL-Dressing General Eval Lower Body Dressing Ability Total Assistance Areas Needing Assistance Socks OT ADL-Toileting General Evaluation Toileting Ability Total Assistance Areas Needing Assistance Empty Catheter or Colostomy, Manage Clothing,Perform Perineal Hygiene OT ADL-Bathing Bathing Type Bathing Type Sponge Bath General Evaluation Bathing Ability Maximal Assistance M5 OT- IP IADL's Start: 11/15/20 15:51 Freq: Status: Active Protocol: Document 11/15/20 14:15 [facility] (Rec: 11/15/20 16:11 [facility] [id number]) OT-Instrumental Activities of Daily Living Home Safety Awareness Home Safety Comments Pt aware that she is not physically capable to care for herself at this time due to her medical issues. M6 OT- IP Functional Cognition Start: 11/15/20 15:51 Freq: Status: Active Protocol: Document 11/19/20 12:36 [facility] (Rec: 11/19/20 12:46 [facility] [id number]) Cognitive Factors Limiting Selfcare Function Cognitive Comments Cognitive Assessment Comments Pt appears to be close to baseline, to do formal SLUMS soon. M7 OT- IP Mobility and Balance Start: 11/15/20 15:51 Freq: Status: Active Protocol: Document 11/20/20 12:04 [facility] (Rec: 11/20/20 12:16 [facility] [id number]) OT- Bed Mobility Assessment Supine to Sit Supine to Sit Assist Maximum Assistance,2 Person Assistance OT-Transfer Assessment Sit to and From Stand Sit to and from Stand Moderate Assistance,2 Person Assistance Technique Transfer Destination Bed Devices Transfer Assistive Devices Mechanical Lift Comments Mobility Comments Today pt able to actively move both her right leg to the edge of the bed and left leg over with heavy use of arms on the bed rail. Then pt needing MAX A X 2 to get her legs off the edge and trunk upright and then also to scoot forwards. Pt able to stand with bariatric FWW with platform underneath with MODA X 2 with momentum and high bed and able to stand with BETO x2 for 30 seconds and then on the 2nd attempt able to stand with CGA x2 after MODA X 2 to stand to FWW fo r1 minute and able to do some weight shifting side to side. Mechanical lift to the recliner. OT- Gait Assessment Comments Gait Ability Comments Unable to perform OT- Balance Assessment Sitting Balance and Reactions Static Sitting Balance Ability Good Dynamic Sitting Balance Ability Fair Standing Balance and Reactions Static Standing Balance Ability Poor Comments Other Balance Tests/Deviations/Treatment Pt able to sit on her own : after set-up on the edge of the bed. M8 OT- IP Objective Assessments Start: 11/15/20 15:51 Freq: Status: Active Protocol: Document 11/15/20 14:15 [facility] (Rec: 11/15/20 16:11 [facility] [id number]) OT Gross Range of Motion Upper Extremity Range of Motion Assessment Bilaterally Impaired OT Strength Upper Extremity Strength Assessment Bilaterally Impaired OT Sensation Assessment Edema Edema Present Edema Comments BUE swelling. M9 OT- IP Assessment and Plan Start: 11/15/20 15:51 Freq: Status: Active Protocol: Document 11/20/20 12:04 [facility] (Rec: 11/20/20 12:16 [facility] [id number]) OT Summary Assessment and Plan Potential Rehabilitation Potential Fair Analytic Complexity at Evaluation Moderate Summary OT Impairments Pain,Strength,Balance, Coordination,Functional Cognition,Functional Mobility, Self-Feeding,Grooming,Dressing ,Toileting,Bathing,Toilet Transfers,Shower Transfers, Activity Tolerance Progress Towards Goals Progressing Toward Goals,Slow Progress due to Pain,Slow Progress due to Activity Tolerance Assessment Summary Pt improving and now able to stand up to 1 minute with FWW. Pt very motivated to get better. Pt will need extensive skilled rehab prior to gong home. Goals Self-Feeding Goal Independent Grooming Goal Independent Dressing Goal Independent Toileting Goal Independent Bathing Goal Independent Toilet Transfer Goal Independent Shower Transfer Goal Independent Days to Meet Goals 39 Frequency of Treatment Frequency Of Treatment Once a Day Treatment Plan OT Treatment Plan ADL Training,Functional Cognition Training,Functional Mobility,Patient/Family Education,Discharge Planning Other Treatment Recommendations and Next Pt to be able to take a side Treatment Focus step with MAX Ax2 with FWW. Discharge Recommendations OT Discharge Recommendations SNF Rehab Transportation Needs at Discharge Wheelchair/Cabulance
--- NOTE | 2020-11-20 11:59 | PT.IPTN ---
Current Diagnoses Sepsis, unspecified organism (11/10/20) Physical Therapy Treatment Note M2 PT-IP Current Condition Start: 11/14/20 17:53 Freq: NEEDED Status: Active Protocol: Document 11/14/20 11:36 [facility] (Rec: 11/14/20 18:15 [facility] [id number]) Physical Therapy Current Condition Current Condition Evaluation Date 11/14/20 Treatment Diagnosis Septic, weakness and impaired mobility/gait Onset Date 11/10/20 Precautions Other Precautions oxygen needs M3 PT-IP Subjective Start: 11/14/20 17:53 Freq: NEEDED Status: Active Protocol: Document 11/20/20 11:15 AMB (Rec: 11/20/20 11:58 AMB [id number]) Subjective Physical Therapy Visit Type Type Treatment Note Visit Start Time 10:15 Visit Stop Time 11:50 Total Visit Minutes 35 Notes co-tx with OT Number of KILN LOADER Visits 0 Physical Therapy Visit Comments Patient Comments agreed to attempt standing Patient Goals get stronger Therapy Pain Assessment Pain When Pain Assessed During Mobility Pain Present Pain Present Pain Reported Location Back Pain Management Techniques Re-positioning M4 PT-IP Mobility and Gait Start: 11/14/20 17:53 Freq: NEEDED Status: Active Protocol: Document 11/20/20 11:15 AMB (Rec: 11/20/20 11:58 AMB [id number]) PT-Bed Mobility Assessment Rolling Type of Rolling Roll to Right Level of Assist Minimal Assistance,1 Person Assistance Supine to Sit Supine to Sit Maximum Assistance,2 Person Assistance,Head of Bed Elevated,Bedrails PT-Transfer Assessment Sit to and From Stand Sit to and from Stand Moderate Assistance,2 Person Assistance,Use of Upper Extremities Equipment Transfer Assistive Device Gait Belt,Front Wheeled Walker Comments Mobility Comments Pt sat EOB with bed raised and platform under her feet. 2 trials with rocking ModA x2. First trial pt stood for 30 seconds. Second attempt pt cued to push through arms and stand upright posture in standing and she was able to stand for 1 minute with Chente x2. Cued in weight shifting and pt able to shift weight slightly m/l. RN in room and with OT planned to move pt to chair via erickson, PT left due to time restrictions. Gait Assessment Comments Gait Comments unable M5 PT-IP Objective Assessments Start: 11/14/20 17:53 Freq: NEEDED Status: Active Protocol: Document 11/14/20 11:36 [facility] (Rec: 06/23/21 18:15 [facility] [id number]) Orientation Orientation/Cognition Level of Alertness Lethargic Orientation Name Safety Awareness Decreased Safety Awareness Comments pt reports she is awake but frequently closes her eyes, she reports she is sleepy, she has weak voice but can make her needs known, difficult to fully assess her cognition due to her sleepy state Gross Range of Motion Upper Extremity ROM Assessment Within Functional Limits Lower Extremity ROM Assessment Left Impaired Impairments difficult to flex left knee to get foot under her for sit- stand Strength Upper Extremity Strength Assessment Bilaterally Impaired Lower Extremity Strength Assessment Bilaterally Impaired Hip needs assist to move LE's Knee needs assist to move even in sitting Comments Strength Comments pt has severe generalized weakness throughout Coordination Assessment Gross Coordination Gross Coordination Impaired Assessment Coordination Comments pt reaching to scratch face but has difficulty connecting her hand with her face Sensation Assessment Comments Sensation Comments difficulty to fully assess, LE edema and wounds present Muscle Tone Muscle Tone WNL Yes M6 PT-IP Treatment Start: 11/14/20 17:53 Freq: NEEDED Status: Active Protocol: Document 11/19/20 12:13 LJ (Rec: 11/19/20 12:30 [facility] [id number]) Physical Therapy Treatment Exercises Exercises Ankle Pumps,Seated Knee Flexion/Extension M7 PT-IP Assessment and Plan Start: 11/14/20 17:53 Freq: NEEDED Status: Active Protocol: Document 11/20/20 11:15 AMB (Rec: 11/20/20 11:58 AMB [id number]) PT Summary Assessment and Plan Summary Impairments Pain,ROM,Strength,Balance, Coordination,Bed Mobility, Transfers,Gait,Activity Tolerance Progress Towards Goals Slow Progress due to Activity Tolerance Assessment Summary Pt improved mobility and standing tolerance this session. Her effort is very good and she is working hard to improve. Recommend SNF for DC Goals Bed Mobility Goal Moderate Assistance Transfer Goal Moderate Assistance,Front Wheeled Walker Gait Goal Moderate Assistance,Front Wheel Walker Gait Distance 5 feet Days to Meet Goals 7 Treatment Plan Physical Therapy Treatment Plan Bed Mobility Training,Transfer Training,Gait Training, Therapeutic Exercise,Balance Retraining,Discharge Planning, Neuromuscular Re-ed, Coordination Retraining Recommendations To Nursing Amount of Assist Needed 2 Person Assist,Mechanical Lift Discharge Recommendations PT Discharge Recommendations SNF Rehab Other Discharge Recommendations Pt needs specialized bariatric wheelchair to sit up safely, limited sitting tolerance, skin issues on LE's Transportation Needs at Discharge Stretcher/Ambulance
--- NOTE | 2020-11-20 12:12 | P.PN_ITS ---
Subjective Subjective Date Patient Seen: 11/20/20 Time Patient Seen: 12:13 Interval history: Patient feels well today, denies chest pain shortness of breath, nausea, vomiting abdominal pain. She is eager to get up and move today, yesterday she was able to stand for about 20 seconds. Exam Vital Signs (past 8 hours): - 11/20/20 04:43 11/20/20 07:50 Temperature 97.8 F Pulse Rate 90 Respiratory Rate 17 Blood Pressure 113/84 Pulse Oximetry 94 Fraction of Inspired Oxygen 35 Oxygen Delivery Method BiPAP Oxygen Flow Rate 92 Narrative Exam Narrative: GEN: Morbidly obese female sitting in bed, in no acute distress Lungs: clear bilaterally Cardiac exam: Irregularly irregular, normal S1-S2 with a 2/6 systolic ejection murmur Abdomen: Obese soft and nontender Extremities: Bilateral lymphedema noted, erythema primarily noted on inner thighs, there is significant brawny chronic appearing skin changes Objective Labs Result Diagrams: 11/18/20 05:55 11/19/20 05:42 [facility] Medical History Allergic rhinitis (Unknown) Arthritis (Unknown) Cellulitis of right leg Essential hypertension (09/11/10) GERD (gastroesophageal reflux disease) (Unknown) GERD (gastroesophageal reflux disease) (Unknown) Hyperlipemia (Unknown) Hypertension (Unknown) Lymphedema (Unknown) Mixed hyperlipidemia Morbid obesity due to excess calories Obstructive sleep apnea (Unknown) Obstructive sleep apnea syndrome Staph skin infection Surgical History Hx of total knee replacement (Unknown) Family History Brother Kidney carcinoma Mother Stroke Sister Cancer Father Atrial fibrillation Social History household members: none Smoking Status: Former smoker Tobacco: How many years used: 4 second hand exposure: No alcohol intake: never substance use type: does not use Assessment & Plan Assessment & Plan narrative: Ms. Huang is a 70W with PMH of morbid obesity, lymphedema, SHERIN who comes in with septic shock from cellulitis and bacteremia from group B strep also with acute CHF and new afib with RVR 1. Chronic Respiratory Failure with hypercapnea. Patient with obesity hypoventilation Patient with known SHERIN She is not markedly hypoxic, but hypercapneic and acidotic previously doing well with trilogy at night, pending SNF currently. 2. Acute Congestive Heart Failure-with preserved EF, improved -Echo in August revealed EF of 55-60%, mild MR, trace TR -IVF discontinued as blood pressure improved -continued lasix 40 IV twice daily, today appears euvolemic and Bicarb is up. Decreased to 20 mg PO lasix BID yesterday. Continue to monitor. -her proBNP was elevated at 13 90 -respiratory status seems much improved 3. Septic shock, resolved -patient admitted to the hospital with cellulitis, strep agalactiae bacteremia, and hypotension -patient required intubation for respiratory failure -she is off levophed ---general surgery consulted, no evidence of necrotizing fasciitis, suggest David wraps for her lower extremities -end-organ failure due to sepsis includes shock, improved -all pressors discontinued -blood cultures positive for Group B strep -antibiotics, D/C Zosyn, D/C Vancomycin, Started Ceftriaxone 2 grams daily, plan for 14 day course of IV antibiotics, through 11/24 -repeat serial blood culture on 11/16, negative to date -IVF stopped -speech eval performed, diet upgraded 4. Cellulitis, present on admission, source of sepsis, improved -patient with chronic venous insufficiency -chronic edema -erythema and prior surgery -strep agalactiae a growing from the blood, -antibiotic adjusted as above. 5 Atrial fibrillation, with RVR, improved -patient on diltiazem drip previously, this has been discontinued -resumed metoprolol 25 b.i.d, then increased to 75mg BID for continued tachycardia -discussed with patient and she wished to start anticoagulation so will start eliquis -continue diuresis to improved pulmonary edema 6 Morbid obesity -morbid obesity likely contributing to her venous insufficiency resulting in recurrent cellulitis and sepsis -this puts her at high risk for complication -dietary consultation 7. Lymphedema, chronic -continue DAVID wraps as tolerated 8. GERD -continue PPI can switch to po 9. Hypertension -ALL ANTIHYPERTENSIVE HELD as the patient was hypotensive -back on metoprolol for heart rate control, remains normotensive 10. hypoglycemia, resolved- diet adjusted 11. thrombocytopenia, resolved- will follow platelets closely, had decreased to 90, now improved to 143 Patient will continue on apixaban, surrogate decision maker is her daughter Leigh Ann, patient remains a full code Patient is medically stable for discharge to SNF. Will need IV antibiotics for a total 14 day course through 11/24
[2020-11-20] MEDS: cefTRIAXone 2,000 MG in SODIUM CHLORIDE 0.9% 100 ML 200 ML IV (12:14)
--- NOTE | 2020-11-20 12:48 | CM.DPNOTE ---
Malissa from [facility] called saying they are following this pt. I told her we were looking for a SNF at this time. Please call Malissa when pt. is dishcarged. YENY Cazarest.
--- NOTE | 2020-11-20 14:36 | CM.DPC ---
DCP/continued: Reviewed chart. Provider continues to report that patient is medically stable for discharge. CONSOLE ASSEMBLER and GEORGE have made several attempts to find placement (see previous notes for location). CONSOLE ASSEMBLER met with patient and daughter at bedside, explained both the difficulty we are having with placement. Daughter requesting CM team check back with facilities in [facility]. Per notes they are unable to accommodate due to trilogy? Placed call to Alla at [facility]. She is requesting clinical be efaxed for review. GEORGE/Jossy completed. In addition, Alla inquiring on whether or not trilogy can be switched to either a Bipap or Cpap. CONSOLE ASSEMBLER placed call to respiratory requesting they evaluate. Dr. Villegas updated and agreeable. Also left message with [facility] rep Verito ph# [phone] re: the above. Patient started trilogy during this hospitalization. Alla at [facility] reviewing now for potential placement tomorrow 11-21-20 without trilogy. CM team following closely and CONSOLE ASSEMBLER now following. P: Pending [facility]
[2020-11-20] MEDS: LOPERAMIDE 2 MG CAPSULE PO (20:48)
[2020-11-21] VITALS (7 sets, daily range): BP systolic 92–124; BP diastolic 55–85; PULSE 87–105; RESP 16–20; TEMP 36.1–37.3; O2SAT 92–97
[2020-11-21] MEDS: LOPERAMIDE 2 MG CAPSULE PO ×2 (03:46→20:30)
[2020-11-21] MEDS: APIXABAN 5 MG TABLET PO ×2 (10:32→20:30)
[2020-11-21] MEDS: FUROSEMIDE 20 MG TABLET PO ×2 (10:32→17:05)
[2020-11-21] MEDS: METOPROLOL IR 25 MG TABLET 75 MG PO ×2 (10:32→20:31)
[2020-11-21] MEDS: ACETAMINOPHEN 325 MG TABLET 650 MG PO (10:32)
[2020-11-21] MEDS: SODIUM CHLORIDE 0.9% FLUSH 10 ML IV ×2 (10:33→20:31)
--- NOTE | 2020-11-21 11:25 | OT.IP.TRT ---
Current Diagnoses Sepsis, unspecified organism (11/10/20) Occupational Therapy Treatment Note M2 OT-IP Current Condition Start: 11/15/20 15:51 Freq: Status: Active Protocol: Document 11/15/20 14:15 [facility] (Rec: 11/15/20 16:11 [facility] [id number]) Occupational Therapy Current Condition Current Condition Evaluation Date 11/15/20 Treatment Diagnosis Septic, Acute CHF, decreased mobility Diagnosis Onset Date 11/10/20 M3 OT- IP Subjective and Pain Start: 11/15/20 15:51 Freq: Status: Active Protocol: Document 11/21/20 13:45 [facility] (Rec: 11/21/20 13:55 [facility] [id number]) OT- Subjective Occupational Therapy Visit Type Type Treatment Note Visit Start Time 10:47 Visit Stop Time 11:25 Total Visit Minutes 38 Occupational Therapy Visit Comments Patient Comments Pt agreed [facility] with FWW. Cotxt with PT. Nursing aid also present to assist. Patient/Caregiver Goals To go to rehab to get stronger and then go home. OT Pain Assessment Pain When Pain Assessed During Mobility Pain Present Pain Present Pain Reported M4 OT- IP ADL's Start: 11/15/20 15:51 Freq: Status: Active Protocol: Document 11/19/20 12:36 [facility] (Rec: 11/19/20 12:46 [facility] [id number]) OT TIM-Bize-Vzmpkyf Comments OT Self-Feeding Comments not meal time OT ADL-Grooming Comments OT Grooming Comments not performed OT ADL-Oral Care Comments Oral Care Comments not performed OT ADL-Dressing General Eval Lower Body Dressing Ability Total Assistance Areas Needing Assistance Socks OT ADL-Toileting General Evaluation Toileting Ability Total Assistance Areas Needing Assistance Empty Catheter or Colostomy, Manage Clothing,Perform Perineal Hygiene OT ADL-Bathing Bathing Type Bathing Type Sponge Bath General Evaluation Bathing Ability Maximal Assistance M5 OT- IP IADL's Start: 11/15/20 15:51 Freq: Status: Active Protocol: Document 11/15/20 14:15 [facility] (Rec: 11/15/20 16:11 [facility] [id number]) OT-Instrumental Activities of Daily Living Home Safety Awareness Home Safety Comments Pt aware that she is not physically capable to care for herself at this time due to her medical issues. M6 OT- IP Functional Cognition Start: 11/15/20 15:51 Freq: Status: Active Protocol: Document 11/19/20 12:36 [facility] (Rec: 11/19/20 12:46 [facility] [id number]) Cognitive Factors Limiting Selfcare Function Cognitive Comments Cognitive Assessment Comments Pt appears to be close to baseline, to do formal SLUMS soon. M7 OT- IP Mobility and Balance Start: 11/15/20 15:51 Freq: Status: Active Protocol: Document 11/21/20 13:45 [facility] (Rec: 11/21/20 13:55 [facility] [id number]) OT- Bed Mobility Assessment Supine to Sit Supine to Sit Assist Maximum Assistance,2 Person Assistance OT-Transfer Assessment Sit to and From Stand Sit to and from Stand Minimal Assistance,2 Person Assistance Transfers Transfer Ability Maximum Assistance,2 Person Assistance Technique Transfer Destination Bed,Chair Transfer Technique Stand Step Pivot Devices Transfer Assistive Devices Front Wheeled Walker Comments Mobility Comments Pt doing better today for getting her legs and hips to the edge of the bed with heavy use of arm on the bed rails. MAX A x2 from therapists to get her to the edge of the bed , assist to weight shift and move her legs. Pt states the rail on the bed digging into her skin , therefore placed folded pillow case to help protect her skin underneath her thighs. Sit to stand with momentum KAYODE x2 to FWw and able to stand 30- 45 seconds x2. Pt on 3rd stand able to transfer with FWw with MAX A X2 to lateral steps to the recliner. MAX AX 2 with recliner in trendelenburg to assist for positioning needs. Nursing aware use of lift for pt back to bed. OT- Gait Assessment Comments Gait Ability Comments not at this time OT- Balance Assessment Sitting Balance and Reactions Static Sitting Balance Ability Good Dynamic Sitting Balance Ability Fair Standing Balance and Reactions Static Standing Balance Ability Poor M8 OT- IP Objective Assessments Start: 11/15/20 15:51 Freq: Status: Active Protocol: Document 11/15/20 14:15 [facility] (Rec: 11/15/20 16:11 [facility] [id number]) OT Gross Range of Motion Upper Extremity Range of Motion Assessment Bilaterally Impaired OT Strength Upper Extremity Strength Assessment Bilaterally Impaired OT Sensation Assessment Edema Edema Present Edema Comments BUE swelling. M9 OT- IP Assessment and Plan Start: 11/15/20 15:51 Freq: Status: Active Protocol: Document 11/21/20 13:45 [facility] (Rec: 11/21/20 13:55 [facility] [id number]) OT Summary Assessment and Plan Potential Rehabilitation Potential Good Analytic Complexity at Evaluation Moderate Summary OT Impairments Pain,Strength,Balance, Coordination,Functional Cognition,Functional Mobility, Self-Feeding,Grooming,Dressing ,Toileting,Bathing,Toilet Transfers,Shower Transfers, Activity Tolerance Progress Towards Goals Progressing Toward Goals Assessment Summary Pt able to transfer from bed to recliner with MAXA x 2 and another person for safety today. Pt is motivated to get better and willing to go to skilled rehab. Goals Self-Feeding Goal Independent Grooming Goal Independent Dressing Goal Independent Toileting Goal Independent Bathing Goal Independent Toilet Transfer Goal Independent Shower Transfer Goal Independent Days to Meet Goals 38 Frequency of Treatment Frequency Of Treatment Once a Day Treatment Plan OT Treatment Plan ADL Training,Functional Cognition Training,Functional Mobility,Patient/Family Education,Discharge Planning Other Treatment Recommendations and Next Transfer to BS with MAX AX 2 Treatment Focus with FWW, by switching out bed with BSC. Discharge Recommendations OT Discharge Recommendations SNF Rehab Transportation Needs at Discharge Wheelchair/Cabulance
--- NOTE | 2020-11-21 11:50 | PC.NURSE ---
Assess- Patient is hoping to discharge to facility today. Jessica from discharge planning to talk to patient a bit later. She tries to help with sliding up in the bed and brownlee well using erickson lift handles. Patient has multiple skin issues on her body, and a skin ulcer that is healing, please see under skin assessment. BS are cleat to auscultation this morning, she is on RA and doing well with breathing. Patient up to the chair with physical therapy using the erickson lift. Given tylenol for discomfort and resting. She will have lunch soon.
--- NOTE | 2020-11-21 11:54 | PT.IPTN ---
Current Diagnoses Sepsis, unspecified organism (11/10/20) Physical Therapy Treatment Note M2 PT-IP Current Condition Start: 11/14/20 17:53 Freq: NEEDED Status: Active Protocol: Document 11/14/20 11:36 DLM (Rec: 11/14/20 18:15 D[facility] [id number]) Physical Therapy Current Condition Current Condition Evaluation Date 11/14/20 Treatment Diagnosis Septic, weakness and impaired mobility/gait Onset Date 11/10/20 Precautions Other Precautions oxygen needs M3 PT-IP Subjective Start: 11/14/20 17:53 Freq: NEEDED Status: Active Protocol: Document 11/21/20 11:40 HH (Rec: 11/21/20 11:54 HH [id number]) Subjective Physical Therapy Visit Type Type Treatment Note Visit Start Time 10:50 Visit Stop Time 11:25 Total Visit Minutes 35 Notes co-tx with OT Number of SURVEILLANCE SENSOR OFFICER Visits 0 Physical Therapy Visit Comments Patient Comments agreed to attempt standing and transfer to chair Patient Goals get stronger Therapy Pain Assessment Pain When Pain Assessed During Mobility Pain Present Pain Present Pain Reported Location Back Pain Management Techniques Re-positioning M4 PT-IP Mobility and Gait Start: 11/14/20 17:53 Freq: NEEDED Status: Active Protocol: Document 11/21/20 11:40 HH (Rec: 11/21/20 11:54 HH [id number]) PT-Bed Mobility Assessment Supine to Sit Supine to Sit Maximum Assistance,2 Person Assistance,Head of Bed Elevated,Bedrails PT-Transfer Assessment Sit to and From Stand Sit to and from Stand Minimal Assistance,2 Person Assistance,Use of Upper Extremities Equipment Transfer Assistive Device Gait Belt,Front Wheeled Walker Transfers Transfer Destination Chair Transfer Ability Level of Assist Maximum Assistance,2 Person Assistance,Use of Upper Extremities Comments Mobility Comments Pt was up in bed upon PT arrival. She was c/o LBP and skin irritation d/t prolonged bedrest. She agreed to attempt standing at bedside and transferring to bedside chair. pt approx took 5 minutes to complete pull to long sit followed by pivoting herself to R side from a lateral tilted bed position (5 degrees ). She needed max A x 2 for leg lift and back support. Pt initially desat to 85% but recovered to >92% within 1 minute. Pt then sat at EOB for 5 mins with back support. Pt then stood up 2 times using trunk rock with min A x 2, each for 30-45 seconds for HELP DESK CONSULTANT to complete pericare. After that, she stood up again min A x 2 followed by lateral steps and step pivot with max A x 2 to R side bedside chair. Pt had poor eccentric control to descend. Pt then needed max assistance x2 to scoot her upward by using trendelenburg position from the chair. Feet support provided with bolster and call light placed within reach. SpO2 maintained 88-93% for the whole session. Gait Assessment Comments Gait Comments unable M5 PT-IP Objective Assessments Start: 11/14/20 17:53 Freq: NEEDED Status: Active Protocol: Document 11/14/20 11:36 DLM (Rec: 11/14/20 18:15 DLM [id number]) Orientation Orientation/Cognition Level of Alertness Lethargic Orientation Name Safety Awareness Decreased Safety Awareness Comments pt reports she is awake but frequently closes her eyes, she reports she is sleepy, she has weak voice but can make her needs known, difficult to fully assess her cognition due to her sleepy state Gross Range of Motion Upper Extremity ROM Assessment Within Functional Limits Lower Extremity ROM Assessment Left Impaired Impairments difficult to flex left knee to get foot under her for sit- stand Strength Upper Extremity Strength Assessment Bilaterally Impaired Lower Extremity Strength Assessment Bilaterally Impaired Hip needs assist to move LE's Knee needs assist to move even in sitting Comments Strength Comments pt has severe generalized weakness throughout Coordination Assessment Gross Coordination Gross Coordination Impaired Assessment Coordination Comments pt reaching to scratch face but has difficulty connecting her hand with her face Sensation Assessment Comments Sensation Comments difficulty to fully assess, LE edema and wounds present Muscle Tone Muscle Tone WNL Yes M6 PT-IP Treatment Start: 11/14/20 17:53 Freq: NEEDED Status: Active Protocol: Document 11/19/20 12:13 LJ (Rec: 11/19/20 12:30 LJ [id number]) Physical Therapy Treatment Exercises Exercises Ankle Pumps,Seated Knee Flexion/Extension M7 PT-IP Assessment and Plan Start: 11/14/20 17:53 Freq: NEEDED Status: Active Protocol: Document 11/21/20 11:40 HH (Rec: 11/21/20 11:54 HH [id number]) PT Summary Assessment and Plan Potential Rehabilitation Potential Fair Status of Condition at Evaluation Stable Summary Impairments Pain,ROM,Strength,Balance, Coordination,Bed Mobility, Transfers,Gait,Activity Tolerance Progress Towards Goals Slow Progress due to Activity Tolerance Assessment Summary Pt showed improved mobility this session who was able to step pivot transfer to bedside chair max A x2; min A for sit to stand and max A x2 for supine to sit from lateral tilted bed. However, she is still far from safe to DC home . SNF is still the best option for her at this point. Goals Bed Mobility Goal Moderate Assistance Transfer Goal Moderate Assistance,Front Wheeled Walker Gait Goal Moderate Assistance,Front Wheel Walker Gait Distance 5 feet Days to Meet Goals 7 Frequency of Treatment Frequency Of Treatment Once a Day Treatment Plan Physical Therapy Treatment Plan Bed Mobility Training,Transfer Training,Gait Training, Therapeutic Exercise,Balance Retraining,Discharge Planning, Neuromuscular Re-ed, Coordination Retraining Other Recommendations and Next Treatment amb forward with chair follow Focus behind Recommendations To Nursing Amount of Assist Needed 2 Person Assist,Mechanical Lift Discharge Recommendations PT Discharge Recommendations SNF Rehab Other Discharge Recommendations Pt needs specialized bariatric wheelchair to sit up safely, limited sitting tolerance, skin issues on LE's Transportation Needs at Discharge Stretcher/Ambulance
[2020-11-21] MEDS: cefTRIAXone 2,000 MG in SODIUM CHLORIDE 0.9% 100 ML 200 ML IV (13:50)
--- NOTE | 2020-11-21 16:07 | CM.DPC ---
DCP/continued: TELECOM NETWORK MANAGER received notification this AM from Alla at [facility] that they now cannot accept patient for SNF. Initially, TELECOM NETWORK MANAGER was told she would be accepted today by [facility] if trilogy could be discontinued. Unfortunately, that was not the case. TELECOM NETWORK MANAGER spent the majority of shift attempting placement. Patient does not meet criteria to remain in acute care setting. TELECOM NETWORK MANAGER spoke with Kenji at [facility] [employer] cell# [phone] he agreed to assist with placement for this patient with trilogy. Dr. Villegas does report CPAP would be acceptable. Daughter/Leigh Ann reports that patient has video appointment tomorrow at 10:40AM with sleep center to find out if trilogy can be replaced with CPAP. In the meantime, patient and daughter made aware that patient cannot remain in acute care if SNF placement cannot be found? Family may need to consider taking patient home with home health and private caregivers? Daughter made aware of all of the facilities that have denied patient. [facility] also denied patient due to patient no longer meeting criteria. Other facilities that declined today were [facility], [place], and [facility]. Also requested that [facility] re- review if patient on CPAP. Per Emilie, they do not have any female beds but will continue to follow up. Spoke with Chilango at [facility] this afternoon, he reports that they were considering but have no bed. However, [facility]. Contact at [facility] is Radhika # [phone] vm left. Chilango indicates that [facility] does not accommodate trilogy so patient would need to be on CPAP. Chilango reports that himself or Radhika CM team on 11-22-20. P: Pending. Patient is LOS day#11 and needs placement. Patient does not meet criteria for acute care. CM team to follow up in AM on 11-22-20. TELECOM NETWORK MANAGER took over case on 11-20-20 in the afternoon. JERMAN Archer
--- NOTE | 2020-11-21 16:08 | PM.PN.1 ---
Subjective Subjective Date Patient Seen: 11/21/20 Time Patient Seen: 16:09 Interval history: Patient feels well today, denies chest pain shortness of breath, nausea, vomiting abdominal pain. She is eager to get up and move today, moved to the chair this morning. Exam Vital Signs (past 8 hours): - 11/21/20 12:28 Temperature 96.9 F L Pulse Rate 89 Respiratory Rate 18 Blood Pressure 101/55 L Pulse Oximetry 97 Fraction of Inspired Oxygen 35 Oxygen Delivery Method BiPAP Oxygen Flow Rate 0 Narrative Exam Narrative: GEN: Morbidly obese female sitting in bed, in no acute distress Lungs: clear bilaterally Cardiac exam: Irregularly irregular, normal S1-S2 with a 2/6 systolic ejection murmur Abdomen: Obese soft and nontender Extremities: Bilateral lymphedema noted, erythema primarily noted on inner thighs, there is significant brawny chronic appearing skin changes Objective Labs Result Diagrams: 11/18/20 05:55 11/19/20 05:42 [facility] Medical History Allergic rhinitis (Unknown) Arthritis (Unknown) Cellulitis of right leg Essential hypertension (09/11/10) GERD (gastroesophageal reflux disease) (Unknown) GERD (gastroesophageal reflux disease) (Unknown) Hyperlipemia (Unknown) Hypertension (Unknown) Lymphedema (Unknown) Mixed hyperlipidemia Morbid obesity due to excess calories Obstructive sleep apnea (Unknown) Obstructive sleep apnea syndrome Staph skin infection Surgical History Hx of total knee replacement (Unknown) Family History Brother Kidney carcinoma Mother Stroke Sister Cancer Father Atrial fibrillation Social History household members: none Smoking Status: Former smoker Tobacco: How many years used: 4 second hand exposure: No alcohol intake: never substance use type: does not use Assessment & Plan Assessment & Plan narrative: Ms. Huang is a 70W with PMH of morbid obesity, lymphedema, SHERIN who comes in with septic shock from cellulitis and bacteremia from group B strep also with acute CHF and new afib with RVR 1. Chronic Respiratory Failure with hypercapnea. Patient with obesity hypoventilation Patient with known SHERIN She is not markedly hypoxic, but hypercapneic and acidotic previously doing well with trilogy at night, pending SNF currently. Can transfer to SNF with CPAP therapy which has been ordered. CPAP therapy unavailable here due to a ? recall. 2. Acute Congestive Heart Failure-with preserved EF, improved -Echo in August revealed EF of 55-60%, mild MR, trace TR -IVF discontinued as blood pressure improved -continued lasix 40 IV twice daily, Decreased to 20 mg PO lasix BID to maintain euvolemia. Continue to monitor. -her proBNP was elevated at 13 90 on admission -respiratory status seems much improved 3. Septic shock, resolved -patient admitted to the hospital with cellulitis, strep agalactiae bacteremia, and hypotension -patient required intubation for respiratory failure -she is off levophed ---general surgery consulted, no evidence of necrotizing fasciitis, suggest David wraps for her lower extremities -end-organ failure due to sepsis includes shock, improved -all pressors discontinued -blood cultures positive for Group B strep -antibiotics, D/C Zosyn, D/C Vancomycin, Started Ceftriaxone 2 grams daily, plan for 14 day course of IV antibiotics, through 11/24 -repeat serial blood culture on 11/16, negative to date -IVF stopped -speech eval performed, diet upgraded 4. Cellulitis, present on admission, source of sepsis, improved -patient with chronic venous insufficiency -chronic edema -erythema and prior surgery -strep agalactiae a growing from the blood, -antibiotic adjusted as above. 5 Atrial fibrillation, with RVR, improved -patient on diltiazem drip previously, this has been discontinued -resumed metoprolol 25 b.i.d, then increased to 75mg BID for continued tachycardia -discussed with patient and she wished to start anticoagulation so will start eliquis -continue diuresis to improved pulmonary edema 6 Morbid obesity -morbid obesity likely contributing to her venous insufficiency resulting in recurrent cellulitis and sepsis -this puts her at high risk for complication -dietary consultation 7. Lymphedema, chronic -continue DAVID wraps as tolerated 8. GERD -continue PPI can switch to po 9. Hypertension -ALL ANTIHYPERTENSIVE HELD as the patient was hypotensive -back on metoprolol for heart rate control, remains normotensive 10. hypoglycemia, resolved- diet adjusted 11. thrombocytopenia, resolved- will follow platelets closely, had decreased to 90, now improved to 143 Patient will continue on apixaban, surrogate decision maker is her daughter Leigh Ann, patient remains a full code Patient is medically stable for discharge to SNF. Will need IV antibiotics for a total 14 day course through 11/24
[2020-11-22 05:55] VITALS: BP 126/61; PULSE 94; RESP 20; TEMP 36.3; O2SAT 94
[2020-11-22] MEDS: LOPERAMIDE 2 MG CAPSULE PO (06:53)
[2020-11-22] MEDS: SODIUM CHLORIDE 0.9% FLUSH 10 ML IV ×3 (06:53→21:37)
[2020-11-22 07:12] LABS: Add Manual Diff / Slide Review NO; Basophils Absolute Auto 0 /uL (0-100); Basophils Percent Auto 0.6 % (0-2); Eosinophils Absolute Auto 200 /uL (0-450); Hematocrit 39.6 % (36-46); Hemoglobin 12.9 g/dL (12.0-16.0); Lymphocytes Absolute Auto 1300 /uL (1100-4500); Mean Corpuscular HGB Conc 32.6 % (30-36); Mean Corpuscular Hemoglobin 28.2 PG (26-34); Mean Corpuscular Volume 86.3 fL (80-100); Monocytes Absolute Auto 700 /uL (0-900); Monocytes Percent Auto 12.6 % (3-14); Neutrophils Absolute Auto 3500 /uL (1500-7000); Neutrophils Percent Auto 60.8 % (50-75); Platelet Count 368 X10^3/uL (150-400); Red Blood Cell Count 4.59 X10^6/uL (4.0-5.2); Red Cell Distribution Width 16.9 % (11.6-14.8); White Blood Cell Count 5.7 X10^3/uL (4.5-11.0)
[2020-11-22 07:24] LABS: Alanine Aminotransferase 72 IU/L (<35); Albumin 3.2 g/dL (3.5-5.0); Albumin Globulin Ratio 0.7 (1.0-2.8); Alkaline Phosphatase 112 U/L (38-126); Aspartate Aminotransferase 49 IU/L (14-36); Bilirubin Total 0.5 mg/dL (0.2-1.3); Blood Urea Nitrogen 17 mg/dL (7-17); Calcium 9.7 mg/dL (8.4-10.2); Carbon Dioxide 30 mmol/L (22-32); Chloride 100 mmol/L (98-107); Estimated Glomerular Filt Rate > 60.0 mL/min (>60); Globulin 4.3 g/dL (1.7-4.1); Glucose 100 mg/dL (80-110); HEMOLYSIS < 15 (0-50); Magnesium 1.7 mg/dL (1.6-2.3); Potassium 3.5 mmol/L (3.4-5.1); Sodium 134 mmol/L (137-145); Total Protein 7.5 g/dL (6.3-8.2)
[2020-11-22 07:35] VITALS: BP 122/60; PULSE 94; RESP 20; TEMP 36.1; O2SAT 95
--- NOTE | 2020-11-22 09:00 | CM.DPNOTE ---
Addendum entered by JERMAN Javier 11/22/20 11:48: [facility] [place]- high census, no bed availability for two days Original Note: DCP Cont Placement efforts continue; reviewed chart and attempted the following SN[facility] options- [facility]oke w/ [facility] again, they cannot accommodate patient's care needs at this time [facility]- [facility]- [facility]- Currently no female beds available Placed call to Kellen at [facility] swing beds, no beds available. Placed call to Corinne Boucher P# [phone], per ishmael Beltrán's request- no beds this week. Barriers to placement include state wide shortage on [facility] facility beds, patient requiring mechanical lift and max assist x2 at this time, bariatric DME required. In addition, patient would benefit from trilogy which SNFs cannot accommodate so CPAP required at SNF...which cannot be trialed here d/t safety recall on Cpap and Bipap machines. Discussed above w/ishmael Beltrán and w/patient. Dtr Leigh Ann concerned about patient returning home. Also reviewed barriers to DC to SNF thoroughly w/Dr Silverio who suggested working towards DC home after IV abx course is completed, Thursday11.24.20. Met w/patient this morning, patient A+O, in good spirits, says she knows that her family is worried about her, and she is below her functional baseline, but she has made progress over the last few days and plans to make more before DC. This DELIVERY TECHNICIAN explained that efforts to secure a SNF don't need to stop, however, no bed has been secured yet so planning should, realistically, be focused on how to safely get patient returned home. Patient has been planning on transitioning to [facility] for the superintendent terminal and is still in communication w/[facility], asking how much care they can provide. This DELIVERY TECHNICIAN suggests while awaiting SKILLED NURSING, consider going home w/ HH RN/PT/OT/FRONT DESK AUXILIARY/DELIVERY TECHNICIAN, possibly renting hospital bed and erickson lift to assist. Transport will need to likely be w/c van. Patient will consider and discuss w/her family Following closely for coordination of safest DCP currently available to patient. JERMAN Javier
[2020-11-22] MEDS: APIXABAN 5 MG TABLET PO ×2 (09:53→21:36)
[2020-11-22] MEDS: METOPROLOL IR 25 MG TABLET 75 MG PO ×2 (09:53→21:36)
[2020-11-22] MEDS: FUROSEMIDE 20 MG TABLET PO ×2 (09:53→16:16)
--- NOTE | 2020-11-22 11:13 | CM.DPC ---
Malissa from [facility] called asking for a discharge date for pt since they have been following her previously. Yeny said it will be a possible dc tomorrow, 11/23/20, and that she will be needing all services. I relayed this information to Malissa and she said they could see pt on November 27 and will pencil her in. I relayed this to Yeny. Jossy Reis, Asst.````````````````````````````````````````````````````````````````````````````````````````````````````````````````````````````````````````````````````````````````````````````````````````
--- NOTE | 2020-11-22 11:34 | CM.DPNOTE ---
Addendum entered by Jossy Reis 11/22/20 13:02: Radhika, from [facility], called back and said they could not take pt. because she was too heavy. I relayed this information to Yeny. Jossy Reis CM Asst. Original Note: Radhika from [facility], (cell phone [phone]), called back (approx 1130 and will call back within 10 minutes to discuss pt.'s trilogy. I relayed information to Yeny. Jossy Reis CM Asst.
--- NOTE | 2020-11-22 12:04 | PC.NURSE ---
senior program planner in room talking about options for patients discharge, daughter present in room. Patient is moving better from bed to chair, and requiring use of erickson lift less. She has multiple skin issues. open area between buttocks has cleared. She does have a blister/ open area to her l.mcmullen that is open and she does complain of this being soar sometimes. She had one loose stool this am, a small amount. Resting comfortably.
--- NOTE | 2020-11-22 12:32 | CM.DPNOTE ---
Addendum entered by JERMAN Javier 11/22/20 13:36: Asked about increased in home care giving options ? Dtr Roberta responds that patient/family do not have the financial means to pay for 15/12 nursing , which, according to dtr Roberta, patient requires in order to not come back w/septic shock Updated Dr Silverio. DCP team will continue to work on SNF placement. Original Note: DCP Cont Returned to patient room per request from patient and her dtr Roberta. Patient's demeanor is much changed, patient appears very frustrated and states well what's your plan?!. Lengthy conversation w/patient and dtr re: dual planning for SNF vs home since SNF has not been secured at this time and patient is medically ready to DC. Potential for increased out of pocket expense increase if patient is discharged from this hospital. According to dtr Roberta, she had understood from DC planning team that home might be suggested but that she has told the DCP team that this is not a feasible option for patient/family. Dtr goes on to state neither patient or her family should be held responsible for taking care of her (patient) medical needs at home Neither patient or family are amenable to discussing DC home as a viable option so will now defer to Dr Silverio to discuss POC, per patient and family request, and will continue to attempt SNF rehab placement. RYLAN
[2020-11-22] MEDS: cefTRIAXone 2,000 MG in SODIUM CHLORIDE 0.9% 100 ML 200 ML IV (12:39)
[2020-11-22 13:01] VITALS: BP 105/75; PULSE 81; RESP 18; TEMP 36; O2SAT 97
--- NOTE | 2020-11-22 13:14 | CM.DPNOTE ---
Addendum entered by Jossy Reis 11/23/20 10:22: Faxed PASRR, signed med list, DC sum, and covid result to [facility] on 11/23/20. Received fax cofirmation. Jossy Reis CM Asst. Original Note: Faxed referral packet at [facility]'s request to [facility] f-[phone]. Fax confirmation received. Jossy Reis CM Asst.
--- NOTE | 2020-11-22 13:30 | PM.PN.1 ---
Subjective Subjective Date Patient Seen: 11/22/20 Interval history: Patient is a 70-year-old female with history of obesity, lymphedema, SHERIN admitted with septic shock due to group B strep bacteremia from lower extremity source. She also presented with acute CHF and AFib with RVR which have stabilized. Patient notes marked improvement in lower extremity erythema and states appearance of legs is close to baseline. She does have 1 small open area on skin crease in the left anterior thigh. She is doing well mentally. She feels her strength is improving in the upper extremities. Patient and daughter endorse good functional status prior to this acute illness where she was living at home independently and able to do her own cooking, housecleaning, bathing etc.. She is using trilogy in hospital for SHERIN but would be able to discharge to detention on CPAP as tolerated and then go on trilogy at home if needed. Exam Vital Signs (past 8 hours): - 11/22/20 05:55 11/22/20 07:35 Temperature 97.4 F L 96.9 F L Pulse Rate 94 H 94 H Respiratory Rate 20 20 Blood Pressure 126/61 122/60 Pulse Oximetry 94 95 Fraction of Inspired Oxygen 35 Oxygen Delivery Method Room Air,BiPAP Oxygen Flow Rate 0 Narrative Exam Narrative: General: Pleasant and alert cooperative female in no acute distress Breathing is nonlabored Extremities: There is chronic bilateral lymphedema, there is erythema primarily noted on in her thighs, there is 1 small open wound on left anterior thigh, she has chronic lymphedema related skin changes Objective Labs Result Diagrams: 11/22/20 06:55 11/22/20 06:55 Labs: Laboratory Results - last 24 hr 11/22/20 11/22/20 06:55 06:55 WBC 5.7 RBC 4.59 Hgb 12.9 Hct 39.6 MCV 86.3 MCH 28.2 MCHC 32.6 RDW 16.9 H Plt Count 368 Neut % (Auto) 60.8 Lymph % (Auto) 23.0 L [place] % (Auto) 12.6 Eos % (Auto) 3.0 Baso % (Auto) 0.6 Neut # (Auto) 3500 Lymph # (Auto) 1300 [place] # (Auto) 700 Eos # (Auto) 200 Baso # (Auto) 0 Sodium 134 L Potassium 3.5 Chloride 100 Carbon Dioxide 30 BUN 17 Creatinine 0.63 Estimated GFR > 60.0 BUN/Creatinine Ratio 27.0 H Glucose 100 Calcium 9.7 Magnesium 1.7 Total Bilirubin 0.5 AST 49 H ALT 72 H Alkaline Phosphatase 112 Total Protein 7.5 Albumin 3.2 L Globulin 4.3 H Albumin/Globulin Ratio 0.7 L PFSH Medical History Allergic rhinitis (Unknown) Arthritis (Unknown) Cellulitis of right leg Essential hypertension (09/11/10) GERD (gastroesophageal reflux disease) (Unknown) GERD (gastroesophageal reflux disease) (Unknown) Hyperlipemia (Unknown) Hypertension (Unknown) Lymphedema (Unknown) Mixed hyperlipidemia Morbid obesity due to excess calories Obstructive sleep apnea (Unknown) Obstructive sleep apnea syndrome Staph skin infection Surgical History Hx of total knee replacement (Unknown) Family History Brother Kidney carcinoma Mother Stroke Sister Cancer Father Atrial fibrillation Social History household members: none Smoking Status: Former smoker Tobacco: How many years used: 4 second hand exposure: No alcohol intake: never substance use type: does not use Assessment & Plan Assessment & Plan narrative: 1. Chronic Respiratory Failure with hypercapnea. Patient with obesity hypoventilation Patient with known SHERIN She is not markedly hypoxic, but hypercapneic and acidotic previously doing well with trilogy at night, pending SNF currently. Can transfer to SNF with CPAP therapy which has been ordered. CPAP and BiPAP therapy unavailable here due to a recall. 2. Acute Congestive Heart Failure-with preserved EF, improved -Echo in August revealed EF of 55-60%, mild MR, trace TR -continue 20 mg PO lasix BID to maintain euvolemia -respiratory status seems much improved 3. Septic shock due to group B strep bacteremia, resolved -patient admitted to the hospital with cellulitis, strep agalactiae bacteremia, and hypotension requiring Levophed pressure support -patient required intubation for respiratory failure ---general surgery consulted, no evidence of necrotizing fasciitis, suggest David wraps for her lower extremities -end-organ failure due to sepsis includes shock, resolved -blood cultures positive for Group B strep -antibiotics, D/C Zosyn, D/C Vancomycin, Started Ceftriaxone 2 grams daily, plan for 14 day course of IV antibiotics, through 11/24 -repeat serial blood culture on 11/16, negative to date 4. Cellulitis, present on admission, source of sepsis, improved -patient with chronic lymphedema -chronic edema -erythema and prior surgery -strep agalactiae a growing from the blood, -antibiotic adjusted as above. 5 Atrial fibrillation, with RVR, improved -patient on diltiazem drip previously, this has been discontinued -resumed metoprolol 25 b.i.d, then increased to 75mg BID for continued tachycardia -started on Eliquis for anticoagulation 6 Morbid obesity -morbid obesity likely contributing to lymphedema resulting in recurrent cellulitis and sepsis -this puts her at high risk for complication -dietary consultation 7. Lymphedema, chronic -she has minimal wound care needs with 1 small open area on the left front thigh, she has old healed dry ulcer on the left plantar heel 8. GERD -continue PPI can switch to po 9. Hypertension -back on metoprolol for heart rate control, remains normotensive 10. hypoglycemia, resolved- diet adjusted 11. thrombocytopenia, resolved- will follow platelets closely, had decreased to 90, now normal Patient has improving medical condition for treatment of her infection. She had relatively good prior functioning status and would be a good candidate for detention rehab. Her wound care needs are fairly minimal. She does have Rojas catheter in place at this time which can be removed as she is more mobile. She is awaiting PT/OT re-evaluation today.
--- NOTE | 2020-11-22 16:05 | CM.DPNOTE ---
Addendum entered by JERMAN Javier 11/23/20 11:38: Correction: Patient does not have a home CPAP, her insurance will pay for the CPAP that is being ordered for use at [facility], she will continue use of her Trilogy machine once home or at [facility]. Original Note: DCP Cont Referral sent to [facility] in [place] per patient/family request. Family has a connection at this facility that they hope will assist. Spoke w/ Dilcia, clinical education academic coordinator P# [phone] F# [phone], Jossy VAZQUEZ faxed all requested clinical. [facility] in [place] has accepted patient for admission Thursday11.22.20. Updated Dr Silverio and patient. Rx for IV Ceftriaxone faxed to [facility], patient has no narcotic Rx Patient asks about CPAP machine going with her? Dilcia at [facility] will order a CPAP machine if family cannot get patient's home CPAP to [place] by tomorrow evening. In addition, updated Dilcia that patient is not COVID-19 vaccinated. COVID-19 test being updated this afternoon. Patient would like to transport w/ best catheter because she cannot get safely to a BR at this time. Discussed transport w/patient and w/dtr Roberta. Together, we ruled out private auto and cabulance because patient cannot physically tolerate pivot transfer into private auto and/or into a w/c, and cannot safely tolerate a w/c for this long of a travel time. Patient w/pressure ulcers that also prohibit long ride in a w/c. Discussed the likelihood that although patient has MCR and for [facility], she might see a high out of pocket cost for BLS transport d/t the decrease in MCR reimbursement for this service. Patient/family aware and agreeable to BLS, stating it is the only option. Placed call to Ambulance, reviewed this case and requested transport from [facility] to the [place], then travel via ferry from [place] to [place] and from [place] to [place]. BLS crew available for p/u (with Bariatric stretcher) for p/u at 1125 tomorrow 11.23.20 Updated patient and RN. This TUBE REPAIRER will need to fax completed and signed DC orders tomorrow AM. Will also plan to complete and fax priority boarding ppk to [facility]. JERMAN Javier
[2020-11-22 16:07] VITALS: BP 99/69; PULSE 73; RESP 14; TEMP 36.2; O2SAT 95
--- NOTE | 2020-11-22 17:00 | PT.IPTN ---
Current Diagnoses Sepsis, unspecified organism (11/10/20) Physical Therapy Treatment Note M2 PT-IP Current Condition Start: 11/14/20 17:53 Freq: NEEDED Status: Active Protocol: Document 11/14/20 11:36 DLM (Rec: 11/14/20 18:15 DLM [id number]) Physical Therapy Current Condition Current Condition Evaluation Date 11/14/20 Treatment Diagnosis Septic, weakness and impaired mobility/gait Onset Date 11/10/20 Precautions Other Precautions oxygen needs M3 PT-IP Subjective Start: 11/14/20 17:53 Freq: NEEDED Status: Active Protocol: Document 11/22/20 16:28 CLB (Rec: 11/22/20 17:21 CLB [id number]) Subjective Physical Therapy Visit Type Type Treatment Note Visit Start Time 16:28 Visit Stop Time 17:00 Total Visit Minutes 32 Notes co-tx with OT Physical Therapy Visit Comments Patient Comments Pt agreed to gait with chair follow Patient Goals get stronger Therapy Pain Assessment Pain When Pain Assessed During Mobility Pain Present Pain Present Pain Reported M4 PT-IP Mobility and Gait Start: 11/14/20 17:53 Freq: NEEDED Status: Active Protocol: Document 11/22/20 16:28 CLB (Rec: 11/22/20 17:21 CLB [id number]) PT-Bed Mobility Assessment Supine to Sit Supine to Sit Standby Assistance,Head of Bed Elevated,Bedrails Scooting Scooting to Edge of Bed Standby Assistance PT-Transfer Assessment Sit to and From Stand Sit to and from Stand Minimal Assistance,2 Person Assistance,Use of Upper Extremities Equipment Transfer Assistive Device Gait Belt,Front Wheeled Walker Transfers Transfer Destination Chair Comments Mobility Comments Pt able to get to EOB with bed tilted to 5 degrees and use of bed rails, OT placed pillow behind pt for support during scooting legs off bed. Pt required a rest break at EOB. Pt stood Min A x2 and ambulate from bed to window seat, pt used FWW requiring Mod A x2 then Max A x2 when pt became fatigued. RN brought chair behind pt and pt sat in chair. Pt feet were elevated and chair placed in trendelenburg and pt required assist with draw sheet back in chair. Pt then performed AP, QS. Pt left in chair with pillows under LE's, call light and all needs within reach. Gait Assessment Gait Gait Assistance Required: Moderate Assistance,Maximum Assistance,2 Person Assist Distance (Feet) 10 Able to Maintain Weight Bearing Status Yes During Gait Assistive Devices Assistive Device Gait Belt,Front Wheeled Walker Orthotic/Prosthetic Devices or Brace: Yes Gait Deviations General Gait Pattern Antalgic,Decreased Stride Length,Decreased Feet Clearance,Flexed Trunk,Wide Based Gait Factors Limiting Gait Function Factors Limiting Gait Function Decreased Activity Tolerance, Decreased Sensation,Decreased Strength,Limited Range of Motion,Pain,Poor Balance, Respiratory Distress Comments Gait Comments see mobility comments. M5 PT-IP Objective Assessments Start: 11/14/20 17:53 Freq: NEEDED Status: Active Protocol: Document 11/14/20 11:36 DLM (Rec: 11/14/20 18:15 DLM [id number]) Orientation Orientation/Cognition Level of Alertness Lethargic Orientation Name Safety Awareness Decreased Safety Awareness Comments pt reports she is awake but frequently closes her eyes, she reports she is sleepy, she has weak voice but can make her needs known, difficult to fully assess her cognition due to her sleepy state Gross Range of Motion Upper Extremity ROM Assessment Within Functional Limits Lower Extremity ROM Assessment Left Impaired Impairments difficult to flex left knee to get foot under her for sit- stand Strength Upper Extremity Strength Assessment Bilaterally Impaired Lower Extremity Strength Assessment Bilaterally Impaired Hip needs assist to move LE's Knee needs assist to move even in sitting Comments Strength Comments pt has severe generalized weakness throughout Coordination Assessment Gross Coordination Gross Coordination Impaired Assessment Coordination Comments pt reaching to scratch face but has difficulty connecting her hand with her face Sensation Assessment Comments Sensation Comments difficulty to fully assess, LE edema and wounds present Muscle Tone Muscle Tone WNL Yes M6 PT-IP Treatment Start: 11/14/20 17:53 Freq: NEEDED Status: Active Protocol: Document 11/22/20 16:28 CLB (Rec: 11/22/20 17:21 CLB [id number]) Physical Therapy Treatment Exercises Exercises Ankle Pumps,Quad Sets M7 PT-IP Assessment and Plan Start: 11/14/20 17:53 Freq: NEEDED Status: Active Protocol: Document 11/22/20 16:28 CLB (Rec: 11/22/20 17:21 CLB [id number]) PT Summary Assessment and Plan Potential Rehabilitation Potential Fair Status of Condition at Evaluation Stable Summary Impairments Pain,ROM,Strength,Balance, Coordination,Bed Mobility, Transfers,Gait,Activity Tolerance Progress Towards Goals Slow Progress due to Activity Tolerance Assessment Summary Pt improved with bed mobility requiring SBA with use of bed tilt and rails. Pt able to ambulate ~10ft w/FWW/Mod-Max A x2 with one standing rest break. Pt will require SNF rehab to increase activity tolerance for idependent mobility. Goals Bed Mobility Goal Moderate Assistance Transfer Goal Moderate Assistance,Front Wheeled Walker Gait Goal Moderate Assistance,Front Wheel Walker Gait Distance 5 feet Days to Meet Goals 7 Frequency of Treatment Frequency Of Treatment Once a Day Treatment Plan Physical Therapy Treatment Plan Bed Mobility Training,Transfer Training,Gait Training, Therapeutic Exercise,Balance Retraining,Discharge Planning, Neuromuscular Re-ed, Coordination Retraining Recommendations To Nursing Amount of Assist Needed 2 Person Assist,Mechanical Lift Discharge Recommendations PT Discharge Recommendations SNF Rehab Other Discharge Recommendations Pt needs specialized bariatric wheelchair to sit up safely, limited sitting tolerance, skin issues on LE's Transportation Needs at Discharge Stretcher/Ambulance
--- NOTE | 2020-11-22 17:38 | OT.IP.TRT ---
Current Diagnoses Sepsis, unspecified organism (11/10/20) Occupational Therapy Treatment Note M2 OT-IP Current Condition Start: 11/15/20 15:51 Freq: Status: Active Protocol: Document 11/15/20 14:15 [facility] (Rec: 11/15/20 16:11 [facility] [id number]) Occupational Therapy Current Condition Current Condition Evaluation Date 11/15/20 Treatment Diagnosis Septic, Acute CHF, decreased mobility Diagnosis Onset Date 11/10/20 M3 OT- IP Subjective and Pain Start: 11/15/20 15:51 Freq: Status: Active Protocol: Document 11/22/20 17:24 [facility] (Rec: 11/22/20 17:38 [facility] [id number]) OT- Subjective Occupational Therapy Visit Type Type Treatment Note Visit Start Time 16:26 Visit Stop Time 17:00 Total Visit Minutes 34 Occupational Therapy Visit Comments Patient Comments Cotxt with ADULT SCHOOL TE[employer]ER due to pt needing extensive assist for mobility needs. Patient/Caregiver Goals To go to skilled rehab to get stronger. OT Pain Assessment Pain When Pain Assessed During Mobility Pain Present Pain Present Pain Reported M4 OT- IP ADL's Start: 11/15/20 15:51 Freq: Status: Active Protocol: Document 11/19/20 12:36 [facility] (Rec: 11/19/20 12:46 [facility] [id number]) OT [id number] Comments OT Self-Feeding Comments not meal time OT ADL-Grooming Comments OT Grooming Comments not performed OT ADL-Oral Care Comments Oral Care Comments not performed OT ADL-Dressing General Eval Lower Body Dressing Ability Total Assistance Areas Needing Assistance Socks OT ADL-Toileting General Evaluation Toileting Ability Total Assistance Areas Needing Assistance Empty Catheter or Colostomy, Manage Clothing,Perform Perineal Hygiene OT ADL-Bathing Bathing Type Bathing Type Sponge Bath General Evaluation Bathing Ability Maximal Assistance M5 OT- IP IADL's Start: 11/15/20 15:51 Freq: Status: Active Protocol: Document 11/15/20 14:15 [facility] (Rec: 11/15/20 16:11 [facility] [id number]) OT-Instrumental Activities of Daily Living Home Safety Awareness Home Safety Comments Pt aware that she is not physically capable to care for herself at this time due to her medical issues. M6 OT- IP Functional Cognition Start: 11/15/20 15:51 Freq: Status: Active Protocol: Document 11/22/20 17:24 [facility] (Rec: 11/22/20 17:38 [facility] [id number]) Cognitive Factors Limiting Selfcare Function Cognitive Comments Cognitive Assessment Comments Pt intact for cognition. M7 OT- IP Mobility and Balance Start: 11/15/20 15:51 Freq: Status: Active Protocol: Document 11/22/20 17:24 [facility] (Rec: 11/22/20 17:38 [facility] [id number]) OT- Bed Mobility Assessment Supine to Sit Supine to Sit Assist Standby Assistance,Head of Bed Elevated,Bedrails OT-Transfer Assessment Sit to and From Stand Sit to and from Stand Minimal Assistance,2 Person Assistance Transfers Transfer Ability Moderate Assistance,Maximum Assistance,2 Person Assistance Technique Transfer Destination Bed,Chair Transfer Technique Stand Step Pivot Devices Transfer Assistive Devices Front Wheeled Walker, Mechanical Lift Comments Mobility Comments Pt with bed tilted able to use bed rail to help shift weight side to side to help get to the edge of the bed and then assist to get the bed rail down and able to sit up all the way with increased time, at times having to use her hands to help hold and move her legs. Assist to help get her left leg bend more at the knee and able to stand with KAYODE x 2with FWW with use of momentum and on the count of 3 . Pt able to walk from MODA X 2 to MAX A 2 with bariatric FWW as she tires. 3rd person assist to get the recliner behind her. OT- Balance Assessment Sitting Balance and Reactions Static Sitting Balance Ability Normal Dynamic Sitting Balance Ability Good Standing Balance and Reactions Static Standing Balance Ability Poor M8 OT- IP Objective Assessments Start: 11/15/20 15:51 Freq: Status: Active Protocol: Document 11/15/20 14:15 [facility] (Rec: 11/15/20 16:11 [facility] [id number]) OT Gross Range of Motion Upper Extremity Range of Motion Assessment Bilaterally Impaired OT Strength Upper Extremity Strength Assessment Bilaterally Impaired OT Sensation Assessment Edema Edema Present Edema Comments BUE swelling. M9 OT- IP Assessment and Plan Start: 11/15/20 15:51 Freq: Status: Active Protocol: Document 11/22/20 17:24 [facility] (Rec: 11/22/20 17:38 [facility] [id number]) OT Summary Assessment and Plan Potential Rehabilitation Potential Good Analytic Complexity at Evaluation Moderate Summary OT Impairments Pain,Strength,Balance, Coordination,Functional Mobility,Self-Feeding,Grooming ,Dressing,Toileting,Bathing, Toilet Transfers,Shower Transfers,Activity Tolerance Progress Towards Goals Progressing Toward Goals Assessment Summary Pt continues to make good progress with bed mobility needs and now able to walk with FWW 10ft with MAXA x2. Pt looking to go to skilled rehab tomorrow in [place]. Due to pt's decreased toleration in sitting with legs down as the travel will be many hours pt would benefit from stretcher transport. Pt hope to go to skilled rehab tomorrow. Goals Self-Feeding Goal Independent Grooming Goal Independent Dressing Goal Independent Toileting Goal Independent Bathing Goal Independent Toilet Transfer Goal Independent Shower Transfer Goal Independent Days to Meet Goals 37 Frequency of Treatment Frequency Of Treatment Once a Day Treatment Plan OT Treatment Plan ADL Training,Functional Mobility,Patient/Family Education,Discharge Planning Other Treatment Recommendations and Next UB/LB dressing Treatment Focus Discharge Recommendations OT Discharge Recommendations SNF Rehab Transportation Needs at Discharge Wheelchair/Cabulance
[2020-11-22 18:34] LABS: COVID19 - ADMIT (NP swab/PCR) Negative (Negative)
[2020-11-22 20:31] VITALS: BP 105/66; PULSE 99; RESP 17; TEMP 36.2; O2SAT 94
[2020-11-23] VITALS: BP 113/72; PULSE 81; RESP 16; TEMP 36.4; O2SAT 93
[2020-11-23 03:59] VITALS: BP 126/78; PULSE 84; RESP 16; TEMP 36.6; O2SAT 96
[2020-11-23] MEDS: SODIUM CHLORIDE 0.9% FLUSH 10 ML IV ×2 (05:23→09:02)
[2020-11-23 06:05] LABS: Add Manual Diff / Slide Review NO; Basophils Absolute Auto 0 /uL (0-100); Basophils Percent Auto 0.8 % (0-2); Eosinophils Absolute Auto 200 /uL (0-450); Eosinophils Percent Auto 2.8 % (2-4); Hematocrit 40.6 % (36-46); Hemoglobin 13.1 g/dL (12.0-16.0); Lymphocytes Absolute Auto 1700 /uL (1100-4500); Lymphocytes Percent Auto 27.2 % (25-40); Mean Corpuscular HGB Conc 32.4 % (30-36); Mean Corpuscular Volume 86.4 fL (80-100); Monocytes Absolute Auto 900 /uL (0-900); Monocytes Percent Auto 14.8 % (3-14); Neutrophils Absolute Auto 3400 /uL (1500-7000); Neutrophils Percent Auto 54.4 % (50-75); Platelet Count 389 X10^3/uL (150-400); Red Cell Distribution Width 16.6 % (11.6-14.8); White Blood Cell Count 6.2 X10^3/uL (4.5-11.0)
[2020-11-23 06:25] LABS: Alanine Aminotransferase 61 IU/L (<35); Albumin 3.2 g/dL (3.5-5.0); Albumin Globulin Ratio 0.8 (1.0-2.8); Alkaline Phosphatase 101 U/L (38-126); Aspartate Aminotransferase 52 IU/L (14-36); BUN Creatinine Ratio 27.6 (6-22); Bilirubin Total 0.5 mg/dL (0.2-1.3); Blood Urea Nitrogen 16 mg/dL (7-17); Calcium 9.7 mg/dL (8.4-10.2); Carbon Dioxide 31 mmol/L (22-32); Chloride 100 mmol/L (98-107); Estimated Glomerular Filt Rate > 60.0 mL/min (>60); Glucose 101 mg/dL (80-110); HEMOLYSIS 25 (0-50); Magnesium 1.7 mg/dL (1.6-2.3); Potassium 3.5 mmol/L (3.4-5.1); Sodium 134 mmol/L (137-145); Total Protein 7.2 g/dL (6.3-8.2)
[2020-11-23 08:00] VITALS: BP 115/72; PULSE 92; RESP 22; TEMP 36.4; O2SAT 94
[2020-11-23] MEDS: cefTRIAXone 2,000 MG in SODIUM CHLORIDE 0.9% 100 ML 200 ML IV (08:56)
[2020-11-23] MEDS: METOPROLOL IR 25 MG TABLET 75 MG PO (08:56)
[2020-11-23] MEDS: APIXABAN 5 MG TABLET PO (08:56)
[2020-11-23] MEDS: FUROSEMIDE 20 MG TABLET PO (09:01)
--- NOTE | 2020-11-23 09:16 | PM.DS.1 ---
History of Present Illness History of Present Illness Chief complaint: Chills Narrative: 70-year-old woman with history of hypertension, hyperlipidemia, morbid obesity with chronic lymphedema and chronic venous stasis changes with a wound on the bottom of her left heel that currently is being treated. At 10:00 a.m. this morning she noted that she had uncontrollable chills but did not note a fever. She was unable to get warm and was having such dramatic rigors that she ended up calling 911 for assistance. On their arrival they noted that she had a heart rate in the 180s to 190s that was atrial fibrillation with a rapid ventricular response. She has a single prior episode of this approximately 10 years ago. Initial assumption was that the chills or related to the atrial fibrillation. She is given 25 mg of IV diltiazem with a slight improvement to the chills overall initial temperature medics was normal and she her blood pressure was stable. She denied any cough was having no dysuria had no other specific complaints or concerns was noting that she simply generally did not feel well. No abdominal pain dysuria, vomiting, diarrhea. She was transported to the emergency room and on initial evaluation she appeared generally unwell but was alert and able to give a coherent history. She remained in atrial fibrillation with rapid ventricular response in the 140 range with blood pressures reassuring. Discharge Providers Provider Date of admission: 11/10/20 19:05 Discharge Date: 11/23/20 Primary care physician: Chip Deutsch DO Consults: 11/12/20 19:24 Consult to Dietitian, Adult Routine Comment: Reason For Exam: Patient on Ventilator and NPO 11/13/20 13:04 Consult to Speech Therapy Evaluate & Treat Comment: Physician Instructions: Evaluate and treat 11/13/20 13:05 Consult to Occupational Therapy Evaluate & Treat Comment: Physician Instructions: Evaluate and treat Consult to Physical Therapy Evaluate & Treat Comment: Physician Instructions: Evaluate and Treat 11/14/20 19:35 Consult to Dietitian, Adult Routine Comment: Reason For Exam: skin compromised, obesity, infection. 11/16/20 11:36 Consult to Speech Therapy Evaluate & Treat Comment: Physician Instructions: Evaluate and treat Discharge provider: Russ Silverio MD Summary Hospital Course Discharge Diagnosis: 1. Septic shock due to group B strep bacteremia 2. Bilateral lower extremity cellulitis 3. Chronic lymphedema of lower extremities 4. Acute CHF with preserved EF 5. Chronic respiratory failure with hypercapnia 6. Obstructive sleep apnea 7. Persistent atrial fibrillation with RVR 8. Severe obesity 9. Essential hypertension Patient presented with septic shock with blood cultures from admission growing group B strep bacteria. She was resuscitated and treated with broad-spectrum antibiotics with antibiotics narrowed to ceftriaxone when final cultures came back. Source of bacteremia is lower extremity cellulitis in patient who has chronic lymphedema and previous bouts of cellulitis in the legs. Repeat blood culture on 11/16 was negative. Patient also evaluated by respiratory therapy for obstructive sleep apnea and chronic rest the pamela failure with hypercapnia. She has not required O2. She was not using CPAP at home due to difficulty of fitting the mask. She is doing well with trilogy device. Patient also developed atrial fibrillation with RVR and remains in AFib. Her heart rate is controlled on metoprolol and she was started on Eliquis anticoagulation. She also had acute CHF which was managed with diuresis and controlling her AFib. Patient has been getting daily PT/OT but remains with general deconditioning and diminished mobility. She was living independently prior to this admission. She has favorable prognosis for improvement in strength and mobility and would benefit from fpc rehab which has been arranged at [facility] in [facility]. She has 1 more day left on her 2 week course of IV antibiotic which will end on November 24. Her cellulitis has resolved. She has a superficial skin tear on the left upper thigh which we have been keeping a protective dressing. She has chronic thickening/induration of skin on the left inner thigh in area of prior surgery which is not changed from chronic appearance. She does not have any draining wounds. She is mentating well and cooperative with her care. She still has Best due to decreased mobility but I expect Best can be removed in the next day or 2 as her mobility improves to where she can get more easily to toilet. She was taking daily pantoprazole for acid reflux prior to admission but has not had issues with heartburn in the last 2 weeks without her PPI and therefore ppi discontinued and she can take Tums as needed. May need to restart PPI if having frequent reflux. She has daughter who has been involved and supportive of care. Status at Discharge Cognitive/behavioral status at discharge: oriented Overall status at discharge: patient is not back to baseline Time Spent with Patient Time spent: Greater than 30 minutes Exam Vital Signs (past 8 hours): - 07/02/21 03:59 11/23/20 08:00 Temperature 97.8 F 97.5 F L Pulse Rate 84 92 H Respiratory Rate 16 22 Blood Pressure 126/78 115/72 Pulse Oximetry 96 94 Fraction of Inspired Oxygen 35 Oxygen Delivery Method Room Air,BiPAP Oxygen Flow Rate 0 Objective Labs Result Diagrams: 11/23/20 05:35 11/23/20 05:35 Labs: Laboratory Results - last 24 hr 11/22/20 11/23/20 11/23/20 15:18 05:35 05:35 WBC 6.2 RBC 4.70 Hgb 13.1 Hct 40.6 MCV 86.4 MCH 28.0 MCHC 32.4 RDW 16.6 H Plt Count 389 Neut % (Auto) 54.4 Lymph % (Auto) 27.2 Haines % (Auto) 14.8 H Eos % (Auto) 2.8 Baso % (Auto) 0.8 Neut # (Auto) 3400 Lymph # (Auto) 1700 Haines # (Auto) 900 Eos # (Auto) 200 Baso # (Auto) 0 Sodium 134 L Potassium 3.5 Chloride 100 Carbon Dioxide 31 BUN 16 Creatinine 0.58 Estimated GFR > 60.0 BUN/Creatinine Ratio 27.6 H Glucose 101 Calcium 9.7 Magnesium 1.7 Total Bilirubin 0.5 AST 52 H ALT 61 H Alkaline Phosphatase 101 Total Protein 7.2 Albumin 3.2 L Globulin 4.0 Albumin/Globulin Ratio 0.8 L SARS-CoV-2 (PCR) Negative [facility] History Allergic rhinitis (Unknown) Arthritis (Unknown) Cellulitis of right leg Essential hypertension (09/11/10) GERD (gastroesophageal reflux disease) (Unknown) GERD (gastroesophageal reflux disease) (Unknown) Hyperlipemia (Unknown) Hypertension (Unknown) Lymphedema (Unknown) Mixed hyperlipidemia Morbid obesity due to excess calories Obstructive sleep apnea (Unknown) Obstructive sleep apnea syndrome Staph skin infection Surgical History Hx of total knee replacement (Unknown) Family History Brother Kidney carcinoma Mother Stroke Sister Cancer Father Atrial fibrillation Social History household members: none Smoking Status: Former smoker Tobacco: How many years used: 4 second hand exposure: No alcohol intake: never substance use type: does not use Discharge Plan Discharge Plan Patient Disposition: [facility] Other facility: [facility] Consult as needed: Dental, Hearing, Mental health, Podiatry and Vision Discharge orders & Medications Prescriptions: New ceftriaxone 2 gram Recon Soln 2,000 mg IV Q24H Qty: 1 RF: 0 acetaminophen 325 mg Tablet 650 mg PO Q4HR PRN (Reason: Fever/Mild Pain (1-3)) Qty: 30 RF: 0 Eliquis 5 mg Tablet 5 mg PO BID Qty: 60 RF: 0 loperamide 2 mg Capsule 2 mg PO QID PRN (Reason: Diarrhea) Qty: 20 RF: 0 zinc oxide 20 % Ointment 1 applic topical TID PRN (Reason: Rash) 30 Days RF: 0 furosemide 20 mg Tablet 20 mg PO 0800,1700 Qty: 60 RF: 0 nystatin [Nystop] 100,000 unit/gram Powder 1 applic topical BID PRN (Reason: Rash) 30 Days RF: 0 sodium chloride 0.9 % (flush) [Normal Saline Flush] Syringe 10 ml IV BID Qty: 1000 RF: 0 sodium chloride 0.9 % (flush) [Normal Saline Flush] Syringe 10 ml IV PRN PRN (Reason: Flush) Qty: 1000 RF: 0 metoprolol tartrate 25 mg Tablet 75 mg PO BID Qty: 180 RF: 0 heparin, porcine (PF) 10 unit/mL Syringe 50 unit IV PRN PRN (Reason: Flush) Qty: 60 RF: 0 heparin, porcine (PF) 10 unit/mL Syringe 50 unit IV BID Qty: 60 RF: 0 calcium carbonate [Tums] 200 mg calcium (500 mg) tablet,chewable 200 mg PO QID PRN (Reason: heartburn) Qty: 30 RF: 0 Continued cholecalciferol (vitamin D3) 600 mg PO DAILY RF: 0 CA PANTOTHENATE/FOLIC ACID/VIT (MULTIVITAMIN) 1 tab PO QDAY Qty: 0 RF: 0 [MAGNESIUM] 400 mg PO QDAY Qty: 0 RF: 0 spironolactone 100 mg tablet See Rx Instructions .ROUTE .COMPLEX Qty: 90 RF: 1 simvastatin 40 mg tablet See Rx Instructions .ROUTE .COMPLEX Qty: 90 RF: 0 Cranberry/Probiotic See Rx Instructions .ROUTE .COMPLEX RF: 0 ascorbic acid (vitamin C) 500 mg capsule 500 mg PO BID RF: 0 Discontinued metoprolol tartrate 25 mg tablet See Rx Instructions .ROUTE .COMPLEX Qty: 90 RF: 1 ibuprofen 800 mg tablet See Rx Instructions .ROUTE .COMPLEX Qty: 90 RF: 0 pantoprazole 40 mg tablet,delayed release (DR/EC) See Rx Instructions .ROUTE .COMPLEX Qty: 90 RF: 0 nystatin 100,000 unit/gram powder 1 applictn TOP TID Qty: 120 RF: 6 [place] 3 Fish Oil See Rx Instructions .ROUTE .COMPLEX RF: 0 triamcinolone acetonide 0.5 % cream 1 applic TOP DAILY PRN (Reason: Skin Irritation) RF: 0 cephalexin [Keflex] 750 mg capsule 500 mg PO Q6H Qty: 20 RF: 0 furosemide [Lasix] 40 mg tablet 40 mg PO BID Qty: 60 RF: 0 Follow up/Referrals: Chip Deutsch DO [Primary Care Provider] - Discharge Health Status Multidrug resistant organism: No MDRO Precautions: [place] Diet/Activity/Treatments Diet: Regular Liquid consistency: Normal/Thin Food texture: Regular Activity: per PT Catheter: 2-way Best Catheter comment: Remove best when pt able to ambulate to toilet Skin/Wound/Dressing Care Skin care: apply lotion daily and prn to legs Dressing: apply dressing to superficial skin tear on left upper thigh crease [facility] Rehab type: Physical therapy and Occupational therapy Restrictions to mobility: general deconditioning Discharge Data Primary Care Provider: Chip Deutsch
--- NOTE | 2020-11-23 10:02 | CM.DPNOTE ---
Faxed [employer] [place] form to both [phone] & [phone]. Faxed multiple times and would not go through. Called [phone] and was waiting for half hour until John mendosa, picked up. She does not have any other alternative fax number. She said to make sure that patient has the forms and this would be okay. Jossy Reis CM Asst.
--- NOTE | 2020-11-23 10:17 | PC.NURSE ---
Addendum entered by Marry Dupont R.N. 11/23/20 11:57: Report called to [facility], patient left around 1130. Original Note: Patient is discharging to [facility] in [facility] at 1125. She will be going with her picc line as she will get iv antibiotics tomorrow and also with her best catheter. Patient will tranfer BLS to facility, paperwork done. Please see under physical assessment for skin issues as patient has multiple bruises, cellulitis to legs, fungal under her folds.
--- NOTE | 2020-11-23 11:45 | CM.DPNOTE ---
DC Note DC order and DC Summary completed, PASRR completed and DC med list signed and completed, Jossy VAZQUEZ assisting w/this DCP and all requested DC ppk has been faxed. Plan: DC today to [facility] in [place], via BLS, cpap being delivered to SNF IMM reviewed and provided JW
== END 2020-11-23 11:30 | DRG 871 ==
LOC: ED 17:05 → ICU 19:23 → AC 11-12 15:32 → ICU 11-12 15:32 → AC 11-18 12:01
PROVIDERS: Internal Medicine; Nurse Practitioner Family; Admitting Provider Family Medicine; Emergency Provider Emergency Medicine; PCP Family Medicine; Referring Provider Emergency Medicine; Visit Provider Family Medicine
DX: A40.1 Sepsis due to streptococcus, group B (principal); R65.21 Severe sepsis with septic shock; I50.31 Acute diastolic (congestive) heart failure; J96.22 Acute and chronic respiratory failure with hypercapnia; L03.116 Cellulitis of left lower limb; Z68.44 Body mass index [BMI] 60.0-69.9, adult; L03.115 Cellulitis of right lower limb; I48.20 Chronic atrial fibrillation, unspecified; E66.2 Morbid (severe) obesity with alveolar hypoventilation; D69.6 Thrombocytopenia, unspecified; I89.0 Lymphedema, not elsewhere classified; E78.5 Hyperlipidemia, unspecified; I11.0 Hypertensive heart disease with heart failure; I87.8 Other specified disorders of veins; L30.4 Erythema intertrigo; K21.9 Gastro-esophageal reflux disease without esophagitis; Z20.822 Contact with and (suspected) exposure to COVID-19; Z87.891 Personal history of nicotine dependence
CPT/HCPCS: 31500; 36415; 36573; 36591; 36592; 36600; 51702; 71045; 73620; 80048; 80053; 80202; 81015; 82550; 82805; 82962; 83036; 83605; 83690; 83735; 83880; 84145; 84439; 84443; 84484; 85007; 85025; 85379; 85610; 85651; 86140; 87040; 87070; 87086; 87150; 87186; 87205; 87493; 87633; 87635; 87797; 92526; 92610; 92960; 93005; 93010; 94002; 94003; 94010; 94660; 94799; 96365; 96366; 96368; 96375; 97110; 97116; 97162; 97166; 97530; 97535; 99285; 99291; C9803; C9113; J0330; J0696; J1160; J1170; J1642; J1650; J1885; J1940; J2250; J2543; J2704; J3010; J3475

== ENCOUNTER → 2021-04-16 08:00 | Outpatient (ROUT) | payer MEDICARE, OTHER, SELFPAY ==
[2020-11-10 22:59] VITALS: BMI 61.9
[2020-11-12 16:10] VITALS: RESP 18
[2020-11-13 12:18] VITALS: PULSE 81; RESP 17; O2SAT 96
[2021-04-16 09:25] LABS: Add Manual Diff / Slide Review NO; Basophils Absolute Auto 0 /uL (0-100); Basophils Percent Auto 0.6 % (0-2); Eosinophils Absolute Auto 200 /uL (0-450); Eosinophils Percent Auto 4.1 % (2-4); Hematocrit 39.9 % (36-46); Hemoglobin 13.2 g/dL (12.0-16.0); Lymphocytes Absolute Auto 1100 /uL (1100-4500); Lymphocytes Percent Auto 21.6 % (25-40); Mean Corpuscular HGB Conc 33.2 % (30-36); Mean Corpuscular Volume 90.6 fL (80-100); Monocytes Absolute Auto 500 /uL (0-900); Neutrophils Absolute Auto 3200 /uL (1500-7000); Neutrophils Percent Auto 63.7 % (50-75); Platelet Count 224 X10^3/uL (150-400); Red Cell Distribution Width 14.3 % (11.6-14.8)
[2021-04-16 09:32] LABS: Alanine Aminotransferase 21 IU/L (<35); Albumin 4.2 g/dL (3.5-5.0); Alkaline Phosphatase 88 U/L (38-126); Aspartate Aminotransferase 32 IU/L (14-36); BUN Creatinine Ratio 46.2 (6-22); Bilirubin Total 0.6 mg/dL (0.2-1.3); Blood Urea Nitrogen 48 mg/dL (7-17); Calcium 10.1 mg/dL (8.4-10.2); Carbon Dioxide 33 mmol/L (22-32); Chloride 98 mmol/L (98-107); Estimated Glomerular Filt Rate 52.2 mL/min (>60); Globulin 4.1 g/dL (1.7-4.1); Glucose 85 mg/dL (80-110); HEMOLYSIS < 15 (0-50); Potassium 4.4 mmol/L (3.4-5.1); Sodium 138 mmol/L (137-145); Total Protein 8.3 g/dL (6.3-8.2)
[2021-04-22 19:23] LABS: Bilirubin Urine UA NEGATIVE (NEGATIVE); Color Urine UA YELLOW; Glucose Urine UA NEGATIVE (Negative); Ketones Urine UA NEGATIVE (NEGATIVE); Leukocyte Esterase Urine UA TRACE (NEGATIVE); Nitrite Urine UA NEGATIVE (Negative); Occult Blood Urine UA NEGATIVE (Negative); Protein Urine UA NEGATIVE (Negative); Specific Gravity Urine UA 1.015 (1.000-1.035); Urobilinogen Urine UA 0.2 E.U./dL (0.2)
[2021-04-22 19:30] LABS: Appearance Urine UA Slightly Cloudy; pH Urine UA 5.5 (4.5-8.0)
[2021-04-22 19:31] LABS: Bacteria Urine Many (>30); Culture Indicated Urine Specimen Cultured; RBC Urine None Seen (0-5/HPF); Squamous Epithelial Cell Urine 0-1 /HPF (0-5/HPF); WBC Urine 5-10/HPF (0-5/HPF)
== END ==
PROVIDERS: PCP Family Medicine; Visit Provider Family Medicine
DX: I48.20 Chronic atrial fibrillation, unspecified (principal); N39.0 Urinary tract infection, site not specified
CPT/HCPCS: 36415; 80053; 81001; 85025; 87077; 87086; 87186

== ENCOUNTER → 2021-07-16 22:22 | Outpatient (ROUT) | payer MEDICARE, OTHER, SELFPAY ==
[2020-11-10 22:59] VITALS: BMI 61.9
[2020-11-12 16:10] VITALS: RESP 18
[2020-11-13 12:18] VITALS: PULSE 81; RESP 17; O2SAT 96
[2021-07-16 22:34] LABS: Bilirubin Urine UA NEGATIVE (NEGATIVE); Color Urine UA YELLOW; Glucose Urine UA NEGATIVE (Negative); Ketones Urine UA NEGATIVE (NEGATIVE); Leukocyte Esterase Urine UA 1+ (NEGATIVE); Nitrite Urine UA NEGATIVE (Negative); Occult Blood Urine UA TRACE-LYSED (Negative); Protein Urine UA NEGATIVE (Negative); Urobilinogen Urine UA 0.2 E.U./dL (0.2)
[2021-07-16 22:46] LABS: Appearance Urine UA Slightly Cloudy; pH Urine UA 6.5 (4.5-8.0)
[2021-07-16 22:47] LABS: Bacteria Urine Moderate (10-30); RBC Urine 0-1/HPF (0-5/HPF); WBC Urine 30-100/HPF (0-5/HPF)
[2021-07-16 22:48] LABS: Squamous Epithelial Cell Urine 5-10 /HPF (0-5/HPF)
== END ==
PROVIDERS: PCP Family Medicine; Visit Provider Family Medicine
DX: R60.0 Localized edema (principal)
CPT/HCPCS: 81001; 87086

== ENCOUNTER → 2021-07-23 07:51 | Outpatient (ROUT) | payer MEDICARE, OTHER, SELFPAY ==
[2020-11-10 22:59] VITALS: BMI 61.9
[2020-11-12 16:10] VITALS: RESP 18
[2020-11-13 12:18] VITALS: PULSE 81; RESP 17; O2SAT 96
[2021-07-23 09:25] LABS: Alanine Aminotransferase 21 IU/L (<35); Albumin 3.8 g/dL (3.5-5.0); Albumin Globulin Ratio 0.9 (1.0-2.8); Alkaline Phosphatase 85 U/L (38-126); Aspartate Aminotransferase 27 IU/L (14-36); BUN Creatinine Ratio 37.4 (6-22); Bilirubin Total 0.6 mg/dL (0.2-1.3); Blood Urea Nitrogen 43 mg/dL (7-17); Calcium 9.6 mg/dL (8.4-10.2); Carbon Dioxide 30 mmol/L (22-32); Chloride 96 mmol/L (98-107); Estimated Glomerular Filt Rate 46.5 mL/min (>60); Globulin 4.1 g/dL (1.7-4.1); Glucose 95 mg/dL (80-110); HEMOLYSIS < 15 (0-50); Potassium 3.8 mmol/L (3.4-5.1); Sodium 133 mmol/L (137-145); Total Protein 7.9 g/dL (6.3-8.2)
== END ==
PROVIDERS: PCP Family Medicine; Visit Provider Internal Medicine Clinical Cardiac Electrophysiology
DX: N18.31 Chronic kidney disease, stage 3a (principal)
CPT/HCPCS: 36415; 80053

== ENCOUNTER → 2021-08-25 10:35 | Outpatient (CLI) | payer MEDICARE, OTHER, SELFPAY ==
[2020-11-10 22:59] VITALS: BMI 61.9
[2020-11-12 16:10] VITALS: RESP 18
[2020-11-13 12:18] VITALS: PULSE 81; RESP 17; O2SAT 96
--- NOTE | 2021-08-25 10:37 | DI.RAD.S_ITS ---
PROCEDURE: XR ANKLE LT MIN 3V INDICATIONS: ankle pain TECHNIQUE: 3 views of the ankle were acquired. COMPARISON: None. FINDINGS: Bones: No fractures or dislocations. Ankle mortise is normally aligned. No suspicious bony lesions. No auto text osteopenia. Moderate plantar calcaneal spur Soft tissues: No tibiotalar joint effusion. Achilles tendon appears normal. IMPRESSION: Moderate calcaneal spur. Osteopenia. Approved by: Cristobal Patel M.D. on 08/25/2021 at 13:26
== END ==
PROVIDERS: PCP Family Medicine; Referring Provider Family Medicine; Visit Provider Family Medicine
DX: M77.32 Calcaneal spur, left foot (principal); M85.872 Other specified disorders of bone density and structure, left ankle and foot; M25.572 Pain in left ankle and joints of left foot
CPT/HCPCS: 73610